=== PATIENT | male | born 1970 ===

== ENCOUNTER 2018-05-04 08:09 | Emergency (ER) | payer OTHER ==
[2018-05-04 08:15] VITALS: BMI 25.1
[2018-05-04] MEDS ORDERED: Sodium Chloride 0.9% 1,000 ML IV STA ×3 (08:52→12:29)
--- NOTE | 2018-05-04 08:53 | ED PDOC ---
HPI: Abdomen Time Seen by Provider: 05/04/18 08:26 Chief Complaint (Nursing): Flu-like Symptoms Chief Complaint (Provider): Flu-like Symptoms History Per: Patient History/Exam Limitations: no limitations Onset/Duration Of Symptoms: Days (x2) Current Symptoms Are (Timing): Still Present Additional Complaint(s): 48 year old male with medical history of diabetes type I, presents to the emergency department with father at bedside, for multiple episodes of vomiting associated with abdominal pain, chills, and back pain since yesterday afternoon. Patient states that he has had decreased appetite, however, sugar level was 225 when he checked it this morning. He denies fever or diarrhea. 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 He reports having "a few beers" last on 04/30/18. PCP: Dr. Harpreet Egan in [place] Past Medical History Reviewed: Historical Data, Nursing Documentation, Vital Signs Vital Signs: Last Vital Signs Temp 97 F L 05/04/18 08:17 Pulse 106 H 05/04/18 08:17 Resp 22 05/04/18 08:17 BP 146/109 H 05/04/18 08:17 Pulse Ox 100 05/04/18 08:17 - Medical History PMH: Diabetes (type I), HTN, Hypercholesterolemia - Surgical History Surgical History: No Surg Hx - Family History Family History: States: Unknown Family Hx - Social History Alcohol: Occasional - Immunization History Hx Tetanus Toxoid Vaccination: No Hx Influenza Vaccination: No Hx Pneumococcal Vaccination: No - Home Medications Home Medications: Ambulatory Orders Medication Instructions Recorded Famotidine [Pepcid] 20 mg PO DAILY #14 tab 05/04/18 Omeprazole 20 mg PO DAILY #30 capsule. 05/04/18 - Allergies Allergies/Adverse Reactions: Allergies Allergy/AdvReac Type Severity Reaction Status Date / Time No Known Allergies Allergy Verified 05/04/18 08:28 Review of Systems ROS Statement: Except As Marked, All Systems Reviewed And Found Negative Constitutional: Positive for: Chills. Negative for: Fever Gastrointestinal: Positive for: Vomiting (x3), Abdominal Pain, Other (decreased appetite). Negative for: Diarrhea Musculoskeletal: Positive for: Back Pain Physical Exam - Reviewed Nursing Documentation Reviewed: Yes Vital Signs Reviewed: Yes - Physical Exam Appears: Positive for: Non-toxic, Uncomfortable Head Exam: Positive for: ATRAUMATIC, NORMAL INSPECTION, NORMOCEPHALIC Skin: Positive for: Normal Color Eye Exam: Positive for: Normal appearance, EOMI, PERRL ENT: Positive for: Normal ENT Inspection. Negative for: Pharyngeal Erythema, Tonsillar Swelling Neck: Positive for: Normal, Supple Cardiovascular/Chest: Positive for: Regular Rate, Rhythm Respiratory: Positive for: Normal Breath Sounds. Negative for: Respiratory Distress Gastrointestinal/Abdominal: Positive for: Soft, Tenderness (epigastric) Back: Positive for: Normal Inspection. Negative for: L CVA Tenderness, R CVA Tenderness Extremity: Positive for: Normal ROM (upper/lower) Neurologic/Psych: Positive for: Alert, Oriented - Laboratory Results Result Diagrams: 05/04/18 08:50 05/04/18 08:50 - ECG O2 Sat by Pulse Oximetry: 100 (RA) Pulse Ox Interpretation: Normal - Progress Re-evaluation Time: 14:30 Condition: Re-examined, Improved Medical Decision Making Medical Decision Making: Initial Impression: Abdominal pain; vomiting Differential diagnosis: Acute pancreatitis; gallbladder disease; SBO Initial Plan: * CT ABD/pelvis * Labs * IV fluids * Pepcid 20mg IVP * Zofran 4mg IVP Time: 1132 --CT ABD/pelvis FINDINGS: LOWER THORAX: Unremarkable. LIVER: Diffusely diminished attenuation consistent with fatty infiltration. Smooth contour. No mass. No biliary dilatation. Mild hepatomegaly. GALLBLADDER AND BILE DUCTS: Cholelithiasis. No mural thickening or pericholecystic fluid. PANCREAS: Mildly atrophic. No mass identified. Questionable multifocal segmental ductal dilatation. This may be seen in association with chronic pancreatitis. No pancreatic calcification identified.. SPLEEN: Unremarkable. ADRENALS: Unremarkable. No mass. KIDNEYS AND URETERS: Unremarkable. No hydronephrosis. No solid mass. VASCULATURE: Unremarkable. No aortic aneurysm. There is mild atherosclerotic calcification of the abdominal aorta. BOWEL: Unremarkable. No obstruction. No gross mural thickening. APPENDIX: Normal appendix. PERITONEUM: Unremarkable. No free fluid. No free air. LYMPH NODES: Shotty subcentimeter mesenteric nodes are identified. There is no retroperitoneal or pelvic lymphadenopathy identified. BLADDER: Unremarkable. REPRODUCTIVE: Normal prostate BONES: No acute fracture. OTHER FINDINGS: None. IMPRESSION: Fatty infiltration of the liver. Pancreatic atrophy with possible multifocal segmental ductal dilatation. This may be seen in association with chronic pancreatitis despite the absence of pancreatic calcifications. Correlate clinically. Shotty subcentimeter mesenteric lymph nodes are noted, nonspecific. No additional abnormality. Time: 1228 --US gallbladder and IV fluids additionally ordered for persistent epigastric pain. Time: 1422 --US gallbladder FINDINGS: LIVER: Measures 16.8 cm in length. There is diffuse increased echogenicity of the liver parenchyma. No mass. No intrahepatic bile duct dilatation. GALLBLADDER: There are gallstones. No wall thickening or pericholecystic fluid. The sonographic Moyer's sign is negative. There is also a 6 x 4 x 7 mm polypoid echogenic lesion along the posterior gallbladder wall without central flow on color Doppler imaging. COMMON BILE DUCT: Measures 2.9 mm. No stones. No dilatation. PANCREAS: Unremarkable as visualized. No mass. No ductal dilatation. RIGHT KIDNEY: Measures 11.8 cm in length. Normal echogenicity. No calculus, mass, or hydronephrosis. AORTA: No aneurysmal dilatation. IVC: Unremarkable. OTHER FINDINGS: None . IMPRESSION: Cholelithiasis. Suspect 7 mm gallbladder polyp along the posterior wall. Follow-up in 6-12 m onth interval is recommended to assess stability. Mild hepatomegaly. Fatty liver. Scribe Attestation: Documented by Raquel Haywood, acting as a scribe for Kayleigh Mackey MD. Provider Scribe Attestation: All medical record entries made by the Scribe were at my direction and personally dictated by me. I have reviewed the chart and agree that the record accurately reflects my personal performance of the history, physical exam, medical decision making, and the department course for this patient. I have also personally directed, reviewed, and agree with the discharge instructions and disposition. Disposition - Clinical Impression Clinical Impression: Abdominal pain, Gallstones - Patient ED Disposition Is Patient to be Admitted: No Doctor Will See Patient In The: Office Counseled Patient/Family Regarding: Studies Performed, Diagnosis, Need For Followup - Disposition Referrals: Lionel Robles MD [Staff Provider] - Santo Hinton MD, PhD [Staff Provider] - Disposition: Routine/Home Disposition Time: 14:30 Condition: GOOD Additional Instructions: KARISHMA RAYMOND, thank you for letting us take care of you today. Your provider was Kayleigh Mackey MD and you were treated for VOMITING; DIZZY. The emergency medical care you received today was directed at your acute symptoms. If you were prescribed any medication, please fill it and take as directed. It may take several days for your symptoms to resolve. Return to the Emergency Department if your symptoms worsen, do not improve, or if you have any other problems. Please contact your doctor or call one of the physicians/clinics you have been referred to that are listed on the Patient Visit Information form that is included in your discharge packet. Bring any paperwork you were given at discharge with you along with any medications you are taking to your follow up visit. Our treatment cannot replace ongoing medical care by a primary care provider outside of the emergency department. Thank you for allowing the [facility] team to be part of your care today. If you had an X-Ray or CT scan: A Radiologist will review the ED reading if any change in treatment is needed we will contact you. If you had a blood, urine, or wound culture: It will take several days for the results, if any change in treatment is needed we will contact you. If you had an STI test: It will take 48 hours for the results. Please call after 1 week if you have not heard back. Prescriptions: Famotidine [Pepcid] 20 mg PO DAILY #14 tab Omeprazole 20 mg PO DAILY #30 capsule.dr Instructions: Gallstones, Stomach Ache and Stomach Upset Forms: [employer] ([place])
[2018-05-04 09:11] LABS: BASO # 0.1 K/uL (0.0-0.2); HEMOGLOBIN 14.3 g/dL (12.0-18.0); LYMPH % 10.4 % (20.0-40.0); MEAN CELL VOLUME 95.6 fl (80.0-94.0); MEAN CORPUSCULAR HEMOGLOBIN 32.2 pg (27.0-31.0); MEAN CORPUSCULAR HGB CONC 33.7 g/dL (33.0-37.0); MONO # 0.4 K/uL (0.0-0.8); MONO % 4.3 % (0.0-10.0); NEUT % 84.3 % (50.0-75.0); RBC 4.43 Mil/uL (4.40-5.90); RED CELL DISTRIBUTION WIDTH 12.4 % (11.5-14.5); WHITE BLOOD COUNT 9.4 K/uL (4.8-10.8)
[2018-05-04 09:21] LABS: ALB/GLOB RATIO 1.5 (1.0-2.1); ALBUMIN 5.5 g/dL (3.5-5.0); ALT/SGPT 42 U/L (21-72); AST/SGOT 44 U/L (17-59); BLOOD UREA NITROGEN 18 mg/dl (9-20); CALCIUM 10.4 mg/dL (8.4-10.2); GFR NON-AFRICAN AMERICAN > 60; LIPASE 15 U/L (23-300)
[2018-05-04] MEDS ORDERED: Iohexol 300 100 ML IJ ONE (10:11)
[2018-05-04] MEDS ORDERED: Sodium Chloride 0.9% 50 ML IV ONE (10:12)
[2018-05-04 11:27] LABS: ABG ALLEN TEST YES; ARTERIAL BLOOD GAS HEMOGLOBIN 13.8 g/dL (11.7-17.4); ARTERIAL BLOOD GAS O2 CAPACITY 18.4 mL/dL (16-24); ARTERIAL BLOOD GAS O2 CONTENT 18.3 ML/dL (15-23); ARTERIAL BLOOD GAS O2 SAT 99.2 % (95-98); ARTERIAL BLOOD GAS PCO2 34 mm/Hg (35-45); ARTERIAL BLOOD GAS PH 7.43 (7.35-7.45); ARTERIAL BLOOD GAS PO2 102 mm/Hg (80-100); ARTERIAL BLOOD GAS TCO2 23.6 mmol/L (22-28)
--- NOTE | 2018-05-04 11:35 | CT ---
Date of service: 05/04/2018 PROCEDURE: CT Abdomen and Pelvis with contrast HISTORY: vomiting epigastric pain COMPARISON: None. TECHNIQUE: Contrast dose: 95 cc Omnipaque 300 Radiation dose: Total exam DLP = 563.6 mGy-cm. This CT exam was performed using one or more of the following dose reduction techniques: Automated exposure control, adjustment of the mA and/or kV according to patient size, and/or use of iterative reconstruction technique. FINDINGS: LOWER THORAX: Unremarkable. LIVER: Diffusely diminished attenuation consistent with fatty infiltration. Smooth contour. No mass. No biliary dilatation. Mild hepatomegaly. GALLBLADDER AND BILE DUCTS: Cholelithiasis. No mural thickening or pericholecystic fluid. PANCREAS: Mildly atrophic. No mass identified. Questionable multifocal segmental ductal dilatation. This may be seen in association with chronic pancreatitis. No pancreatic calcification identified.. SPLEEN: Unremarkable. ADRENALS: Unremarkable. No mass. KIDNEYS AND URETERS: Unremarkable. No hydronephrosis. No solid mass. VASCULATURE: Unremarkable. No aortic aneurysm. There is mild atherosclerotic calcification of the abdominal aorta. BOWEL: Unremarkable. No obstruction. No gross mural thickening. APPENDIX: Normal appendix. PERITONEUM: Unremarkable. No free fluid. No free air. LYMPH NODES: Shotty subcentimeter mesenteric nodes are identified. There is no retroperitoneal or pelvic lymphadenopathy identified. BLADDER: Unremarkable. REPRODUCTIVE: Normal prostate BONES: No acute fracture. OTHER FINDINGS: None. IMPRESSION: Fatty infiltration of the liver. Pancreatic atrophy with possible multifocal segmental ductal dilatation. This may be seen in association with chronic pancreatitis despite the absence of pancreatic calcifications. Correlate clinically. Shotty subcentimeter mesenteric lymph nodes are noted, nonspecific. No additional abnormality.
[2018-05-04 11:36] VITALS: PULSE 89
--- NOTE | 2018-05-04 14:26 | US ---
Date of service: 05/04/2018 HISTORY: Epigastric pain COMPARISON: CT abdomen and pelvis from 05/04/2018 TECHNIQUE: Grayscale imaging was performed. FINDINGS: LIVER: Measures 16.8 cm in length. There is diffuse increased echogenicity of the liver parenchyma. No mass. No intrahepatic bile duct dilatation. GALLBLADDER: There are gallstones. No wall thickening or pericholecystic fluid. The sonographic Moyer's sign is negative. There is also a 6 x 4 x 7 mm polypoid echogenic lesion along the posterior gallbladder wall without central flow on color Doppler imaging. COMMON BILE DUCT: Measures 2.9 mm. No stones. No dilatation. PANCREAS: Unremarkable as visualized. No mass. No ductal dilatation. RIGHT KIDNEY: Measures 11.8 cm in length. Normal echogenicity. No calculus, mass, or hydronephrosis. AORTA: No aneurysmal dilatation. IVC: Unremarkable. OTHER FINDINGS: None . IMPRESSION: Cholelithiasis. Suspect 7 mm gallbladder polyp along the posterior wall. Follow-up in 6-12 month interval is recommended to assess stability. Mild hepatomegaly. Fatty liver.
[2018-05-04 15:05] VITALS: BP 132/74; RESP 19; TEMP 98.6
--- NOTE | 2018-05-04 18:21 | CARD ---
APPROVED REPORT Date of service: 05/04/2018 EKG Measurement Heart [id number] <Conclusion> Sinus tachycardia with occasional premature ventricular complexes Otherwise normal ECG
[2018-05-05 10:59] VITALS: O2SAT 100
== END 2018-05-04 15:06 | disposition home or self-care (01) ==
LOC: H.ER 08:09
DX: R10.9 Unspecified abdominal pain (principal); K80.20 Calculus of gallbladder without cholecystitis without obstruction; E78.00 Pure hypercholesterolemia, unspecified; I10 Essential (primary) hypertension; K76.0 Fatty (change of) liver, not elsewhere classified; Z79.4 Long term (current) use of insulin
CPT/HCPCS: 36600; 74177; 76705; 80053; 82803; 82948; 83690; 85025; 93005; 96374; 96375; 99284; J2405; J7030; Q9967

== ENCOUNTER 2018-05-14 11:05 | Inpatient (IN) | payer OTHER ==
[2018-05-14 11:09] VITALS: BMI 24.4
[2018-05-14] MEDS ORDERED: Sodium Chloride 0.9% 1,000 ML IV STA ×4 (11:27→15:09)
--- NOTE | 2018-05-14 11:38 | ED PDOC ---
HPI: General Adult Time Seen by Provider: 05/14/18 11:13 Chief Complaint (Nursing): GI Problem Chief Complaint (Provider): Nausea, vomiting, low back pain History Per: Patient, Family History/Exam Limitations: no limitations Onset/Duration Of Symptoms: Hrs (this morning) Current Symptoms Are (Timing): Still Present Additional Complaint(s): Quique Reilly is a 48 year old male, with a past medical history of diabetes, who was brought to the emergency department by EMS and accompanied by parents for evaluation of nausea, vomiting, and low back pain onset this mo rning. Patient further states he is not able to see and feels dizzy. Patient admits drinking vodka at home last night and parents state he went to bed at 23:00 which is normal for him. Mother reports patient's sugar level was in the 300s this morning. Patient was seen in the ED x1 week ago and diagnosed with cholelithiasis. Patient denies any fever, chills, headache, fall or head injuries, chest pain, shortness of breath, abdominal pain, diarrhea, weakness, numbness or tingling. No further medical complaints. PMD: Dr. Egan Past Medical History Reviewed: Historical Data, Nursing Documentation, Vital Signs Vital Signs: Last Vital Signs Temp 96.0 F L 05/14/18 11:13 Pulse 158 H 05/14/18 11:13 Resp 20 05/14/18 11:13 BP 110/87 05/14/18 11:13 Pulse Ox 100 05/14/18 11:13 - Medical History PMH: Diabetes (type I), HTN, Hypercholesterolemia - Surgical History Surgical History: No Surg Hx - Family History Family History: States: Unknown Family Hx - Social History Alcohol: Social - Immunization History Hx Tetanus Toxoid Vaccination: No Hx Influenza Vaccination: No Hx Pneumococcal Vaccination: No - Home Medications Home Medications: Ambulatory Orders Medication Instructions Recorded Unobtainable 05/14/18 - Allergies Allergies/Adverse Reactions: Allergies Allergy/AdvReac Type Severity Reaction Status Date / Time No Known Allergies Allergy Verified 05/04/18 08:28 Review of Systems ROS Statement: Except As Marked, All Systems Reviewed And Found Negative Constitutional: Negative for: Fever, Chills Eyes: Positive for: Vision Change Cardiovascular: Negative for: Chest Pain Respiratory: Negative for: Shortness of Breath Gastrointestinal: Positive for: Nausea, Vomiting. Negative for: Abdominal Pain, Diarrhea Musculoskeletal: Positive for: Back Pain (lower) Neurological: Positive for: Dizziness. Negative for: Weakness, Numbness (tingling), Headache Physical Exam - Reviewed Nursing Documentation Reviewed: Yes Vital Signs Reviewed: Yes - Physical Exam Appears: Positive for: No Acute Distress Head Exam: Positive for: ATRAUMATIC, NORMAL INSPECTION, NORMOCEPHALIC Skin: Positive for: Normal Color, Warm, Dry Eye Exam: Positive for: Normal appearance, EOMI, Other (Pinpoint pupils) Neck: Positive for: Normal, Painless ROM Cardiovascular/Chest: Positive for: Regular Rate, Rhythm. Negative for: Murmur Respiratory: Positive for: Normal Breath Sounds. Negative for: Respiratory Distress Gastrointestinal/Abdominal: Positive for: Normal Exam, Soft. Negative for: Tenderness Back: Positive for: Normal Inspection. Negative for: L CVA Tenderness, R CVA Tenderness, Vertebral Tenderness Extremity: Positive for: Normal ROM (upper and lower extremities). Negative for: Deformity, Swelling Neurological/Psych: Positive for: Awake, Alert (arousable to tactile stimuli), Normal Tone, Oriented - Laboratory Results Result Diagrams: 05/14/18 11:32 05/14/18 11:32 - ECG ECG Rhythm: Positive for: Sinus Tachycardia, Atrial Fibrillation (with RVR) Rate: 158 O2 Sat by Pulse Oximetry: 100 (RA) Pulse Ox Interpretation: Normal - Core Measure Core Measure Indicators: Code Sepsis - Critical Care Total Time (In Min): 200 Medical Decision Making Medical Decision Making: Time: 11:13 Initial Impression: Nausea, vomiting Initial Plan: --ABG Shock Panel --Head CT --EKG --Alcohol serum --CMP --Drug screen, urine --Lipase --TSH --Troponin I --Urine dipstick --CBC w/ differential --PTT --PT --Chest portable [RAD] --NaCl 1,000 ml IV 1,000 mls/hr --Urinalysis --Reevaluation 11:20 -Glucose level is 327 11:37 -Labs show wbc of 23.6 12:[address] FINDINGS: HEMORRHAGE: No intracranial hemorrhage. BRAIN: No mass effect or edema. Mild diffuse cerebral cortical atrophy is noted, greater than expected for the patient's age. No cortical effacement is noted. Minimal small vessel changes are not excluded as well as a probable small area of white matter infarct in the posterior right parietal lobe on axial image 21 series 2. No extra-axial fluid collection is seen. VENTRICLES: Unremarkable. No hydrocephalus. CALVARIUM: Unremarkable. PARANASAL SINUSES: Unremarkable as visualized. No significant inflammatory changes. MASTOID AIR CELLS: Unremarkable as visualized. No inflammatory changes. OTHER FINDINGS: None. IMPRESSION: No evidence of intracranial hemorrhage or recent infarct. Nonspecific cerebral cortical atrophy and probable scattered white matter changes greater than expected for the patient's age. 13:06 CXR FINDINGS: LUNGS: No active pulmonary disease. PLEURA: No significant pleural effusion identified, no pneumothorax apparent. CARDIOVASCULAR: No appreciable aortic atherosclerotic calcification present. Normal cardiac size. No pulmonary vascular congestion. OSSEOUS STRUCTURES: No significant abnormalities. VISUALIZED UPPER ABDOMEN: Normal. OTHER FINDINGS: None. IMPRESSION: No active disease. 13:05 ABG shows pCO2: 16, bicarb: 0.7, pH 6.81. Lactate is 16.1 13:10 -Rectal temp done and is 92.5. Code sepsis was initiated. LP verbal consent obtained from patient, witnessed by Gely BENITES. Bear hugger placed and 2nd line established. Given Rocephin and Vancomycin. Patient states he is now able to see. Accession No. : [id number] Patient Name / ID : MANDI Collado / [id number] Exam Date : 05/14/2018 12:31:23 ( Approved ) Study Comment : Sex / Age : M / 48Y Creator : Debra Díaz MD Dictator : Debra Díaz MD Grinding Supervisor : Data Center Manager : Debra Díaz MD Approver2 : Report Date : 05/14/2018 13:53:15 My Comment : This report is currently processing and HAS NOT BEEN OFFICIALLY SIGNED BY THE PHYSICIAN - ESTIMATED TIME OF APPROVAL IS 05/14/2018 13:58. Date of service: 05/14/2018 PROCEDURE: CT Abdomen and Pelvis with contrast HISTORY: Back pain COMPARISON: 05/04/2018 CT scan TECHNIQUE: Contrast dose: 95 milliliters Radiation dose: Total exam DLP = 597.15 mGy-cm. This CT exam was performed using one or more of the following dose reduction techniques: Automated exposure control, adjustment of the mA and/or kV according to patient size, and/or use of iterative reconstruction technique. FINDINGS: LOWER THORAX: No new infiltrate or effusion is seen. Visualized esophagus is fluid-filled with small hiatal hernia. Reflux should be excluded clinically. There is some moderate fluid and distention of the stomach also noted. An element of gastritis cannot be excluded. Duodenum is otherwise unremarkable. LIVER: Liver is once again severely fatty infiltrated. No appreciable focal liver mass or intrahepatic ductal dilatation is seen. GALLBLADDER AND BILE DUCTS: There is interval change in the appearance of the gallbladder from the prior examination, with some new areas of low density surrounding the gallbladder s uggesting either some gallbladder wall thickening or pericholecystic fluid. Common bile duct is not appear to be significantly dilated and no appreciable common bile duct stone is noted. PANCREAS: Pancreas is predominately atrophied without evidence of new mass. Minimal amount of haziness adjacent to the pancreas may suggest some minor pancreatitis but should be correlated with laboratory values. SPLEEN: Unremarkable. ADRENALS: Unremarkable. No mass. KIDNEYS AND URETERS: Unremarkable. No hydronephrosis. No solid mass. VASCULATURE: Unremarkable. No aortic aneurysm. Minor aortic atherosclerotic calcification or mural plaque present. BOWEL: There is evidence of moderate residual fecal material throughout the colon. However in addition there appears to be some new areas of mild colonic wall thickening greater within the proximal right colon but also some portions seen in the transverse colon. Finding may suggest mild colitis or be related to some chronic constipation. Terminal ileum is unremarkable. No small bowel obstruction is noted. No small bowel fold thickening is clearly seen. APPENDIX: No right lower quadrant inflammatory process is seen to suggest appendicitis. Appendix is grossly normal in outline. PERITONEUM: No free intraperitoneal air is seen. No appreciable ascites elsewhere. Visualized mesentery shows some small scattered shotty LYMPH NODES: Without significant induration. BLADDER: Bladder is moderately distended. No wall thickening is seen. REPRODUCTIVE: Unremarkable. BONES: No acute fracture. OTHER FINDINGS: None. IMPRESSION: Distended in fluid-filled stomach with some possible mild antral wall thickening which may suggest antritis and gastritis. There is additionally nonspecific low density surrounding the gallbladder, new from the prior study. This would suggest gallbladder wall thickening and/or pericholecystic fluid. No appreciable bile duct dilatation. Minor amount of haziness surrounding the pancreas may suggest minor pancreatitis. Additional mild colonic wall thickening and moderate amounts of residual fecal material throughout the colon suggesting either chronic constipation and/or mild colitis. Distended urinary bladder. Moderate fatty infiltration of the liver. 13:45 Case discussed with 14:00 Dr. Haim gan. Scribe Attestation: Documented by Ang Mina, acting as a scribe for Adri Segura MD Provider Scribe Attestation: All medical record entries made by the Scribe were at my direction and personally dictated by me. I have reviewed the chart and agree that the record accurately reflects my personal performance of the history, physical exam, medi michelle decision making, and the department course for this patient. I have also personally directed, reviewed, and agree with the discharge instructions and disposition. Time: 1421 -- Dr. Sanchez in the ED evaluating the patient and recommended an insulin drop and Flagyl. -- Repeat ABG -- General Surgery Consult -- Glucose, POC -- Dextrose 50% Inj See Protocol IV -- Flagyl 500mg/100ml NS 100 ml IV -- Glucagen Diagnostic Kit See Prorotol IM -- Glutose 15 See Protocol PO Once -- Sodium Chloride 0.9% 1000 ml IV 1000 mls/hr -- Sodium Chloride 0.9% 100 ml Insulin Human Regular 100 units IV 8 units/hr -- Glucose, Blood, POC -- Hypoglycemia Oral Treatment PRN -- Notify M.Sandrine Protocol Scribe Attestation: Documented by Crystal Fabian, acting as a scribe Xi Segura MD. Provider Scribe Attestation: All medical record entries made by the Scribe were at my direction and personally dictated by me. I have reviewed the chart and agree that the record accurately reflects my personal performance of the history, physical exam, medical decision making, and the department course for this patient. I have also personally directed, reviewed, and agree with the discharge instructions and disposition. Procedures - Central Line Central Line Lumen: triple Central Line Procedure: betadine prep, sterile drapes applied, sterile dressing applied Central Line Postion: femoral (R) Anesthesia: Lidocaine Complications: none Central Line Post Position: good blood return Disposition - Clinical Impression Clinical Impression: Sepsis, DKA (diabetic ketoacidoses) - Patient ED Disposition Is Patient to be Admitted: Yes - Disposition Disposition Time: 13:52 Condition: CRITICAL - Pt Status Changed To: Hospital Disposition Of: Inpatient - Admit Certification Admit to Inpatient:: After my assessment, the patient will require hospitalization for at least two midnights. This is because of the severity of symptoms shown, intensity of services needed, and/or the medical risk in this patient being treated as an outpatient. - POA Present On Arrival: Poor Glycemic Control Lumbar Puncture - Time Out Time Out: Side verified, Site verified, Patient ID confirmed - Consent obtained Consent obtained: Verbal - Performed by Performed by: Attending Physician - Contraindications Contraindications: None - Patient Position Patient position: Sitting - Local Anesthetic Local Anesthetic: 5 ccs 1% Lidocaine Location: L4/L5 - Post-procedure Post-procedure: Patient laid flat - Complications Complications: None - Patient tolerated procedure Patient tolerated procedure: Well
[2018-05-14 11:54] LABS: BASO # 0.2 K/uL (0.0-0.2); BASO % 0.9 % (0.0-2.0); EOS % 0.2 % (0.0-4.0); HEMOGLOBIN 13.1 g/dL (12.0-18.0); LYMPH # 4.1 K/uL (1.0-4.3); LYMPH % 17.2 % (20.0-40.0); MEAN CELL VOLUME 104.6 fl (80.0-94.0); MEAN CORPUSCULAR HEMOGLOBIN 31.6 pg (27.0-31.0); MEAN CORPUSCULAR HGB CONC 30.2 g/dL (33.0-37.0); MEAN PLATELET VOLUME 8.5 fl (7.2-11.7); MONO # 2.2 K/uL (0.0-0.8); MONO % 9.3 % (0.0-10.0); NEUT # 17.1 K/uL (1.8-7.0); NEUT % 72.4 % (50.0-75.0); NRBC % 0.4 % (0.0-0.0); RBC 4.14 Mil/uL (4.40-5.90); RED CELL DISTRIBUTION WIDTH 13.4 % (11.5-14.5); WHITE BLOOD COUNT 23.6 K/uL (4.8-10.8)
[2018-05-14 12:19] LABS: INR 0.9; PROTHROMBIN TIME 10.3 Seconds (9.8-13.1)
[2018-05-14] MEDS ORDERED: Iodixanol 320 MG/ML 100 ML BOTTLE IV ONE (12:21)
[2018-05-14] MEDS ORDERED: Sodium Chloride 0.9% 50 ML IV ONE (12:21)
[2018-05-14 12:22] LABS: PARTIAL THROMBOPLASTIN TIME 39.7 Seconds (25.6-37.1)
--- NOTE | 2018-05-14 12:30 | CT ---
Date of service: 05/14/2018 PROCEDURE: CT HEAD WITHOUT CONTRAST. HISTORY: Vertigo COMPARISON: None available. TECHNIQUE: Axial computed tomography images were obtained through the head/brain without intravenous contrast. Radiation dose: Total exam DLP = 1147.32 mGy-cm. This CT exam was performed using one or more of the following dose reduction techniques: Automated exposure control, adjustment of the mA and/or kV according to patient size, and/or use of iterative reconstruction technique. FINDINGS: HEMORRHAGE: No intracranial hemorrhage. BRAIN: No mass effect or edema. Mild diffuse cerebral cortical atrophy is noted, greater than expected for the patient's age. No cortical effacement is noted. Minimal small vessel changes are not excluded as well as a probable small area of white matter infarct in the posterior right parietal lobe on axial image 21 series 2. No extra-axial fluid collection is seen. VENTRICLES: Unremarkable. No hydrocephalus. CALVARIUM: Unremarkable. PARANASAL SINUSES: Unremarkable as visualized. No significant inflammatory changes. MASTOID AIR CELLS: Unremarkable as visualized. No inflammatory changes. OTHER FINDINGS: None. IMPRESSION: No evidence of intracranial hemorrhage or recent infarct. Nonspecific cerebral cortical atrophy and probable scattered white matter changes greater than expected for the patient's age.
[2018-05-14 13:01] LABS: ABG ALLEN TEST YES; ARTERIAL BLOOD GAS HCO3 0.7 mmol/L (21-28); ARTERIAL BLOOD GAS O2 SAT 99.2 % (95-98); ARTERIAL BLOOD GAS PCO2 16 mm/Hg (35-45); ARTERIAL BLOOD GAS PH 6.81 (7.35-7.45); ARTERIAL BLOOD GAS PO2 153 mm/Hg (80-100)
[2018-05-14] MEDS ORDERED: cefTRIAXone 2 GM in Sodium Chloride 0.9% 100 ML IVPB STA (13:10)
--- NOTE | 2018-05-14 13:10 | RAD ---
Date of service: 05/14/2018 HISTORY: Back pain COMPARISON: No prior. FINDINGS: LUNGS: No active pulmonary disease. PLEURA: No significant pleural effusion identified, no pneumothorax apparent. CARDIOVASCULAR: No appreciable aortic atherosclerotic calcification present. Normal cardiac size. No pulmonary vascular congestion. OSSEOUS STRUCTURES: No significant abnormalities. VISUALIZED UPPER ABDOMEN: Normal. OTHER FINDINGS: None. IMPRESSION: No active disease.
[2018-05-14] MEDS ORDERED: Vancomycin 1 g Inj ONE (13:14)
[2018-05-14 13:17] LABS: ALB/GLOB RATIO 1.6 (1.0-2.1); ALBUMIN 5.2 g/dL (3.5-5.0); ALT/SGPT 111 U/L (21-72); AST/SGOT 176 U/L (17-59); BLOOD UREA NITROGEN 11 mg/dl (9-20); CALCIUM 8.8 mg/dL (8.4-10.2); GFR NON-AFRICAN AMERICAN 59; LIPASE 69 U/L (23-300)
[2018-05-14] MEDS ORDERED: Lidocaine Hydrochloride 1% 10 ML ONE (13:17)
[2018-05-14] MEDS ORDERED: Sodium Bicarbonate 4.2% Inj (Infant) IVP STA (13:33)
[2018-05-14] MEDS ORDERED: Sodium Bicarbonate 7.5% (0.9 MEQ/ML) 50ML INJ IV STA ×2 (13:39→13:40)
[2018-05-14] MEDS ORDERED: Sodium Bicarbonate (8.4%) 50 Meq Syringe ONE (13:45)
[2018-05-14] MEDS ORDERED: Sodium Bicarbonate (8.4%) 50 Meq Syringe IVP STA ×2 (13:51→13:52)
--- NOTE | 2018-05-14 13:57 | CT ---
Date of service: 05/14/2018 PROCEDURE: CT Abdomen and Pelvis with contrast HISTORY: Back pain COMPARISON: 05/04/2018 CT scan TECHNIQUE: Contrast dose: 95 milliliters Radiation dose: Total exam DLP = 597.15 mGy-cm. This CT exam was performed using one or more of the following dose reduction techniques: Automated exposure control, adjustment of the mA and/or kV according to patient size, and/or use of iterative reconstruction technique. FINDINGS: LOWER THORAX: No new infiltrate or effusion is seen. Visualized esophagus is fluid-filled with small hiatal hernia. Reflux should be excluded clinically. There is some moderate fluid and distention of the stomach also noted. An element of gastritis cannot be excluded. Duodenum is otherwise unremarkable. LIVER: Liver is once again severely fatty infiltrated. No appreciable focal liver mass or intrahepatic ductal dilatation is seen. GALLBLADDER AND BILE DUCTS: There is interval change in the appearance of the gallbladder from the prior examination, with some new areas of low density surrounding the gallbladder suggesting either some gallbladder wall thickening or pericholecystic fluid. Common bile duct is not appear to be significantly dilated and no appreciable common bile duct stone is noted. PANCREAS: Pancreas is predominately atrophied without evidence of new mass. Minimal amount of haziness adjacent to the pancreas may suggest some minor pancreatitis but should be correlated with laboratory values. SPLEEN: Unremarkable. ADRENALS: Unremarkable. No mass. KIDNEYS AND URETERS: Unremarkable. No hydronephrosis. No solid mass. VASCULATURE: Unremarkable. No aortic aneurysm. Minor aortic atherosclerotic calcification or mural plaque present. BOWEL: There is evidence of moderate residual fecal material throughout the colon. However in addition there appears to be some new areas of mild colonic wall thickening greater within the proximal right colon but also some portions seen in the transverse colon. Finding may suggest mild colitis or be related to some chronic constipation. Terminal ileum is unremarkable. No small bowel obstruction is noted. No small bowel fold thickening is clearly seen. APPENDIX: No right lower quadrant inflammatory process is seen to suggest appendicitis. Appendix is grossly normal in outline. PERITONEUM: No free intraperitoneal air is seen. No appreciable ascites elsewhere. Visualized mesentery shows some small scattered shotty LYMPH NODES: Without significant induration. BLADDER: Bladder is moderately distended. No wall thickening is seen. REPRODUCTIVE: Unremarkable. BONES: No acute fracture. OTHER FINDINGS: None. IMPRESSION: Distended in fluid-filled stomach with some possible mild antral wall thickening which may suggest antritis and gastritis. There is additionally nonspecific low density surrounding the gallbladder, new from the prior study. This would suggest gallbladder wall thickening and/or pericholecystic fluid. No appreciable bile duct dilatation. Minor amount of haziness surrounding the pancreas may suggest minor pancreatitis. Additional mild colonic wall thickening and moderate amounts of residual fecal material throughout the colon suggesting either chronic constipation and/or mild colitis. Distended urinary bladder. Moderate fatty infiltration of the liver.
[2018-05-14 14:11] LABS: URINE AMORPHOUS SEDIMENT RARE /ul (<OCC); URINE BACTERIA RARE (<OCC); URINE BILIRUBIN NEGATIVE (NEGATIVE); URINE BLOOD SMALL (NEGATIVE); URINE CLARITY CLOUDY (Clear); URINE COLOR YELLOW (YELLOW); URINE GLUCOSE (UA) >=500 mg/dL (NEGATIVE); URINE LEUKOCYTE ESTERASE NEG Leu/uL (Negative); URINE PROTEIN 100 mg/dL (NEGATIVE); URINE UROBILINOGEN 0.2-1.0 mg/dL (0.2-1.0)
[2018-05-14] MEDS ORDERED: Dextrose 50% SYRINGE Inj (50 ml) IV PRN ×2 (14:18→16:21)
[2018-05-14] MEDS ORDERED: Glucagon Recombinant 1 mg Inj IM PRN ×2 (14:18→16:21)
[2018-05-14] MEDS ORDERED: metroNIDAZOLE 500mg/100ml NS 100 ML IV STA (14:19)
[2018-05-14] MEDS ORDERED: metroNIDAZOLE 500mg/100ml NS 100 ML IVPB ONE (14:28)
[2018-05-14 14:35] LABS: BARBITURATES, UR NEGATIVE (NEGATIVE); BENZODIAZEPINES, UR NEGATIVE (NEGATIVE); OPIATES, UR NEGATIVE (NEGATIVE); PHENCYCLIDINE, UR NEGATIVE (NEGATIVE)
[2018-05-14 14:45] LABS: ABG ALLEN TEST YES; ARTERIAL BLOOD GAS HCO3 4.4 mmol/L (21-28); ARTERIAL BLOOD GAS PCO2 24 mm/Hg (35-45); ARTERIAL BLOOD GAS PH 6.94 (7.35-7.45); ARTERIAL BLOOD GAS PO2 29 mm/Hg (80-100); ARTERIAL BLOOD GAS TCO2 5.9 mmol/L (22-28)
[2018-05-14] MEDS ORDERED: Multivitamin (MVI) 10 ML, Thiamine 100 MG, Folic Acid 1 MG in Sodium Chloride 0.9% 1,00... IV ONE (14:51)
[2018-05-14] MEDS ORDERED: Thiamine 100 mg/ml Inj IM STA (14:52)
[2018-05-14 15:07] LABS: FLUID TYPE SPINAL FLUID
[2018-05-14 15:08] LABS: CSF APPEARANCE CLEAR/COLORLESS (CLEAR); CSF VOLUME 1 mL (0-1)
[2018-05-14] MEDS ORDERED: Thiamine 100 mg/ml Inj ONE (15:15)
--- NOTE | 2018-05-14 15:16 | CP.PCM.HP ---
<Teo Anderson - Last Filed: 05/14/18 19:10> History of Present Illness - History of Present Illness History of Present Illness: A 48 yo male with PMH of HTn, DM1 recent dx of cholelithiasis was brought to ER in the EMS accompanied by his sister and father due to fever chills, Nausea, vomiting NBNB, back pain that started today morning. Patient also report that he was unable to see and is feeling dizzy and have tingling sensation on his hand b/L. Patient report to be a chronic drinker ( 2-3 shot of vodka) daily and last drink was yesterday before bed. Patient is on insulin Humulog 20 at night and 12-15 unit of novolog after food. Patient report not taking his last dose of Novolog in morning due to not eating. Otherwise patient have no other complains. Patient denies any fever, chills, headache, fall or head injuries, chest pain, shortness of breath, abdominal pain, diarrhea, weakness, numbness. PMD: Dr. Egan Allergy: none Medication: Humolog 12-15 unit after food, Novolog 20 at night. 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 Drink 2-3 vodka shot a day ED course: Vitals: temp 96 ( rectal 92.5) , HR 157, BP 93/63 RR 20 CBC: + for WBC of 23.6 CMB: K 5.1, CL 90, anion Gap <5, Glucose 327 AST/ALT 176/111 ALk po 138 ABG shows pCO2: 16, bicarb: 0.7, pH 6.81. Lactate is 16.1 UA: WNL Sepsis protocol was called. Patient Rocephin and Vancomycin Given. CSF was done Positive for glucose 220H , and Total protein of 62H CSF culture sent EKG: + for A fib with RVR Head CT: No evidence of intracranial hemorrhage or recent infarct. Nonspecific cerebral cortical atrophy and probable scattered white matter changes greater than expected for the patient's age. Chest Xray: No active disease. CT abdomen: Distended in fluid-filled stomach with some possible mild antral wall thickening which may suggest antritis and gastritis. There is additionally nonspecific low density surrounding the gallbladder, new from the prior study. This would suggest gallbladder wall thickening and/or pericholecystic fluid. No appreciable bile duct dilatation. Minor amount of haziness surrounding the pancreas may suggest minor pancreatitis. Additional mild colonic wall thickening and moderate amounts of residual fecal material throughout the colon suggesting either chronic constipation and/or mild colitis. Distended urinary bladder. Moderate fatty infiltration of the liver. Patient treatment for DKA vs sepsis started and Hospitalist was called Patient Will be admitted to ICU for treatment and evaluate of DKA vs Sepsis. Present on Admission - Present on Admission Any Indicators Present on Admission: Yes History of Uncontrolled Diabetes: Yes Review of Systems - Constitutional Constitutional: Chills, Fever - Cardiovascular Cardiovascular: As Per HPI - Respiratory Respiratory: As Per HPI - Gastrointestinal Gastrointestinal: As Per HPI - Genitourinary Genitourinary: As Per HPI - Reproductive: Male Reproductive:Male: As Per HPI - Musculoskeletal Musculoskeletal: As Per HPI - Integumentary Integumentary: As Per HPI - Neurological Neurological: As Per HPI - Psychiatric Psychiatric: As Per HPI - Endocrine Endocrine: As Per HPI - Hematologic/Lymphatic Hematologic: As Per HPI Past Patient History - Past Social History Alcohol: Social - CARDIAC Hx Hypercholesterolemia: Yes Hx Hypertension: Yes - ENDOCRINE/METABOLIC Hx Diabetes Mellitus Type 1: Yes - PSYCHIATRIC Hx Substance Use: No - SURGICAL HISTORY Hx Surgeries: No - ANESTHESIA Hx Anesthesia: No Meds Allergies/Adverse Reactions: Allergies Allergy/AdvReac Type Severity Reaction Status Date / Time No Known Allergies Allergy Verified 05/04/18 08:28 Physical Exam - Constitutional Appears: Non-toxic - Head Exam Head Exam: ATRAUMATIC, NORMAL INSPECTION, NORMOCEPHALIC - Eye Exam Eye Exam: EOMI, Normal appearance, PERRL Pupil Exam: NORMAL ACCOMODATION, PERRL - ENT Exam ENT Exam: Mucous Membranes Moist, Normal Exam - Neck Exam Neck exam: Positive for: Normal Inspection - Respiratory Exam Respiratory Exam: Clear to Auscultation Bilateral, NORMAL BREATHING PATTERN - Cardiovascular Exam Cardiovascular Exam: REGULAR RHYTHM, +S1, +S2 - GI/Abdominal Exam GI & Abdominal Exam: Normal Bowel Sounds, Soft - Extremities Exam Extremities exam: Positive for: normal inspection - Back Exam Back exam: NORMAL INSPECTION Additional comments: No neck stiffness or rigidity - Neurological Exam Neurological exam: Alert, CN II-XII Intact, Oriented x3 - Psychiatric Exam Psychiatric exam: Normal Affect, Normal Mood - Skin Skin Exam: Dry, Intact, Normal Color, Warm Results - Vital Signs Recent Vital Signs: Last Vital Signs Temp 93.1 F L 05/14/18 14:10 Pulse 158 H 05/14/18 14:55 Resp 20 05/14/18 14:10 BP 154/89 H 05/14/18 14:10 Pulse Ox 100 05/14/18 14:55 - Labs Result Diagrams: 05/14/18 19:00 05/14/18 11:32 Labs: Laboratory Results - last 24 hr 05/14/18 05/14/18 05/14/18 11:21 11:32 11:32 WBC 23.6 H D RBC 4.14 L Hgb 13.1 Hct 43.3 MCV 104.6 H D MCH 31.6 H MCHC 30.2 L RDW 13.4 Plt Count 468 H D MPV 8.5 Neut % (Auto) 72.4 Lymph % (Auto) 17.2 L [place] % (Auto) 9.3 Eos % (Auto) 0.2 Baso % (Auto) 0.9 Neut # (Auto) 17.1 H Lymph # (Auto) 4.1 [place] # (Auto) 2.2 H Eos # (Auto) 0.0 Baso # (Auto) 0.2 PT INR APTT pCO2 pO2 HCO3 ABG pH ABG Total CO2 ABG O2 Saturation ABG Base Excess Fabian Test ABG Potassium A-a O2 Difference Glucose Lactate FiO2 Crit Value Called To Crit Value Called By Crit Value Read Back Blood Gas Notified Time Sodium 137 Potassium 5.1 H Chloride 90 L Carbon Dioxide < 5 L* D Anion Gap 47 H BUN 11 Creatinine 1.3 Est GFR ( Amer) > 60 Est GFR (Non-Af Amer) 59 POC Glucose (mg/dL) 327 H Random Glucose 288 H Calcium 8.8 Total Bilirubin 0.9 AST 176 H D ALT 111 H D Alkaline Phosphatase 138 H D Troponin I 0.0130 Total Protein 8.4 H Albumin 5.2 H Globulin 3.2 Albumin/Globulin Ratio 1.6 Lipase 69 TSH 3rd Generation 1.13 Arterial Blood Potassium Urine Color Urine Clarity Urine pH Ur Specific [place] Urine Protein Urine Glucose (UA) Urine Ketones Urine Blood Urine Nitrate Urine Bilirubin Urine Urobilinogen Ur Leukocyte Esterase Urine RBC (Auto) Urine Microscopic WBC Amorphous Sediment Urine Bacteria Fluid Type CSF Volume CSF Appearance CSF WBC CSF RBC CSF Comment CSF Glucose Urine Opiates Screen Urine Methadone Screen Ur Barbiturates Screen Ur Phencyclidine Scrn Ur Amphetamines Screen U Benzodiazepines Scrn U Oth Cocaine Metabols U Cannabinoids Screen Alcohol, Quantitative 28 H 05/14/18 05/14/18 05/14/18 11:32 12:57 13:10 WBC RBC Hgb Hct MCV MCH MCHC RDW Plt Count MPV Neut % (Auto) Lymph % (Auto) [place] % (Auto) Eos % (Auto) Baso % (Auto) Neut # (Auto) Lymph # (Auto) [place] # (Auto) Eos # (Auto) Baso # (Auto) PT 10.3 INR 0.9 APTT 39.7 H pCO2 16 L* pO2 153 H HCO3 0.7 L* ABG pH 6.81 L* ABG Total CO2 3.0 L ABG O2 Saturation 99.2 H ABG Base Excess -31.0 L Fabian Test Yes ABG Potassium 5.4 H A-a O2 Difference -23.0 Glucose 303 H Lactate 16.1 H* FiO2 21.0 Crit Value Called To Dr trae zapata Crit Value Called By 15 Crit Value Read Back Y Blood Gas Notified Time 1300 Sodium 127.0 L Potassium Chloride 88.0 L Carbon Dioxide Anion Gap BUN Creatinine Est GFR ( Amer) Est GFR (Non-Af Amer) POC Glucose (mg/dL) Random Glucose Calcium Total Bilirubin AST ALT Alkaline Phosphatase Troponin I Total Protein Albumin Globulin Albumin/Globulin Ratio Lipase TSH 3rd Generation Arterial Blood Potassium 5.4 H Urine Color Urine Clarity Urine pH Ur Specific [place] Urine Protein Urine Glucose (UA) Urine Ketones Urine Blood Urine Nitrate Urine Bilirubin Urine Urobilinogen Ur Leukocyte Esterase Urine RBC (Auto) Urine Microscopic WBC Amorphous Sediment Urine Bacteria Fluid Type CSF Volume CSF Appearance CSF WBC CSF RBC CSF Comment CSF Glucose Urine Opiates Screen Negative Urine Methadone Screen Negative Ur Barbiturates Screen Negative Ur Phencyclidine Scrn Negative Ur Amphetamines Screen Negative U Benzodiazepines Scrn Negative U Oth Cocaine Metabols Negative U Cannabinoids Screen Negative Alcohol, Quantitative 05/14/18 05/14/18 05/14/18 13:10 13:31 13:40 WBC RBC Hgb Hct MCV MCH MCHC RDW Plt Count MPV Neut % (Auto) Lymph % (Auto) [place] % (Auto) Eos % (Auto) Baso % (Auto) Neut # (Auto) Lymph # (Auto) [place] # (Auto) Eos # (Auto) Baso # (Auto) PT INR APTT pCO2 pO2 HCO3 ABG pH ABG Total CO2 ABG O2 Saturation ABG Base Excess Fabian Test ABG Potassium A-a O2 Difference Glucose Lactate FiO2 Crit Value Called To Crit Value Called By Crit Value Read Back Blood Gas Notified Time Sodium Potassium Chloride Carbon Dioxide Anion Gap BUN Creatinine Est GFR ( Amer) Est GFR (Non-Af Amer) POC Glucose (mg/dL) Random Glucose Calcium Total Bilirubin AST ALT Alkaline Phosphatase Troponin I Total Protein Albumin Globulin Albumin/Globulin Ratio Lipase TSH 3rd Generation Arterial Blood Potassium Urine Color Yellow Urine Clarity Cloudy Urine pH 5.0 Ur Specific [place] 1.012 Urine Protein 100 Urine Glucose (UA) >=500 Urine Ketones 80 Urine Blood Small Urine Nitrate Negative Urine Bilirubin Negative Urine Urobilinogen 0.2-1.0 Ur Leukocyte Esterase Neg Urine RBC (Auto) < 1 Urine Microscopic WBC 2 Amorphous Sediment Rare H Urine Bacteria Rare Fluid Type Spinal fluid CSF Volume 1 CSF Appearance Clear/colorless CSF WBC 1.0 CSF RBC 0.0 CSF Comment None CSF Glucose 220 H* Urine Opiates Screen Urine Methadone Screen Ur Barbiturates Screen Ur Phencyclidine Scrn Ur Amphetamines Screen U Benzodiazepines Scrn U Oth Cocaine Metabols U Cannabinoids Screen Alcohol, Quantitative 05/14/18 05/14/18 14:16 14:30 WBC RBC Hgb Hct MCV MCH MCHC RDW Plt Count MPV Neut % (Auto) Lymph % (Auto) [place] % (Auto) Eos % (Auto) Baso % (Auto) Neut # (Auto) Lymph # (Auto) [place] # (Auto) Eos # (Auto) Baso # (Auto) PT INR APTT pCO2 24 L pO2 29 L* HCO3 4.4 L* ABG pH 6.94 L* ABG Total CO2 5.9 L ABG O2 Saturation 75.0 L ABG Base Excess -25.6 L Fabian Test Yes ABG Potassium 5.5 H A-a O2 Difference 91.0 Glucose 325 H Lactate 12.1 H* FiO2 21.0 Crit Value Called To Dr benny frias Crit Value Called By 15 Crit Value Read Back Y Blood Gas Notified Time 1444 Sodium 134.0 Potassium Chloride 92.0 L Carbon Dioxide Anion Gap BUN Creatinine Est GFR ( Amer) Est GFR (Non-Af Amer) POC Glucose (mg/dL) 302 H Random Glucose Calcium Total Bilirubin AST ALT Alkaline Phosphatase Troponin I Total Protein Albumin Globulin Albumin/Globulin Ratio Lipase TSH 3rd Generation Arterial Blood Potassium 5.5 H Urine Color Urine Clarity Urine pH Ur Specific [place] Urine Protein Urine Glucose (UA) Urine Ketones Urine Blood Urine Nitrate Urine Bilirubin Urine Urobilinogen Ur Leukocyte Esterase Urine RBC (Auto) Urine Microscopic WBC Amorphous Sediment Urine Bacteria Fluid Type CSF Volume CSF Appearance CSF WBC CSF RBC CSF Comment CSF Glucose Urine Opiates Screen Urine Methadone Screen Ur Barbiturates Screen Ur Phencyclidine Scrn Ur Amphetamines Screen U Benzodiazepines Scrn U Oth Cocaine Metabols U Cannabinoids Screen Alcohol, Quantitative Assessment & Plan - Assessment and Plan (Free Text) Assessment: A 48 yo male with PMH of DM1 and HTN, and Positive hx of cholelithaiasis Will be admitted to ICU for treatment and evaluate of DKA vs Sepsis. CSF was done Positive for glucose 220H , and Total protein of 62H CSF culture sent Head CT: No evidence of intracranial hemorrhage or recent infarct. Nonspecific cerebral cortical atrophy and probable scattered white matter changes greater than expected for the patient's age. Chest Xray: No active disease. CT abdomen: Distended in fluid-filled stomach with some possible mild antral wall thickening which may suggest antritis and gastritis. There is additionally nonspecific low density surrounding the gallbladder, new from the prior study. This would suggest gallbladder wall thickening and/or pericholecystic fluid. No appreciable bile duct dilatation. Minor amount of haziness surrounding the pancreas may suggest minor pancreatitis. Additional mild colonic wall thickening and moderate amounts of residual fecal material throughout the colon suggesting either chronic constipation and/or mild colitis. Distended urinary bladder. Moderate fatty infiltration of the liver. PLAN: DKA Possibly due to sepsis vs dehydration. Endocrinology consult Raquel De Los Santos Lactic acid Insulin Drip hypoglycemia protocol IV fluid: Normal saline with 20 Mq KCL F/U CBC/BMP + MG, and PO4 Sepsis Hypothermia, hypotension, tachycardia s/p Rocephin and Vancomycin Given. Continue vancomycin and Zosyn. F/U vanco trough S/P Lumbar puncture F/U CSF culture and CSF studies F/U blood culture, MRSA screen, HIV and herpes. ID on case AFib with RVR Found on EKG S/P Cardizem at ER Continuous cardiac monitoring Considering another dose of Cardizem if unstable. Hx of Cholelithisis/Abnormal CT Abdomen/?Acute cholecystisis Possibly gallbladder wall thickening and/or pericholecystic fluid General Surgery consulted, F/U recommendations Alcohol withdrawal vs alcohol intoxication S/p thiamin B12 Positive for alcohol in urine tox Follow up for any symptoms of withdrawal Back pain Morphine DVT Prophylaxis SCD's Lovenox 40mg SC daily <Tate Meadnino D - Last Filed: 05/14/18 19:36> Results - Vital Signs Recent Vital Signs: Last Vital Signs Temp 99.2 F 05/14/18 17:45 Pulse 111 H 05/14/18 18:00 Resp 25 H 05/14/18 18:00 BP 116/74 05/14/18 18:00 Pulse Ox 100 05/14/18 18:00 - Labs Result Diagrams: 05/14/18 19:00 05/14/18 19:00 Labs: Laboratory Results - last 24 hr 05/14/18 05/14/18 05/14/18 11:21 11:32 11:32 WBC 23.6 H D RBC 4.14 L Hgb 13.1 Hct 43.3 MCV 104.6 H D MCH 31.6 H MCHC 30.2 L RDW 13.4 Plt Count 468 H D MPV 8.5 Neut % (Auto) 72.4 Lymph % (Auto) 17.2 L [place] % (Auto) 9.3 Eos % (Auto) 0.2 Baso % (Auto) 0.9 Neut # (Auto) 17.1 H Lymph # (Auto) 4.1 [place] # (Auto) 2.2 H Eos # (Auto) 0.0 Baso # (Auto) 0.2 PT INR APTT pCO2 pO2 HCO3 ABG pH ABG Total CO2 ABG O2 Saturation ABG Base Excess Fabian Test ABG Potassium A-a O2 Difference Glucose Lactate FiO2 Crit Value Called To Crit Value Called By Crit Value Read Back Blood Gas Notified Time Sodium 137 Potassium 5.1 H Chloride 90 L Carbon Dioxide < 5 L* D Anion Gap 47 H BUN 11 Creatinine 1.3 Est GFR ( Amer) > 60 Est GFR (Non-Af Amer) 59 POC Glucose (mg/dL) 327 H Random Glucose 288 H Lactic Acid Calcium 8.8 Phosphorus Magnesium Total Bilirubin 0.9 AST 176 H D ALT 111 H D Alkaline Phosphatase 138 H D Troponin I 0.0130 Total Protein 8.4 H Albumin 5.2 H Globulin 3.2 Albumin/Globulin Ratio 1.6 Lipase 69 TSH 3rd Generation 1.13 Arterial Blood Potassium Urine Color Urine Clarity Urine pH Ur Specific [place] Urine Protein Urine Glucose (UA) Urine Ketones Urine Blood Urine Nitrate Urine Bilirubin Urine Urobilinogen Ur Leukocyte Esterase Urine RBC (Auto) Urine Microscopic WBC Amorphous Sediment Urine Bacteria Fluid Type CSF Volume CSF Appearance CSF WBC CSF RBC CSF Comment CSF Glucose CSF Total Protein Urine Opiates Screen Urine Methadone Screen Ur Barbiturates Screen Ur Phencyclidine Scrn Ur Amphetamines Screen U Benzodiazepines Scrn U Oth Cocaine Metabols U Cannabinoids Screen Alcohol, Quantitative 28 H HIV-1 Ab Rapid Screen 05/14/18 05/14/18 05/14/18 11:32 12:57 13:10 WBC RBC Hgb Hct MCV MCH MCHC RDW Plt Count MPV Neut % (Auto) Lymph % (Auto) [place] % (Auto) Eos % (Auto) Baso % (Auto) Neut # (Auto) Lymph # (Auto) [place] # (Auto) Eos # (Auto) Baso # (Auto) PT 10.3 INR 0.9 APTT 39.7 H pCO2 16 L* pO2 153 H HCO3 0.7 L* ABG pH 6.81 L* ABG Total CO2 3.0 L ABG O2 Saturation 99.2 H ABG Base Excess -31.0 L Fabian Test Yes ABG Potassium 5.4 H A-a O2 Difference -23.0 Glucose 303 H Lactate 16.1 H* FiO2 21.0 Crit Value Called To Dr trae zapata Crit Value Called By 15 Crit Value Read Back Y Blood Gas Notified Time 1300 Sodium 127.0 L Potassium Chloride 88.0 L Carbon Dioxide Anion Gap BUN Creatinine Est GFR ( Amer) Est GFR (Non-Af Amer) POC Glucose (mg/dL) Random Glucose Lactic Acid Calcium Phosphorus Magnesium Total Bilirubin AST ALT Alkaline Phosphatase Troponin I Total Protein Albumin Globulin Albumin/Globulin Ratio Lipase TSH 3rd Generation Arterial Blood Potassium 5.4 H Urine Color Urine Clarity Urine pH Ur Specific [place] Urine Protein Urine Glucose (UA) Urine Ketones Urine Blood Urine Nitrate Urine Bilirubin Urine Urobilinogen Ur Leukocyte Esterase Urine RBC (Auto) Urine Microscopic WBC Amorphous Sediment Urine Bacteria Fluid Type CSF Volume CSF Appearance CSF WBC CSF RBC CSF Comment CSF Glucose CSF Total Protein Urine Opiates Screen Negative Urine Methadone Screen Negative Ur Barbiturates Screen Negative Ur Phencyclidine Scrn Negative Ur Amphetamines Screen Negative U Benzodiazepines Scrn Negative U Oth Cocaine Metabols Negative U Cannabinoids Screen Negative Alcohol, Quantitative HIV-1 Ab Rapid Screen 05/14/18 05/14/18 05/14/18 13:10 13:31 13:40 WBC RBC Hgb Hct MCV MCH MCHC RDW Plt Count MPV Neut % (Auto) Lymph % (Auto) [place] % (Auto) Eos % (Auto) Baso % (Auto) Neut # (Auto) Lymph # (Auto) [place] # (Auto) Eos # (Auto) Baso # (Auto) PT INR APTT pCO2 pO2 HCO3 ABG pH ABG Total CO2 ABG O2 Saturation ABG Base Excess Fabian Test ABG Potassium A-a O2 Difference Glucose Lactate FiO2 Crit Value Called To Crit Value Called By Crit Value Read Back Blood Gas Notified Time Sodium Potassium Chloride Carbon Dioxide Anion Gap BUN Creatinine Est GFR ( Amer) Est GFR (Non-Af Amer) POC Glucose (mg/dL) Random Glucose Lactic Acid Calcium Phosphorus Magnesium Total Bilirubin AST ALT Alkaline Phosphatase Troponin I Total Protein Albumin Globulin Albumin/Globulin Ratio Lipase TSH 3rd Generation Arterial Blood Potassium Urine Color Yellow Urine Clarity Cloudy Urine pH 5.0 Ur Specific [place] 1.012 Urine Protein 100 Urine Glucose (UA) >=500 Urine Ketones 80 Urine Blood Small Urine Nitrate Negative Urine Bilirubin Negative Urine Urobilinogen 0.2-1.0 Ur Leukocyte Esterase Neg Urine RBC (Auto) < 1 Urine Microscopic WBC 2 Amorphous Sediment Rare H Urine Bacteria Rare Fluid Type Spinal fluid CSF Volume 1 CSF Appearance Clear/colorless CSF WBC 1.0 CSF RBC 0.0 CSF Comment None CSF Glucose 220 H* CSF Total Protein 62.0 H Urine Opiates Screen Urine Methadone Screen Ur Barbiturates Screen Ur Phencyclidine Scrn Ur Amphetamines Screen U Benzodiazepines Scrn U Oth Cocaine Metabols U Cannabinoids Screen Alcohol, Quantitative HIV-1 Ab Rapid Screen 05/14/18 05/14/18 05/14/18 14:16 14:30 15:47 WBC RBC Hgb Hct MCV MCH MCHC RDW Plt Count MPV Neut % (Auto) Lymph % (Auto) [place] % (Auto) Eos % (Auto) Baso % (Auto) Neut # (Auto) Lymph # (Auto) [place] # (Auto) Eos # (Auto) Baso # (Auto) PT INR APTT pCO2 24 L pO2 29 L* HCO3 4.4 L* ABG pH 6.94 L* ABG Total CO2 5.9 L ABG O2 Saturation 75.0 L ABG Base Excess -25.6 L Fabian Test Yes ABG Potassium 5.5 H A-a O2 Difference 91.0 Glucose 325 H Lactate 12.1 H* FiO2 21.0 Crit Value Called To Dr benny frias Crit Value Called By 15 Crit Value Read Back Y Blood Gas Notified Time 1444 Sodium 134.0 Potassium Chloride 92.0 L Carbon Dioxide Anion Gap BUN Creatinine Est GFR ( Amer) Est GFR (Non-Af Amer) POC Glucose (mg/dL) 302 H 317 H Random Glucose Lactic Acid Calcium Phosphorus Magnesium Total Bilirubin AST ALT Alkaline Phosphatase Troponin I Total Protein Albumin Globulin Albumin/Globulin Ratio Lipase TSH 3rd Generation Arterial Blood Potassium 5.5 H Urine Color Urine Clarity Urine pH Ur Specific [place] Urine Protein Urine Glucose (UA) Urine Ketones Urine Blood Urine Nitrate Urine Bilirubin Urine Urobilinogen Ur Leukocyte Esterase Urine RBC (Auto) Urine Microscopic WBC Amorphous Sediment Urine Bacteria Fluid Type CSF Volume CSF Appearance CSF WBC CSF RBC CSF Comment CSF Glucose CSF Total Protein Urine Opiates Screen Urine Methadone Screen Ur Barbiturates Screen Ur Phencyclidine Scrn Ur Amphetamines Screen U Benzodiazepines Scrn U Oth Cocaine Metabols U Cannabinoids Screen Alcohol, Quantitative HIV-1 Ab Rapid Screen 05/14/18 05/14/18 05/14/18 17:15 19:00 19:00 WBC 8.1 D RBC 3.38 L Hgb 10.7 L D Hct 32.8 L MCV 97.2 H D MCH 31.7 H MCHC 32.7 L RDW 12.3 Plt Count 275 D MPV Neut % (Auto) Lymph % (Auto) [place] % (Auto) Eos % (Auto) Baso % (Auto) Neut # (Auto) Lymph # (Auto) [place] # (Auto) Eos # (Auto) Baso # (Auto) PT INR APTT pCO2 pO2 HCO3 ABG pH ABG Total CO2 ABG O2 Saturation ABG Base Excess Fabian Test ABG Potassium A-a O2 Difference Glucose Lactate FiO2 Crit Value Called To Crit Value Called By Crit Value Read Back Blood Gas Notified Time Sodium 133 Potassium 5.8 H Chloride 96 L Carbon Dioxide 9 L* D Anion Gap 34 H BUN 14 Creatinine 1.2 Est GFR ( Amer) > 60 Est GFR (Non-Af Amer) > 60 POC Glucose (mg/dL) Random Glucose 293 H Lactic Acid Calcium 7.3 L Phosphorus 2.7 Magnesium 1.6 Total Bilirubin AST ALT Alkaline Phosphatase Troponin I Total Protein Albumin Globulin Albumin/Globulin Ratio Lipase TSH 3rd Generation Arterial Blood Potassium Urine Color Urine Clarity Urine pH Ur Specific [place] Urine Protein Urine Glucose (UA) Urine Ketones Urine Blood Urine Nitrate Urine Bilirubin Urine Urobilinogen Ur Leukocyte Esterase Urine RBC (Auto) Urine Microscopic WBC Amorphous Sediment Urine Bacteria Fluid Type CSF Volume CSF Appearance CSF WBC CSF RBC CSF Comment CSF Glucose CSF Total Protein Urine Opiates Screen Urine Methadone Screen Ur Barbiturates Screen Ur Phencyclidine Scrn Ur Amphetamines Screen U Benzodiazepines Scrn U Oth Cocaine Metabols U Cannabinoids Screen Alcohol, Quantitative HIV-1 Ab Rapid Screen Reactive H 05/14/18 19:00 WBC RBC Hgb Hct MCV MCH MCHC RDW Plt Count MPV Neut % (Auto) Lymph % (Auto) [place] % (Auto) Eos % (Auto) Baso % (Auto) Neut # (Auto) Lymph # (Auto) [place] # (Auto) Eos # (Auto) Baso # (Auto) PT INR APTT pCO2 pO2 HCO3 ABG pH ABG Total CO2 ABG O2 Saturation ABG Base Excess Fabian Test ABG Potassium A-a O2 Difference Glucose Lactate FiO2 Crit Value Called To Crit Value Called By Crit Value Read Back Blood Gas Notified Time Sodium Potassium Chloride Carbon Dioxide Anion Gap BUN Creatinine Est GFR ( Amer) Est GFR (Non-Af Amer) POC Glucose (mg/dL) Random Glucose Lactic Acid 2.6 H Calcium Phosphorus Magnesium Total Bilirubin AST ALT Alkaline Phosphatase Troponin I Total Protein Albumin Globulin Albumin/Globulin Ratio Lipase TSH 3rd Generation Arterial Blood Potassium Urine Color Urine Clarity Urine pH Ur Specific [place] Urine Protein Urine Glucose (UA) Urine Ketones Urine Blood Urine Nitrate Urine Bilirubin Urine Urobilinogen Ur Leukocyte Esterase Urine RBC (Auto) Urine Microscopic WBC Amorphous Sediment Urine Bacteria Fluid Type CSF Volume CSF Appearance CSF WBC CSF RBC CSF Comment CSF Glucose CSF Total Protein Urine Opiates Screen Urine Methadone Screen Ur Barbiturates Screen Ur Phencyclidine Scrn Ur Amphetamines Screen U Benzodiazepines Scrn U Oth Cocaine Metabols U Cannabinoids Screen Alcohol, Quantitative HIV-1 Ab Rapid Screen Attending/Attestation - Attestation I have personally seen and examined this patient.: Yes I have fully participated in the care of the patient.: Yes I have reviewed all pertinent clinical information: Yes Notes (Text): 05/14/18 19:35 Patient seen and examined with resident. Case discussed and agreed with assessment and plan of management.
[2018-05-14] MEDS: Piperacillin/Tazobact 3.375 GM in Sodium Chloride 0.9% 100 ML IVPB SCH ×2 (18:06→21:00)
[2018-05-14] MEDS ORDERED: Potassium Chl 20 mEq in NS 1,000 ML IV SCH (18:15)
--- NOTE | 2018-05-14 18:37 | CARD ---
APPROVED REPORT Date of service: 05/14/2018 EKG Measurement Heart [id number] <Conclusion> Atrial fibrillation with rapid ventricular response Nonspecific ST and T wave abnormality Abnormal ECG
[2018-05-14 19:03] LABS: HEMOGLOBIN 10.7 g/dL (12.0-18.0); MEAN CELL VOLUME 97.2 fl (80.0-94.0); MEAN CORPUSCULAR HEMOGLOBIN 31.7 pg (27.0-31.0); MEAN CORPUSCULAR HGB CONC 32.7 g/dL (33.0-37.0); RBC 3.38 Mil/uL (4.40-5.90); RED CELL DISTRIBUTION WIDTH 12.3 % (11.5-14.5); WHITE BLOOD COUNT 8.1 K/uL (4.8-10.8)
[2018-05-14 19:21] LABS: BLOOD UREA NITROGEN 14 mg/dl (9-20); CALCIUM 7.3 mg/dL (8.4-10.2); GFR NON-AFRICAN AMERICAN > 60
[2018-05-14] MEDS ORDERED: Sodium Chloride 0.9% 1,000 ML IV SCH ×2 (19:30→22:30)
--- NOTE | 2018-05-14 20:21 | CP.PCM.CON ---
History of Present Illness - History of Present Illness History of Present Illness: GENERAL SURGERY CONSULT NOTE FOR DR. XIAO 48 yo male with PMHx of HTN, DM type 1, hyperlipidemia, recent dx of cholelithiasis was brought to ER via EMS due to fever, chills, nausea, vomiting x10 NBNB, lower back pain that started this morning. Patient also reported being unable to see for about an hour and a half, although that has no resolved. Pt also reported HEARD but only when he coughs. Pt reports intermittent LUQ abdominal pain that occurs about twice a week and resolves on its own. It is unrelated to eating. He reports having a negative endoscopy in the past and a colonoscopy that showed hemorrhoids. Last BM 2 days ago, patient is passing flatus. Of note, pt is on insulin Humulog 20 at night and 12-15 unit of novolog after food. Patient reported not taking his last dose of Novolog in morning due to not eating. In the ED, he was found to be septic and given rocephin and vancomycin. Was found to have ABG with pCO2: 16, bicarb: 0.7, pH 6.81. Lactate 16.1 Blood glucose in the 300s. He had a negative head CT. LP was done in ED. CT abdomen showed possible antritis/gastritis, possible gallbladder wall thickening and/or pericholecystic fluid. Rapid HIV + Pt was admitted to the ICU for DKA vs sepsis and is currently on an insulin drip as well as IV Zosyn. Pt had US on 05/04 which showed cholelithiasis and 7mm gallbladder polyp. PMH: DM1, HTN, hyperlipidemia Surgeries: abdominal liposuction Allergy: none Medication: Humolog after food, Novolog at night. ( patient report taking medication for HTN but unable to provide names), lorazepam to sleep Social: [place], denies smoking or illicit drug use. Drink 2-3 vodka shot a day Review of Systems - Review of Systems All systems: reviewed and no additional remarkable complaints except Past Patient History - Past Medical History & Family History Past Medical History?: Yes - Past Social History Smoking Status: Never Smoked Alcohol: > 2 Drinks/Day Drugs: Denies - CARDIAC Hx Hypercholesterolemia: Yes Hx Hypertension: Yes - PULMONARY Hx Respiratory Disorders: No Hx Asthma: No Hx Bronchitis: No Hx Chronic Obstructive Pulmonary Disease (COPD): No Hx Emphysema: No Hx Lung Cancer: No Hx Pneumonia: No Hx Pulmonary Edema: No Hx Pulmonary Embolism: No Hx Respiratory Aspiration: No Hx Respiratory Tract Infection: No Hx Sleep Apnea: No Hx Tuberculosis: No - NEUROLOGICAL Hx Neurological Disorder: No Hx Alzheimer's Disease: No HX Cerebrovascular Accident: No Hx Dementia: No Hx Dizziness: No Hx Meningitis: No Hx Migraine: No Hx Multiple Sclerosis: No Hx Paralysis: No Hx Parkinson's Disease: No Hx Seizures: No Hx Syncope: No Hx Transient Ischemic Attacks (TIA): No Hx Vertigo: No - HEENT Hx HEENT Problems: Yes Hx Blind: No Hx Cataracts: No Hx Deafness: No Hx Difficulty Chewing: No Hx Epistaxis: No Hx Glaucoma: No Hx Macular Degeneration: No Hx Sinusitis: No - RENAL Hx Chronic Kidney Disease: No Hx Dialysis: No Hx Kidney Stones: No Hx Neurogenic Bladder: No Hx Pyelonephritis: No Hx Renal (Kidney) Cancer: No Hx Renal Failure: No - ENDOCRINE/METABOLIC Hx Diabetes Mellitus Type 1: Yes - HEMATOLOGICAL/ONCOLOGICAL Hx Blood Disorders: No Hx AIDS: No Hx Anemia: No Hx Blood Transfusions: No Hx Blood Transfusion Reaction: No Hx Bruising: No Hx Cancer: No Hx Chemotherapy: No Hx Cirrhosis: No Hx Gum Bleeding: No Hx Hepatitis A: No Hx Hepatitis C: No Hx Human Immunodeficiency Virus (HIV): No Hx Metastesis: No Hx Shingles: No - INTEGUMENTARY Hx Dermatological Problems: No - MUSCULOSKELETAL/RHEUMATOLOGICAL Hx Musculoskeletal Disorders: No Hx Arthritis: No Hx Back Pain: No Hx Degenerative Joint Disease: No Hx Falls: No Hx Fractures: No Hx Gout: No Hx Herniated Disk: No Hx Myasthenia Gravis: No Hx Osteoarthritis: No Hx Osteomyelitis: No Hx Osteoporosis: No Hx Rhabdomyolysis: No Hx Rheumatoid Arthritis: No Hx Spinal Stenosis: No Hx Unsteady Gait: No - GASTROINTESTINAL Hx Gastrointestinal Disorders: Yes Hx Bowel Surgery: No Hx Clostridium Difficile: No Hx Colitis: No Hx Colostomy: No Hx Constipation: No Hx Crohn's Disease: No Hx Diarrhea: No Hx Diverticulitis: No Hx Esophageal Varices: No Hx Fatty Liver Disease: No Hx Gall Bladder Disease: No Hx Gastritis: No Hx Gastroesophageal Reflux: No Hx Hemorrhoids: No Hx Ileostomy: No Hx Irritable Bowel: No Hx Liver Failure: No Hx Nausea: Yes Hx Pancreatitis: Yes HX Swallowing Problems: No Hx Ulcer: No Hx Vomiting: Yes - GENITOURINARY/GYNECOLOGICAL Hx Genitourinary Disorders: No Hx Prostate Cancer: No Hx Prostate Problems: No Hx Sexually Transmitted Disorders: No Hx Urinary Tract Infection: No - PSYCHIATRIC Hx Substance Use: No - SURGICAL HISTORY Hx Surgeries: No - ANESTHESIA Hx Anesthesia: No Meds Allergies/Adverse Reactions: Allergies Allergy/AdvReac Type Severity Reaction Status Date / Time No Known Allergies Allergy Verified 05/04/18 08:28 - Medications Medications: Current Medications Dextrose (Dextrose 50% Inj) 0 ml IV STAT PRN; Protocol PRN Reason: Hypoglycemia Protocol Dextrose (Glutose 15) 0 gm PO ONCE PRN; Protocol PRN Reason: Hypoglycemia Protocol Dextrose (Dextrose 50% Inj) 0 ml IV STAT PRN; Protocol PRN Reason: Hypoglycemia Protocol Dextrose (Glutose 15) 0 gm PO ONCE PRN; Protocol PRN Reason: Hypoglycemia Protocol Enoxaparin Sodium (Lovenox) 40 mg SC DAILY JASKARAN; Protocol Glucagon (Glucagen Diagnostic Kit) 0 mg IM STAT PRN; Protocol PRN Reason: Hypoglycemia Protocol Glucagon (Glucagen Diagnostic Kit) 0 mg IM STAT PRN; Protocol PRN Reason: Hypoglycemia Protocol Vancomycin HCl 1 gm/ Sodium (Chloride) 250 mls @ 166.667 mls/hr IVPB Q12 JASKARAN; Protocol Piperacillin Sod/Tazobactam (Sod 3.375 gm/ Sodium Chloride) 100 mls @ 100 mls/hr IVPB Q6 JASKARAN; Protocol Last Admin: 05/14/18 18:06 Dose: 100 mls/hr Insulin Human Regular 100 (units/ Sodium Chloride) 101 mls @ 5.05 mls/hr IV .Q20H JASKARAN; Protocol Sodium Chloride (Sodium Chloride 0.9%) 1,000 mls @ 150 mls/hr IV .Q6H40M [facility] Stop: 05/15/18 19:31 Last Admin: 05/14/18 19:58 Dose: 150 mls/hr Morphine Sulfate (Morphine) 2 mg IVP Q6 PRN PRN Reason: Pain, moderate (4-7) Last Admin: 05/14/18 19:56 Dose: 2 mg Pantoprazole Sodium (Protonix Inj) 40 mg IVP DAILY [facility] Last Admin: 05/14/18 15:30 Dose: 40 mg Physical Exam - Constitutional Appears: Non-toxic, No Acute Distress - Head Exam Head Exam: ATRAUMATIC, NORMAL INSPECTION - Respiratory Exam Respiratory Exam: NORMAL BREATHING PATTERN. absent: Respiratory Distress - Cardiovascular Exam Cardiovascular Exam: Tachycardia - GI/Abdominal Exam GI & Abdominal Exam: Soft. absent: Distended, Firm, Guarding, Rebound, Rigid, Tenderness Additional comments: Negative Moyer sign - Back Exam Back exam: NORMAL INSPECTION. absent: CVA tenderness (L), CVA tenderness (R), vertebral tenderness - Neurological Exam Neurological exam: Alert, CN II-XII Intact, Oriented x3 - Psychiatric Exam Psychiatric exam: Normal Affect, Normal Mood - Skin Skin Exam: Dry, Normal Color, Warm Results - Vital Signs Recent Vital Signs: Last Vital Signs Temp 99.2 F 05/14/18 17:45 Pulse 111 H 05/14/18 18:00 Resp 25 H 05/14/18 18:00 BP 116/74 05/14/18 18:00 Pulse Ox 100 05/14/18 18:00 - Labs Result Diagrams: 05/15/18 05:15 05/15/18 05:15 Labs: Laboratory Results - last 24 hr 05/14/18 05/14/18 05/14/18 11:21 11:32 11:32 WBC 23.6 H D RBC 4.14 L Hgb 13.1 Hct 43.3 MCV 104.6 H D MCH 31.6 H MCHC 30.2 L RDW 13.4 Plt Count 468 H D MPV 8.5 Neut % (Auto) 72.4 Lymph % (Auto) 17.2 L [place] % (Auto) 9.3 Eos % (Auto) 0.2 Baso % (Auto) 0.9 Neut # (Auto) 17.1 H Lymph # (Auto) 4.1 [place] # (Auto) 2.2 H Eos # (Auto) 0.0 Baso # (Auto) 0.2 PT INR APTT pCO2 pO2 HCO3 ABG pH ABG Total CO2 ABG O2 Saturation ABG Base Excess Fabian Test ABG Potassium A-a O2 Difference Glucose Lactate FiO2 Crit Value Called To Crit Value Called By Crit Value Read Back Blood Gas Notified Time Sodium 137 Potassium 5.1 H Chloride 90 L Carbon Dioxide < 5 L* D Anion Gap 47 H BUN 11 Creatinine 1.3 Est GFR ( Amer) > 60 Est GFR (Non-Af Amer) 59 POC Glucose (mg/dL) 327 H Random Glucose 288 H Lactic Acid Calcium 8.8 Phosphorus Magnesium Total Bilirubin 0.9 AST 176 H D ALT 111 H D Alkaline Phosphatase 138 H D Troponin I 0.0130 Total Protein 8.4 H Albumin 5.2 H Globulin 3.2 Albumin/Globulin Ratio 1.6 Lipase 69 TSH 3rd Generation 1.13 Arterial Blood Potassium Urine Color Urine Clarity Urine pH Ur Specific [place] Urine Protein Urine Glucose (UA) Urine Ketones Urine Blood Urine Nitrate Urine Bilirubin Urine Urobilinogen Ur Leukocyte Esterase Urine RBC (Auto) Urine Microscopic WBC Amorphous Sediment Urine Bacteria Fluid Type CSF Volume CSF Appearance CSF WBC CSF RBC CSF Comment CSF Glucose CSF Total Protein Urine Opiates Screen Urine Methadone Screen Ur Barbiturates Screen Ur Phencyclidine Scrn Ur Amphetamines Screen U Benzodiazepines Scrn U Oth Cocaine Metabols U Cannabinoids Screen Alcohol, Quantitative 28 H HIV-1 Ab Rapid Screen 05/14/18 05/14/18 05/14/18 11:32 12:57 13:10 WBC RBC Hgb Hct MCV MCH MCHC RDW Plt Count MPV Neut % (Auto) Lymph % (Auto) [place] % (Auto) Eos % (Auto) Baso % (Auto) Neut # (Auto) Lymph # (Auto) [place] # (Auto) Eos # (Auto) Baso # (Auto) PT 10.3 INR 0.9 APTT 39.7 H pCO2 16 L* pO2 153 H HCO3 0.7 L* ABG pH 6.81 L* ABG Total CO2 3.0 L ABG O2 Saturation 99.2 H ABG Base Excess -31.0 L Fabian Test Yes ABG Potassium 5.4 H A-a O2 Difference -23.0 Glucose 303 H Lactate 16.1 H* FiO2 21.0 Crit Value Called To Dr trae zapata Crit Value Called By 15 Crit Value Read Back Y Blood Gas Notified Time 1300 Sodium 127.0 L Potassium Chloride 88.0 L Carbon Dioxide Anion Gap BUN Creatinine Est GFR ( Amer) Est GFR (Non-Af Amer) POC Glucose (mg/dL) Random Glucose Lactic Acid Calcium Phosphorus Magnesium Total Bilirubin AST ALT Alkaline Phosphatase Troponin I Total Protein Albumin Globulin Albumin/Globulin Ratio Lipase TSH 3rd Generation Arterial Blood Potassium 5.4 H Urine Color Urine Clarity Urine pH Ur Specific [place] Urine Protein Urine Glucose (UA) Urine Ketones Urine Blood Urine Nitrate Urine Bilirubin Urine Urobilinogen Ur Leukocyte Esterase Urine RBC (Auto) Urine Microscopic WBC Amorphous Sediment Urine Bacteria Fluid Type CSF Volume CSF Appearance CSF WBC CSF RBC CSF Comment CSF Glucose CSF Total Protein Urine Opiates Screen Negative Urine Methadone Screen Negative Ur Barbiturates Screen Negative Ur Phencyclidine Scrn Negative Ur Amphetamines Screen Negative U Benzodiazepines Scrn Negative U Oth Cocaine Metabols Negative U Cannabinoids Screen Negative Alcohol, Quantitative HIV-1 Ab Rapid Screen 05/14/18 05/14/18 05/14/18 13:10 13:31 13:40 WBC RBC Hgb Hct MCV MCH MCHC RDW Plt Count MPV Neut % (Auto) Lymph % (Auto) [place] % (Auto) Eos % (Auto) Baso % (Auto) Neut # (Auto) Lymph # (Auto) [place] # (Auto) Eos # (Auto) Baso # (Auto) PT INR APTT pCO2 pO2 HCO3 ABG pH ABG Total CO2 ABG O2 Saturation ABG Base Excess Fabian Test ABG Potassium A-a O2 Difference Glucose Lactate FiO2 Crit Value Called To Crit Value Called By Crit Value Read Back Blood Gas Notified Time Sodium Potassium Chloride Carbon Dioxide Anion Gap BUN Creatinine Est GFR ( Amer) Est GFR (Non-Af Amer) POC Glucose (mg/dL) Random Glucose Lactic Acid Calcium Phosphorus Magnesium Total Bilirubin AST ALT Alkaline Phosphatase Troponin I Total Protein Albumin Globulin Albumin/Globulin Ratio Lipase TSH 3rd Generation Arterial Blood Potassium Urine Color Yellow Urine Clarity Cloudy Urine pH 5.0 Ur Specific [place] 1.012 Urine Protein 100 Urine Glucose (UA) >=500 Urine Ketones 80 Urine Blood Small Urine Nitrate Negative Urine Bilirubin Negative Urine Urobilinogen 0.2-1.0 Ur Leukocyte Esterase Neg Urine RBC (Auto) < 1 Urine Microscopic WBC 2 Amorphous Sediment Rare H Urine Bacteria Rare Fluid Type Spinal fluid CSF Volume 1 CSF Appearance Clear/colorless CSF WBC 1.0 CSF RBC 0.0 CSF Comment None CSF Glucose 220 H* CSF Total Protein 62.0 H Urine Opiates Screen Urine Methadone Screen Ur Barbiturates Screen Ur Phencyclidine Scrn Ur Amphetamines Screen U Benzodiazepines Scrn U Oth Cocaine Metabols U Cannabinoids Screen Alcohol, Quantitative HIV-1 Ab Rapid Screen 05/14/18 05/14/18 05/14/18 14:16 14:30 15:47 WBC RBC Hgb Hct MCV MCH MCHC RDW Plt Count MPV Neut % (Auto) Lymph % (Auto) [place] % (Auto) Eos % (Auto) Baso % (Auto) Neut # (Auto) Lymph # (Auto) [place] # (Auto) Eos # (Auto) Baso # (Auto) PT INR APTT pCO2 24 L pO2 29 L* HCO3 4.4 L* ABG pH 6.94 L* ABG Total CO2 5.9 L ABG O2 Saturation 75.0 L ABG Base Excess -25.6 L Fabian Test Yes ABG Potassium 5.5 H A-a O2 Difference 91.0 Glucose 325 H Lactate 12.1 H* FiO2 21.0 Crit Value Called To Dr benny frias Crit Value Called By 15 Crit Value Read Back Y Blood Gas Notified Time 1444 Sodium 134.0 Potassium Chloride 92.0 L Carbon Dioxide Anion Gap BUN Creatinine Est GFR ( Amer) Est GFR (Non-Af Amer) POC Glucose (mg/dL) 302 H 317 H Random Glucose Lactic Acid Calcium Phosphorus Magnesium Total Bilirubin AST ALT Alkaline Phosphatase Troponin I Total Protein Albumin Globulin Albumin/Globulin Ratio Lipase TSH 3rd Generation Arterial Blood Potassium 5.5 H Urine Color Urine Clarity Urine pH Ur Specific [place] Urine Protein Urine Glucose (UA) Urine Ketones Urine Blood Urine Nitrate Urine Bilirubin Urine Urobilinogen Ur Leukocyte Esterase Urine RBC (Auto) Urine Microscopic WBC Amorphous Sediment Urine Bacteria Fluid Type CSF Volume CSF Appearance CSF WBC CSF RBC CSF Comment CSF Glucose CSF Total Protein Urine Opiates Screen Urine Methadone Screen Ur Barbiturates Screen Ur Phencyclidine Scrn Ur Amphetamines Screen U Benzodiazepines Scrn U Oth Cocaine Metabols U Cannabinoids Screen Alcohol, Quantitative HIV-1 Ab Rapid Screen 05/14/18 05/14/18 05/14/18 17:15 19:00 19:00 WBC 8.1 D RBC 3.38 L Hgb 10.7 L D Hct 32.8 L MCV 97.2 H D MCH 31.7 H MCHC 32.7 L RDW 12.3 Plt Count 275 D MPV Neut % (Auto) Lymph % (Auto) [place] % (Auto) Eos % (Auto) Baso % (Auto) Neut # (Auto) Lymph # (Auto) [place] # (Auto) Eos # (Auto) Baso # (Auto) PT INR APTT pCO2 pO2 HCO3 ABG pH ABG Total CO2 ABG O2 Saturation ABG Base Excess Fabian Test ABG Potassium A-a O2 Difference Glucose Lactate FiO2 Crit Value Called To Crit Value Called By Crit Value Read Back Blood Gas Notified Time Sodium 133 Potassium 5.8 H Chloride 96 L Carbon Dioxide 9 L* D Anion Gap 34 H BUN 14 Creatinine 1.2 Est GFR ( Amer) > 60 Est GFR (Non-Af Amer) > 60 POC Glucose (mg/dL) Random Glucose 293 H Lactic Acid Calcium 7.3 L Phosphorus 2.7 Magnesium 1.6 Total Bilirubin AST ALT Alkaline Phosphatase Troponin I Total Protein Albumin Globulin Albumin/Globulin Ratio Lipase TSH 3rd Generation Arterial Blood Potassium Urine Color Urine Clarity Urine pH Ur Specific [place] Urine Protein Urine Glucose (UA) Urine Ketones Urine Blood Urine Nitrate Urine Bilirubin Urine Urobilinogen Ur Leukocyte Esterase Urine RBC (Auto) Urine Microscopic WBC Amorphous Sediment Urine Bacteria Fluid Type CSF Volume CSF Appearance CSF WBC CSF RBC CSF Comment CSF Glucose CSF Total Protein Urine Opiates Screen Urine Methadone Screen Ur Barbiturates Screen Ur Phencyclidine Scrn Ur Amphetamines Screen U Benzodiazepines Scrn U Oth Cocaine Metabols U Cannabinoids Screen Alcohol, Quantitative HIV-1 Ab Rapid Screen Reactive H 05/14/18 19:00 WBC RBC Hgb Hct MCV MCH MCHC RDW Plt Count MPV Neut % (Auto) Lymph % (Auto) [place] % (Auto) Eos % (Auto) Baso % (Auto) Neut # (Auto) Lymph # (Auto) [place] # (Auto) Eos # (Auto) Baso # (Auto) PT INR APTT pCO2 pO2 HCO3 ABG pH ABG Total CO2 ABG O2 Saturation ABG Base Excess Fabian Test ABG Potassium A-a O2 Difference Glucose Lactate FiO2 Crit Value Called To Crit Value Called By Crit Value Read Back Blood Gas Notified Time Sodium Potassium Chloride Carbon Dioxide Anion Gap BUN Creatinine Est GFR ( Amer) Est GFR (Non-Af Amer) POC Glucose (mg/dL) Random Glucose Lactic Acid 2.6 H Calcium Phosphorus Magnesium Total Bilirubin AST ALT Alkaline Phosphatase Troponin I Total Protein Albumin Globulin Albumin/Globulin Ratio Lipase TSH 3rd Generation Arterial Blood Potassium Urine Color Urine Clarity Urine pH Ur Specific [place] Urine Protein Urine Glucose (UA) Urine Ketones Urine Blood Urine Nitrate Urine Bilirubin Urine Urobilinogen Ur Leukocyte Esterase Urine RBC (Auto) Urine Microscopic WBC Amorphous Sediment Urine Bacteria Fluid Type CSF Volume CSF Appearance CSF WBC CSF RBC CSF Comment CSF Glucose CSF Total Protein Urine Opiates Screen Urine Methadone Screen Ur Barbiturates Screen Ur Phencyclidine Scrn Ur Amphetamines Screen U Benzodiazepines Scrn U Oth Cocaine Metabols U Cannabinoids Screen Alcohol, Quantitative HIV-1 Ab Rapid Screen Assessment & Plan - Assessment and Plan (Free Text) Assessment: 48 yo male with PMHx of HTN, DM type 1, hyperlipidemia, cholelithiasis, gallbladder polyp who presented with N/V, abdominal pain, was admitted to ICU for DKA, possible sepsis. Surgery consulted for possible cholecystitis - Source of sepsis unclear, however unlikely due to cholecystitis - Repeat US ordered to evaluate for possible cholecystitis - Continue IV Abx - IV fluids - Serial labs and abdominal exams - Management of blood glucose via primary team/endocrine - Discussed plan with Dr. Haim Rosales PGY-4
[2018-05-14 22:09] LABS: BLOOD UREA NITROGEN 15 mg/dl (9-20); CALCIUM 7.9 mg/dL (8.4-10.2); GFR NON-AFRICAN AMERICAN 59
[2018-05-14] MEDS: Meropenem 1 GM in Sodium Chloride 0.9% 100 ML IVPB SCH (23:17)
[2018-05-14] MEDS ORDERED: Morphine 4 MG/ML VIAL IVP PRN (23:53)
--- NOTE | 2018-05-15 01:05 | CON ---
DATE: 05/14/2018 CRITICAL CARE CONSULTATION The patient in the emergency room, being admitted to ICU. REASON FOR CONSULTATION: A 48-year-old male, presented to ER, brought by EMS complaining of nausea, vomiting, and low back pain that started this morning. 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 He drank alcohol yesterday and went to bed last night without any problems. This morning woke up and noted to have abdominal pain associated with nausea and vomiting. Hence, brought to emergency room by EMS, called by parents. His vital signs in ER showed a temperature of 96, heart rate of 158, respiratory rate 20, blood pressure 110/87, pulse oximetry 100% on room air. In ER, the patient had CT of head that showed no acute abnormality. Abdominal CT showed distended fluid filled stomach with mild antral wall thickening, gallbladder wall thickening, and/or pericholecystic fluid. No appreciable bile duct dilatation. White count was noted to be elevated 23.6, hemoglobin 13.1, lactate 16.1, high anion gap metabolic acidosis with anion gap of 47, and CO2 less than 5. The patient was given 2 ampules of bicarbonate, initiated insulin drip, given IV hydration, being admitted to ICU for further evaluation. REVIEW OF SYSTEMS The patient was seen in the ER a week prior to this admission complaining of nausea, vomiting, and abdominal pain. CT of the abdomen during that visit showed atrophic pancreas, and multiple gallstones without any intrahepatic dilatation. Currently denies fever, chills, cough, shortness of breath. No chest pain. Complaining of nausea, vomiting, and lower back pain. No diarrhea or dysuria. PAST MEDICAL HISTORY: As noted significant for diabetes mellitus type 1, on insulin, alcohol dependence, alcohol related gastritis. No previous GI workup in the past. ALLERGIES: NONE DOCUMENTED. FAMILY HISTORY Noncontributory. SOCIAL HISTORY: Same sex partner. Drinks alcohol almost every day. Denies recreational drug use. No smoking. PHYSICAL EXAMINATION: GENERAL: Middle-aged moderately obese male; oriented to name, place, and time. VITAL SIGNS: Temperature 93.1, heart rate 107, respiratory rate 20, blood pressure 154/89, saturation 100% on room air. HEAD, EYES, EARS, NOSE AND THROAT: Pupils are reactive. Conjunctivae pink. Sclerae white. NECK: Supple. Trachea central. CHEST: Bilateral breath sounds. Clear to auscultation. HEART: Rhythm regular. S1, S2 rapid. No S3, S4, gallop. No audible murmur. ABDOMEN: Bowel sounds present. Soft. Mild epigastric tenderness. EXTREMITIES: No clubbing, cyanosis. NEUROLOGIC EXAMINATION: Alert, awake, oriented to name, place and time. No cranial nerve deficit. No motor or sensory impairment. LABORATORY DATA: WBC 23.6, hemoglobin 13.1, hematocrit of 43.3, platelet count of 468, neutrophils 72.4, lymphocytes 17.2, monocytes 2.2. PT 10.3, INR 0.9, PTT 39.7. ABG, pH 6.81, pCO2 of 16, pO2 of 153, saturation 99.2 on FiO2 of 21, consistent with metabolic acidosis with respiratory compensation. SMA-7: Sodium 137, potassium 5.1, chloride of 90, CO2 of less than 5, BUN 11, creatinine 1.3, glucose 327, calcium 8.8, total bilirubin 0.9, AST 176, ALT 111, alkaline phosphatase 138, total protein 8.4, albumin of 5.2, lipase 69. TSH of 1.3. Toxicology screen negative. Alcohol level 28. Microbiology pending. IMPRESSION: A 48-year-old male with history significant for diabetes mellitus type 1, on insulin at home; cholelithiasis diagnosed by ultrasound a week ago; alcohol dependence, drinks alcohol everyday, presenting with nausea, vomiting, and lower abdominal pain. Arterial blood gas and basic metabolic profile are consistent with high anion gap metabolic acidosis, respiratory compensation and metabolic alkalosis with alkalosis. History of cholelithiasis with the current CT showing pericholecystic thickening of the gallbladder without intrahepatic dilatation. Abnormal liver enzymes related to alcoholic hepatitis. Differentials, diabetic ketoacidosis/alcoholic ketoacidosis, probable acute cholecystitis. Also known to have same-sex partner with reportedly an HIV test negative years ago, would plan insulin drip as per protocol, IV hydration 6 mL per kg. Supplement potassium in the IV fluid. Add thiamine, multivitamin, folic acid with D5W proton pump inhibitor with Protonix 40 mg daily, Rocephin 1 g IV daily, Flagyl 500 mg IV every 8 hours to cover for acute coronary cystitis. Surgery consult requested for followup. Repeat followup serum lactate, high anion gap metabolic acidosis. Price Sanchez MD
[2018-05-15] MEDS: Dextrose 5%/0.45% NS 1,000 ML IV SCH ×2 (01:24→07:07)
--- NOTE | 2018-05-15 05:15 | CON ---
DATE: 05/14/2018 LOCATION: In ICU, room 432. HISTORY OF PRESENT ILLNESS: This is a 48-year-old male with known history of type 1 insulin-dependent diabetes, presenting here with fever, chills, and associated nausea, dyspepsia, and vomiting with recent diagnosis of cholelithiasis, and is now being referred for diabetic evaluation and management. PAST MEDICAL HISTORY: As mentioned above, history of type 1 insulin-dependent diabetes, currently on a combination of NovoLog given as 20 units at bedtime and 12-15 units with meals as noted with variable dosing regimen given accordingly. She denies use of any long-acting insulin otherwise. History of hypertension and dyslipidemia. FAMILY HISTORY: Positive for hypertension and heart disease. SOCIAL HISTORY: The patient admits to chronic alcoholism and consumes two to three shots of vodka every day. [place] a [place]. He has a very supportive family otherwise and came in with his family to the emergency room. REVIEW OF SYSTEMS: Admits to generalized body weakness with progressive bouts of dizziness and lightheadedness and suboptimal energy level. Also admits to recent onset of visual blurring and bifrontal headaches. No chest pains or palpitations, but admits to progressive shortness of breath especially on exertion. His oral intake has been suboptimal and admits to nausea, dyspepsia, and intractable vomiting episodes prior to this admission with supervening upper abdominal pain and middle to low back pain as noted. PHYSICAL EXAMINATION: GENERAL: This is an average-built male in no apparent distress. VITAL SIGNS: Blood pressure of 150/90, pulse of 130 beats per minute and irregular, temperature 98, respirations 20, height is 6 feet, weight is 175 pounds. HEENT: Head; normocephalic. Eyes anicteric with pink conjunctivae. Funduscopy not possible at this time. Ears, nose, and throat otherwise normal. NECK: Supple. Thyroid gland is normal in size. No carotid bruits or any cervical adenopathy. CARDIOPULMONARY: There is some adynamic precordium. S1, S2 are rapid and irregular. LUNGS: Show scattered rhonchi. ABDOMEN: Flat, soft with positive bowel sounds. EXTREMITIES: No peripheral edema. Pulses are +2 bilaterally. LABORATORIES: His chemistries initially showed a BUN of 11, sodium 137, potassium 5.1, chloride 90, CO2 less than 5, glucose 288, and creatinine 1.3 with elevated liver transaminases. His glucose levels have ranged from 302-371 mg per dL. The lactic acid is 2.6 with a calcium level of 8.8. Lipase level was 69. ASSESSMENT: This is a 48-year-old male with uncontrolled and decompensated type 1 insulin-dependent diabetes, presenting here with intractable nausea and vomiting, and upper abdominal pain, and recent diagnosis of cholelithiasis, and also has developed supervening diabetic ketoacidosis and dehydration. There is also significant history of chronic alcoholism with recent alcoholic intoxication and daily use of high liquor with two to three shots of vodka intake on a nightly basis. PLAN OF MANAGEMENT: We will initiate an intensive insulin therapy with an insulin drip infusion as currently ongoing at this time. We will also highly recommend vigorous IV hydration and increase the normal saline infusion to 200 mL to replenish the marked volume deficit as expected thereof. We will obtain serial chemistries and supplement accordingly as needed. We will also concur with the GI workup as given with ongoing prophylactic IV antibiotics as given. We will also obtain a hemoglobin A1c to confirm his prior glycemic control, and a lipid panel will also be ordered to exclude any underlying dyslipidemia. We will recommend an eventual alcohol rehab evaluation even prior to his discharge. We will reinforce diabetic education and dietary instructions at the time of this admission. We will follow. Raquel Cody MD
[2018-05-15] MEDS: Meropenem 1 GM in Sodium Chloride 0.9% 100 ML IVPB SCH ×3 (06:05→22:08)
[2018-05-15 06:16] LABS: BASO % 0.2 % (0.0-2.0); HEMOGLOBIN 10.5 g/dL (12.0-18.0); LYMPH # 0.8 K/uL (1.0-4.3); LYMPH % 12.2 % (20.0-40.0); MEAN CORPUSCULAR HEMOGLOBIN 31.5 pg (27.0-31.0); MEAN CORPUSCULAR HGB CONC 33.5 g/dL (33.0-37.0); MEAN PLATELET VOLUME 8.3 fl (7.2-11.7); MONO # 0.4 K/uL (0.0-0.8); MONO % 6.1 % (0.0-10.0); NEUT # 5.5 K/uL (1.8-7.0); NEUT % 81.5 % (50.0-75.0); NRBC % 0.1 % (0.0-0.0); RBC 3.32 Mil/uL (4.40-5.90); RED CELL DISTRIBUTION WIDTH 12.2 % (11.5-14.5); WHITE BLOOD COUNT 6.7 K/uL (4.8-10.8)
[2018-05-15 06:19] LABS: MEAN CELL VOLUME 94.1 fl (80.0-94.0)
[2018-05-15 06:32] LABS: ALB/GLOB RATIO 1.3 (1.0-2.1); ALBUMIN 3.2 g/dL (3.5-5.0); ALT/SGPT 122 U/L (21-72); AST/SGOT 241 U/L (17-59); BLOOD UREA NITROGEN 16 mg/dl (9-20); CALCIUM 7.6 mg/dL (8.4-10.2); GFR NON-AFRICAN AMERICAN > 60; HDL CHOLESTEROL 50 MG/DL (30-70)
[2018-05-15 06:34] LABS: LDL CHOLESTEROL 46 mg/dL (0-129)
--- NOTE | 2018-05-15 07:53 | CP.CCUPN ---
CCU Subjective - Physician Review Subjective (Free Text): 05/15/18 13:53 The patient was Seen/interviewed and examined by me at the bedside during ICU round, Medical records reviewed and Management issues were discussed and formulated with the house staff. Events reviewed 48 years old male with past medical history of type 1 diabetes mellitus, hypertension and hypercholesterolemia who was brought in to the emergency room by EMS for evaluation of nausea vomiting and low back pain Patient's family member report that the blood sugar and that in the morning with in the right it was over 300 Patient also complaining off abdominal pain and feeling dizzy Denies fever/chills chest pain, shortness of breath, fall or trauma Chest x-ray in the emergency room revealed no active disease CAT scan of the abdomen shows distended and fluid-filled stomach with some possible mitral mild antral wall thickening suggestive of antritis and gastritis, nonspecific low-density surrounding the gallbladder, indings suggestive gallbladder wall thickening and pericholecystic fluid, mild colonic wall thickening a moderate amount of residual fecal material throughout the colon suggestive either chronic constipation or mild colitis He was diagnosed with cholelithiasis in the emergency room Patient was also found to be in diabetic ketoacidosis and he was admitted into the intensive care unit for further management Endocrine, Surgery and ID consult on board Today he is doing better insulin drip was discontinued with an blood sugar is better controlled Pt AAO x3. Comfortable, NAD Afebrile, tolerating intravenous antibiotic Status post lumbar puncture cultures are negative so far CCU Objective - Vital Signs / Intake & Output Vital Signs (Last 4 hours): Vital Signs Temp Pulse Resp BP Pulse Ox 05/15/18 06:00 94 H 16 148/88 100 05/15/18 04:00 98.5 F 94 H 17 121/74 98 Intake and Output (Last 8hrs): Intake & Output 05/14/18 05/15/18 05/15/18 22:59 06:59 14:59 Intake Total 1050 1700 Output Total 400 1400 Balance 650 300 Weight 182 lb 7 oz Intake: IV 600 1600 Intake, Piggyback 450 100 Output: Urine 400 1400 Urethral ([place]) 400 1400 - Physical Exam Head: Positive for: Atraumatic, Normocephalic Pupils: Positive for: PERRL Extroacular Muscles: Positive for: EOMI Conjunctiva: Positive for: Normal Mouth: Positive for: Moist Mucous Membranes Neck: Positive for: Normal Range of Motion, Trachea Midline. Negative for: Meningeal Signs, MIDLINE TENDERNESS, Paraspinal Tenderness, JVD, Lymphadenopathy, Bruit, Other Respiratory/Chest: Positive for: Clear to Auscultation, Good Air Exchange. Negative for: Respiratory Distress, Accessory Muscle Use Cardiovascular: Positive for: Regular Rate and Rhythm, Normal S1, S2. Negative for: Murmurs Upper Extremity: Positive for: Normal Inspection. Negative for: Cyanosis, Edema Lower Extremity: Positive for: Normal Inspection. Negative for: Edema, CALF TENDERNESS Psychiatric: Positive for: Alert, Oriented x 3, Normal Insight, Normal Concentration - Medications Active Medications: Active Medications Generic Name Dose Route Start Last Admin Trade Name Freq PRN Reason Stop Dose Admin Chlordiazepoxide 25 mg 05/15/18 09:00 Librium PO Q8 JASKARAN Dextrose 0 ml 05/14/18 14:18 Dextrose 50% Inj IV STAT PRN Hypoglycemia Protocol Protocol Dextrose 0 gm 05/14/18 14:18 Glutose 15 PO ONCE PRN Hypoglycemia Protocol Protocol Dextrose 0 ml 05/14/18 16:21 Dextrose 50% Inj IV STAT PRN Hypoglycemia Protocol Protocol Dextrose 0 gm 05/14/18 16:21 Glutose 15 PO ONCE PRN Hypoglycemia Protocol Protocol Enoxaparin Sodium 40 mg 05/15/18 09:00 Lovenox SC DAILY JASKARAN Protocol Folic Acid 1 mg 05/15/18 09:00 Folic Acid PO DAILY JASKARAN Glucagon 0 mg 05/14/18 14:18 Glucagen Diagnostic Kit IM STAT PRN Hypoglycemia Protocol Protocol Glucagon 0 mg 05/14/18 16:21 Glucagen Diagnostic Kit IM STAT PRN Hypoglycemia Protocol Protocol Vancomycin HCl 1 gm/ Sodium 250 mls @ 166.667 mls/hr 05/14/18 21:00 05/14/18 22:39 Chloride IVPB 166.667 mls/hr Q12 JASKARAN Administration Protocol Insulin Human Regular 100 101 mls @ 5.05 mls/hr 05/14/18 18:23 units/ Sodium Chloride IV .Q20H JASKARAN Protocol 5 UNITS/HR Sodium Chloride 1,000 mls @ 200 mls/hr 05/14/18 22:30 05/14/18 22:30 Sodium Chloride 0.9% IV 05/15/18 22:30 200 mls/hr .Q5H JASKARAN Administration Meropenem 1 gm/ Sodium 100 mls @ 100 mls/hr 05/14/18 22:00 05/15/18 06:05 Chloride IVPB 100 mls/hr Q8H JASKARAN Administration Protocol Dextrose/Sodium Chloride 1,000 mls @ 200 mls/hr 05/15/18 01:15 05/15/18 07:07 Dextrose 5%/0.45% Ns 1000 Ml IV 05/16/18 01:15 200 mls/hr .Q5H JASKARAN Administration Potassium Chloride 100 mls @ 100 mls/hr 05/15/18 08:00 Potassium Chloride 10 Meq/100 Ml IVPB 05/15/18 11:59 Q1 JASKARAN Lorazepam 1 mg 05/15/18 07:31 Ativan IVP Q6 PRN Agitation Morphine Sulfate 2 mg 05/14/18 23:53 05/15/18 05:33 Morphine IVP 2 mg Q4H PRN Administration Pain, moderate (4-7) Morphine Sulfate 4 mg 05/14/18 23:53 Morphine IVP Q4 PRN Pain, severe (8-10) Multivitamins/Vitamin C 10 ml 05/15/18 09:00 Poly Vi Betty Liq PO DAILY JASKARAN Pantoprazole Sodium 40 mg 05/14/18 15:15 05/14/18 15:30 Protonix Inj IVP 40 mg DAILY JASKARAN Administration Thiamine HCl 100 mg 05/15/18 09:00 Vitamin B1 Tab PO DAILY JASKARAN - Patient Studies Lab Studies: Microbiology Studies 05/14/18 13:40 Gram Stain - Preliminary Cerebral Spinal Fluid Lab Studies 05/15/18 05/15/18 05/15/18 Range/Units 05:20 05:15 05:15 WBC 6.7 (4.8-10.8) K/uL RBC 3.32 L (4.40-5.90) Mil/uL Hgb 10.5 L (12.0-18.0) g/dL Hct 31.3 L (35.0-51.0) % MCV 94.1 H D (80.0-94.0) fl MCH 31.5 H (27.0-31.0) pg MCHC 33.5 (33.0-37.0) g/dL RDW 12.2 (11.5-14.5) % Plt Count 258 (130-400) K/uL MPV 8.3 (7.2-11.7) fl Neut % (Auto) 81.5 H (50.0-75.0) % Lymph % (Auto) 12.2 L (20.0-40.0) % Love % (Auto) 6.1 (0.0-10.0) % Eos % (Auto) 0.0 (0.0-4.0) % Baso % (Auto) 0.2 (0.0-2.0) % Neut # (Auto) 5.5 (1.8-7.0) K/uL Lymph # (Auto) 0.8 L (1.0-4.3) K/uL Love # (Auto) 0.4 (0.0-0.8) K/uL Eos # (Auto) 0.0 (0.0-0.7) K/uL Baso # (Auto) 0.0 (0.0-0.2) K/uL PT (9.8-13.1) Seconds INR APTT (25.6-37.1) Seconds pCO2 (35-45) mm/Hg pO2 (80-100) mm/Hg HCO3 (21-28) mmol/L ABG pH (7.35-7.45) ABG Total CO2 (22-28) mmol/L ABG O2 Saturation (95-98) % ABG Base Excess (-2.0-3.0) mmol/L Fabian Test ABG Potassium (3.6-5.2) mmol/L A-a O2 Difference mm/Hg Glucose (75-110) mg/dL Lactate (0.7-2.1) mmol/L FiO2 % Crit Value Called To Crit Value Called By Crit Value Read Back Blood Gas Notified Time Sodium 137 (132-148) mmol/l Potassium 3.5 L (3.6-5.0) MMOL/L Chloride 102 (98-107) mmol/L Carbon Dioxide 21 L (22-30) mmol/L Anion Gap 18 (10-20) BUN 16 (9-20) mg/dl Creatinine 1.2 (0.8-1.5) mg/dl Est GFR ( Amer) > 60 Est GFR (Non-Af Amer) > 60 POC Glucose (mg/dL) (65-110) mg/dL Random Glucose 116 H (75-110) mg/dL Lactic Acid 1.0 (0.7-2.1) mmol/L Calcium 7.6 L (8.4-10.2) mg/dL Phosphorus 2.4 L (2.5-4.5) mg/dl Magnesium (1.6-2.3) MG/DL Total Bilirubin 0.5 (0.2-1.3) mg/dl AST 241 H D (17-59) U/L ALT 122 H (21-72) U/L Alkaline Phosphatase 104 (38-126) U/L Troponin I (0.00-0.120) ng/mL Total Protein 5.7 L (6.3-8.2) G/DL Albumin 3.2 L D (3.5-5.0) g/dL Globulin 2.5 (2.2-3.9) gm/dL Albumin/Globulin Ratio 1.3 (1.0-2.1) Triglycerides 62 (0-149) mg/DL Cholesterol 106 (0-199) mg/dL LDL Cholesterol Direct 46 (0-129) mg/dL HDL Cholesterol 50 (30-70) MG/DL Lipase (23-300) U/L TSH 3rd Generation (0.46-4.68) mIU/ML Arterial Blood Potassium (3.6-5.2) mmol/L Urine Color (YELLOW) Urine Clarity (Clear) Urine pH (5.0-8.0) Ur Specific [place] (1.003-1.030) Urine Protein (NEGATIVE) mg/dL Urine Glucose (UA) (NEGATIVE) mg/dL Urine Ketones (NEGATIVE) mg/dL Urine Blood (NEGATIVE) Urine Nitrate (NEGATIVE) Urine Bilirubin (NEGATIVE) Urine Urobilinogen (0.2-1.0) mg/dL Ur Leukocyte Esterase (Negative) Aaron/uL Urine RBC (Auto) (0-3) /hpf Urine Microscopic WBC (0-5) /hpf Amorphous Sediment (<OCC) /ul Urine Bacteria (<OCC) Fluid Type CSF Volume (0-1) mL CSF Appearance (CLEAR) CSF WBC (0.0-5.0) /mm3 CSF RBC (0.0-0.0) /mm3 CSF Comment CSF Glucose (40-70) mg/dL CSF Total Protein (12-60) mg/dL Urine Opiates Screen (NEGATIVE) Urine Methadone Screen (NEGATIVE) Ur Barbiturates Screen (NEGATIVE) Ur Phencyclidine Scrn (NEGATIVE) Ur Amphetamines Screen (NEGATIVE) U Benzodiazepines Scrn (NEGATIVE) U Oth Cocaine Metabols (NEGATIVE) U Cannabinoids Screen (NEGATIVE) Alcohol, Quantitative (0-10) mg/dl HSV Source Description HIV-1 Ab Rapid Screen (NON REAC) 05/15/18 05/15/18 05/15/18 Range/Units 04:52 04:03 03:08 WBC (4.8-10.8) K/uL RBC (4.40-5.90) Mil/uL Hgb (12.0-18.0) g/dL Hct (35.0-51.0) % MCV (80.0-94.0) fl MCH (27.0-31.0) pg MCHC (33.0-37.0) g/dL RDW (11.5-14.5) % Plt Count (130-400) K/uL MPV (7.2-11.7) fl Neut % (Auto) (50.0-75.0) % Lymph % (Auto) (20.0-40.0) % Love % (Auto) (0.0-10.0) % Eos % (Auto) (0.0-4.0) % Baso % (Auto) (0.0-2.0) % Neut # (Auto) (1.8-7.0) K/uL Lymph # (Auto) (1.0-4.3) K/uL Love # (Auto) (0.0-0.8) K/uL Eos # (Auto) (0.0-0.7) K/uL Baso # (Auto) (0.0-0.2) K/uL PT (9.8-13.1) Seconds INR APTT (25.6-37.1) Seconds pCO2 (35-45) mm/Hg pO2 (80-100) mm/Hg HCO3 (21-28) mmol/L ABG pH (7.35-7.45) ABG Total CO2 (22-28) mmol/L ABG O2 Saturation (95-98) % ABG Base Excess (-2.0-3.0) mmol/L Fabian Test ABG Potassium (3.6-5.2) mmol/L A-a O2 Difference mm/Hg Glucose (75-110) mg/dL Lactate (0.7-2.1) mmol/L FiO2 % Crit Value Called To Crit Value Called By Crit Value Read Back Blood Gas Notified Time Sodium (132-148) mmol/l Potassium (3.6-5.0) MMOL/L Chloride (98-107) mmol/L Carbon Dioxide (22-30) mmol/L Anion Gap (10-20) BUN (9-20) mg/dl Creatinine (0.8-1.5) mg/dl Est GFR ( Amer) Est GFR (Non-Af Amer) POC Glucose (mg/dL) 136 H 144 H 160 H (65-110) mg/dL Random Glucose (75-110) mg/dL Lactic Acid (0.7-2.1) mmol/L Calcium (8.4-10.2) mg/dL Phosphorus (2.5-4.5) mg/dl Magnesium (1.6-2.3) MG/DL Total Bilirubin (0.2-1.3) mg/dl AST (17-59) U/L ALT (21-72) U/L Alkaline Phosphatase (38-126) U/L Troponin I (0.00-0.120) ng/mL Total Protein (6.3-8.2) G/DL Albumin (3.5-5.0) g/dL Globulin (2.2-3.9) gm/dL Albumin/Globulin Ratio (1.0-2.1) Triglycerides (0-149) mg/DL Cholesterol (0-199) mg/dL LDL Cholesterol Direct (0-129) mg/dL HDL Cholesterol (30-70) MG/DL Lipase (23-300) U/L TSH 3rd Generation (0.46-4.68) mIU/ML Arterial Blood Potassium (3.6-5.2) mmol/L Urine Color (YELLOW) Urine Clarity (Clear) Urine pH (5.0-8.0) Ur Specific [place] (1.003-1.030) Urine Protein (NEGATIVE) mg/dL Urine Glucose (UA) (NEGATIVE) mg/dL Urine Ketones (NEGATIVE) mg/dL Urine Blood (NEGATIVE) Urine Nitrate (NEGATIVE) Urine Bilirubin (NEGATIVE) Urine Urobilinogen (0.2-1.0) mg/dL Ur Leukocyte Esterase (Negative) Aaron/uL Urine RBC (Auto) (0-3) /hpf Urine Microscopic WBC (0-5) /hpf Amorphous Sediment (<OCC) /ul Urine Bacteria (<OCC) Fluid Type CSF Volume (0-1) mL CSF Appearance (CLEAR) CSF WBC (0.0-5.0) /mm3 CSF RBC (0.0-0.0) /mm3 CSF Comment CSF Glucose (40-70) mg/dL CSF Total Protein (12-60) mg/dL Urine Opiates Screen (NEGATIVE) Urine Methadone Screen (NEGATIVE) Ur Barbiturates Screen (NEGATIVE) Ur Phencyclidine Scrn (NEGATIVE) Ur Amphetamines Screen (NEGATIVE) U Benzodiazepines Scrn (NEGATIVE) U Oth Cocaine Metabols (NEGATIVE) U Cannabinoids Screen (NEGATIVE) Alcohol, Quantitative (0-10) mg/dl HSV Source Description HIV-1 Ab Rapid Screen (NON REAC) 05/15/18 05/15/18 05/15/18 Range/Units 02:06 01:10 00:08 WBC (4.8-10.8) K/uL RBC (4.40-5.90) Mil/uL Hgb (12.0-18.0) g/dL Hct (35.0-51.0) % MCV (80.0-94.0) fl MCH (27.0-31.0) pg MCHC (33.0-37.0) g/dL RDW (11.5-14.5) % Plt Count (130-400) K/uL MPV (7.2-11.7) fl Neut % (Auto) (50.0-75.0) % Lymph % (Auto) (20.0-40.0) % Love % (Auto) (0.0-10.0) % Eos % (Auto) (0.0-4.0) % Baso % (Auto) (0.0-2.0) % Neut # (Auto) (1.8-7.0) K/uL Lymph # (Auto) (1.0-4.3) K/uL Love # (Auto) (0.0-0.8) K/uL Eos # (Auto) (0.0-0.7) K/uL Baso # (Auto) (0.0-0.2) K/uL PT (9.8-13.1) Seconds INR APTT (25.6-37.1) Seconds pCO2 (35-45) mm/Hg pO2 (80-100) mm/Hg HCO3 (21-28) mmol/L ABG pH (7.35-7.45) ABG Total CO2 (22-28) mmol/L ABG O2 Saturation (95-98) % ABG Base Excess (-2.0-3.0) mmol/L Fabian Test ABG Potassium (3.6-5.2) mmol/L A-a O2 Difference mm/Hg Glucose (75-110) mg/dL Lactate (0.7-2.1) mmol/L FiO2 % Crit Value Called To Crit Value Called By Crit Value Read Back Blood Gas Notified Time Sodium (132-148) mmol/l Potassium (3.6-5.0) MMOL/L Chloride (98-107) mmol/L Carbon Dioxide (22-30) mmol/L Anion Gap (10-20) BUN (9-20) mg/dl Creatinine (0.8-1.5) mg/dl Est GFR ( Amer) Est GFR (Non-Af Amer) POC Glucose (mg/dL) 151 H 130 H 149 H (65-110) mg/dL Random Glucose (75-110) mg/dL Lactic Acid (0.7-2.1) mmol/L Calcium (8.4-10.2) mg/dL Phosphorus (2.5-4.5) mg/dl Magnesium (1.6-2.3) MG/DL Total Bilirubin (0.2-1.3) mg/dl AST (17-59) U/L ALT (21-72) U/L Alkaline Phosphatase (38-126) U/L Troponin I (0.00-0.120) ng/mL Total Protein (6.3-8.2) G/DL Albumin (3.5-5.0) g/dL Globulin (2.2-3.9) gm/dL Albumin/Globulin Ratio (1.0-2.1) Triglycerides (0-149) mg/DL Cholesterol (0-199) mg/dL LDL Cholesterol Direct (0-129) mg/dL HDL Cholesterol (30-70) MG/DL Lipase (23-300) U/L TSH 3rd Generation (0.46-4.68) mIU/ML Arterial Blood Potassium (3.6-5.2) mmol/L Urine Color (YELLOW) Urine Clarity (Clear) Urine pH (5.0-8.0) Ur Specific [place] (1.003-1.030) Urine Protein (NEGATIVE) mg/dL Urine Glucose (UA) (NEGATIVE) mg/dL Urine Ketones (NEGATIVE) mg/dL Urine Blood (NEGATIVE) Urine Nitrate (NEGATIVE) Urine Bilirubin (NEGATIVE) Urine Urobilinogen (0.2-1.0) mg/dL Ur Leukocyte Esterase (Negative) Aaron/uL Urine RBC (Auto) (0-3) /hpf Urine Microscopic WBC (0-5) /hpf Amorphous Sediment (<OCC) /ul Urine Bacteria (<OCC) Fluid Type CSF Volume (0-1) mL CSF Appearance (CLEAR) CSF WBC (0.0-5.0) /mm3 CSF RBC (0.0-0.0) /mm3 CSF Comment CSF Glucose (40-70) mg/dL CSF Total Protein (12-60) mg/dL Urine Opiates Screen (NEGATIVE) Urine Methadone Screen (NEGATIVE) Ur Barbiturates Screen (NEGATIVE) Ur Phencyclidine Scrn (NEGATIVE) Ur Amphetamines Screen (NEGATIVE) U Benzodiazepines Scrn (NEGATIVE) U Oth Cocaine Metabols (NEGATIVE) U Cannabinoids Screen (NEGATIVE) Alcohol, Quantitative (0-10) mg/dl HSV Source Description HIV-1 Ab Rapid Screen (NON REAC) 05/14/18 05/14/18 05/14/18 Range/Units 23:08 22:11 21:40 WBC (4.8-10.8) K/uL RBC (4.40-5.90) Mil/uL Hgb (12.0-18.0) g/dL Hct (35.0-51.0) % MCV (80.0-94.0) fl MCH (27.0-31.0) pg MCHC (33.0-37.0) g/dL RDW (11.5-14.5) % Plt Count (130-400) K/uL MPV (7.2-11.7) fl Neut % (Auto) (50.0-75.0) % Lymph % (Auto) (20.0-40.0) % Love % (Auto) (0.0-10.0) % Eos % (Auto) (0.0-4.0) % Baso % (Auto) (0.0-2.0) % Neut # (Auto) (1.8-7.0) K/uL Lymph # (Auto) (1.0-4.3) K/uL Love # (Auto) (0.0-0.8) K/uL Eos # (Auto) (0.0-0.7) K/uL Baso # (Auto) (0.0-0.2) K/uL PT (9.8-13.1) Seconds INR APTT (25.6-37.1) Seconds pCO2 (35-45) mm/Hg pO2 (80-100) mm/Hg HCO3 (21-28) mmol/L ABG pH (7.35-7.45) ABG Total CO2 (22-28) mmol/L ABG O2 Saturation (95-98) % ABG Base Excess (-2.0-3.0) mmol/L Fabian Test ABG Potassium (3.6-5.2) mmol/L A-a O2 Difference mm/Hg Glucose (75-110) mg/dL Lactate (0.7-2.1) mmol/L FiO2 % Crit Value Called To Crit Value Called By Crit Value Read Back Blood Gas Notified Time Sodium 135 (132-148) mmol/l Potassium 5.1 H (3.6-5.0) MMOL/L Chloride 99 (98-107) mmol/L Carbon Dioxide 14 L (22-30) mmol/L Anion Gap 27 H (10-20) BUN 15 (9-20) mg/dl Creatinine 1.3 (0.8-1.5) mg/dl Est GFR ( Amer) > 60 Est GFR (Non-Af Amer) 59 POC Glucose (mg/dL) 209 H 215 H (65-110) mg/dL Random Glucose 200 H (75-110) mg/dL Lactic Acid (0.7-2.1) mmol/L Calcium 7.9 L (8.4-10.2) mg/dL Phosphorus (2.5-4.5) mg/dl Magnesium (1.6-2.3) MG/DL Total Bilirubin (0.2-1.3) mg/dl AST (17-59) U/L ALT (21-72) U/L Alkaline Phosphatase (38-126) U/L Troponin I (0.00-0.120) ng/mL Total Protein (6.3-8.2) G/DL Albumin (3.5-5.0) g/dL Globulin (2.2-3.9) gm/dL Albumin/Globulin Ratio (1.0-2.1) Triglycerides (0-149) mg/DL Cholesterol (0-199) mg/dL LDL Cholesterol Direct (0-129) mg/dL HDL Cholesterol (30-70) MG/DL Lipase (23-300) U/L TSH 3rd Generation (0.46-4.68) mIU/ML Arterial Blood Potassium (3.6-5.2) mmol/L Urine Color (YELLOW) Urine Clarity (Clear) Urine pH (5.0-8.0) Ur Specific [place] (1.003-1.030) Urine Protein (NEGATIVE) mg/dL Urine Glucose (UA) (NEGATIVE) mg/dL Urine Ketones (NEGATIVE) mg/dL Urine Blood (NEGATIVE) Urine Nitrate (NEGATIVE) Urine Bilirubin (NEGATIVE) Urine Urobilinogen (0.2-1.0) mg/dL Ur Leukocyte Esterase (Negative) Aaron/uL Urine RBC (Auto) (0-3) /hpf Urine Microscopic WBC (0-5) /hpf Amorphous Sediment (<OCC) /ul Urine Bacteria (<OCC) Fluid Type CSF Volume (0-1) mL CSF Appearance (CLEAR) CSF WBC (0.0-5.0) /mm3 CSF RBC (0.0-0.0) /mm3 CSF Comment CSF Glucose (40-70) mg/dL CSF Total Protein (12-60) mg/dL Urine Opiates Screen (NEGATIVE) Urine Methadone Screen (NEGATIVE) Ur Barbiturates Screen (NEGATIVE) Ur Phencyclidine Scrn (NEGATIVE) Ur Amphetamines Screen (NEGATIVE) U Benzodiazepines Scrn (NEGATIVE) U Oth Cocaine Metabols (NEGATIVE) U Cannabinoids Screen (NEGATIVE) Alcohol, Quantitative (0-10) mg/dl HSV Source Description HIV-1 Ab Rapid Screen (NON REAC) 05/14/18 05/14/18 05/14/18 Range/Units 21:21 20:13 19:20 WBC (4.8-10.8) K/uL RBC (4.40-5.90) Mil/uL Hgb (12.0-18.0) g/dL Hct (35.0-51.0) % MCV (80.0-94.0) fl MCH (27.0-31.0) pg MCHC (33.0-37.0) g/dL RDW (11.5-14.5) % Plt Count (130-400) K/uL MPV (7.2-11.7) fl Neut % (Auto) (50.0-75.0) % Lymph % (Auto) (20.0-40.0) % Love % (Auto) (0.0-10.0) % Eos % (Auto) (0.0-4.0) % Baso % (Auto) (0.0-2.0) % Neut # (Auto) (1.8-7.0) K/uL Lymph # (Auto) (1.0-4.3) K/uL Love # (Auto) (0.0-0.8) K/uL Eos # (Auto) (0.0-0.7) K/uL Baso # (Auto) (0.0-0.2) K/uL PT (9.8-13.1) Seconds INR APTT (25.6-37.1) Seconds pCO2 (35-45) mm/Hg pO2 (80-100) mm/Hg HCO3 (21-28) mmol/L ABG pH (7.35-7.45) ABG Total CO2 (22-28) mmol/L ABG O2 Saturation (95-98) % ABG Base Excess (-2.0-3.0) mmol/L Fabian Test ABG Potassium (3.6-5.2) mmol/L A-a O2 Difference mm/Hg Glucose (75-110) mg/dL Lactate (0.7-2.1) mmol/L FiO2 % Crit Value Called To Crit Value Called By Crit Value Read Back Blood Gas Notified Time Sodium (132-148) mmol/l Potassium (3.6-5.0) MMOL/L Chloride (98-107) mmol/L Carbon Dioxide (22-30) mmol/L Anion Gap (10-20) BUN (9-20) mg/dl Creatinine (0.8-1.5) mg/dl Est GFR ( Amer) Est GFR (Non-Af Amer) POC Glucose (mg/dL) 227 H 300 H 293 H (65-110) mg/dL Random Glucose (75-110) mg/dL Lactic Acid (0.7-2.1) mmol/L Calcium (8.4-10.2) mg/dL Phosphorus (2.5-4.5) mg/dl Magnesium (1.6-2.3) MG/DL Total Bilirubin (0.2-1.3) mg/dl AST (17-59) U/L ALT (21-72) U/L Alkaline Phosphatase (38-126) U/L Troponin I (0.00-0.120) ng/mL Total Protein (6.3-8.2) G/DL Albumin (3.5-5.0) g/dL Globulin (2.2-3.9) gm/dL Albumin/Globulin Ratio (1.0-2.1) Triglycerides (0-149) mg/DL Cholesterol (0-199) mg/dL LDL Cholesterol Direct (0-129) mg/dL HDL Cholesterol (30-70) MG/DL Lipase (23-300) U/L TSH 3rd Generation (0.46-4.68) mIU/ML Arterial Blood Potassium (3.6-5.2) mmol/L Urine Color (YELLOW) Urine Clarity (Clear) Urine pH (5.0-8.0) Ur Specific [place] (1.003-1.030) Urine Protein (NEGATIVE) mg/dL Urine Glucose (UA) (NEGATIVE) mg/dL Urine Ketones (NEGATIVE) mg/dL Urine Blood (NEGATIVE) Urine Nitrate (NEGATIVE) Urine Bilirubin (NEGATIVE) Urine Urobilinogen (0.2-1.0) mg/dL Ur Leukocyte Esterase (Negative) Aaron/uL Urine RBC (Auto) (0-3) /hpf Urine Microscopic WBC (0-5) /hpf Amorphous Sediment (<OCC) /ul Urine Bacteria (<OCC) Fluid Type CSF Volume (0-1) mL CSF Appearance (CLEAR) CSF WBC (0.0-5.0) /mm3 CSF RBC (0.0-0.0) /mm3 CSF Comment CSF Glucose (40-70) mg/dL CSF Total Protein (12-60) mg/dL Urine Opiates Screen (NEGATIVE) Urine Methadone Screen (NEGATIVE) Ur Barbiturates Screen (NEGATIVE) Ur Phencyclidine Scrn (NEGATIVE) Ur Amphetamines Screen (NEGATIVE) U Benzodiazepines Scrn (NEGATIVE) U Oth Cocaine Metabols (NEGATIVE) U Cannabinoids Screen (NEGATIVE) Alcohol, Quantitative (0-10) mg/dl HSV Source Description HIV-1 Ab Rapid Screen (NON REAC) 05/14/18 05/14/18 05/14/18 Range/Units 19:00 19:00 19:00 WBC 8.1 D (4.8-10.8) K/uL RBC 3.38 L (4.40-5.90) Mil/uL Hgb 10.7 L D (12.0-18.0) g/dL Hct 32.8 L (35.0-51.0) % MCV 97.2 H D (80.0-94.0) fl MCH 31.7 H (27.0-31.0) pg MCHC 32.7 L (33.0-37.0) g/dL RDW 12.3 (11.5-14.5) % Plt Count 275 D (130-400) K/uL MPV (7.2-11.7) fl Neut % (Auto) (50.0-75.0) % Lymph % (Auto) (20.0-40.0) % Love % (Auto) (0.0-10.0) % Eos % (Auto) (0.0-4.0) % Baso % (Auto) (0.0-2.0) % Neut # (Auto) (1.8-7.0) K/uL Lymph # (Auto) (1.0-4.3) K/uL Love # (Auto) (0.0-0.8) K/uL Eos # (Auto) (0.0-0.7) K/uL Baso # (Auto) (0.0-0.2) K/uL PT (9.8-13.1) Seconds INR APTT (25.6-37.1) Seconds pCO2 (35-45) mm/Hg pO2 (80-100) mm/Hg HCO3 (21-28) mmol/L ABG pH (7.35-7.45) ABG Total CO2 (22-28) mmol/L ABG O2 Saturation (95-98) % ABG Base Excess (-2.0-3.0) mmol/L Fabian Test ABG Potassium (3.6-5.2) mmol/L A-a O2 Difference mm/Hg Glucose (75-110) mg/dL Lactate (0.7-2.1) mmol/L FiO2 % Crit Value Called To Crit Value Called By Crit Value Read Back Blood Gas Notified Time Sodium 133 (132-148) mmol/l Potassium 5.8 H (3.6-5.0) MMOL/L Chloride 96 L (98-107) mmol/L Carbon Dioxide 9 L* D (22-30) mmol/L Anion Gap 34 H (10-20) BUN 14 (9-20) mg/dl Creatinine 1.2 (0.8-1.5) mg/dl Est GFR ( Amer) > 60 Est GFR (Non-Af Amer) > 60 POC Glucose (mg/dL) (65-110) mg/dL Random Glucose 293 H (75-110) mg/dL Lactic Acid 2.6 H (0.7-2.1) mmol/L Calcium 7.3 L (8.4-10.2) mg/dL Phosphorus 2.7 (2.5-4.5) mg/dl Magnesium 1.6 (1.6-2.3) MG/DL Total Bilirubin (0.2-1.3) mg/dl AST (17-59) U/L ALT (21-72) U/L Alkaline Phosphatase (38-126) U/L Troponin I (0.00-0.120) ng/mL Total Protein (6.3-8.2) G/DL Albumin (3.5-5.0) g/dL Globulin (2.2-3.9) gm/dL Albumin/Globulin Ratio (1.0-2.1) Triglycerides (0-149) mg/DL Cholesterol (0-199) mg/dL LDL Cholesterol Direct (0-129) mg/dL HDL Cholesterol (30-70) MG/DL Lipase (23-300) U/L TSH 3rd Generation (0.46-4.68) mIU/ML Arterial Blood Potassium (3.6-5.2) mmol/L Urine Color (YELLOW) Urine Clarity (Clear) Urine pH (5.0-8.0) Ur Specific [place] (1.003-1.030) Urine Protein (NEGATIVE) mg/dL Urine Glucose (UA) (NEGATIVE) mg/dL Urine Ketones (NEGATIVE) mg/dL Urine Blood (NEGATIVE) Urine Nitrate (NEGATIVE) Urine Bilirubin (NEGATIVE) Urine Urobilinogen (0.2-1.0) mg/dL Ur Leukocyte Esterase (Negative) Aaron/uL Urine RBC (Auto) (0-3) /hpf Urine Microscopic WBC (0-5) /hpf Amorphous Sediment (<OCC) /ul Urine Bacteria (<OCC) Fluid Type CSF Volume (0-1) mL CSF Appearance (CLEAR) CSF WBC (0.0-5.0) /mm3 CSF RBC (0.0-0.0) /mm3 CSF Comment CSF Glucose (40-70) mg/dL CSF Total Protein (12-60) mg/dL Urine Opiates Screen (NEGATIVE) Urine Methadone Screen (NEGATIVE) Ur Barbiturates Screen (NEGATIVE) Ur Phencyclidine Scrn (NEGATIVE) Ur Amphetamines Screen (NEGATIVE) U Benzodiazepines Scrn (NEGATIVE) U Oth Cocaine Metabols (NEGATIVE) U Cannabinoids Screen (NEGATIVE) Alcohol, Quantitative (0-10) mg/dl HSV Source Description HIV-1 Ab Rapid Screen (NON REAC) 05/14/18 05/14/18 05/14/18 Range/Units 17:53 17:15 17:11 WBC (4.8-10.8) K/uL RBC (4.40-5.90) Mil/uL Hgb (12.0-18.0) g/dL Hct (35.0-51.0) % MCV (80.0-94.0) fl MCH (27.0-31.0) pg MCHC (33.0-37.0) g/dL RDW (11.5-14.5) % Plt Count (130-400) K/uL MPV (7.2-11.7) fl Neut % (Auto) (50.0-75.0) % Lymph % (Auto) (20.0-40.0) % Love % (Auto) (0.0-10.0) % Eos % (Auto) (0.0-4.0) % Baso % (Auto) (0.0-2.0) % Neut # (Auto) (1.8-7.0) K/uL Lymph # (Auto) (1.0-4.3) K/uL Love # (Auto) (0.0-0.8) K/uL Eos # (Auto) (0.0-0.7) K/uL Baso # (Auto) (0.0-0.2) K/uL PT (9.8-13.1) Seconds INR APTT (25.6-37.1) Seconds pCO2 (35-45) mm/Hg pO2 (80-100) mm/Hg HCO3 (21-28) mmol/L ABG pH (7.35-7.45) ABG Total CO2 (22-28) mmol/L ABG O2 Saturation (95-98) % ABG Base Excess (-2.0-3.0) mmol/L Fabian Test ABG Potassium (3.6-5.2) mmol/L A-a O2 Difference mm/Hg Glucose (75-110) mg/dL Lactate (0.7-2.1) mmol/L FiO2 % Crit Value Called To Crit Value Called By Crit Value Read Back Blood Gas Notified Time Sodium (132-148) mmol/l Potassium (3.6-5.0) MMOL/L Chloride (98-107) mmol/L Carbon Dioxide (22-30) mmol/L Anion Gap (10-20) BUN (9-20) mg/dl Creatinine (0.8-1.5) mg/dl Est GFR ( Amer) Est GFR (Non-Af Amer) POC Glucose (mg/dL) 341 H 371 H (65-110) mg/dL Random Glucose (75-110) mg/dL Lactic Acid (0.7-2.1) mmol/L Calcium (8.4-10.2) mg/dL Phosphorus (2.5-4.5) mg/dl Magnesium (1.6-2.3) MG/DL Total Bilirubin (0.2-1.3) mg/dl AST (17-59) U/L ALT (21-72) U/L Alkaline Phosphatase (38-126) U/L Troponin I (0.00-0.120) ng/mL Total Protein (6.3-8.2) G/DL Albumin (3.5-5.0) g/dL Globulin (2.2-3.9) gm/dL Albumin/Globulin Ratio (1.0-2.1) Triglycerides (0-149) mg/DL Cholesterol (0-199) mg/dL LDL Cholesterol Direct (0-129) mg/dL HDL Cholesterol (30-70) MG/DL Lipase (23-300) U/L TSH 3rd Generation (0.46-4.68) mIU/ML Arterial Blood Potassium (3.6-5.2) mmol/L Urine Color (YELLOW) Urine Clarity (Clear) Urine pH (5.0-8.0) Ur Specific [place] (1.003-1.030) Urine Protein (NEGATIVE) mg/dL Urine Glucose (UA) (NEGATIVE) mg/dL Urine Ketones (NEGATIVE) mg/dL Urine Blood (NEGATIVE) Urine Nitrate (NEGATIVE) Urine Bilirubin (NEGATIVE) Urine Urobilinogen (0.2-1.0) mg/dL Ur Leukocyte Esterase (Negative) Aaron/uL Urine RBC (Auto) (0-3) /hpf Urine Microscopic WBC (0-5) /hpf Amorphous Sediment (<OCC) /ul Urine Bacteria (<OCC) Fluid Type CSF Volume (0-1) mL CSF Appearance (CLEAR) CSF WBC (0.0-5.0) /mm3 CSF RBC (0.0-0.0) /mm3 CSF Comment CSF Glucose (40-70) mg/dL CSF Total Protein (12-60) mg/dL Urine Opiates Screen (NEGATIVE) Urine Methadone Screen (NEGATIVE) Ur Barbiturates Screen (NEGATIVE) Ur Phencyclidine Scrn (NEGATIVE) Ur Amphetamines Screen (NEGATIVE) U Benzodiazepines Scrn (NEGATIVE) U Oth Cocaine Metabols (NEGATIVE) U Cannabinoids Screen (NEGATIVE) Alcohol, Quantitative (0-10) mg/dl HSV Source Description HIV-1 Ab Rapid Screen Reactive H (NON REAC) 05/14/18 05/14/18 05/14/18 Range/Units 15:47 14:30 14:16 WBC (4.8-10.8) K/uL RBC (4.40-5.90) Mil/uL Hgb (12.0-18.0) g/dL Hct (35.0-51.0) % MCV (80.0-94.0) fl MCH (27.0-31.0) pg MCHC (33.0-37.0) g/dL RDW (11.5-14.5) % Plt Count (130-400) K/uL MPV (7.2-11.7) fl Neut % (Auto) (50.0-75.0) % Lymph % (Auto) (20.0-40.0) % Love % (Auto) (0.0-10.0) % Eos % (Auto) (0.0-4.0) % Baso % (Auto) (0.0-2.0) % Neut # (Auto) (1.8-7.0) K/uL Lymph # (Auto) (1.0-4.3) K/uL Love # (Auto) (0.0-0.8) K/uL Eos # (Auto) (0.0-0.7) K/uL Baso # (Auto) (0.0-0.2) K/uL PT (9.8-13.1) Seconds INR APTT (25.6-37.1) Seconds pCO2 24 L (35-45) mm/Hg pO2 29 L* (80-100) mm/Hg HCO3 4.4 L* (21-28) mmol/L ABG pH 6.94 L* (7.35-7.45) ABG Total CO2 5.9 L (22-28) mmol/L ABG O2 Saturation 75.0 L (95-98) % ABG Base Excess -25.6 L (-2.0-3.0) mmol/L Fabian Test Yes ABG Potassium 5.5 H (3.6-5.2) mmol/L A-a O2 Difference 91.0 mm/Hg Glucose 325 H (75-110) mg/dL Lactate 12.1 H* (0.7-2.1) mmol/L FiO2 21.0 % Crit Value Called To Dr benny frias Crit Value Called By 15 Crit Value Read Back Y Blood Gas Notified Time 1444 Sodium 134.0 (132-148) mmol/l Potassium (3.6-5.0) MMOL/L Chloride 92.0 L (98-107) mmol/L Carbon Dioxide (22-30) mmol/L Anion Gap (10-20) BUN (9-20) mg/dl Creatinine (0.8-1.5) mg/dl Est GFR ( Amer) Est GFR (Non-Af Amer) POC Glucose (mg/dL) 317 H 302 H (65-110) mg/dL Random Glucose (75-110) mg/dL Lactic Acid (0.7-2.1) mmol/L Calcium (8.4-10.2) mg/dL Phosphorus (2.5-4.5) mg/dl Magnesium (1.6-2.3) MG/DL Total Bilirubin (0.2-1.3) mg/dl AST (17-59) U/L ALT (21-72) U/L Alkaline Phosphatase (38-126) U/L Troponin I (0.00-0.120) ng/mL Total Protein (6.3-8.2) G/DL Albumin (3.5-5.0) g/dL Globulin (2.2-3.9) gm/dL Albumin/Globulin Ratio (1.0-2.1) Triglycerides (0-149) mg/DL Cholesterol (0-199) mg/dL LDL Cholesterol Direct (0-129) mg/dL HDL Cholesterol (30-70) MG/DL Lipase (23-300) U/L TSH 3rd Generation (0.46-4.68) mIU/ML Arterial Blood Potassium 5.5 H (3.6-5.2) mmol/L Urine Color (YELLOW) Urine Clarity (Clear) Urine pH (5.0-8.0) Ur Specific [place] (1.003-1.030) Urine Protein (NEGATIVE) mg/dL Urine Glucose (UA) (NEGATIVE) mg/dL Urine Ketones (NEGATIVE) mg/dL Urine Blood (NEGATIVE) Urine Nitrate (NEGATIVE) Urine Bilirubin (NEGATIVE) Urine Urobilinogen (0.2-1.0) mg/dL Ur Leukocyte Esterase (Negative) Aaron/uL Urine RBC (Auto) (0-3) /hpf Urine Microscopic WBC (0-5) /hpf Amorphous Sediment (<OCC) /ul Urine Bacteria (<OCC) Fluid Type CSF Volume (0-1) mL CSF Appearance (CLEAR) CSF WBC (0.0-5.0) /mm3 CSF RBC (0.0-0.0) /mm3 CSF Comment CSF Glucose (40-70) mg/dL CSF Total Protein (12-60) mg/dL Urine Opiates Screen (NEGATIVE) Urine Methadone Screen (NEGATIVE) Ur Barbiturates Screen (NEGATIVE) Ur Phencyclidine Scrn (NEGATIVE) Ur Amphetamines Screen (NEGATIVE) U Benzodiazepines Scrn (NEGATIVE) U Oth Cocaine Metabols (NEGATIVE) U Cannabinoids Screen (NEGATIVE) Alcohol, Quantitative (0-10) mg/dl HSV Source Description HIV-1 Ab Rapid Screen (NON REAC) 05/14/18 05/14/18 05/14/18 Range/Units 13:40 13:40 13:31 WBC (4.8-10.8) K/uL RBC (4.40-5.90) Mil/uL Hgb (12.0-18.0) g/dL Hct (35.0-51.0) % MCV (80.0-94.0) fl MCH (27.0-31.0) pg MCHC (33.0-37.0) g/dL RDW (11.5-14.5) % Plt Count (130-400) K/uL MPV (7.2-11.7) fl Neut % (Auto) (50.0-75.0) % Lymph % (Auto) (20.0-40.0) % Love % (Auto) (0.0-10.0) % Eos % (Auto) (0.0-4.0) % Baso % (Auto) (0.0-2.0) % Neut # (Auto) (1.8-7.0) K/uL Lymph # (Auto) (1.0-4.3) K/uL Love # (Auto) (0.0-0.8) K/uL Eos # (Auto) (0.0-0.7) K/uL Baso # (Auto) (0.0-0.2) K/uL PT (9.8-13.1) Seconds INR APTT (25.6-37.1) Seconds pCO2 (35-45) mm/Hg pO2 (80-100) mm/Hg HCO3 (21-28) mmol/L ABG pH (7.35-7.45) ABG Total CO2 (22-28) mmol/L ABG O2 Saturation (95-98) % ABG Base Excess (-2.0-3.0) mmol/L Fabian Test ABG Potassium (3.6-5.2) mmol/L A-a O2 Difference mm/Hg Glucose (75-110) mg/dL Lactate (0.7-2.1) mmol/L FiO2 % Crit Value Called To Crit Value Called By Crit Value Read Back Blood Gas Notified Time Sodium (132-148) mmol/l Potassium (3.6-5.0) MMOL/L Chloride (98-107) mmol/L Carbon Dioxide (22-30) mmol/L Anion Gap (10-20) BUN (9-20) mg/dl Creatinine (0.8-1.5) mg/dl Est GFR ( Amer) Est GFR (Non-Af Amer) POC Glucose (mg/dL) (65-110) mg/dL Random Glucose (75-110) mg/dL Lactic Acid (0.7-2.1) mmol/L Calcium (8.4-10.2) mg/dL Phosphorus (2.5-4.5) mg/dl Magnesium (1.6-2.3) MG/DL Total Bilirubin (0.2-1.3) mg/dl AST (17-59) U/L ALT (21-72) U/L Alkaline Phosphatase (38-126) U/L Troponin I (0.00-0.120) ng/mL Total Protein (6.3-8.2) G/DL Albumin (3.5-5.0) g/dL Globulin (2.2-3.9) gm/dL Albumin/Globulin Ratio (1.0-2.1) Triglycerides (0-149) mg/DL Cholesterol (0-199) mg/dL LDL Cholesterol Direct (0-129) mg/dL HDL Cholesterol (30-70) MG/DL Lipase (23-300) U/L TSH 3rd Generation (0.46-4.68) mIU/ML Arterial Blood Potassium (3.6-5.2) mmol/L Urine Color (YELLOW) Urine Clarity (Clear) Urine pH (5.0-8.0) Ur Specific [place] (1.003-1.030) Urine Protein (NEGATIVE) mg/dL Urine Glucose (UA) (NEGATIVE) mg/dL Urine Ketones (NEGATIVE) mg/dL Urine Blood (NEGATIVE) Urine Nitrate (NEGATIVE) Urine Bilirubin (NEGATIVE) Urine Urobilinogen (0.2-1.0) mg/dL Ur Leukocyte Esterase (Negative) Aaron/uL Urine RBC (Auto) (0-3) /hpf Urine Microscopic WBC (0-5) /hpf Amorphous Sediment (<OCC) /ul Urine Bacteria (<OCC) Fluid Type Spinal fluid CSF Volume 1 (0-1) mL CSF Appearance Clear/colorless (CLEAR) CSF WBC 1.0 (0.0-5.0) /mm3 CSF RBC 0.0 (0.0-0.0) /mm3 CSF Comment None CSF Glucose 220 H* (40-70) mg/dL CSF Total Protein 62.0 H (12-60) mg/dL Urine Opiates Screen (NEGATIVE) Urine Methadone Screen (NEGATIVE) Ur Barbiturates Screen (NEGATIVE) Ur Phencyclidine Scrn (NEGATIVE) Ur Amphetamines Screen (NEGATIVE) U Benzodiazepines Scrn (NEGATIVE) U Oth Cocaine Metabols (NEGATIVE) U Cannabinoids Screen (NEGATIVE) Alcohol, Quantitative (0-10) mg/dl HSV Source Description Fluid HIV-1 Ab Rapid Screen (NON REAC) 05/14/18 05/14/18 05/14/18 Range/Units 13:10 13:10 12:57 WBC (4.8-10.8) K/uL RBC (4.40-5.90) Mil/uL Hgb (12.0-18.0) g/dL Hct (35.0-51.0) % MCV (80.0-94.0) fl MCH (27.0-31.0) pg MCHC (33.0-37.0) g/dL RDW (11.5-14.5) % Plt Count (130-400) K/uL MPV (7.2-11.7) fl Neut % (Auto) (50.0-75.0) % Lymph % (Auto) (20.0-40.0) % Love % (Auto) (0.0-10.0) % Eos % (Auto) (0.0-4.0) % Baso % (Auto) (0.0-2.0) % Neut # (Auto) (1.8-7.0) K/uL Lymph # (Auto) (1.0-4.3) K/uL Love # (Auto) (0.0-0.8) K/uL Eos # (Auto) (0.0-0.7) K/uL Baso # (Auto) (0.0-0.2) K/uL PT (9.8-13.1) Seconds INR APTT (25.6-37.1) Seconds pCO2 16 L* (35-45) mm/Hg pO2 153 H (80-100) mm/Hg HCO3 0.7 L* (21-28) mmol/L ABG pH 6.81 L* (7.35-7.45) ABG Total CO2 3.0 L (22-28) mmol/L ABG O2 Saturation 99.2 H (95-98) % ABG Base Excess -31.0 L (-2.0-3.0) mmol/L Fabian Test Yes ABG Potassium 5.4 H (3.6-5.2) mmol/L A-a O2 Difference -23.0 mm/Hg Glucose 303 H (75-110) mg/dL Lactate 16.1 H* (0.7-2.1) mmol/L FiO2 21.0 % Crit Value Called To Dr trae zapata Crit Value Called By 15 Crit Value Read Back Y Blood Gas Notified Time 1300 Sodium 127.0 L (132-148) mmol/l Potassium (3.6-5.0) MMOL/L Chloride 88.0 L (98-107) mmol/L Carbon Dioxide (22-30) mmol/L Anion Gap (10-20) BUN (9-20) mg/dl Creatinine (0.8-1.5) mg/dl Est GFR ( Amer) Est GFR (Non-Af Amer) POC Glucose (mg/dL) (65-110) mg/dL Random Glucose (75-110) mg/dL Lactic Acid (0.7-2.1) mmol/L Calcium (8.4-10.2) mg/dL Phosphorus (2.5-4.5) mg/dl Magnesium (1.6-2.3) MG/DL Total Bilirubin (0.2-1.3) mg/dl AST (17-59) U/L ALT (21-72) U/L Alkaline Phosphatase (38-126) U/L Troponin I (0.00-0.120) ng/mL Total Protein (6.3-8.2) G/DL Albumin (3.5-5.0) g/dL Globulin (2.2-3.9) gm/dL Albumin/Globulin Ratio (1.0-2.1) Triglycerides (0-149) mg/DL Cholesterol (0-199) mg/dL LDL Cholesterol Direct (0-129) mg/dL HDL Cholesterol (30-70) MG/DL Lipase (23-300) U/L TSH 3rd Generation (0.46-4.68) mIU/ML Arterial Blood Potassium 5.4 H (3.6-5.2) mmol/L Urine Color Yellow (YELLOW) Urine Clarity Cloudy (Clear) Urine pH 5.0 (5.0-8.0) Ur Specific [place] 1.012 (1.003-1.030) Urine Protein 100 (NEGATIVE) mg/dL Urine Glucose (UA) >=500 (NEGATIVE) mg/dL Urine Ketones 80 (NEGATIVE) mg/dL Urine Blood Small (NEGATIVE) Urine Nitrate Negative (NEGATIVE) Urine Bilirubin Negative (NEGATIVE) Urine Urobilinogen 0.2-1.0 (0.2-1.0) mg/dL Ur Leukocyte Esterase Neg (Negative) Aaron/uL Urine RBC (Auto) < 1 (0-3) /hpf Urine Microscopic WBC 2 (0-5) /hpf Amorphous Sediment Rare H (<OCC) /ul Urine Bacteria Rare (<OCC) Fluid Type CSF Volume (0-1) mL CSF Appearance (CLEAR) CSF WBC (0.0-5.0) /mm3 CSF RBC (0.0-0.0) /mm3 CSF Comment CSF Glucose (40-70) mg/dL CSF Total Protein (12-60) mg/dL Urine Opiates Screen Negative (NEGATIVE) Urine Methadone Screen Negative (NEGATIVE) Ur Barbiturates Screen Negative (NEGATIVE) Ur Phencyclidine Scrn Negative (NEGATIVE) Ur Amphetamines Screen Negative (NEGATIVE) U Benzodiazepines Scrn Negative (NEGATIVE) U Oth Cocaine Metabols Negative (NEGATIVE) U Cannabinoids Screen Negative (NEGATIVE) Alcohol, Quantitative (0-10) mg/dl HSV Source Description HIV-1 Ab Rapid Screen (NON REAC) 05/14/18 05/14/18 05/14/18 Range/Units 11:32 11:32 11:32 WBC 23.6 H D (4.8-10.8) K/uL RBC 4.14 L (4.40-5.90) Mil/uL Hgb 13.1 (12.0-18.0) g/dL Hct 43.3 (35.0-51.0) % MCV 104.6 H D (80.0-94.0) fl MCH 31.6 H (27.0-31.0) pg MCHC 30.2 L (33.0-37.0) g/dL RDW 13.4 (11.5-14.5) % Plt Count 468 H D (130-400) K/uL MPV 8.5 (7.2-11.7) fl Neut % (Auto) 72.4 (50.0-75.0) % Lymph % (Auto) 17.2 L (20.0-40.0) % Love % (Auto) 9.3 (0.0-10.0) % Eos % (Auto) 0.2 (0.0-4.0) % Baso % (Auto) 0.9 (0.0-2.0) % Neut # (Auto) 17.1 H (1.8-7.0) K/uL Lymph # (Auto) 4.1 (1.0-4.3) K/uL Love # (Auto) 2.2 H (0.0-0.8) K/uL Eos # (Auto) 0.0 (0.0-0.7) K/uL Baso # (Auto) 0.2 (0.0-0.2) K/uL PT 10.3 (9.8-13.1) Seconds INR 0.9 APTT 39.7 H (25.6-37.1) Seconds pCO2 (35-45) mm/Hg pO2 (80-100) mm/Hg HCO3 (21-28) mmol/L ABG pH (7.35-7.45) ABG Total CO2 (22-28) mmol/L ABG O2 Saturation (95-98) % ABG Base Excess (-2.0-3.0) mmol/L Fabian Test ABG Potassium (3.6-5.2) mmol/L A-a O2 Difference mm/Hg Glucose (75-110) mg/dL Lactate (0.7-2.1) mmol/L FiO2 % Crit Value Called To Crit Value Called By Crit Value Read Back Blood Gas Notified Time Sodium 137 (132-148) mmol/l Potassium 5.1 H (3.6-5.0) MMOL/L Chloride 90 L (98-107) mmol/L Carbon Dioxide < 5 L* D (22-30) mmol/L Anion Gap 47 H (10-20) BUN 11 (9-20) mg/dl Creatinine 1.3 (0.8-1.5) mg/dl Est GFR ( Amer) > 60 Est GFR (Non-Af Amer) 59 POC Glucose (mg/dL) (65-110) mg/dL Random Glucose 288 H (75-110) mg/dL Lactic Acid (0.7-2.1) mmol/L Calcium 8.8 (8.4-10.2) mg/dL Phosphorus (2.5-4.5) mg/dl Magnesium (1.6-2.3) MG/DL Total Bilirubin 0.9 (0.2-1.3) mg/dl AST 176 H D (17-59) U/L ALT 111 H D (21-72) U/L Alkaline Phosphatase 138 H D (38-126) U/L Troponin I 0.0130 (0.00-0.120) ng/mL Total Protein 8.4 H (6.3-8.2) G/DL Albumin 5.2 H (3.5-5.0) g/dL Globulin 3.2 (2.2-3.9) gm/dL Albumin/Globulin Ratio 1.6 (1.0-2.1) Triglycerides (0-149) mg/DL Cholesterol (0-199) mg/dL LDL Cholesterol Direct (0-129) mg/dL HDL Cholesterol (30-70) MG/DL Lipase 69 (23-300) U/L TSH 3rd Generation 1.13 (0.46-4.68) mIU/ML Arterial Blood Potassium (3.6-5.2) mmol/L Urine Color (YELLOW) Urine Clarity (Clear) Urine pH (5.0-8.0) Ur Specific [place] (1.003-1.030) Urine Protein (NEGATIVE) mg/dL Urine Glucose (UA) (NEGATIVE) mg/dL Urine Ketones (NEGATIVE) mg/dL Urine Blood (NEGATIVE) Urine Nitrate (NEGATIVE) Urine Bilirubin (NEGATIVE) Urine Urobilinogen (0.2-1.0) mg/dL Ur Leukocyte Esterase (Negative) Aaron/uL Urine RBC (Auto) (0-3) /hpf Urine Microscopic WBC (0-5) /hpf Amorphous Sediment (<OCC) /ul Urine Bacteria (<OCC) Fluid Type CSF Volume (0-1) mL CSF Appearance (CLEAR) CSF WBC (0.0-5.0) /mm3 CSF RBC (0.0-0.0) /mm3 CSF Comment CSF Glucose (40-70) mg/dL CSF Total Protein (12-60) mg/dL Urine Opiates Screen (NEGATIVE) Urine Methadone Screen (NEGATIVE) Ur Barbiturates Screen (NEGATIVE) Ur Phencyclidine Scrn (NEGATIVE) Ur Amphetamines Screen (NEGATIVE) U Benzodiazepines Scrn (NEGATIVE) U Oth Cocaine Metabols (NEGATIVE) U Cannabinoids Screen (NEGATIVE) Alcohol, Quantitative 28 H (0-10) mg/dl HSV Source Description HIV-1 Ab Rapid Screen (NON REAC) 05/14/18 Range/Units 11:21 WBC (4.8-10.8) K/uL RBC (4.40-5.90) Mil/uL Hgb (12.0-18.0) g/dL Hct (35.0-51.0) % MCV (80.0-94.0) fl MCH (27.0-31.0) pg MCHC (33.0-37.0) g/dL RDW (11.5-14.5) % Plt Count (130-400) K/uL MPV (7.2-11.7) fl Neut % (Auto) (50.0-75.0) % Lymph % (Auto) (20.0-40.0) % Love % (Auto) (0.0-10.0) % Eos % (Auto) (0.0-4.0) % Baso % (Auto) (0.0-2.0) % Neut # (Auto) (1.8-7.0) K/uL Lymph # (Auto) (1.0-4.3) K/uL Love # (Auto) (0.0-0.8) K/uL Eos # (Auto) (0.0-0.7) K/uL Baso # (Auto) (0.0-0.2) K/uL PT (9.8-13.1) Seconds INR APTT (25.6-37.1) Seconds pCO2 (35-45) mm/Hg pO2 (80-100) mm/Hg HCO3 (21-28) mmol/L ABG pH (7.35-7.45) ABG Total CO2 (22-28) mmol/L ABG O2 Saturation (95-98) % ABG Base Excess (-2.0-3.0) mmol/L Fabian Test ABG Potassium (3.6-5.2) mmol/L A-a O2 Difference mm/Hg Glucose (75-110) mg/dL Lactate (0.7-2.1) mmol/L FiO2 % Crit Value Called To Crit Value Called By Crit Value Read Back Blood Gas Notified Time Sodium (132-148) mmol/l Potassium (3.6-5.0) MMOL/L Chloride (98-107) mmol/L Carbon Dioxide (22-30) mmol/L Anion Gap (10-20) BUN (9-20) mg/dl Creatinine (0.8-1.5) mg/dl Est GFR ( Amer) Est GFR (Non-Af Amer) POC Glucose (mg/dL) 327 H (65-110) mg/dL Random Glucose (75-110) mg/dL Lactic Acid (0.7-2.1) mmol/L Calcium (8.4-10.2) mg/dL Phosphorus (2.5-4.5) mg/dl Magnesium (1.6-2.3) MG/DL Total Bilirubin (0.2-1.3) mg/dl AST (17-59) U/L ALT (21-72) U/L Alkaline Phosphatase (38-126) U/L Troponin I (0.00-0.120) ng/mL Total Protein (6.3-8.2) G/DL Albumin (3.5-5.0) g/dL Globulin (2.2-3.9) gm/dL Albumin/Globulin Ratio (1.0-2.1) Triglycerides (0-149) mg/DL Cholesterol (0-199) mg/dL LDL Cholesterol Direct (0-129) mg/dL HDL Cholesterol (30-70) MG/DL Lipase (23-300) U/L TSH 3rd Generation (0.46-4.68) mIU/ML Arterial Blood Potassium (3.6-5.2) mmol/L Urine Color (YELLOW) Urine Clarity (Clear) Urine pH (5.0-8.0) Ur Specific [place] (1.003-1.030) Urine Protein (NEGATIVE) mg/dL Urine Glucose (UA) (NEGATIVE) mg/dL Urine Ketones (NEGATIVE) mg/dL Urine Blood (NEGATIVE) Urine Nitrate (NEGATIVE) Urine Bilirubin (NEGATIVE) Urine Urobilinogen (0.2-1.0) mg/dL Ur Leukocyte Esterase (Negative) Aaron/uL Urine RBC (Auto) (0-3) /hpf Urine Microscopic WBC (0-5) /hpf Amorphous Sediment (<OCC) /ul Urine Bacteria (<OCC) Fluid Type CSF Volume (0-1) mL CSF Appearance (CLEAR) CSF WBC (0.0-5.0) /mm3 CSF RBC (0.0-0.0) /mm3 CSF Comment CSF Glucose (40-70) mg/dL CSF Total Protein (12-60) mg/dL Urine Opiates Screen (NEGATIVE) Urine Methadone Screen (NEGATIVE) Ur Barbiturates Screen (NEGATIVE) Ur Phencyclidine Scrn (NEGATIVE) Ur Amphetamines Screen (NEGATIVE) U Benzodiazepines Scrn (NEGATIVE) U Oth Cocaine Metabols (NEGATIVE) U Cannabinoids Screen (NEGATIVE) Alcohol, Quantitative (0-10) mg/dl HSV Source Description HIV-1 Ab Rapid Screen (NON REAC) Laboratory Results - last 24 hr 05/14/18 05/14/18 05/14/18 11:21 11:32 11:32 WBC 23.6 H D RBC 4.14 L Hgb 13.1 Hct 43.3 MCV 104.6 H D MCH 31.6 H MCHC 30.2 L RDW 13.4 Plt Count 468 H D MPV 8.5 Neut % (Auto) 72.4 Lymph % (Auto) 17.2 L Love % (Auto) 9.3 Eos % (Auto) 0.2 Baso % (Auto) 0.9 Neut # (Auto) 17.1 H Lymph # (Auto) 4.1 Love # (Auto) 2.2 H Eos # (Auto) 0.0 Baso # (Auto) 0.2 PT INR APTT pCO2 pO2 HCO3 ABG pH ABG Total CO2 ABG O2 Saturation ABG Base Excess Fabian Test ABG Potassium A-a O2 Difference Glucose Lactate FiO2 Crit Value Called To Crit Value Called By Crit Value Read Back Blood Gas Notified Time Sodium 137 Potassium 5.1 H Chloride 90 L Carbon Dioxide < 5 L* D Anion Gap 47 H BUN 11 Creatinine 1.3 Est GFR ( Amer) > 60 Est GFR (Non-Af Amer) 59 POC Glucose (mg/dL) 327 H Random Glucose 288 H Lactic Acid Calcium 8.8 Phosphorus Magnesium Total Bilirubin 0.9 AST 176 H D ALT 111 H D Alkaline Phosphatase 138 H D Troponin I 0.0130 Total Protein 8.4 H Albumin 5.2 H Globulin 3.2 Albumin/Globulin Ratio 1.6 Triglycerides Cholesterol LDL Cholesterol Direct HDL Cholesterol Lipase 69 TSH 3rd Generation 1.13 Arterial Blood Potassium Urine Color Urine Clarity Urine pH Ur Specific [place] Urine Protein Urine Glucose (UA) Urine Ketones Urine Blood Urine Nitrate Urine Bilirubin Urine Urobilinogen Ur Leukocyte Esterase Urine RBC (Auto) Urine Microscopic WBC Amorphous Sediment Urine Bacteria Fluid Type CSF Volume CSF Appearance CSF WBC CSF RBC CSF Comment CSF Glucose CSF Total Protein Urine Opiates Screen Urine Methadone Screen Ur Barbiturates Screen Ur Phencyclidine Scrn Ur Amphetamines Screen U Benzodiazepines Scrn U Oth Cocaine Metabols U Cannabinoids Screen Alcohol, Quantitative 28 H HSV Source Description HIV-1 Ab Rapid Screen 05/14/18 05/14/18 05/14/18 11:32 12:57 13:10 WBC RBC Hgb Hct MCV MCH MCHC RDW Plt Count MPV Neut % (Auto) Lymph % (Auto) Love % (Auto) Eos % (Auto) Baso % (Auto) Neut # (Auto) Lymph # (Auto) Love # (Auto) Eos # (Auto) Baso # (Auto) PT 10.3 INR 0.9 APTT 39.7 H pCO2 16 L* pO2 153 H HCO3 0.7 L* ABG pH 6.81 L* ABG Total CO2 3.0 L ABG O2 Saturation 99.2 H ABG Base Excess -31.0 L Fabian Test Yes ABG Potassium 5.4 H A-a O2 Difference -23.0 Glucose 303 H Lactate 16.1 H* FiO2 21.0 Crit Value Called To Dr trae zapata Crit Value Called By 15 Crit Value Read Back Y Blood Gas Notified Time 1300 Sodium 127.0 L Potassium Chloride 88.0 L Carbon Dioxide Anion Gap BUN Creatinine Est GFR ( Amer) Est GFR (Non-Af Amer) POC Glucose (mg/dL) Random Glucose Lactic Acid Calcium Phosphorus Magnesium Total Bilirubin AST ALT Alkaline Phosphatase Troponin I Total Protein Albumin Globulin Albumin/Globulin Ratio Triglycerides Cholesterol LDL Cholesterol Direct HDL Cholesterol Lipase TSH 3rd Generation Arterial Blood Potassium 5.4 H Urine Color Urine Clarity Urine pH Ur Specific [place] Urine Protein Urine Glucose (UA) Urine Ketones Urine Blood Urine Nitrate Urine Bilirubin Urine Urobilinogen Ur Leukocyte Esterase Urine RBC (Auto) Urine Microscopic WBC Amorphous Sediment Urine Bacteria Fluid Type CSF Volume CSF Appearance CSF WBC CSF RBC CSF Comment CSF Glucose CSF Total Protein Urine Opiates Screen Negative Urine Methadone Screen Negative Ur Barbiturates Screen Negative Ur Phencyclidine Scrn Negative Ur Amphetamines Screen Negative U Benzodiazepines Scrn Negative U Oth Cocaine Metabols Negative U Cannabinoids Screen Negative Alcohol, Quantitative HSV Source Description HIV-1 Ab Rapid Screen 05/14/18 05/14/18 05/14/18 13:10 13:31 13:40 WBC RBC Hgb Hct MCV MCH MCHC RDW Plt Count MPV Neut % (Auto) Lymph % (Auto) Love % (Auto) Eos % (Auto) Baso % (Auto) Neut # (Auto) Lymph # (Auto) Love # (Auto) Eos # (Auto) Baso # (Auto) PT INR APTT pCO2 pO2 HCO3 ABG pH ABG Total CO2 ABG O2 Saturation ABG Base Excess Fabian Test ABG Potassium A-a O2 Difference Glucose Lactate FiO2 Crit Value Called To Crit Value Called By Crit Value Read Back Blood Gas Notified Time Sodium Potassium Chloride Carbon Dioxide Anion Gap BUN Creatinine Est GFR ( Amer) Est GFR (Non-Af Amer) POC Glucose (mg/dL) Random Glucose Lactic Acid Calcium Phosphorus Magnesium Total Bilirubin AST ALT Alkaline Phosphatase Troponin I Total Protein Albumin Globulin Albumin/Globulin Ratio Triglycerides Cholesterol LDL Cholesterol Direct HDL Cholesterol Lipase TSH 3rd Generation Arterial Blood Potassium Urine Color Yellow Urine Clarity Cloudy Urine pH 5.0 Ur Specific [place] 1.012 Urine Protein 100 Urine Glucose (UA) >=500 Urine Ketones 80 Urine Blood Small Urine Nitrate Negative Urine Bilirubin Negative Urine Urobilinogen 0.2-1.0 Ur Leukocyte Esterase Neg Urine RBC (Auto) < 1 Urine Microscopic WBC 2 Amorphous Sediment Rare H Urine Bacteria Rare Fluid Type Spinal fluid CSF Volume 1 CSF Appearance Clear/colorless CSF WBC 1.0 CSF RBC 0.0 CSF Comment None CSF Glucose 220 H* CSF Total Protein 62.0 H Urine Opiates Screen Urine Methadone Screen Ur Barbiturates Screen Ur Phencyclidine Scrn Ur Amphetamines Screen U Benzodiazepines Scrn U Oth Cocaine Metabols U Cannabinoids Screen Alcohol, Quantitative HSV Source Description HIV-1 Ab Rapid Screen 05/14/18 05/14/18 05/14/18 13:40 14:16 14:30 WBC RBC Hgb Hct MCV MCH MCHC RDW Plt Count MPV Neut % (Auto) Lymph % (Auto) Love % (Auto) Eos % (Auto) Baso % (Auto) Neut # (Auto) Lymph # (Auto) Love # (Auto) Eos # (Auto) Baso # (Auto) PT INR APTT pCO2 24 L pO2 29 L* HCO3 4.4 L* ABG pH 6.94 L* ABG Total CO2 5.9 L ABG O2 Saturation 75.0 L ABG Base Excess -25.6 L Fabian Test Yes ABG Potassium 5.5 H A-a O2 Difference 91.0 Glucose 325 H Lactate 12.1 H* FiO2 21.0 Crit Value Called To Dr benny frias Crit Value Called By 15 Crit Value Read Back Y Blood Gas Notified Time 1444 Sodium 134.0 Potassium Chloride 92.0 L Carbon Dioxide Anion Gap BUN Creatinine Est GFR ( Amer) Est GFR (Non-Af Amer) POC Glucose (mg/dL) 302 H Random Glucose Lactic Acid Calcium Phosphorus Magnesium Total Bilirubin AST ALT Alkaline Phosphatase Troponin I Total Protein Albumin Globulin Albumin/Globulin Ratio Triglycerides Cholesterol LDL Cholesterol Direct HDL Cholesterol Lipase TSH 3rd Generation Arterial Blood Potassium 5.5 H Urine Color Urine Clarity Urine pH Ur Specific [place] Urine Protein Urine Glucose (UA) Urine Ketones Urine Blood Urine Nitrate Urine Bilirubin Urine Urobilinogen Ur Leukocyte Esterase Urine RBC (Auto) Urine Microscopic WBC Amorphous Sediment Urine Bacteria Fluid Type CSF Volume CSF Appearance CSF WBC CSF RBC CSF Comment CSF Glucose CSF Total Protein Urine Opiates Screen Urine Methadone Screen Ur Barbiturates Screen Ur Phencyclidine Scrn Ur Amphetamines Screen U Benzodiazepines Scrn U Oth Cocaine Metabols U Cannabinoids Screen Alcohol, Quantitative HSV Source Description Fluid HIV-1 Ab Rapid Screen 05/14/18 05/14/18 05/14/18 15:47 17:11 17:15 WBC RBC Hgb Hct MCV MCH MCHC RDW Plt Count MPV Neut % (Auto) Lymph % (Auto) Love % (Auto) Eos % (Auto) Baso % (Auto) Neut # (Auto) Lymph # (Auto) Love # (Auto) Eos # (Auto) Baso # (Auto) PT INR APTT pCO2 pO2 HCO3 ABG pH ABG Total CO2 ABG O2 Saturation ABG Base Excess Fabian Test ABG Potassium A-a O2 Difference Glucose Lactate FiO2 Crit Value Called To Crit Value Called By Crit Value Read Back Blood Gas Notified Time Sodium Potassium Chloride Carbon Dioxide Anion Gap BUN Creatinine Est GFR ( Amer) Est GFR (Non-Af Amer) POC Glucose (mg/dL) 317 H 371 H Random Glucose Lactic Acid Calcium Phosphorus Magnesium Total Bilirubin AST ALT Alkaline Phosphatase Troponin I Total Protein Albumin Globulin Albumin/Globulin Ratio Triglycerides Cholesterol LDL Cholesterol Direct HDL Cholesterol Lipase TSH 3rd Generation Arterial Blood Potassium Urine Color Urine Clarity Urine pH Ur Specific [place] Urine Protein Urine Glucose (UA) Urine Ketones Urine Blood Urine Nitrate Urine Bilirubin Urine Urobilinogen Ur Leukocyte Esterase Urine RBC (Auto) Urine Microscopic WBC Amorphous Sediment Urine Bacteria Fluid Type CSF Volume CSF Appearance CSF WBC CSF RBC CSF Comment CSF Glucose CSF Total Protein Urine Opiates Screen Urine Methadone Screen Ur Barbiturates Screen Ur Phencyclidine Scrn Ur Amphetamines Screen U Benzodiazepines Scrn U Oth Cocaine Metabols U Cannabinoids Screen Alcohol, Quantitative HSV Source Description HIV-1 Ab Rapid Screen Reactive H 05/14/18 05/14/18 05/14/18 17:53 19:00 19:00 WBC 8.1 D RBC 3.38 L Hgb 10.7 L D Hct 32.8 L MCV 97.2 H D MCH 31.7 H MCHC 32.7 L RDW 12.3 Plt Count 275 D MPV Neut % (Auto) Lymph % (Auto) Love % (Auto) Eos % (Auto) Baso % (Auto) Neut # (Auto) Lymph # (Auto) Love # (Auto) Eos # (Auto) Baso # (Auto) PT INR APTT pCO2 pO2 HCO3 ABG pH ABG Total CO2 ABG O2 Saturation ABG Base Excess Fabian Test ABG Potassium A-a O2 Difference Glucose Lactate FiO2 Crit Value Called To Crit Value Called By Crit Value Read Back Blood Gas Notified Time Sodium 133 Potassium 5.8 H Chloride 96 L Carbon Dioxide 9 L* D Anion Gap 34 H BUN 14 Creatinine 1.2 Est GFR ( Amer) > 60 Est GFR (Non-Af Amer) > 60 POC Glucose (mg/dL) 341 H Random Glucose 293 H Lactic Acid Calcium 7.3 L Phosphorus 2.7 Magnesium 1.6 Total Bilirubin AST ALT Alkaline Phosphatase Troponin I Total Protein Albumin Globulin Albumin/Globulin Ratio Triglycerides Cholesterol LDL Cholesterol Direct HDL Cholesterol Lipase TSH 3rd Generation Arterial Blood Potassium Urine Color Urine Clarity Urine pH Ur Specific [place] Urine Protein Urine Glucose (UA) Urine Ketones Urine Blood Urine Nitrate Urine Bilirubin Urine Urobilinogen Ur Leukocyte Esterase Urine RBC (Auto) Urine Microscopic WBC Amorphous Sediment Urine Bacteria Fluid Type CSF Volume CSF Appearance CSF WBC CSF RBC CSF Comment CSF Glucose CSF Total Protein Urine Opiates Screen Urine Methadone Screen Ur Barbiturates Screen Ur Phencyclidine Scrn Ur Amphetamines Screen U Benzodiazepines Scrn U Oth Cocaine Metabols U Cannabinoids Screen Alcohol, Quantitative HSV Source Description HIV-1 Ab Rapid Screen 05/14/18 05/14/18 05/14/18 19:00 19:20 20:13 WBC RBC Hgb Hct MCV MCH MCHC RDW Plt Count MPV Neut % (Auto) Lymph % (Auto) Love % (Auto) Eos % (Auto) Baso % (Auto) Neut # (Auto) Lymph # (Auto) Love # (Auto) Eos # (Auto) Baso # (Auto) PT INR APTT pCO2 pO2 HCO3 ABG pH ABG Total CO2 ABG O2 Saturation ABG Base Excess Fabian Test ABG Potassium A-a O2 Difference Glucose Lactate FiO2 Crit Value Called To Crit Value Called By Crit Value Read Back Blood Gas Notified Time Sodium Potassium Chloride Carbon Dioxide Anion Gap BUN Creatinine Est GFR ( Amer) Est GFR (Non-Af Amer) POC Glucose (mg/dL) 293 H 300 H Random Glucose Lactic Acid 2.6 H Calcium Phosphorus Magnesium Total Bilirubin AST ALT Alkaline Phosphatase Troponin I Total Protein Albumin Globulin Albumin/Globulin Ratio Triglycerides Cholesterol LDL Cholesterol Direct HDL Cholesterol Lipase TSH 3rd Generation Arterial Blood Potassium Urine Color Urine Clarity Urine pH Ur Specific [place] Urine Protein Urine Glucose (UA) Urine Ketones Urine Blood Urine Nitrate Urine Bilirubin Urine Urobilinogen Ur Leukocyte Esterase Urine RBC (Auto) Urine Microscopic WBC Amorphous Sediment Urine Bacteria Fluid Type CSF Volume CSF Appearance CSF WBC CSF RBC CSF Comment CSF Glucose CSF Total Protein Urine Opiates Screen Urine Methadone Screen Ur Barbiturates Screen Ur Phencyclidine Scrn Ur Amphetamines Screen U Benzodiazepines Scrn U Oth Cocaine Metabols U Cannabinoids Screen Alcohol, Quantitative HSV Source Description HIV-1 Ab Rapid Screen 05/14/18 05/14/18 05/14/18 21:21 21:40 22:11 WBC RBC Hgb Hct MCV MCH MCHC RDW Plt Count MPV Neut % (Auto) Lymph % (Auto) Love % (Auto) Eos % (Auto) Baso % (Auto) Neut # (Auto) Lymph # (Auto) Love # (Auto) Eos # (Auto) Baso # (Auto) PT INR APTT pCO2 pO2 HCO3 ABG pH ABG Total CO2 ABG O2 Saturation ABG Base Excess Fabian Test ABG Potassium A-a O2 Difference Glucose Lactate FiO2 Crit Value Called To Crit Value Called By Crit Value Read Back Blood Gas Notified Time Sodium 135 Potassium 5.1 H Chloride 99 Carbon Dioxide 14 L Anion Gap 27 H BUN 15 Creatinine 1.3 Est GFR ( Amer) > 60 Est GFR (Non-Af Amer) 59 POC Glucose (mg/dL) 227 H 215 H Random Glucose 200 H Lactic Acid Calcium 7.9 L Phosphorus Magnesium Total Bilirubin AST ALT Alkaline Phosphatase Troponin I Total Protein Albumin Globulin Albumin/Globulin Ratio Triglycerides Cholesterol LDL Cholesterol Direct HDL Cholesterol Lipase TSH 3rd Generation Arterial Blood Potassium Urine Color Urine Clarity Urine pH Ur Specific [place] Urine Protein Urine Glucose (UA) Urine Ketones Urine Blood Urine Nitrate Urine Bilirubin Urine Urobilinogen Ur Leukocyte Esterase Urine RBC (Auto) Urine Microscopic WBC Amorphous Sediment Urine Bacteria Fluid Type CSF Volume CSF Appearance CSF WBC CSF RBC CSF Comment CSF Glucose CSF Total Protein Urine Opiates Screen Urine Methadone Screen Ur Barbiturates Screen Ur Phencyclidine Scrn Ur Amphetamines Screen U Benzodiazepines Scrn U Oth Cocaine Metabols U Cannabinoids Screen Alcohol, Quantitative HSV Source Description HIV-1 Ab Rapid Screen 05/14/18 05/15/18 05/15/18 23:08 00:08 01:10 WBC RBC Hgb Hct MCV MCH MCHC RDW Plt Count MPV Neut % (Auto) Lymph % (Auto) Love % (Auto) Eos % (Auto) Baso % (Auto) Neut # (Auto) Lymph # (Auto) Love # (Auto) Eos # (Auto) Baso # (Auto) PT INR APTT pCO2 pO2 HCO3 ABG pH ABG Total CO2 ABG O2 Saturation ABG Base Excess Fabian Test ABG Potassium A-a O2 Difference Glucose Lactate FiO2 Crit Value Called To Crit Value Called By Crit Value Read Back Blood Gas Notified Time Sodium Potassium Chloride Carbon Dioxide Anion Gap BUN Creatinine Est GFR ( Amer) Est GFR (Non-Af Amer) POC Glucose (mg/dL) 209 H 149 H 130 H Random Glucose Lactic Acid Calcium Phosphorus Magnesium Total Bilirubin AST ALT Alkaline Phosphatase Troponin I Total Protein Albumin Globulin Albumin/Globulin Ratio Triglycerides Cholesterol LDL Cholesterol Direct HDL Cholesterol Lipase TSH 3rd Generation Arterial Blood Potassium Urine Color Urine Clarity Urine pH Ur Specific [place] Urine Protein Urine Glucose (UA) Urine Ketones Urine Blood Urine Nitrate Urine Bilirubin Urine Urobilinogen Ur Leukocyte Esterase Urine RBC (Auto) Urine Microscopic WBC Amorphous Sediment Urine Bacteria Fluid Type CSF Volume CSF Appearance CSF WBC CSF RBC CSF Comment CSF Glucose CSF Total Protein Urine Opiates Screen Urine Methadone Screen Ur Barbiturates Screen Ur Phencyclidine Scrn Ur Amphetamines Screen U Benzodiazepines Scrn U Oth Cocaine Metabols U Cannabinoids Screen Alcohol, Quantitative HSV Source Description HIV-1 Ab Rapid Screen 05/15/18 05/15/18 05/15/18 02:06 03:08 04:03 WBC RBC Hgb Hct MCV MCH MCHC RDW Plt Count MPV Neut % (Auto) Lymph % (Auto) Love % (Auto) Eos % (Auto) Baso % (Auto) Neut # (Auto) Lymph # (Auto) Love # (Auto) Eos # (Auto) Baso # (Auto) PT INR APTT pCO2 pO2 HCO3 ABG pH ABG Total CO2 ABG O2 Saturation ABG Base Excess Fabian Test ABG Potassium A-a O2 Difference Glucose Lactate FiO2 Crit Value Called To Crit Value Called By Crit Value Read Back Blood Gas Notified Time Sodium Potassium Chloride Carbon Dioxide Anion Gap BUN Creatinine Est GFR ( Amer) Est GFR (Non-Af Amer) POC Glucose (mg/dL) 151 H 160 H 144 H Random Glucose Lactic Acid Calcium Phosphorus Magnesium Total Bilirubin AST ALT Alkaline Phosphatase Troponin I Total Protein Albumin Globulin Albumin/Globulin Ratio Triglycerides Cholesterol LDL Cholesterol Direct HDL Cholesterol Lipase TSH 3rd Generation Arterial Blood Potassium Urine Color Urine Clarity Urine pH Ur Specific [place] Urine Protein Urine Glucose (UA) Urine Ketones Urine Blood Urine Nitrate Urine Bilirubin Urine Urobilinogen Ur Leukocyte Esterase Urine RBC (Auto) Urine Microscopic WBC Amorphous Sediment Urine Bacteria Fluid Type CSF Volume CSF Appearance CSF WBC CSF RBC CSF Comment CSF Glucose CSF Total Protein Urine Opiates Screen Urine Methadone Screen Ur Barbiturates Screen Ur Phencyclidine Scrn Ur Amphetamines Screen U Benzodiazepines Scrn U Oth Cocaine Metabols U Cannabinoids Screen Alcohol, Quantitative HSV Source Description HIV-1 Ab Rapid Screen 05/15/18 05/15/18 05/15/18 04:52 05:15 05:15 WBC 6.7 RBC 3.32 L Hgb 10.5 L Hct 31.3 L MCV 94.1 H D MCH 31.5 H MCHC 33.5 RDW 12.2 Plt Count 258 MPV 8.3 Neut % (Auto) 81.5 H Lymph % (Auto) 12.2 L Love % (Auto) 6.1 Eos % (Auto) 0.0 Baso % (Auto) 0.2 Neut # (Auto) 5.5 Lymph # (Auto) 0.8 L Love # (Auto) 0.4 Eos # (Auto) 0.0 Baso # (Auto) 0.0 PT INR APTT pCO2 pO2 HCO3 ABG pH ABG Total CO2 ABG O2 Saturation ABG Base Excess Fabian Test ABG Potassium A-a O2 Difference Glucose Lactate FiO2 Crit Value Called To Crit Value Called By Crit Value Read Back Blood Gas Notified Time Sodium 137 Potassium 3.5 L Chloride 102 Carbon Dioxide 21 L Anion Gap 18 BUN 16 Creatinine 1.2 Est GFR ( Amer) > 60 Est GFR (Non-Af Amer) > 60 POC Glucose (mg/dL) 136 H Random Glucose 116 H Lactic Acid Calcium 7.6 L Phosphorus 2.4 L Magnesium Total Bilirubin 0.5 AST 241 H D ALT 122 H Alkaline Phosphatase 104 Troponin I Total Protein 5.7 L Albumin 3.2 L D Globulin 2.5 Albumin/Globulin Ratio 1.3 Triglycerides 62 Cholesterol 106 LDL Cholesterol Direct 46 HDL Cholesterol 50 Lipase TSH 3rd Generation Arterial Blood Potassium Urine Color Urine Clarity Urine pH Ur Specific [place] Urine Protein Urine Glucose (UA) Urine Ketones Urine Blood Urine Nitrate Urine Bilirubin Urine Urobilinogen Ur Leukocyte Esterase Urine RBC (Auto) Urine Microscopic WBC Amorphous Sediment Urine Bacteria Fluid Type CSF Volume CSF Appearance CSF WBC CSF RBC CSF Comment CSF Glucose CSF Total Protein Urine Opiates Screen Urine Methadone Screen Ur Barbiturates Screen Ur Phencyclidine Scrn Ur Amphetamines Screen U Benzodiazepines Scrn U Oth Cocaine Metabols U Cannabinoids Screen Alcohol, Quantitative HSV Source Description HIV-1 Ab Rapid Screen 05/15/18 05:20 WBC RBC Hgb Hct MCV MCH MCHC RDW Plt Count MPV Neut % (Auto) Lymph % (Auto) Love % (Auto) Eos % (Auto) Baso % (Auto) Neut # (Auto) Lymph # (Auto) Love # (Auto) Eos # (Auto) Baso # (Auto) PT INR APTT pCO2 pO2 HCO3 ABG pH ABG Total CO2 ABG O2 Saturation ABG Base Excess Fabian Test ABG Potassium A-a O2 Difference Glucose Lactate FiO2 Crit Value Called To Crit Value Called By Crit Value Read Back Blood Gas Notified Time Sodium Potassium Chloride Carbon Dioxide Anion Gap BUN Creatinine Est GFR ( Amer) Est GFR (Non-Af Amer) POC Glucose (mg/dL) Random Glucose Lactic Acid 1.0 Calcium Phosphorus Magnesium Total Bilirubin AST ALT Alkaline Phosphatase Troponin I Total Protein Albumin Globulin Albumin/Globulin Ratio Triglycerides Cholesterol LDL Cholesterol Direct HDL Cholesterol Lipase TSH 3rd Generation Arterial Blood Potassium Urine Color Urine Clarity Urine pH Ur Specific [place] Urine Protein Urine Glucose (UA) Urine Ketones Urine Blood Urine Nitrate Urine Bilirubin Urine Urobilinogen Ur Leukocyte Esterase Urine RBC (Auto) Urine Microscopic WBC Amorphous Sediment Urine Bacteria Fluid Type CSF Volume CSF Appearance CSF WBC CSF RBC CSF Comment CSF Glucose CSF Total Protein Urine Opiates Screen Urine Methadone Screen Ur Barbiturates Screen Ur Phencyclidine Scrn Ur Amphetamines Screen U Benzodiazepines Scrn U Oth Cocaine Metabols U Cannabinoids Screen Alcohol, Quantitative HSV Source Description HIV-1 Ab Rapid Screen Radiology Impressions: Radiology Impressions Chest X-Ray 05/14/18 11:27 IMPRESSION: No active disease. Head CT 05/14/18 11:27 IMPRESSION: No evidence of intracranial hemorrhage or recent infarct. Nonspecific cerebral cortical atrophy and probable scattered white matter changes greater than expected for the patient's age. Abdomen/Pelvis CT 05/14/18 12:11 IMPRESSION: Distended in fluid-filled stomach with some possible mild antral wall thickening which may suggest antritis and gastritis. There is additionally nonspecific low density surrounding the gallbladder, new from the prior study. This would suggest gallbladder wall thickening and/or pericholecystic fluid. No appreciable bile duct dilatation. Minor amount of haziness surrounding the pancreas may suggest minor pancreatitis. Additional mild colonic wall thickening and moderate amounts of residual fecal material throughout the colon suggesting either chronic constipation and/or mild colitis. Distended urinary bladder. Moderate fatty infiltration of the liver. EKG/Cardiology Studies: Cardiology / EKG Studies 05/14/18 11:27 EKG [ELECTROCARDIOGRAM] Stat Comment: Mode Of Transportation: PORTABLE Reason For Exam: SOB Fingerstick Blood Sugar Results: 131 Review of Systems - Constitutional Constitutional: absent: Fever, Chills, Sweats, Weakness - Cardiovascular Cardiovascular: absent: Chest Pain, Chest Pain at Rest, Chest Pain with Activity, Claudication - Respiratory Respiratory: absent: Cough, Dyspnea, Hemoptysis, Dyspnea on Exertion, Wheezing Critical Care Progress Note - Extremities/Vascular Does the Patient have a Central Venous Catheter?: Yes Does the Patient need a Central Venous Catheter?: No (Will remove) Does the Patient have a Blanchard Catheter?: No Does the Patient need a Blnachard Catheter?: No - Nutrition Nutrition: Nutrition Category Date Time Status NPO Diet [DIET] Diets 05/14/18 Dinner Active Assessment/Plan (1) DKA (diabetic ketoacidoses) Current Visit: Yes Status: Acute Priority: High (2) Sepsis Current Visit: Yes Status: Acute Priority: High (3) Abdominal pain Current Visit: Yes Status: Acute Priority: High (4) Gallstones Current Visit: Yes Status: Acute Priority: High (5) HIV (human immunodeficiency virus infection) Current Visit: Yes Status: Acute Priority: High (6) Cholecystitis Current Visit: Yes Status: Acute Priority: High
[2018-05-15] MEDS ORDERED: Insulin Regular 100 units/ml SC SCH (08:00)
--- NOTE | 2018-05-15 09:27 | CP.PCM.PN ---
<Teo Anderson - Last Filed: 05/15/18 14:13> Subjective - Date & Time of Evaluation Date of Evaluation: 05/15/18 Time of Evaluation: 07:25 - Subjective Subjective: Patient seen and examined at bedside today, No acute overnight. patient Vitals, labs and symptoms have improved. Today patient was able to communicate with no difficulty, tolerated regular diet. Patient report mild abdominal pain after the US, but denies any nausea or vomiting.Patient also report some mild headache, most likely due to S/P lumbar puncture. Patient denies any chest pain, sob, diarrhea, constipation dysuria or polyuria. Patient will be transfer to Telemetry today Objective - Vital Signs/Intake and Output Vital Signs (last 24 hours): Temp Pulse Resp BP Pulse Ox 98.5 F 96 H 17 135/87 100 05/15/18 08:00 05/15/18 08:00 05/15/18 08:00 05/15/18 08:00 05/15/18 08:00 Intake and Output: 05/15/18 05/15/18 06:59 18:59 Intake Total 2650 520 Output Total 1500 Balance 1150 520 - Medications Medications: Current Medications Chlordiazepoxide (Librium) 25 mg PO Q8 [facility] Dextrose (Dextrose 50% Inj) 0 ml IV STAT PRN; Protocol PRN Reason: Hypoglycemia Protocol Dextrose (Glutose 15) 0 gm PO ONCE PRN; Protocol PRN Reason: Hypoglycemia Protocol Enoxaparin Sodium (Lovenox) 40 mg SC DAILY [facility]; Protocol Folic Acid (Folic Acid) 1 mg PO DAILY [facility] Glucagon (Glucagen Diagnostic Kit) 0 mg IM STAT PRN; Protocol PRN Reason: Hypoglycemia Protocol Vancomycin HCl 1 gm/ Sodium (Chloride) 250 mls @ 166.667 mls/hr IVPB Q12 [facility]; Protocol Last Admin: 05/14/18 22:39 Dose: 166.667 mls/hr Sodium Chloride (Sodium Chloride 0.9%) 1,000 mls @ 200 mls/hr IV .Q5H [facility] Stop: 05/15/18 22:30 Last Admin: 05/14/18 22:30 Dose: 200 mls/hr Meropenem 1 gm/ Sodium (Chloride) 100 mls @ 100 mls/hr IVPB Q8H [facility]; Protocol Last Admin: 05/15/18 06:05 Dose: 100 mls/hr Dextrose/Sodium Chloride (Dextrose 5%/0.45% Ns 1000 Ml) 1,000 mls @ 200 mls/hr IV .Q5H [facility] Stop: 05/16/18 01:15 Last Admin: 05/15/18 07:07 Dose: 200 mls/hr Potassium Chloride (Potassium Chloride 10 Meq/100 Ml) 100 mls @ 100 mls/hr IVPB Q1 [facility] Stop: 05/15/18 11:59 Insulin Human Regular (Humulin R) 0 units SC Q6H [facility]; Protocol Lorazepam (Ativan) 1 mg IVP Q6 PRN PRN Reason: Agitation Morphine Sulfate (Morphine) 2 mg IVP Q4H PRN PRN Reason: Pain, moderate (4-7) Last Admin: 05/15/18 05:33 Dose: 2 mg Morphine Sulfate (Morphine) 4 mg IVP Q4 PRN PRN Reason: Pain, severe (8-10) Multivitamins/Minerals (Therapeutic-M Tab) 1 tab PO DAILY [facility] Pantoprazole Sodium (Protonix Inj) 40 mg IVP DAILY [facility] Last Admin: 05/14/18 15:30 Dose: 40 mg Thiamine HCl (Vitamin B1 Tab) 100 mg PO DAILY [facility] - Labs Labs: 05/15/18 05:15 05/15/18 05:15 PT 10.3 Seconds (9.8-13.1) 05/14/18 11:32 INR 0.9 05/14/18 11:32 APTT 39.7 Seconds (25.6-37.1) H 05/14/18 11:32 - Constitutional Appears: Well, Non-toxic, No Acute Distress - Head Exam Head Exam: ATRAUMATIC, NORMAL INSPECTION, NORMOCEPHALIC - ENT Exam ENT Exam: Mucous Membranes Moist, Normal Exam - Neck Exam Neck Exam: Full ROM, Normal Inspection - Respiratory Exam Respiratory Exam: Clear to Ausculation Bilateral, NORMAL BREATHING PATTERN - Cardiovascular Exam Cardiovascular Exam: REGULAR RHYTHM, +S1, +S2 - GI/Abdominal Exam GI & Abdominal Exam: Soft, Normal Bowel Sounds - Extremities Exam Extremities Exam: Full ROM, Normal Capillary Refill, Normal Inspection - Back Exam Back Exam: NORMAL INSPECTION - Neurological Exam Neurological Exam: Alert, Awake, CN II-XII Intact, Oriented x3 - Psychiatric Exam Psychiatric exam: Normal Affect, Normal Mood - Skin Skin Exam: Dry, Intact, Normal Color, Warm Assessment and Plan - Assessment and Plan (Free Text) Assessment: Assessment: A 48 yo male with PMH of DM1 and HTN, and Positive hx of cholelithaiasis. Will be admitted to ICU for treatment and evaluate of DKA vs Sepsis. CSF was done Positive for glucose 220H , and Total protein of 62H CSF culture sent Head CT: No evidence of intracranial hemorrhage or recent infarct. Nonspecific cerebral cortical atrophy and probable scattered white matter changes greater than expected for the patient's age. Chest Xray: No active disease. CT abdomen: Distended in fluid-filled stomach with some possible mild antral wall thickening which may suggest antritis and gastritis. There is additionally nonspecific low density surrounding the gallbladder, new from the prior study. This would suggest gallbladder wall thickening and/or pericholecystic fluid. No appreciable bile duct dilatation. Minor amount of haziness surrounding the pancreas may suggest minor pancreatitis. Additional mild colonic wall thickening and moderate amounts of residual fecal material throughout the colon suggesting either chronic constipation and/or mild colitis. Distended urinary bladder. Moderate fatty infiltration of the liver. U/S Cholelithaisis mild gallbladder wall thickening and pericholecystic fluid, suspected 7x5 mm gallbladder poyl along the anterior wall. f/u in 6-12 mo, mild hepatomegaly and fatty liver PLAN: DKA Improved Anion Feliz closed PO4 2.4L MG 1.6 Lactic acid 1 Corrected calcium 8.2 D/C insulin drip Start sliding scale with hypoglycemia protocol Endocrinology on case continue to follow recommendation Transfer to telemetry Sepsis Improved Vitals regulated s/p Rocephin and Vancomycin Given. D/C Zosyn S/P Lumbar puncture CSF/blood culture negative Prelim result Urine culture negative HIV rapid test Positive f/u confirmation Start meropenem as per ID consult. Continue vancomycin F/U vanco trough MRSA screen, herpes pending final result Follow up further ID recommendation HIV reactive F/U confirmation test F/U hepatic panel F/U RPR F/U CD4 AFib with RVR Found on EKG S/P Cardizem at ER Continuous cardiac monitoring Hx of Cholelithisis/Abnormal CT Abdomen/?Acute cholecystisis Continue IV fluid and Ab General Surgery consulted, F/U recommendations Alcohol withdrawal vs alcohol intoxication Continue thiamin B12 Follow up for any symptoms of withdrawal Back pain Morphine DVT Prophylaxis SCD's Lovenox 40mg SC daily <Mead,Melvin D - Last Filed: 05/15/18 15:55> Objective - Vital Signs/Intake and Output Vital Signs (last 24 hours): Temp Pulse Resp BP Pulse Ox 98.4 F 100 H 20 140/89 98 05/15/18 12:00 05/15/18 14:00 05/15/18 14:00 05/15/18 14:00 05/15/18 14:00 Intake and Output: 05/15/18 05/15/18 06:59 18:59 Intake Total 2650 2280 Output Total 1500 700 Balance 1150 1580 - Medications Medications: Current Medications Chlordiazepoxide (Librium) 25 mg PO Q8 [facility] Last Admin: 05/15/18 10:15 Dose: 25 mg Dextrose (Dextrose 50% Inj) 0 ml IV STAT PRN; Protocol PRN Reason: Hypoglycemia Protocol Dextrose (Glutose 15) 0 gm PO ONCE PRN; Protocol PRN Reason: Hypoglycemia Protocol Enoxaparin Sodium (Lovenox) 40 mg SC DAILY [facility]; Protocol Last Admin: 05/15/18 11:46 Dose: 40 mg Folic Acid (Folic Acid) 1 mg PO DAILY [facility] Last Admin: 05/15/18 10:10 Dose: 1 mg Glucagon (Glucagen Diagnostic Kit) 0 mg IM STAT PRN; Protocol PRN Reason: Hypoglycemia Protocol Vancomycin HCl 1 gm/ Sodium (Chloride) 250 mls @ 166.667 mls/hr IVPB Q12 [facility]; Protocol Last Admin: 05/15/18 09:51 Dose: 166.667 mls/hr Sodium Chloride (Sodium Chloride 0.9%) 1,000 mls @ 200 mls/hr IV .Q5H [facility] Stop: 05/15/18 22:30 Last Admin: 05/14/18 22:30 Dose: 200 mls/hr Meropen[place] 1 gm/ Sodium (Chloride) 100 mls @ 100 mls/hr IVPB Q8H [facility]; Protocol Last Admin: 05/15/18 13:24 Dose: 100 mls/hr Sodium Chloride (Sodium Chloride 0.9%) 1,000 mls @ 75 mls/hr IV .[id number] [facility] Stop: 05/16/18 12:06 Last Admin: 05/15/18 12:32 Dose: 75 mls/hr Insulin Human Regular (Humulin R) 0 units SC ACHS [facility]; Protocol Last Admin: 05/15/18 13:17 Dose: 3 u Lorazepam (Ativan) 1 mg IVP Q6 PRN PRN Reason: Agitation Morphine Sulfate (Morphine) 4 mg IVP Q4 PRN PRN Reason: Pain, severe (8-10) Morphine Sulfate (Morphine) 2 mg IVP Q4H PRN PRN Reason: Pain, moderate (4-7) Last Admin: 05/15/18 15:48 Dose: 2 mg Multivitamins/Minerals (Therapeutic-M Tab) 1 tab PO DAILY [facility] Last Admin: 05/15/18 10:11 Dose: 1 tab Pantoprazole Sodium (Protonix Inj) 40 mg IVP DAILY [facility] Last Admin: 05/15/18 09:52 Dose: 40 mg Thiamine HCl (Vitamin B1 Tab) 100 mg PO DAILY [facility] Last Admin: 05/15/18 10:10 Dose: 100 mg - Labs Labs: 05/15/18 05:15 05/15/18 05:15 PT 10.3 Seconds (9.8-13.1) 05/14/18 11:32 INR 0.9 05/14/18 11:32 APTT 39.7 Seconds (25.6-37.1) H 05/14/18 11:32 Attending/Attestation - Attestation I have personally seen and examined this patient.: Yes I have fully participated in the care of the patient.: Yes I have reviewed all pertinent clinical information, including history, physical exam and plan: Yes Notes (Text): 05/15/18 15:55 Patient seen and examined with resident. Case discussed and agreed with assessm ent and plan.
--- NOTE | 2018-05-15 09:59 | CP.PCM.CON ---
History of Present Illness - History of Present Illness History of Present Illness: Infectious Disease Consultation Note- Asked to see this patient at the request of the hospitalist for sepsis. HPI- Jacek is a 48 year old male with PMH of Type 1 DM, HTN, HLD who was brought to ED for evaluation of persistent nausea and vomiting and abdominal pain for one day. Pt. states he developed nausea and persistent vomiting the night before the admission adn it was persistent and he developed abdominal pain as well and was feeling chills and fever and hence he told his family who brought him to ER to be evaluated and treated. Pt. denies any diarrhea and denies any dysurea . he denies any cough or sob or any chest pain. 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 He states he feels better today and was able to have light breakfast without any nausea and his abd . pain has improved as well. He states he is and has been with his for 20 years. pt. was found to have cholelithiasis on abdominal imaging along with + HIV rapid test. pt. also had spinal tap done in ED last night and CSF wbc count-1 , CSF cx- negative and gram stain prelim was reported as GNR but apparently micro called the nurse earlier today stating that the GNR is most likely a contaminant and to disregard this. Pt. was informed of the prelim positive Rapid HIV test and he became sad and states that he was not aware of this .( was told by ICU team that pt. was n otified of the result by the night hospitalist already). He states he thinks the last time his was checked was years ago and was negative as per patient report. Patient also states he himself was tested few years ago and was negative. pt. denies any weight loss, denies any night sweats. Review of Systems - Review of Systems Review of Systems: ROS- had fever and chills at home, + nausea nad vomiting at home and in ED but not after that, + abdominal pian mostly in lower abdomen and has mostly resolved today, denies any cough or sob, denies any chest pain, denies any dysurea, denies any diarrhea denies any change in diet denies any sick contacts denies qany weight loss Past Patient History - Past Medical History & Family History Past Medical History?: Yes - Past Social History Smoking Status: Never Smoked Alcohol: > 2 Drinks/Day Drugs: Denies Home Situation {Lives}: With Family - CARDIAC Hx Hypercholesterolemia: Yes Hx Hypertension: Yes - PULMONARY Hx Respiratory Disorders: No Hx Asthma: No Hx Bronchitis: No Hx Chronic Obstructive Pulmonary Disease (COPD): No Hx Emphysema: No Hx Lung Cancer: No Hx Pneumonia: No Hx Pulmonary Edema: No Hx Pulmonary Embolism: No Hx Respiratory Aspiration: No Hx Respiratory Tract Infection: No Hx Sleep Apnea: No Hx Tuberculosis: No - NEUROLOGICAL Hx Neurological Disorder: No Hx Alzheimer's Disease: No HX Cerebrovascular Accident: No Hx Dementia: No Hx Dizziness: No Hx Meningitis: No Hx Migraine: No Hx Multiple Sclerosis: No Hx Paralysis: No Hx Parkinson's Disease: No Hx Seizures: No Hx Syncope: No Hx Transient Ischemic Attacks (TIA): No Hx Vertigo: No - HEENT Hx HEENT Problems: Yes Hx Blind: No Hx Cataracts: No Hx Deafness: No Hx Difficulty Chewing: No Hx Epistaxis: No Hx Glaucoma: No Hx Macular Degeneration: No Hx Sinusitis: No - RENAL Hx Chronic Kidney Disease: No Hx Dialysis: No Hx Kidney Stones: No Hx Neurogenic Bladder: No Hx Pyelonephritis: No Hx Renal (Kidney) Cancer: No Hx Renal Failure: No - ENDOCRINE/METABOLIC Hx Diabetes Mellitus Type 1: Yes - INTEGUMENTARY Hx Dermatological Problems: No - MUSCULOSKELETAL/RHEUMATOLOGICAL Hx Musculoskeletal Disorders: No Hx Arthritis: No Hx Back Pain: No Hx Degenerative Joint Disease: No Hx Falls: No Hx Fractures: No Hx Gout: No Hx Herniated Disk: No Hx Myasthenia Gravis: No Hx Osteoarthritis: No Hx Osteomyelitis: No Hx Osteoporosis: No Hx Rhabdomyolysis: No Hx Rheumatoid Arthritis: No Hx Spinal Stenosis: No Hx Unsteady Gait: No - GASTROINTESTINAL Hx Gastrointestinal Disorders: Yes Hx Bowel Surgery: No Hx Clostridium Difficile: No Hx Colitis: No Hx Colostomy: No Hx Constipation: No Hx Crohn's Disease: No Hx Diarrhea: No Hx Diverticulitis: No Hx Esophageal Varices: No Hx Fatty Liver Disease: No Hx Gall Bladder Disease: No Hx Gastritis: No Hx Gastroesophageal Reflux: No Hx Hemorrhoids: No Hx Ileostomy: No Hx Irritable Bowel: No Hx Liver Failure: No Hx Nausea: Yes Hx Pancreatitis: Yes HX Swallowing Problems: No Hx Ulcer: No Hx Vomiting: Yes - GENITOURINARY/GYNECOLOGICAL Hx Genitourinary Disorders: No Hx Prostate Cancer: No Hx Prostate Problems: No Hx Sexually Transmitted Disorders: No Hx Urinary Tract Infection: No - PSYCHIATRIC Hx Substance Use: No - SURGICAL HISTORY Hx Surgeries: No - ANESTHESIA Hx Anesthesia: No Meds Allergies/Adverse Reactions: Allergies Allergy/AdvReac Type Severity Reaction Status Date / Time No Known Allergies Allergy Verified 05/04/18 08:28 - Medications Medications: Current Medications Chlordiazepoxide (Librium) 25 mg PO Q8 [facility] Dextrose (Dextrose 50% Inj) 0 ml IV STAT PRN; Protocol PRN Reason: Hypoglycemia Protocol Dextrose (Glutose 15) 0 gm PO ONCE PRN; Protocol PRN Reason: Hypoglycemia Protocol Enoxaparin Sodium (Lovenox) 40 mg SC DAILY [facility]; Protocol Folic Acid (Folic Acid) 1 mg PO DAILY [facility] Glucagon (Glucagen Diagnostic Kit) 0 mg IM STAT PRN; Protocol PRN Reason: Hypoglycemia Protocol Vancomycin HCl 1 gm/ Sodium (Chloride) 250 mls @ 166.667 mls/hr IVPB Q12 [facility]; Protocol Last Admin: 05/15/18 09:51 Dose: 166.667 mls/hr Sodium Chloride (Sodium Chloride 0.9%) 1,000 mls @ 200 mls/hr IV .Q5H [facility] Stop: 05/15/18 22:30 Last Admin: 05/14/18 22:30 Dose: 200 mls/hr Meropenem 1 gm/ Sodium (Chloride) 100 mls @ 100 mls/hr IVPB Q8H [facility]; Protocol Last Admin: 05/15/18 06:05 Dose: 100 mls/hr Dextrose/Sodium Chloride (Dextrose 5%/0.45% Ns 1000 Ml) 1,000 mls @ 200 mls/hr IV .Q5H [facility] Stop: 05/16/18 01:15 Last Admin: 05/15/18 07:07 Dose: 200 mls/hr Potassium Chloride (Potassium Chloride 10 Meq/100 Ml) 100 mls @ 100 mls/hr IVPB Q1 [facility] Stop: 05/15/18 11:59 Insulin Human Regular (Humulin R) 0 units SC Q6H [facility]; Protocol Last Admin: 05/15/18 09:49 Dose: Not Given Lorazepam (Ativan) 1 mg IVP Q6 PRN PRN Reason: Agitation Morphine Sulfate (Morphine) 2 mg IVP Q4H PRN PRN Reason: Pain, moderate (4-7) Last Admin: 05/15/18 05:33 Dose: 2 mg Morphine Sulfate (Morphine) 4 mg IVP Q4 PRN PRN Reason: Pain, severe (8-10) Multivitamins/Minerals (Therapeutic-M Tab) 1 tab PO DAILY [facility] Pantoprazole Sodium (Protonix Inj) 40 mg IVP DAILY [facility] Last Admin: 05/15/18 09:52 Dose: 40 mg Thiamine HCl (Vitamin B1 Tab) 100 mg PO DAILY [facility] Physical Exam - Constitutional Appears: Non-toxic, No Acute Distress - Head Exam Head Exam: ATRAUMATIC - Eye Exam Eye Exam: EOMI, PERRL - ENT Exam ENT Exam: Normal Oropharynx - Neck Exam Neck exam: Positive for: Full Rom Additional comments: supple No meningismus - Respiratory Exam Respiratory Exam: Clear to Auscultation Bilateral, NORMAL BREATHING PATTERN - Cardiovascular Exam Cardiovascular Exam: RRR, +S1, +S2 - GI/Abdominal Exam GI & Abdominal Exam: Normal Bowel Sounds, Soft Additional comments: NT, ND No guarding, No rebound - Extremities Exam Extremities exam: Positive for: normal inspection - Neurological Exam Neurological exam: Alert, Oriented x3 Results - Vital Signs Recent Vital Signs: Last Vital Signs Temp 98.5 F 05/15/18 08:00 Pulse 96 H 05/15/18 08:00 Resp 17 05/15/18 08:00 BP 135/87 05/15/18 08:00 Pulse Ox 100 05/15/18 08:00 - Labs Result Diagrams: 05/15/18 05:15 05/15/18 05:15 Labs: Laboratory Results - last 24 hr 05/14/18 05/14/18 05/14/18 11:21 11:32 11:32 WBC 23.6 H D RBC 4.14 L Hgb 13.1 Hct 43.3 MCV 104.6 H D MCH 31.6 H MCHC 30.2 L RDW 13.4 Plt Count 468 H D MPV 8.5 Neut % (Auto) 72.4 Lymph % (Auto) 17.2 L [place] % (Auto) 9.3 Eos % (Auto) 0.2 Baso % (Auto) 0.9 Neut # (Auto) 17.1 H Lymph # (Auto) 4.1 [place] # (Auto) 2.2 H Eos # (Auto) 0.0 Baso # (Auto) 0.2 PT INR APTT pCO2 pO2 HCO3 ABG pH ABG Total CO2 ABG O2 Saturation ABG Base Excess Fabian Test ABG Potassium A-a O2 Difference Glucose Lactate FiO2 Crit Value Called To Crit Value Called By Crit Value Read Back Blood Gas Notified Time Sodium 137 Potassium 5.1 H Chloride 90 L Carbon Dioxide < 5 L* D Anion Gap 47 H BUN 11 Creatinine 1.3 Est GFR ( Amer) > 60 Est GFR (Non-Af Amer) 59 POC Glucose (mg/dL) 327 H Random Glucose 288 H Lactic Acid Calcium 8.8 Phosphorus Magnesium Total Bilirubin 0.9 AST 176 H D ALT 111 H D Alkaline Phosphatase 138 H D Troponin I 0.0130 Total Protein 8.4 H Albumin 5.2 H Globulin 3.2 Albumin/Globulin Ratio 1.6 Triglycerides Cholesterol LDL Cholesterol Direct HDL Cholesterol Lipase 69 TSH 3rd Generation 1.13 Arterial Blood Potassium Urine Color Urine Clarity Urine pH Ur Specific [place] Urine Protein Urine Glucose (UA) Urine Ketones Urine Blood Urine Nitrate Urine Bilirubin Urine Urobilinogen Ur Leukocyte Esterase Urine RBC (Auto) Urine Microscopic WBC Amorphous Sediment Urine Bacteria Fluid Type CSF Volume CSF Appearance CSF WBC CSF RBC CSF Comment CSF Glucose CSF Total Protein Urine Opiates Screen Urine Methadone Screen Ur Barbiturates Screen Ur Phencyclidine Scrn Ur Amphetamines Screen U Benzodiazepines Scrn U Oth Cocaine Metabols U Cannabinoids Screen Alcohol, Quantitative 28 H HSV Source Description HIV-1 Ab Rapid Screen 05/14/18 05/14/18 05/14/18 11:32 12:57 13:10 WBC RBC Hgb Hct MCV MCH MCHC RDW Plt Count MPV Neut % (Auto) Lymph % (Auto) [place] % (Auto) Eos % (Auto) Baso % (Auto) Neut # (Auto) Lymph # (Auto) [place] # (Auto) Eos # (Auto) Baso # (Auto) PT 10.3 INR 0.9 APTT 39.7 H pCO2 16 L* pO2 153 H HCO3 0.7 L* ABG pH 6.81 L* ABG Total CO2 3.0 L ABG O2 Saturation 99.2 H ABG Base Excess -31.0 L Fabian Test Yes ABG Potassium 5.4 H A-a O2 Difference -23.0 Glucose 303 H Lactate 16.1 H* FiO2 21.0 Crit Value Called To Dr trae zapata Crit Value Called By 15 Crit Value Read Back Y Blood Gas Notified Time 1300 Sodium 127.0 L Potassium Chloride 88.0 L Carbon Dioxide Anion Gap BUN Creatinine Est GFR ( Amer) Est GFR (Non-Af Amer) POC Glucose (mg/dL) Random Glucose Lactic Acid Calcium Phosphorus Magnesium Total Bilirubin AST ALT Alkaline Phosphatase Troponin I Total Protein Albumin Globulin Albumin/Globulin Ratio Triglycerides Cholesterol LDL Cholesterol Direct HDL Cholesterol Lipase TSH 3rd Generation Arterial Blood Potassium 5.4 H Urine Color Urine Clarity Urine pH Ur Specific [place] Urine Protein Urine Glucose (UA) Urine Ketones Urine Blood Urine Nitrate Urine Bilirubin Urine Urobilinogen Ur Leukocyte Esterase Urine RBC (Auto) Urine Microscopic WBC Amorphous Sediment Urine Bacteria Fluid Type CSF Volume CSF Appearance CSF WBC CSF RBC CSF Comment CSF Glucose CSF Total Protein Urine Opiates Screen Negative Urine Methadone Screen Negative Ur Barbiturates Screen Negative Ur Phencyclidine Scrn Negative Ur Amphetamines Screen Negative U Benzodiazepines Scrn Negative U Oth Cocaine Metabols Negative U Cannabinoids Screen Negative Alcohol, Quantitative HSV Source Description HIV-1 Ab Rapid Screen 05/14/18 05/14/18 05/14/18 13:10 13:31 13:40 WBC RBC Hgb Hct MCV MCH MCHC RDW Plt Count MPV Neut % (Auto) Lymph % (Auto) [place] % (Auto) Eos % (Auto) Baso % (Auto) Neut # (Auto) Lymph # (Auto) [place] # (Auto) Eos # (Auto) Baso # (Auto) PT INR APTT pCO2 pO2 HCO3 ABG pH ABG Total CO2 ABG O2 Saturation ABG Base Excess Fabian Test ABG Potassium A-a O2 Difference Glucose Lactate FiO2 Crit Value Called To Crit Value Called By Crit Value Read Back Blood Gas Notified Time Sodium Potassium Chloride Carbon Dioxide Anion Gap BUN Creatinine Est GFR ( Amer) Est GFR (Non-Af Amer) POC Glucose (mg/dL) Random Glucose Lactic Acid Calcium Phosphorus Magnesium Total Bilirubin AST ALT Alkaline Phosphatase Troponin I Total Protein Albumin Globulin Albumin/Globulin Ratio Triglycerides Cholesterol LDL Cholesterol Direct HDL Cholesterol Lipase TSH 3rd Generation Arterial Blood Potassium Urine Color Yellow Urine Clarity Cloudy Urine pH 5.0 Ur Specific [place] 1.012 Urine Protein 100 Urine Glucose (UA) >=500 Urine Ketones 80 Urine Blood Small Urine Nitrate Negative Urine Bilirubin Negative Urine Urobilinogen 0.2-1.0 Ur Leukocyte Esterase Neg Urine RBC (Auto) < 1 Urine Microscopic WBC 2 Amorphous Sediment Rare H Urine Bacteria Rare Fluid Type Spinal fluid CSF Volume 1 CSF Appearance Clear/colorless CSF WBC 1.0 CSF RBC 0.0 CSF Comment None CSF Glucose 220 H* CSF Total Protein 62.0 H Urine Opiates Screen Urine Methadone Screen Ur Barbiturates Screen Ur Phencyclidine Scrn Ur Amphetamines Screen U Benzodiazepines Scrn U Oth Cocaine Metabols U Cannabinoids Screen Alcohol, Quantitative HSV Source Description HIV-1 Ab Rapid Screen 05/14/18 05/14/18 05/14/18 13:40 14:16 14:30 WBC RBC Hgb Hct MCV MCH MCHC RDW Plt Count MPV Neut % (Auto) Lymph % (Auto) [place] % (Auto) Eos % (Auto) Baso % (Auto) Neut # (Auto) Lymph # (Auto) [place] # (Auto) Eos # (Auto) Baso # (Auto) PT INR APTT pCO2 24 L pO2 29 L* HCO3 4.4 L* ABG pH 6.94 L* ABG Total CO2 5.9 L ABG O2 Saturation 75.0 L ABG Base Excess -25.6 L Fabian Test Yes ABG Potassium 5.5 H A-a O2 Difference 91.0 Glucose 325 H Lactate 12.1 H* FiO2 21.0 Crit Value Called To Dr benny frias Crit Value Called By 15 Crit Value Read Back Y Blood Gas Notified Time 1444 Sodium 134.0 Potassium Chloride 92.0 L Carbon Dioxide Anion Gap BUN Creatinine Est GFR ( Amer) Est GFR (Non-Af Amer) POC Glucose (mg/dL) 302 H Random Glucose Lactic Acid Calcium Phosphorus Magnesium Total Bilirubin AST ALT Alkaline Phosphatase Troponin I Total Protein Albumin Globulin Albumin/Globulin Ratio Triglycerides Cholesterol LDL Cholesterol Direct HDL Cholesterol Lipase TSH 3rd Generation Arterial Blood Potassium 5.5 H Urine Color Urine Clarity Urine pH Ur Specific [place] Urine Protein Urine Glucose (UA) Urine Ketones Urine Blood Urine Nitrate Urine Bilirubin Urine Urobilinogen Ur Leukocyte Esterase Urine RBC (Auto) Urine Microscopic WBC Amorphous Sediment Urine Bacteria Fluid Type CSF Volume CSF Appearance CSF WBC CSF RBC CSF Comment CSF Glucose CSF Total Protein Urine Opiates Screen Urine Methadone Screen Ur Barbiturates Screen Ur Phencyclidine Scrn Ur Amphetamines Screen U Benzodiazepines Scrn U Oth Cocaine Metabols U Cannabinoids Screen Alcohol, Quantitative HSV Source Description Fluid HIV-1 Ab Rapid Screen 05/14/18 05/14/18 05/14/18 15:47 17:11 17:15 WBC RBC Hgb Hct MCV MCH MCHC RDW Plt Count MPV Neut % (Auto) Lymph % (Auto) [place] % (Auto) Eos % (Auto) Baso % (Auto) Neut # (Auto) Lymph # (Auto) [place] # (Auto) Eos # (Auto) Baso # (Auto) PT INR APTT pCO2 pO2 HCO3 ABG pH ABG Total CO2 ABG O2 Saturation ABG Base Excess Fabian Test ABG Potassium A-a O2 Difference Glucose Lactate FiO2 Crit Value Called To Crit Value Called By Crit Value Read Back Blood Gas Notified Time Sodium Potassium Chloride Carbon Dioxide Anion Gap BUN Creatinine Est GFR ( Amer) Est GFR (Non-Af Amer) POC Glucose (mg/dL) 317 H 371 H Random Glucose Lactic Acid Calcium Phosphorus Magnesium Total Bilirubin AST ALT Alkaline Phosphatase Troponin I Total Protein Albumin Globulin Albumin/Globulin Ratio Triglycerides Cholesterol LDL Cholesterol Direct HDL Cholesterol Lipase TSH 3rd Generation Arterial Blood Potassium Urine Color Urine Clarity Urine pH Ur Specific [place] Urine Protein Urine Glucose (UA) Urine Ketones Urine Blood Urine Nitrate Urine Bilirubin Urine Urobilinogen Ur Leukocyte Esterase Urine RBC (Auto) Urine Microscopic WBC Amorphous Sediment Urine Bacteria Fluid Type CSF Volume CSF Appearance CSF WBC CSF RBC CSF Comment CSF Glucose CSF Total Protein Urine Opiates Screen Urine Methadone Screen Ur Barbiturates Screen Ur Phencyclidine Scrn Ur Amphetamines Screen U Benzodiazepines Scrn U Oth Cocaine Metabols U Cannabinoids Screen Alcohol, Quantitative HSV Source Description HIV-1 Ab Rapid Screen Reactive H 05/14/18 05/14/18 05/14/18 17:53 19:00 19:00 WBC 8.1 D RBC 3.38 L Hgb 10.7 L D Hct 32.8 L MCV 97.2 H D MCH 31.7 H MCHC 32.7 L RDW 12.3 Plt Count 275 D MPV Neut % (Auto) Lymph % (Auto) [place] % (Auto) Eos % (Auto) Baso % (Auto) Neut # (Auto) Lymph # (Auto) [place] # (Auto) Eos # (Auto) Baso # (Auto) PT INR APTT pCO2 pO2 HCO3 ABG pH ABG Total CO2 ABG O2 Saturation ABG Base Excess Fabian Test ABG Potassium A-a O2 Difference Glucose Lactate FiO2 Crit Value Called To Crit Value Called By Crit Value Read Back Blood Gas Notified Time Sodium 133 Potassium 5.8 H Chloride 96 L Carbon Dioxide 9 L* D Anion Gap 34 H BUN 14 Creatinine 1.2 Est GFR ( Amer) > 60 Est GFR (Non-Af Amer) > 60 POC Glucose (mg/dL) 341 H Random Glucose 293 H Lactic Acid Calcium 7.3 L Phosphorus 2.7 Magnesium 1.6 Total Bilirubin AST ALT Alkaline Phosphatase Troponin I Total Protein Albumin Globulin Albumin/Globulin Ratio Triglycerides Cholesterol LDL Cholesterol Direct HDL Cholesterol Lipase TSH 3rd Generation Arterial Blood Potassium Urine Color Urine Clarity Urine pH Ur Specific [place] Urine Protein Urine Glucose (UA) Urine Ketones Urine Blood Urine Nitrate Urine Bilirubin Urine Urobilinogen Ur Leukocyte Esterase Urine RBC (Auto) Urine Microscopic WBC Amorphous Sediment Urine Bacteria Fluid Type CSF Volume CSF Appearance CSF WBC CSF RBC CSF Comment CSF Glucose CSF Total Protein Urine Opiates Screen Urine Methadone Screen Ur Barbiturates Screen Ur Phencyclidine Scrn Ur Amphetamines Screen U Benzodiazepines Scrn U Oth Cocaine Metabols U Cannabinoids Screen Alcohol, Quantitative HSV Source Description HIV-1 Ab Rapid Screen 05/14/18 05/14/18 05/14/18 19:00 19:20 20:13 WBC RBC Hgb Hct MCV MCH MCHC RDW Plt Count MPV Neut % (Auto) Lymph % (Auto) [place] % (Auto) Eos % (Auto) Baso % (Auto) Neut # (Auto) Lymph # (Auto) [place] # (Auto) Eos # (Auto) Baso # (Auto) PT INR APTT pCO2 pO2 HCO3 ABG pH ABG Total CO2 ABG O2 Saturation ABG Base Excess Fabian Test ABG Potassium A-a O2 Difference Glucose Lactate FiO2 Crit Value Called To Crit Value Called By Crit Value Read Back Blood Gas Notified Time Sodium Potassium Chloride Carbon Dioxide Anion Gap BUN Creatinine Est GFR ( Amer) Est GFR (Non-Af Amer) POC Glucose (mg/dL) 293 H 300 H Random Glucose Lactic Acid 2.6 H Calcium Phosphorus Magnesium Total Bilirubin AST ALT Alkaline Phosphatase Troponin I Total Protein Albumin Globulin Albumin/Globulin Ratio Triglycerides Cholesterol LDL Cholesterol Direct HDL Cholesterol Lipase TSH 3rd Generation Arterial Blood Potassium Urine Color Urine Clarity Urine pH Ur Specific [place] Urine Protein Urine Glucose (UA) Urine Ketones Urine Blood Urine Nitrate Urine Bilirubin Urine Urobilinogen Ur Leukocyte Esterase Urine RBC (Auto) Urine Microscopic WBC Amorphous Sediment Urine Bacteria Fluid Type CSF Volume CSF Appearance CSF WBC CSF RBC CSF Comment CSF Glucose CSF Total Protein Urine Opiates Screen Urine Methadone Screen Ur Barbiturates Screen Ur Phencyclidine Scrn Ur Amphetamines Screen U Benzodiazepines Scrn U Oth Cocaine Metabols U Cannabinoids Screen Alcohol, Quantitative HSV Source Description HIV-1 Ab Rapid Screen 05/14/18 05/14/18 05/14/18 21:21 21:40 22:11 WBC RBC Hgb Hct MCV MCH MCHC RDW Plt Count MPV Neut % (Auto) Lymph % (Auto) [place] % (Auto) Eos % (Auto) Baso % (Auto) Neut # (Auto) Lymph # (Auto) [place] # (Auto) Eos # (Auto) Baso # (Auto) PT INR APTT pCO2 pO2 HCO3 ABG pH ABG Total CO2 ABG O2 Saturation ABG Base Excess Fabian Test ABG Potassium A-a O2 Difference Glucose Lactate FiO2 Crit Value Called To Crit Value Called By Crit Value Read Back Blood Gas Notified Time Sodium 135 Potassium 5.1 H Chloride 99 Carbon Dioxide 14 L Anion Gap 27 H BUN 15 Creatinine 1.3 Est GFR ( Amer) > 60 Est GFR (Non-Af Amer) 59 POC Glucose (mg/dL) 227 H 215 H Random Glucose 200 H Lactic Acid Calcium 7.9 L Phosphorus Magnesium Total Bilirubin AST ALT Alkaline Phosphatase Troponin I Total Protein Albumin Globulin Albumin/Globulin Ratio Triglycerides Cholesterol LDL Cholesterol Direct HDL Cholesterol Lipase TSH 3rd Generation Arterial Blood Potassium Urine Color Urine Clarity Urine pH Ur Specific [place] Urine Protein Urine Glucose (UA) Urine Ketones Urine Blood Urine Nitrate Urine Bilirubin Urine Urobilinogen Ur Leukocyte Esterase Urine RBC (Auto) Urine Microscopic WBC Amorphous Sediment Urine Bacteria Fluid Type CSF Volume CSF Appearance CSF WBC CSF RBC CSF Comment CSF Glucose CSF Total Protein Urine Opiates Screen Urine Methadone Screen Ur Barbiturates Screen Ur Phencyclidine Scrn Ur Amphetamines Screen U Benzodiazepines Scrn U Oth Cocaine Metabols U Cannabinoids Screen Alcohol, Quantitative HSV Source Description HIV-1 Ab Rapid Screen 05/14/18 05/15/18 05/15/18 23:08 00:08 01:10 WBC RBC Hgb Hct MCV MCH MCHC RDW Plt Count MPV Neut % (Auto) Lymph % (Auto) [place] % (Auto) Eos % (Auto) Baso % (Auto) Neut # (Auto) Lymph # (Auto) [place] # (Auto) Eos # (Auto) Baso # (Auto) PT INR APTT pCO2 pO2 HCO3 ABG pH ABG Total CO2 ABG O2 Saturation ABG Base Excess Fabian Test ABG Potassium A-a O2 Difference Glucose Lactate FiO2 Crit Value Called To Crit Value Called By Crit Value Read Back Blood Gas Notified Time Sodium Potassium Chloride Carbon Dioxide Anion Gap BUN Creatinine Est GFR ( Amer) Est GFR (Non-Af Amer) POC Glucose (mg/dL) 209 H 149 H 130 H Random Glucose Lactic Acid Calcium Phosphorus Magnesium Total Bilirubin AST ALT Alkaline Phosphatase Troponin I Total Protein Albumin Globulin Albumin/Globulin Ratio Triglycerides Cholesterol LDL Cholesterol Direct HDL Cholesterol Lipase TSH 3rd Generation Arterial Blood Potassium Urine Color Urine Clarity Urine pH Ur Specific [place] Urine Protein Urine Glucose (UA) Urine Ketones Urine Blood Urine Nitrate Urine Bilirubin Urine Urobilinogen Ur Leukocyte Esterase Urine RBC (Auto) Urine Microscopic WBC Amorphous Sediment Urine Bacteria Fluid Type CSF Volume CSF Appearance CSF WBC CSF RBC CSF Comment CSF Glucose CSF Total Protein Urine Opiates Screen Urine Methadone Screen Ur Barbiturates Screen Ur Phencyclidine Scrn Ur Amphetamines Screen U Benzodiazepines Scrn U Oth Cocaine Metabols U Cannabinoids Screen Alcohol, Quantitative HSV Source Description HIV-1 Ab Rapid Screen 05/15/18 05/15/18 05/15/18 02:06 03:08 04:03 WBC RBC Hgb Hct MCV MCH MCHC RDW Plt Count MPV Neut % (Auto) Lymph % (Auto) [place] % (Auto) Eos % (Auto) Baso % (Auto) Neut # (Auto) Lymph # (Auto) [place] # (Auto) Eos # (Auto) Baso # (Auto) PT INR APTT pCO2 pO2 HCO3 ABG pH ABG Total CO2 ABG O2 Saturation ABG Base Excess Fabian Test ABG Potassium A-a O2 Difference Glucose Lactate FiO2 Crit Value Called To Crit Value Called By Crit Value Read Back Blood Gas Notified Time Sodium Potassium Chloride Carbon Dioxide Anion Gap BUN Creatinine Est GFR ( Amer) Est GFR (Non-Af Amer) POC Glucose (mg/dL) 151 H 160 H 144 H Random Glucose Lactic Acid Calcium Phosphorus Magnesium Total Bilirubin AST ALT Alkaline Phosphatase Troponin I Total Protein Albumin Globulin Albumin/Globulin Ratio Triglycerides Cholesterol LDL Cholesterol Direct HDL Cholesterol Lipase TSH 3rd Generation Arterial Blood Potassium Urine Color Urine Clarity Urine pH Ur Specific [place] Urine Protein Urine Glucose (UA) Urine Ketones Urine Blood Urine Nitrate Urine Bilirubin Urine Urobilinogen Ur Leukocyte Esterase Urine RBC (Auto) Urine Microscopic WBC Amorphous Sediment Urine Bacteria Fluid Type CSF Volume CSF Appearance CSF WBC CSF RBC CSF Comment CSF Glucose CSF Total Protein Urine Opiates Screen Urine Methadone Screen Ur Barbiturates Screen Ur Phencyclidine Scrn Ur Amphetamines Screen U Benzodiazepines Scrn U Oth Cocaine Metabols U Cannabinoids Screen Alcohol, Quantitative HSV Source Description HIV-1 Ab Rapid Screen 05/15/18 05/15/18 05/15/18 04:52 05:15 05:15 WBC 6.7 RBC 3.32 L Hgb 10.5 L Hct 31.3 L MCV 94.1 H D MCH 31.5 H MCHC 33.5 RDW 12.2 Plt Count 258 MPV 8.3 Neut % (Auto) 81.5 H Lymph % (Auto) 12.2 L [place] % (Auto) 6.1 Eos % (Auto) 0.0 Baso % (Auto) 0.2 Neut # (Auto) 5.5 Lymph # (Auto) 0.8 L [place] # (Auto) 0.4 Eos # (Auto) 0.0 Baso # (Auto) 0.0 PT INR APTT pCO2 pO2 HCO3 ABG pH ABG Total CO2 ABG O2 Saturation ABG Base Excess Fabian Test ABG Potassium A-a O2 Difference Glucose Lactate FiO2 Crit Value Called To Crit Value Called By Crit Value Read Back Blood Gas Notified Time Sodium 137 Potassium 3.5 L Chloride 102 Carbon Dioxide 21 L Anion Gap 18 BUN 16 Creatinine 1.2 Est GFR ( Amer) > 60 Est GFR (Non-Af Amer) > 60 POC Glucose (mg/dL) 136 H Random Glucose 116 H Lactic Acid Calcium 7.6 L Phosphorus 2.4 L Magnesium Total Bilirubin 0.5 AST 241 H D ALT 122 H Alkaline Phosphatase 104 Troponin I Total Protein 5.7 L Albumin 3.2 L D Globulin 2.5 Albumin/Globulin Ratio 1.3 Triglycerides 62 Cholesterol 106 LDL Cholesterol Direct 46 HDL Cholesterol 50 Lipase TSH 3rd Generation Arterial Blood Potassium Urine Color Urine Clarity Urine pH Ur Specific [place] Urine Protein Urine Glucose (UA) Urine Ketones Urine Blood Urine Nitrate Urine Bilirubin Urine Urobilinogen Ur Leukocyte Esterase Urine RBC (Auto) Urine Microscopic WBC Amorphous Sediment Urine Bacteria Fluid Type CSF Volume CSF Appearance CSF WBC CSF RBC CSF Comment CSF Glucose CSF Total Protein Urine Opiates Screen Urine Methadone Screen Ur Barbiturates Screen Ur Phencyclidine Scrn Ur Amphetamines Screen U Benzodiazepines Scrn U Oth Cocaine Metabols U Cannabinoids Screen Alcohol, Quantitative HSV Source Description HIV-1 Ab Rapid Screen 05/15/18 05:20 WBC RBC Hgb Hct MCV MCH MCHC RDW Plt Count MPV Neut % (Auto) Lymph % (Auto) [place] % (Auto) Eos % (Auto) Baso % (Auto) Neut # (Auto) Lymph # (Auto) [place] # (Auto) Eos # (Auto) Baso # (Auto) PT INR APTT pCO2 pO2 HCO3 ABG pH ABG Total CO2 ABG O2 Saturation ABG Base Excess Fabian Test ABG Potassium A-a O2 Difference Glucose Lactate FiO2 Crit Value Called To Crit Value Called By Crit Value Read Back Blood Gas Notified Time Sodium Potassium Chloride Carbon Dioxide Anion Gap BUN Creatinine Est GFR ( Amer) Est GFR (Non-Af Amer) POC Glucose (mg/dL) Random Glucose Lactic Acid 1.0 Calcium Phosphorus Magnesium Total Bilirubin AST ALT Alkaline Phosphatase Troponin I Total Protein Albumin Globulin Albumin/Globulin Ratio Triglycerides Cholesterol LDL Cholesterol Direct HDL Cholesterol Lipase TSH 3rd Generation Arterial Blood Potassium Urine Color Urine Clarity Urine pH Ur Specific [place] Urine Protein Urine Glucose (UA) Urine Ketones Urine Blood Urine Nitrate Urine Bilirubin Urine Urobilinogen Ur Leukocyte Esterase Urine RBC (Auto) Urine Microscopic WBC Amorphous Sediment Urine Bacteria Fluid Type CSF Volume CSF Appearance CSF WBC CSF RBC CSF Comment CSF Glucose CSF Total Protein Urine Opiates Screen Urine Methadone Screen Ur Barbiturates Screen Ur Phencyclidine Scrn Ur Amphetamines Screen U Benzodiazepines Scrn U Oth Cocaine Metabols U Cannabinoids Screen Alcohol, Quantitative HSV Source Description HIV-1 Ab Rapid Screen Laboratory Results - last 72 hr 05/14/18 05/14/18 05/14/18 11:21 11:32 11:32 WBC 23.6 H D RBC 4.14 L Hgb 13.1 Hct 43.3 MCV 104.6 H D MCH 31.6 H MCHC 30.2 L RDW 13.4 Plt Count 468 H D MPV 8.5 Neut % (Auto) 72.4 Lymph % (Auto) 17.2 L [place] % (Auto) 9.3 Eos % (Auto) 0.2 Baso % (Auto) 0.9 Neut # (Auto) 17.1 H Lymph # (Auto) 4.1 [place] # (Auto) 2.2 H Eos # (Auto) 0.0 Baso # (Auto) 0.2 PT INR APTT pCO2 pO2 HCO3 ABG pH ABG Total CO2 ABG O2 Saturation ABG Base Excess Fabian Test ABG Potassium A-a O2 Difference Glucose Lactate FiO2 Crit Value Called To Crit Value Called By Crit Value Read Back Blood Gas Notified Time Sodium 137 Potassium 5.1 H Chloride 90 L Carbon Dioxide < 5 L* D Anion Gap 47 H BUN 11 Creatinine 1.3 Est GFR ( Amer) > 60 Est GFR (Non-Af Amer) 59 POC Glucose (mg/dL) 327 H Random Glucose 288 H Lactic Acid Calcium 8.8 Phosphorus Magnesium Total Bilirubin 0.9 AST 176 H D ALT 111 H D Alkaline Phosphatase 138 H D Troponin I 0.0130 Total Protein 8.4 H Albumin 5.2 H Globulin 3.2 Albumin/Globulin Ratio 1.6 Triglycerides Cholesterol LDL Cholesterol Direct HDL Cholesterol Lipase 69 TSH 3rd Generation 1.13 Arterial Blood Potassium Urine Color Urine Clarity Urine pH Ur Specific [place] Urine Protein Urine Glucose (UA) Urine Ketones Urine Blood Urine Nitrate Urine Bilirubin Urine Urobilinogen Ur Leukocyte Esterase Urine RBC (Auto) Urine Microscopic WBC Amorphous Sediment Urine Bacteria Fluid Type CSF Volume CSF Appearance CSF WBC CSF RBC CSF Comment CSF Glucose CSF Total Protein Urine Opiates Screen Urine Methadone Screen Ur Barbiturates Screen Ur Phencyclidine Scrn Ur Amphetamines Screen U Benzodiazepines Scrn U Oth Cocaine Metabols U Cannabinoids Screen Alcohol, Quantitative 28 H HSV Source Description HIV-1 Ab Rapid Screen 05/14/18 05/14/18 05/14/18 11:32 12:57 13:10 WBC RBC Hgb Hct MCV MCH MCHC RDW Plt Count MPV Neut % (Auto) Lymph % (Auto) [place] % (Auto) Eos % (Auto) Baso % (Auto) Neut # (Auto) Lymph # (Auto) [place] # (Auto) Eos # (Auto) Baso # (Auto) PT 10.3 INR 0.9 APTT 39.7 H pCO2 16 L* pO2 153 H HCO3 0.7 L* ABG pH 6.81 L* ABG Total CO2 3.0 L ABG O2 Saturation 99.2 H ABG Base Excess -31.0 L Fabian Test Yes ABG Potassium 5.4 H A-a O2 Difference -23.0 Glucose 303 H Lactate 16.1 H* FiO2 21.0 Crit Value Called To Dr trae zapata Crit Value Called By 15 Crit Value Read Back Y Blood Gas Notified Time 1300 Sodium 127.0 L Potassium Chloride 88.0 L Carbon Dioxide Anion Gap BUN Creatinine Est GFR ( Amer) Est GFR (Non-Af Amer) POC Glucose (mg/dL) Random Glucose Lactic Acid Calcium Phosphorus Magnesium Total Bilirubin AST ALT Alkaline Phosphatase Troponin I Total Protein Albumin Globulin Albumin/Globulin Ratio Triglycerides Cholesterol LDL Cholesterol Direct HDL Cholesterol Lipase TSH 3rd Generation Arterial Blood Potassium 5.4 H Urine Color Urine Clarity Urine pH Ur Specific [place] Urine Protein Urine Glucose (UA) Urine Ketones Urine Blood Urine Nitrate Urine Bilirubin Urine Urobilinogen Ur Leukocyte Esterase Urine RBC (Auto) Urine Microscopic WBC Amorphous Sediment Urine Bacteria Fluid Type CSF Volume CSF Appearance CSF WBC CSF RBC CSF Comment CSF Glucose CSF Total Protein Urine Opiates Screen Negative Urine Methadone Screen Negative Ur Barbiturates Screen Negative Ur Phencyclidine Scrn Negative Ur Amphetamines Screen Negative U Benzodiazepines Scrn Negative U Oth Cocaine Metabols Negative U Cannabinoids Screen Negative Alcohol, Quantitative HSV Source Description HIV-1 Ab Rapid Screen 05/14/18 05/14/18 05/14/18 13:10 13:31 13:40 WBC RBC Hgb Hct MCV MCH MCHC RDW Plt Count MPV Neut % (Auto) Lymph % (Auto) [place] % (Auto) Eos % (Auto) Baso % (Auto) Neut # (Auto) Lymph # (Auto) [place] # (Auto) Eos # (Auto) Baso # (Auto) PT INR APTT pCO2 pO2 HCO3 ABG pH ABG Total CO2 ABG O2 Saturation ABG Base Excess Fabian Test ABG Potassium A-a O2 Difference Glucose Lactate FiO2 Crit Value Called To Crit Value Called By Crit Value Read Back Blood Gas Notified Time Sodium Potassium Chloride Carbon Dioxide Anion Gap BUN Creatinine Est GFR ( Amer) Est GFR (Non-Af Amer) POC Glucose (mg/dL) Random Glucose Lactic Acid Calcium Phosphorus Magnesium Total Bilirubin AST ALT Alkaline Phosphatase Troponin I Total Protein Albumin Globulin Albumin/Globulin Ratio Triglycerides Cholesterol LDL Cholesterol Direct HDL Cholesterol Lipase TSH 3rd Generation Arterial Blood Potassium Urine Color Yellow Urine Clarity Cloudy Urine pH 5.0 Ur Specific [place] 1.012 Urine Protein 100 Urine Glucose (UA) >=500 Urine Ketones 80 Urine Blood Small Urine Nitrate Negative Urine Bilirubin Negative Urine Urobilinogen 0.2-1.0 Ur Leukocyte Esterase Neg Urine RBC (Auto) < 1 Urine Microscopic WBC 2 Amorphous Sediment Rare H Urine Bacteria Rare Fluid Type Spinal fluid CSF Volume 1 CSF Appearance Clear/colorless CSF WBC 1.0 CSF RBC 0.0 CSF Comment None CSF Glucose 220 H* CSF Total Protein 62.0 H Urine Opiates Screen Urine Methadone Screen Ur Barbiturates Screen Ur Phencyclidine Scrn Ur Amphetamines Screen U Benzodiazepines Scrn U Oth Cocaine Metabols U Cannabinoids Screen Alcohol, Quantitative HSV Source Description HIV-1 Ab Rapid Screen 05/14/18 05/14/18 05/14/18 13:40 14:16 14:30 WBC RBC Hgb Hct MCV MCH MCHC RDW Plt Count MPV Neut % (Auto) Lymph % (Auto) [place] % (Auto) Eos % (Auto) Baso % (Auto) Neut # (Auto) Lymph # (Auto) [place] # (Auto) Eos # (Auto) Baso # (Auto) PT INR APTT pCO2 24 L pO2 29 L* HCO3 4.4 L* ABG pH 6.94 L* ABG Total CO2 5.9 L ABG O2 Saturation 75.0 L ABG Base Excess -25.6 L Fabian Test Yes ABG Potassium 5.5 H A-a O2 Difference 91.0 Glucose 325 H Lactate 12.1 H* FiO2 21.0 Crit Value Called To Dr benny frias Crit Value Called By 15 Crit Value Read Back Y Blood Gas Notified Time 1444 Sodium 134.0 Potassium Chloride 92.0 L Carbon Dioxide Anion Gap BUN Creatinine Est GFR ( Amer) Est GFR (Non-Af Amer) POC Glucose (mg/dL) 302 H Random Glucose Lactic Acid Calcium Phosphorus Magnesium Total Bilirubin AST ALT Alkaline Phosphatase Troponin I Total Protein Albumin Globulin Albumin/Globulin Ratio Triglycerides Cholesterol LDL Cholesterol Direct HDL Cholesterol Lipase TSH 3rd Generation Arterial Blood Potassium 5.5 H Urine Color Urine Clarity Urine pH Ur Specific [place] Urine Protein Urine Glucose (UA) Urine Ketones Urine Blood Urine Nitrate Urine Bilirubin Urine Urobilinogen Ur Leukocyte Esterase Urine RBC (Auto) Urine Microscopic WBC Amorphous Sediment Urine Bacteria Fluid Type CSF Volume CSF Appearance CSF WBC CSF RBC CSF Comment CSF Glucose CSF Total Protein Urine Opiates Screen Urine Methadone Screen Ur Barbiturates Screen Ur Phencyclidine Scrn Ur Amphetamines Screen U Benzodiazepines Scrn U Oth Cocaine Metabols U Cannabinoids Screen Alcohol, Quantitative HSV Source Description Fluid HIV-1 Ab Rapid Screen 05/14/18 05/14/18 05/14/18 15:47 17:11 17:15 WBC RBC Hgb Hct MCV MCH MCHC RDW Plt Count MPV Neut % (Auto) Lymph % (Auto) [place] % (Auto) Eos % (Auto) Baso % (Auto) Neut # (Auto) Lymph # (Auto) [place] # (Auto) Eos # (Auto) Baso # (Auto) PT INR APTT pCO2 pO2 HCO3 ABG pH ABG Total CO2 ABG O2 Saturation ABG Base Excess Fabian Test ABG Potassium A-a O2 Difference Glucose Lactate FiO2 Crit Value Called To Crit Value Called By Crit Value Read Back Blood Gas Notified Time Sodium Potassium Chloride Carbon Dioxide Anion Gap BUN Creatinine Est GFR ( Amer) Est GFR (Non-Af Amer) POC Glucose (mg/dL) 317 H 371 H Random Glucose Lactic Acid Calcium Phosphorus Magnesium Total Bilirubin AST ALT Alkaline Phosphatase Troponin I Total Protein Albumin Globulin Albumin/Globulin Ratio Triglycerides Cholesterol LDL Cholesterol Direct HDL Cholesterol Lipase TSH 3rd Generation Arterial Blood Potassium Urine Color Urine Clarity Urine pH Ur Specific [place] Urine Protein Urine Glucose (UA) Urine Ketones Urine Blood Urine Nitrate Urine Bilirubin Urine Urobilinogen Ur Leukocyte Esterase Urine RBC (Auto) Urine Microscopic WBC Amorphous Sediment Urine Bacteria Fluid Type CSF Volume CSF Appearance CSF WBC CSF RBC CSF Comment CSF Glucose CSF Total Protein Urine Opiates Screen Urine Methadone Screen Ur Barbiturates Screen Ur Phencyclidine Scrn Ur Amphetamines Screen U Benzodiazepines Scrn U Oth Cocaine Metabols U Cannabinoids Screen Alcohol, Quantitative HSV Source Description HIV-1 Ab Rapid Screen Reactive H 05/14/18 05/14/18 05/14/18 17:53 19:00 19:00 WBC 8.1 D RBC 3.38 L Hgb 10.7 L D Hct 32.8 L MCV 97.2 H D MCH 31.7 H MCHC 32.7 L RDW 12.3 Plt Count 275 D MPV Neut % (Auto) Lymph % (Auto) [place] % (Auto) Eos % (Auto) Baso % (Auto) Neut # (Auto) Lymph # (Auto) [place] # (Auto) Eos # (Auto) Baso # (Auto) PT INR APTT pCO2 pO2 HCO3 ABG pH ABG Total CO2 ABG O2 Saturation ABG Base Excess Fabian Test ABG Potassium A-a O2 Difference Glucose Lactate FiO2 Crit Value Called To Crit Value Called By Crit Value Read Back Blood Gas Notified Time Sodium 133 Potassium 5.8 H Chloride 96 L Carbon Dioxide 9 L* D Anion Gap 34 H BUN 14 Creatinine 1.2 Est GFR ( Amer) > 60 Est GFR (Non-Af Amer) > 60 POC Glucose (mg/dL) 341 H Random Glucose 293 H Lactic Acid Calcium 7.3 L Phosphorus 2.7 Magnesium 1.6 Total Bilirubin AST ALT Alkaline Phosphatase Troponin I Total Protein Albumin Globulin Albumin/Globulin Ratio Triglycerides Cholesterol LDL Cholesterol Direct HDL Cholesterol Lipase TSH 3rd Generation Arterial Blood Potassium Urine Color Urine Clarity Urine pH Ur Specific [place] Urine Protein Urine Glucose (UA) Urine Ketones Urine Blood Urine Nitrate Urine Bilirubin Urine Urobilinogen Ur Leukocyte Esterase Urine RBC (Auto) Urine Microscopic WBC Amorphous Sediment Urine Bacteria Fluid Type CSF Volume CSF Appearance CSF WBC CSF RBC CSF Comment CSF Glucose CSF Total Protein Urine Opiates Screen Urine Methadone Screen Ur Barbiturates Screen Ur Phencyclidine Scrn Ur Amphetamines Screen U Benzodiazepines Scrn U Oth Cocaine Metabols U Cannabinoids Screen Alcohol, Quantitative HSV Source Description HIV-1 Ab Rapid Screen 05/14/18 05/14/18 05/14/18 19:00 19:20 20:13 WBC RBC Hgb Hct MCV MCH MCHC RDW Plt Count MPV Neut % (Auto) Lymph % (Auto) [place] % (Auto) Eos % (Auto) Baso % (Auto) Neut # (Auto) Lymph # (Auto) [place] # (Auto) Eos # (Auto) Baso # (Auto) PT INR APTT pCO2 pO2 HCO3 ABG pH ABG Total CO2 ABG O2 Saturation ABG Base Excess Fabian Test ABG Potassium A-a O2 Difference Glucose Lactate FiO2 Crit Value Called To Crit Value Called By Crit Value Read Back Blood Gas Notified Time Sodium Potassium Chloride Carbon Dioxide Anion Gap BUN Creatinine Est GFR ( Amer) Est GFR (Non-Af Amer) POC Glucose (mg/dL) 293 H 300 H Random Glucose Lactic Acid 2.6 H Calcium Phosphorus Magnesium Total Bilirubin AST ALT Alkaline Phosphatase Troponin I Total Protein Albumin Globulin Albumin/Globulin Ratio Triglycerides Cholesterol LDL Cholesterol Direct HDL Cholesterol Lipase TSH 3rd Generation Arterial Blood Potassium Urine Color Urine Clarity Urine pH Ur Specific [place] Urine Protein Urine Glucose (UA) Urine Ketones Urine Blood Urine Nitrate Urine Bilirubin Urine Urobilinogen Ur Leukocyte Esterase Urine RBC (Auto) Urine Microscopic WBC Amorphous Sediment Urine Bacteria Fluid Type CSF Volume CSF Appearance CSF WBC CSF RBC CSF Comment CSF Glucose CSF Total Protein Urine Opiates Screen Urine Methadone Screen Ur Barbiturates Screen Ur Phencyclidine Scrn Ur Amphetamines Screen U Benzodiazepines Scrn U Oth Cocaine Metabols U Cannabinoids Screen Alcohol, Quantitative HSV Source Description HIV-1 Ab Rapid Screen 05/14/18 05/14/18 05/14/18 21:21 21:40 22:11 WBC RBC Hgb Hct MCV MCH MCHC RDW Plt Count MPV Neut % (Auto) Lymph % (Auto) [place] % (Auto) Eos % (Auto) Baso % (Auto) Neut # (Auto) Lymph # (Auto) [place] # (Auto) Eos # (Auto) Baso # (Auto) PT INR APTT pCO2 pO2 HCO3 ABG pH ABG Total CO2 ABG O2 Saturation ABG Base Excess Fabian Test ABG Potassium A-a O2 Difference Glucose Lactate FiO2 Crit Value Called To Crit Value Called By Crit Value Read Back Blood Gas Notified Time Sodium 135 Potassium 5.1 H Chloride 99 Carbon Dioxide 14 L Anion Gap 27 H BUN 15 Creatinine 1.3 Est GFR ( Amer) > 60 Est GFR (Non-Af Amer) 59 POC Glucose (mg/dL) 227 H 215 H Random Glucose 200 H Lactic Acid Calcium 7.9 L Phosphorus Magnesium Total Bilirubin AST ALT Alkaline Phosphatase Troponin I Total Protein Albumin Globulin Albumin/Globulin Ratio Triglycerides Cholesterol LDL Cholesterol Direct HDL Cholesterol Lipase TSH 3rd Generation Arterial Blood Potassium Urine Color Urine Clarity Urine pH Ur Specific [place] Urine Protein Urine Glucose (UA) Urine Ketones Urine Blood Urine Nitrate Urine Bilirubin Urine Urobilinogen Ur Leukocyte Esterase Urine RBC (Auto) Urine Microscopic WBC Amorphous Sediment Urine Bacteria Fluid Type CSF Volume CSF Appearance CSF WBC CSF RBC CSF Comment CSF Glucose CSF Total Protein Urine Opiates Screen Urine Methadone Screen Ur Barbiturates Screen Ur Phencyclidine Scrn Ur Amphetamines Screen U Benzodiazepines Scrn U Oth Cocaine Metabols U Cannabinoids Screen Alcohol, Quantitative HSV Source Description HIV-1 Ab Rapid Screen 05/14/18 05/15/18 05/15/18 23:08 00:08 01:10 WBC RBC Hgb Hct MCV MCH MCHC RDW Plt Count MPV Neut % (Auto) Lymph % (Auto) [place] % (Auto) Eos % (Auto) Baso % (Auto) Neut # (Auto) Lymph # (Auto) [place] # (Auto) Eos # (Auto) Baso # (Auto) PT INR APTT pCO2 pO2 HCO3 ABG pH ABG Total CO2 ABG O2 Saturation ABG Base Excess Fabian Test ABG Potassium A-a O2 Difference Glucose Lactate FiO2 Crit Value Called To Crit Value Called By Crit Value Read Back Blood Gas Notified Time Sodium Potassium Chloride Carbon Dioxide Anion Gap BUN Creatinine Est GFR ( Amer) Est GFR (Non-Af Amer) POC Glucose (mg/dL) 209 H 149 H 130 H Random Glucose Lactic Acid Calcium Phosphorus Magnesium Total Bilirubin AST ALT Alkaline Phosphatase Troponin I Total Protein Albumin Globulin Albumin/Globulin Ratio Triglycerides Cholesterol LDL Cholesterol Direct HDL Cholesterol Lipase TSH 3rd Generation Arterial Blood Potassium Urine Color Urine Clarity Urine pH Ur Specific [place] Urine Protein Urine Glucose (UA) Urine Ketones Urine Blood Urine Nitrate Urine Bilirubin Urine Urobilinogen Ur Leukocyte Esterase Urine RBC (Auto) Urine Microscopic WBC Amorphous Sediment Urine Bacteria Fluid Type CSF Volume CSF Appearance CSF WBC CSF RBC CSF Comment CSF Glucose CSF Total Protein Urine Opiates Screen Urine Methadone Screen Ur Barbiturates Screen Ur Phencyclidine Scrn Ur Amphetamines Screen U Benzodiazepines Scrn U Oth Cocaine Metabols U Cannabinoids Screen Alcohol, Quantitative HSV Source Description HIV-1 Ab Rapid Screen 05/15/18 05/15/18 05/15/18 02:06 03:08 04:03 WBC RBC Hgb Hct MCV MCH MCHC RDW Plt Count MPV Neut % (Auto) Lymph % (Auto) [place] % (Auto) Eos % (Auto) Baso % (Auto) Neut # (Auto) Lymph # (Auto) [place] # (Auto) Eos # (Auto) Baso # (Auto) PT INR APTT pCO2 pO2 HCO3 ABG pH ABG Total CO2 ABG O2 Saturation ABG Base Excess Fabian Test ABG Potassium A-a O2 Difference Glucose Lactate FiO2 Crit Value Called To Crit Value Called By Crit Value Read Back Blood Gas Notified Time Sodium Potassium Chloride Carbon Dioxide Anion Gap BUN Creatinine Est GFR ( Amer) Est GFR (Non-Af Amer) POC Glucose (mg/dL) 151 H 160 H 144 H Random Glucose Lactic Acid Calcium Phosphorus Magnesium Total Bilirubin AST ALT Alkaline Phosphatase Troponin I Total Protein Albumin Globulin Albumin/Globulin Ratio Triglycerides Cholesterol LDL Cholesterol Direct HDL Cholesterol Lipase TSH 3rd Generation Arterial Blood Potassium Urine Color Urine Clarity Urine pH Ur Specific [place] Urine Protein Urine Glucose (UA) Urine Ketones Urine Blood Urine Nitrate Urine Bilirubin Urine Urobilinogen Ur Leukocyte Esterase Urine RBC (Auto) Urine Microscopic WBC Amorphous Sediment Urine Bacteria Fluid Type CSF Volume CSF Appearance CSF WBC CSF RBC CSF Comment CSF Glucose CSF Total Protein Urine Opiates Screen Urine Methadone Screen Ur Barbiturates Screen Ur Phencyclidine Scrn Ur Amphetamines Screen U Benzodiazepines Scrn U Oth Cocaine Metabols U Cannabinoids Screen Alcohol, Quantitative HSV Source Description HIV-1 Ab Rapid Screen 05/15/18 05/15/18 05/15/18 04:52 05:15 05:15 WBC 6.7 RBC 3.32 L Hgb 10.5 L Hct 31.3 L MCV 94.1 H D MCH 31.5 H MCHC 33.5 RDW 12.2 Plt Count 258 MPV 8.3 Neut % (Auto) 81.5 H Lymph % (Auto) 12.2 L [place] % (Auto) 6.1 Eos % (Auto) 0.0 Baso % (Auto) 0.2 Neut # (Auto) 5.5 Lymph # (Auto) 0.8 L [place] # (Auto) 0.4 Eos # (Auto) 0.0 Baso # (Auto) 0.0 PT INR APTT pCO2 pO2 HCO3 ABG pH ABG Total CO2 ABG O2 Saturation ABG Base Excess Fabian Test ABG Potassium A-a O2 Difference Glucose Lactate FiO2 Crit Value Called To Crit Value Called By Crit Value Read Back Blood Gas Notified Time Sodium 137 Potassium 3.5 L Chloride 102 Carbon Dioxide 21 L Anion Gap 18 BUN 16 Creatinine 1.2 Est GFR ( Amer) > 60 Est GFR (Non-Af Amer) > 60 POC Glucose (mg/dL) 136 H Random Glucose 116 H Lactic Acid Calcium 7.6 L Phosphorus 2.4 L Magnesium Total Bilirubin 0.5 AST 241 H D ALT 122 H Alkaline Phosphatase 104 Troponin I Total Protein 5.7 L Albumin 3.2 L D Globulin 2.5 Albumin/Globulin Ratio 1.3 Triglycerides 62 Cholesterol 106 LDL Cholesterol Direct 46 HDL Cholesterol 50 Lipase TSH 3rd Generation Arterial Blood Potassium Urine Color Urine Clarity Urine pH Ur Specific [place] Urine Protein Urine Glucose (UA) Urine Ketones Urine Blood Urine Nitrate Urine Bilirubin Urine Urobilinogen Ur Leukocyte Esterase Urine RBC (Auto) Urine Microscopic WBC Amorphous Sediment Urine Bacteria Fluid Type CSF Volume CSF Appearance CSF WBC CSF RBC CSF Comment CSF Glucose CSF Total Protein Urine Opiates Screen Urine Methadone Screen Ur Barbiturates Screen Ur Phencyclidine Scrn Ur Amphetamines Screen U Benzodiazepines Scrn U Oth Cocaine Metabols U Cannabinoids Screen Alcohol, Quantitative HSV Source Description HIV-1 Ab Rapid Screen 05/15/18 05:20 WBC RBC Hgb Hct MCV MCH MCHC RDW Plt Count MPV Neut % (Auto) Lymph % (Auto) [place] % (Auto) Eos % (Auto) Baso % (Auto) Neut # (Auto) Lymph # (Auto) [place] # (Auto) Eos # (Auto) Baso # (Auto) PT INR APTT pCO2 pO2 HCO3 ABG pH ABG Total CO2 ABG O2 Saturation ABG Base Excess Fabian Test ABG Potassium A-a O2 Difference Glucose Lactate FiO2 Crit Value Called To Crit Value Called By Crit Value Read Back Blood Gas Notified Time Sodium Potassium Chloride Carbon Dioxide Anion Gap BUN Creatinine Est GFR ( Amer) Est GFR (Non-Af Amer) POC Glucose (mg/dL) Random Glucose Lactic Acid 1.0 Calcium Phosphorus Magnesium Total Bilirubin AST ALT Alkaline Phosphatase Troponin I Total Protein Albumin Globulin Albumin/Globulin Ratio Triglycerides Cholesterol LDL Cholesterol Direct HDL Cholesterol Lipase TSH 3rd Generation Arterial Blood Potassium Urine Color Urine Clarity Urine pH Ur Specific [place] Urine Protein Urine Glucose (UA) Urine Ketones Urine Blood Urine Nitrate Urine Bilirubin Urine Urobilinogen Ur Leukocyte Esterase Urine RBC (Auto) Urine Microscopic WBC Amorphous Sediment Urine Bacteria Fluid Type CSF Volume CSF Appearance CSF WBC CSF RBC CSF Comment CSF Glucose CSF Total Protein Urine Opiates Screen Urine Methadone Screen Ur Barbiturates Screen Ur Phencyclidine Scrn Ur Amphetamines Screen U Benzodiazepines Scrn U Oth Cocaine Metabols U Cannabinoids Screen Alcohol, Quantitative HSV Source Description HIV-1 Ab Rapid Screen Microbiology 05/14/18 13:21 Blood-Venous Blood Culture - Preliminary NO GROWTH AFTER 24 HOURS 05/14/18 13:10 Blood-Venous Blood Culture - Preliminary NO GROWTH AFTER 24 HOURS 05/14/18 13:40 Cerebral Spinal Fluid Gram Stain - Preliminary 05/14/18 13:40 Cerebral Spinal Fluid CSF Culture - Preliminary NO GROWTH AFTER 24 HOURS 05/14/18 13:10 Urine,Clean Catch Urine Culture - Final No Growth (<1,000 CFU/ML) Accession No. : [id number] Patient Name / ID : MANDI Collado / [id number] Exam Date : 05/14/2018 12:31:23 ( Approved ) Study Comment : Sex / Age : M / [id number] Creator : Debra Díaz MD Dictator : Debra Díaz MD Wood Preparation Supervisor : Landscape Nurseryman : Debra Díaz MD Approver2 : Report Date : 05/14/2018 13:53:15 My Comment : Date of service: 05/14/2018 PROCEDURE: CT Abdomen and Pelvis with contrast HISTORY: Back pain COMPARISON: 05/04/2018 CT scan TECHNIQUE: Contrast dose: 95 milliliters Radiation dose: Total exam DLP = 597.15 mGy-cm. This CT exam was performed using one or more of the following dose reduction techniques: Automated exposure control, adjustment of the mA and/or kV according to patient size, and/or use of iterative reconstruction technique. FINDINGS: LOWER THORAX: No new infiltrate or effusion is seen. Visualized esophagus is fluid-filled with small hiatal hernia. Reflux should be excluded clinically. There is some moderate fluid and distention of the stomach also noted. An element of gastritis cannot be excluded. Duodenum is otherwise unremarkable. LIVER: Liver is once again severely fatty infiltrated. No appreciable focal liver mass or intrahepatic ductal dilatation is seen. GALLBLADDER AND BILE DUCTS: There is interval change in the appearance of the gallbladder from the prior examination, with some new areas of low density surrounding the gallbladder suggesting either some gallbladder wall thickening or pericholecystic fluid. Common bile duct is not appear to be significantly dilated and no appreciable common bile duct stone is noted. PANCREAS: Pancreas is predominately atrophied without evidence of new mass. Minimal amount of haziness adjacent to the pancreas may suggest some minor pancreatitis but should be correlated with laboratory values. SPLEEN: Unremarkable. ADRENALS: Unremarkable. No mass. KIDNEYS AND URETERS: Unremarkable. No hydronephrosis. No solid mass. VASCULATURE: Unremarkable. No aortic aneurysm. Minor aortic atherosclerotic calcification or mural plaque present. BOWEL: There is evidence of moderate residual fecal material throughout the colon. However in addition there appears to be some new areas of mild colonic wall thickening greater within the proximal right colon but also some portions seen i n the transverse colon. Finding may suggest mild colitis or be related to some chronic constipation. Terminal ileum is unremarkable. No small bowel obstruction is noted. No small bowel fold thickening is clearly seen. APPENDIX: No right lower quadrant inflammatory process is seen to suggest appendicitis. Appendix is grossly normal in outline. PERITONEUM: No free intraperitoneal air is seen. No appreciable ascites elsewhere. Visualized mesentery shows some small scattered shotty LYMPH NODES: Without significant induration. BLADDER: Bladder is moderately distended. No wall thickening is seen. REPRODUCTIVE: Unremarkable. BONES: No acute fracture. OTHER FINDINGS: None. IMPRESSION: Distended in fluid-filled stomach with some possible mild antral wall thickening which may suggest antritis and gastritis. There is additionally nonspecific low density surrounding the gallbladder, new from the prior study. This would suggest gallbladder wall thickening and/or pericholecystic fluid. No appreciable bile duct dilatation. Minor amount of haziness surrounding the pancreas may suggest minor pancreatitis. Additional mild colonic wall thickening and moderate amounts of residual fecal material throughout the colon suggesting either chronic constipation and/or mild colitis. Distended urinary bladder. Moderate fatty infiltration of the liver. Accession No. : [id number] Patient Name / ID : MANDI Collado / [id number] Exam Date : 05/15/2018 00:05:48 ( Approved ) Study Comment : Sex / Age : M / 48Y Creator : Laurie Choe Dictator : Alyssa Perez MD Wood Preparation Supervisor : Landscape Nurseryman : Alyssa Perez MD Approver2 : Report Date : 05/15/2018 00:44:08 My Comment : Date of service: 05/15/2018 HISTORY: cholelithiasis, cholecystitis COMPARISON: 05/04/2018 TECHNIQUE: Sonographic evaluation of the right upper quadrant of the abdomen. FINDINGS: LIVER: Measures 18.0 cm in length. There is diffuse increased echogenicity of the liver parenchyma. No mass. No intrahepatic bile duct dilatation. GALLBLADDER: The gallbladder is distended small gallstones. There is a 7 x 5 mm polypoid echogenic lesion along the nondependent anterior wall of the gallbladder. There is mild gallbladder wall thickening and small amount of pericholecystic fluid. The sonographic Moyer's sign is negative. COMMON BILE DUCT: Measures 4.9 mm. No stones. No dilatation. PANCREAS: Unremarkable as visualized. No mass. No ductal dilatation. RIGHT KIDNEY: Measures 12.7 cm in length. Normal echogenicity. No calculus, mass, or hydronephrosis. AORTA: No aneurysmal dilatation. IVC: Unremarkable. OTHER FINDINGS: None . IMPRESSION: Cholelithiasis, mild gallbladder wall thickening and pericholecystic fluid, whi ch in the appropriate clinical setting may represent acute cholecystitis. And there are Suspect 7 x 5 mm gallbladder polyp along the anterior wall. Follow-up in 6-12 month interval is recommended to assess stability Mild hepatomegaly and fatty liver. A preliminary report was provided by [employer]. Assessment & Plan (1) Abdominal pain Status: Acute Priority: High (2) DKA (diabetic ketoacidoses) Status: Acute Priority: High (3) Gallstones Status: Acute Priority: High - Assessment and Plan (Free Text) Assessment: A/P- 48 year old male with DM type I, HTN, HLD admitted with nausea and vomiting for 24 hours along with abdominal pain and fever and was found to be in DKA . found to have cholelithiasis but negative for acute cholecystitis as per report. pt's symptoms have mostly resolved and he could have had viral GI infection/cholelithiasis, ETOH induced DKA he is also found to have positive Rapid HIV test. blood cx- neg x 2 UA- neg CSF cx- negative and CSF cell count wbc-1 only hence negative CSF. on admission had high Leukocytosis but has resolved now. afebrile today. transaminitis PLan- advise to check HIV confirmatory test along with HIV VL and CD4 panel. Patient was counseled on HIV but was advised that we need to wait for confirmatory test to make diagnosis . advised that he could have had a viral gastroenteritis as cause of his symptoms. advised for now bland diet pending further results. advised to continue with empiric meropenem and vanco pending further results. keep vanco trough <15. check hepatitis panel. all labs and imaging and chart notes reviewed. Patient verbalizes full understanding of all above and agrees with above plan of care. all above was also d/w Practice Coordinator . Thank you for allowing me to take part in the care of this patient. Critical care time spent 70 minutes.
[2018-05-15] MEDS: Multivitamin With Minerals Tab PO SCH (10:11)
[2018-05-15] MEDS: Potassium CL 10mEq/100ml 100 ML IVPB SCH ×4 (10:11→14:10)
--- NOTE | 2018-05-15 10:17 | US ---
Date of service: 05/15/2018 HISTORY: cholelithiasis, cholecystitis COMPARISON: 05/04/2018 TECHNIQUE: Sonographic evaluation of the right upper quadrant of the abdomen. FINDINGS: LIVER: Measures 18.0 cm in length. There is diffuse increased echogenicity of the liver parenchyma. No mass. No intrahepatic bile duct dilatation. GALLBLADDER: The gallbladder is distended small gallstones. There is a 7 x 5 mm polypoid echogenic lesion along the nondependent anterior wall of the gallbladder. There is mild gallbladder wall thickening and small amount of pericholecystic fluid. The sonographic Moyer's sign is negative. COMMON BILE DUCT: Measures 4.9 mm. No stones. No dilatation. PANCREAS: Unremarkable as visualized. No mass. No ductal dilatation. RIGHT KIDNEY: Measures 12.7 cm in length. Normal echogenicity. No calculus, mass, or hydronephrosis. AORTA: No aneurysmal dilatation. IVC: Unremarkable. OTHER FINDINGS: None . IMPRESSION: Cholelithiasis, mild gallbladder wall thickening and pericholecystic fluid, which in the appropriate clinical setting may represent acute cholecystitis. And there are Suspect 7 x 5 mm gallbladder polyp along the anterior wall. Follow-up in 6-12 month interval is recommended to assess stability Mild hepatomegaly and fatty liver. A preliminary report was provided by [employer] ([email or web address]).
[2018-05-15] MEDS: Enoxaparin 40 mg Syringe SC SCH (11:46)
[2018-05-15] MEDS: Sodium Chloride 0.9% 1,000 ML IV SCH (12:32)
[2018-05-15] MEDS: Insulin Regular 100 units/ml SC SCH ×3 (13:17→21:51)
--- NOTE | 2018-05-15 15:16 | CP.PCM.PN ---
Subjective - Date & Time of Evaluation Date of Evaluation: 05/15/18 Time of Evaluation: 15:14 - Subjective Subjective: General Surgery Consult note for Dr. Whitmore, 48 yo male with PMHx of HTN, DM type 1, hyperlipidemia, recent dx of cholelithiasis seen and evaluated for LUQ abdominal pain that occurs about twice a week and resolves on its own. At this time, patient denies nausea, diarrhea or vomiting, and states his pain is controlled. Objective - Vital Signs/Intake and Output Vital Signs (last 24 hours): Temp Pulse Resp BP Pulse Ox 98.4 F 100 H 20 140/89 98 05/15/18 12:00 05/15/18 14:00 05/15/18 14:00 05/15/18 14:00 05/15/18 14:00 Intake and Output: 05/15/18 05/15/18 06:59 18:59 Intake Total 2650 2280 Output Total 1500 700 Balance 1150 1580 - Medications Medications: Current Medications Chlordiazepoxide (Librium) 25 mg PO Q8 [facility] Last Admin: 05/15/18 10:15 Dose: 25 mg Dextrose (Dextrose 50% Inj) 0 ml IV STAT PRN; Protocol PRN Reason: Hypoglycemia Protocol Dextrose (Glutose 15) 0 gm PO ONCE PRN; Protocol PRN Reason: Hypoglycemia Protocol Enoxaparin Sodium (Lovenox) 40 mg SC DAILY [facility]; Protocol Last Admin: 05/15/18 11:46 Dose: 40 mg Folic Acid (Folic Acid) 1 mg PO DAILY [facility] Last Admin: 05/15/18 10:10 Dose: 1 mg Glucagon (Glucagen Diagnostic Kit) 0 mg IM STAT PRN; Protocol PRN Reason: Hypoglycemia Protocol Vancomycin HCl 1 gm/ Sodium (Chloride) 250 mls @ 166.667 mls/hr IVPB Q12 [facility]; Protocol Last Admin: 05/15/18 09:51 Dose: 166.667 mls/hr Sodium Chloride (Sodium Chloride 0.9%) 1,000 mls @ 200 mls/hr IV .Q5H [facility] Stop: 05/15/18 22:30 Last Admin: 05/14/18 22:30 Dose: 200 mls/hr Meropenem 1 gm/ Sodium (Chloride) 100 mls @ 100 mls/hr IVPB Q8H [facility]; Protocol Last Admin: 05/15/18 13:24 Dose: 100 mls/hr Sodium Chloride (Sodium Chloride 0.9%) 1,000 mls @ 75 mls/hr IV .[id number] [facility] Stop: 05/16/18 12:06 Last Admin: 05/15/18 12:32 Dose: 75 mls/hr Insulin Human Regular (Humulin R) 0 units SC ACHS [facility]; Protocol Last Admin: 05/15/18 13:17 Dose: 3 u Lorazepam (Ativan) 1 mg IVP Q6 PRN PRN Reason: Agitation Morphine Sulfate (Morphine) 2 mg IVP Q4H PRN PRN Reason: Pain, moderate (4-7) Last Admin: 05/15/18 10:06 Dose: 2 mg Morphine Sulfate (Morphine) 4 mg IVP Q4 PRN PRN Reason: Pain, severe (8-10) Multivitamins/Minerals (Therapeutic-M Tab) 1 tab PO DAILY [facility] Last Admin: 05/15/18 10:11 Dose: 1 tab Pantoprazole Sodium (Protonix Inj) 40 mg IVP DAILY [facility] Last Admin: 05/15/18 09:52 Dose: 40 mg Thiamine HCl (Vitamin B1 Tab) 100 mg PO DAILY [facility] Last Admin: 05/15/18 10:10 Dose: 100 mg - Labs Labs: 05/15/18 05:15 05/15/18 05:15 PT 10.3 Seconds (9.8-13.1) 05/14/18 11:32 INR 0.9 05/14/18 11:32 APTT 39.7 Seconds (25.6-37.1) H 05/14/18 11:32 - Constitutional Appears: Well, Non-toxic, No Acute Distress - Head Exam Head Exam: ATRAUMATIC, NORMOCEPHALIC - Eye Exam Eye Exam: Normal appearance - ENT Exam ENT Exam: Mucous Membranes Moist - GI/Abdominal Exam GI & Abdominal Exam: Soft, Tenderness, Normal Bowel Sounds. absent: Distended, Guarding, Rigid Additional comments: LUQ pain, minimal at this time - Neurological Exam Neurological Exam: Alert, Awake, Oriented x3 - Psychiatric Exam Psychiatric exam: Normal Affect, Normal Mood Assessment and Plan - Assessment and Plan (Free Text) Assessment: 48 yo male with PMHx of HTN, DM type 1, hyperlipidemia, cholelithiasis, gallbladder polyp who presents with DKA Plan: - ADA diet - Management of blood glucose via primary team/endocrine - Can follow up with Dr. Whitmore as outpatient for gallbladder polyp surveillance and or elective cholecystectomy - no surgical intervention at this time Case discussed with Dr. Haim Bustos PGY1
[2018-05-15] MEDS: Morphine 4 MG/ML VIAL IVP PRN ×2 (15:48→20:44)
[2018-05-15 16:43] LABS: GAMMA GLUTAMYL TRANSPEPTIDASE 848 U/L (8-78)
[2018-05-15 17:12] LABS: HEPATITIS B SURFACE AG Negative (NEGATIVE)
--- NOTE | 2018-05-15 17:14 | PN ---
DATE: 05/15/2018 ENDOCRINOLOGY FOLLOWUP NOTE LOCATION: ICU, Room 432. SUBJECTIVE: This is a 48-year-old male with recent uncontrolled type 1 insulin-dependent diabetes presenting here with diabetic ketoacidosis and dehydration and is now being followed closely for metabolic management. He received vigorous IV hydration and intensive insulin therapy with an insulin drip infusion as given. He also had recent alcoholic intoxication with underlying chronic alcoholism as noted. His glycemic levels are fluctuant but improved overnight and glucose levels have ranged from 136-144 and 160 mg/dL. LABORATORY DATA: His chemistry showed a BUN of 16, sodium 137, potassium 3.5, chloride 102, CO2 of 21, glucose 116 and creatinine 1.2. ASSESSMENT This is a 48-year-old male with uncontrolled and decompensated type 1 insulin-dependent diabetes with recent drug omission and presenting here with diabetic ketoacidosis and dehydration as noted. He also has significant chronic alcoholism with recent alcoholic intoxication and daily intake of several shots of vodka as noted. PLAN: Plan of management, we will continue the vigorous IV hydration as given but lower the infusion rate to 80 mL/hour as ordered. We will also continue the intensive insulin therapy and initially he received an insulin drip infusion which was discontinued today as noted. As his oral intake improves, we will switch him over to a more physiologic basal and bolus insulin drug combination as ordered. We will modify the coverage scale accordingly as indicated. We will obtain serial chemistries and supplement accordingly as needed. We will follow. Raquel Cody MD
[2018-05-15 17:29] LABS: HEPATITIS C ANTIBODY NEGATIVE (NEGATIVE)
[2018-05-16] MEDS: Sodium Chloride 0.9% 1,000 ML IV SCH (01:33)
[2018-05-16] MEDS ORDERED: Insulin Lispro (humaLOG) 100 Units/ml Inj SC ONE (01:55)
[2018-05-16] MEDS: Morphine 4 MG/ML VIAL IVP PRN ×5 (03:19→22:30)
[2018-05-16] MEDS: Meropenem 1 GM in Sodium Chloride 0.9% 100 ML IVPB SCH ×3 (05:28→22:20)
[2018-05-16 06:32] LABS: MEAN CELL VOLUME 94.7 fl (80.0-94.0); MEAN CORPUSCULAR HEMOGLOBIN 31.5 pg (27.0-31.0); MEAN CORPUSCULAR HGB CONC 33.3 g/dL (33.0-37.0); RBC 3.5 Mil/uL (4.40-5.90); RED CELL DISTRIBUTION WIDTH 12.4 % (11.5-14.5); WHITE BLOOD COUNT 5.4 K/uL (4.8-10.8)
--- NOTE | 2018-05-16 06:35 | CP.PCM.PN ---
<Teo Anderson - Last Filed: 05/16/18 11:25> Subjective - Date & Time of Evaluation Date of Evaluation: 05/16/18 Time of Evaluation: 07:00 - Subjective Subjective: Patient is seen and examined at bedside today. No acute event overnight. Patient is anxious due to HIV result, he report he could not sleep well yesterday after the news, and would like to know the confirmation as soon as possible. Patient also report having some mild generalized abdominal pain and tension headache, he contribute this to the stress his having due to new news. Otherwise patient denies having any fever, chills, chest pain, sob, diarrhea, constipation, dysuria or polyuria. Objective - Vital Signs/Intake and Output Vital Signs (last 24 hours): Temp Pulse Resp BP Pulse Ox 98.4 F 106 H 20 125/79 99 05/16/18 00:07 05/16/18 00:07 05/16/18 00:07 05/16/18 00:07 05/16/18 00:07 Intake and Output: 05/15/18 05/16/18 18:59 06:59 Intake Total 2280 Output Total 700 Balance 1580 - Medications Medications: Current Medications Chlordiazepoxide (Librium) 25 mg PO Q8 [facility] Last Admin: 05/16/18 01:32 Dose: 25 mg Dextrose (Dextrose 50% Inj) 0 ml IV STAT PRN; Protocol PRN Reason: Hypoglycemia Protocol Dextrose (Glutose 15) 0 gm PO ONCE PRN; Protocol PRN Reason: Hypoglycemia Protocol Enoxaparin Sodium (Lovenox) 40 mg SC DAILY [facility]; Protocol Last Admin: 05/15/18 11:46 Dose: 40 mg Folic Acid (Folic Acid) 1 mg PO DAILY [facility] Last Admin: 05/15/18 10:10 Dose: 1 mg Glucagon (Glucagen Diagnostic Kit) 0 mg IM STAT PRN; Protocol PRN Reason: Hypoglycemia Protocol Vancomycin HCl 1 gm/ Sodium (Chloride) 250 mls @ 166.667 mls/hr IVPB Q12 [facility]; Protocol Last Admin: 05/15/18 22:07 Dose: 166.667 mls/hr Meropenem 1 gm/ Sodium (Chloride) 100 mls @ 100 mls/hr IVPB Q8H [facility]; Protocol Last Admin: 05/16/18 05:28 Dose: 100 mls/hr Sodium Chloride (Sodium Chloride 0.9%) 1,000 mls @ 75 mls/hr IV .[id number] [facility] Stop: 05/16/18 12:06 Last Admin: 05/16/18 01:33 Dose: 75 mls/hr Insulin Human Regular (Humulin R) 0 units SC ACHS [facility]; Protocol Last Admin: 05/15/18 21:51 Dose: Not Given Lorazepam (Ativan) 1 mg IVP Q6 PRN PRN Reason: Agitation Morphine Sulfate (Morphine) 4 mg IVP Q4 PRN PRN Reason: Pain, severe (8-10) Morphine Sulfate (Morphine) 2 mg IVP Q4H PRN PRN Reason: Pain, moderate (4-7) Last Admin: 05/16/18 03:19 Dose: 2 mg Multivitamins/Minerals (Therapeutic-M Tab) 1 tab PO DAILY [facility] Last Admin: 05/15/18 10:11 Dose: 1 tab Pantoprazole Sodium (Protonix Inj) 40 mg IVP DAILY [facility] Last Admin: 05/15/18 09:52 Dose: 40 mg Thiamine HCl (Vitamin B1 Tab) 100 mg PO DAILY [facility] Last Admin: 05/15/18 10:10 Dose: 100 mg - Labs Labs: 05/15/18 05:15 05/15/18 05:15 PT 10.3 Seconds (9.8-13.1) 05/14/18 11:32 INR 0.9 05/14/18 11:32 APTT 39.7 Seconds (25.6-37.1) H 05/14/18 11:32 - Constitutional Appears: Well, Non-toxic, No Acute Distress - Head Exam Head Exam: ATRAUMATIC, NORMAL INSPECTION, NORMOCEPHALIC - Eye Exam Eye Exam: EOMI, Normal appearance, PERRL Pupil Exam: NORMAL ACCOMODATION, PERRL - ENT Exam ENT Exam: Mucous Membranes Moist, Normal Exam - Neck Exam Neck Exam: Full ROM, Normal Inspection - Respiratory Exam Respiratory Exam: Clear to Ausculation Bilateral, NORMAL BREATHING PATTERN - Cardiovascular Exam Cardiovascular Exam: REGULAR RHYTHM, +S1, +S2 - GI/Abdominal Exam GI & Abdominal Exam: Soft, Normal Bowel Sounds - Extremities Exam Extremities Exam: Full ROM, Normal Capillary Refill, Normal Inspection - Back Exam Back Exam: NORMAL INSPECTION - Neurological Exam Neurological Exam: Alert, Awake, CN II-XII Intact, Normal Gait, Oriented x3 - Psychiatric Exam Psychiatric exam: Normal Affect, Normal Mood - Skin Skin Exam: Dry, Intact, Normal Color, Warm Assessment and Plan - Assessment and Plan (Free Text) Assessment: Assessment: A 48 yo male with PMH of DM1 and HTN, and Positive hx of cholelithaiasis. Will be admitted to ICU for treatment and evaluate of DKA vs Sepsis. CSF was done Positive for glucose 220H , and Total protein of 62H CSF culture sent Head CT: No evidence of intracranial hemorrhage or recent infarct. Nonspecific cerebral cortical atrophy and probable scattered white matter changes greater than expected for the patient's age. Chest Xray: No active disease. CT abdomen: Distended in fluid-filled stomach with some possible mild antral w all thickening which may suggest antritis and gastritis. There is additionally nonspecific low density surrounding the gallbladder, new from the prior study. This would suggest gallbladder wall thickening and/or pericholecystic fluid. No appreciable bile duct dilatation. Minor amount of haziness surrounding the pancreas may suggest minor pancreatitis. Additional mild colonic wall thickening and moderate amounts of residual fecal material throughout the colon suggesting either chronic constipation and/or mild colitis. Distended urinary bladder. Moderate fatty infiltration of the liver. U/S Cholelithaisis mild gallbladder wall thickening and pericholecystic fluid, suspected 7x5 mm gallbladder poyl along the anterior wall. f/u in 6-12 mo, mild hepatomegaly and fatty liver PLAN: DKA Improved Glucose 363 Anion Feliz 33 PO4 2.4L MG 1.6 Lactic acid 1 Corrected calcium 8.2 D/C insulin drip Continue sliding scale with hypoglycemia protocol Endocrinology on case continue to follow recommendation Will start levemir 30 unit Continue IV fluid 100ml/h Sepsis Afebrile Improved Vitals regulated s/p Rocephin and Vancomycin Given. D/C Zosyn S/P Lumbar puncture CSF/blood culture negative Prelim result Urine culture negative HIV rapid test Positive f/u confirmation Vanco trough 9.6 Continue Meropenem day 2 Continue vancomycin day 2 MRSA screen, herpes pending final result Follow up further ID recommendation HIV reactive hepatic panel negative for disease RPR negative F/U CD4 F/U confirmation test AFib with RVR Found on EKG S/P Cardizem at ER Continuous cardiac monitoring Hx of Cholelithisis/Abnormal CT Abdomen Continue IV fluid and Ab General Surgery consulted, Recommend to follow up as outpatient Alcohol withdrawal vs alcohol intoxication Continue thiamin B12 Continue librium Ativan PRn agitation Follow up for any symptoms of withdrawal Back pain Morphine DVT Prophylaxis SCD's Lovenox 40mg SC daily <Melvin Mead - Last Filed: 05/16/18 20:05> Objective - Vital Signs/Intake and Output Vital Signs (last 24 hours): Temp Pulse Resp BP Pulse Ox 97.7 F 97 H 18 148/93 H 99 05/16/18 16:26 05/16/18 16:26 05/16/18 16:26 05/16/18 16:26 05/16/18 16:26 - Medications Medications: Current Medications Chlordiazepoxide (Librium) 25 mg PO Q8 [facility] Last Admin: 05/16/18 16:36 Dose: 25 mg Dextrose (Dextrose 50% Inj) 0 ml IV STAT PRN; Protocol PRN Reason: Hypoglycemia Protocol Dextrose (Glutose 15) 0 gm PO ONCE PRN; Protocol PRN Reason: Hypoglycemia Protocol Enoxaparin Sodium (Lovenox) 40 mg SC DAILY [facility]; Protocol Last Admin: 05/16/18 08:46 Dose: 40 mg Folic Acid (Folic Acid) 1 mg PO DAILY [facility] Last Admin: 05/16/18 08:46 Dose: 1 mg Glucagon (Glucagen Diagnostic Kit) 0 mg IM STAT PRN; Protocol PRN Reason: Hypoglycemia Protocol Vancomycin HCl 1 gm/ Sodium (Chloride) 250 mls @ 166.667 mls/hr IVPB Q12 [facility]; Protocol Last Admin: 05/16/18 10:29 Dose: 166.667 mls/hr Meropenem 1 gm/ Sodium (Chloride) 100 mls @ 100 mls/hr IVPB Q8H [facility]; Protocol Last Admin: 05/16/18 14:02 Dose: 100 mls/hr Insulin Detemir (Levemir) 30 units SC HS [facility] Insulin Human Regular (Humulin R) 0 units SC Q6H [facility]; Protocol Last Admin: 05/16/18 14:49 Dose: 12 units Lorazepam (Ativan) 1 mg IVP Q6 PRN PRN Reason: Agitation Morphine Sulfate (Morphine) 4 mg IVP Q4 PRN PRN Reason: Pain, severe (8-10) Morphine Sulfate (Morphine) 2 mg IVP Q4H PRN PRN Reason: Pain, moderate (4-7) Last Admin: 05/16/18 17:41 Dose: 2 mg Multivitamins/Minerals (Therapeutic-M Tab) 1 tab PO DAILY [facility] Last Admin: 05/16/18 08:46 Dose: 1 tab Pantoprazole Sodium (Protonix Inj) 40 mg IVP DAILY [facility] Last Admin: 05/16/18 08:39 Dose: 40 mg Thiamine HCl (Vitamin B1 Tab) 100 mg PO DAILY [facility] Last Admin: 05/16/18 08:46 Dose: 100 mg - Labs Labs: 05/16/18 06:09 05/16/18 06:09 PT 10.3 Seconds (9.8-13.1) 05/14/18 11:32 INR 0.9 05/14/18 11:32 APTT 39.7 Seconds (25.6-37.1) H 05/14/18 11:32 Attending/Attestation - Attestation I have personally seen and examined this patient.: Yes I have fully participated in the care of the patient.: Yes I have reviewed all pertinent clinical information, including history, physical exam and plan: Yes Notes (Text): 05/16/18 20:04 Patient seen and examined with resident. Case discussed and agreed with assessment and plan of management.
[2018-05-16 06:45] LABS: ALB/GLOB RATIO 1.5 (1.0-2.1); ALBUMIN 3.5 g/dL (3.5-5.0); ALT/SGPT 95 U/L (21-72); AST/SGOT 95 U/L (17-59); BLOOD UREA NITROGEN 7 mg/dl (9-20); CALCIUM 9.1 mg/dL (8.4-10.2); GFR NON-AFRICAN AMERICAN > 60
[2018-05-16] MEDS ORDERED: Sodium Chloride 0.9% 1,000 ML IV SCH (08:26)
[2018-05-16] MEDS: Multivitamin With Minerals Tab PO SCH (08:46)
[2018-05-16] MEDS: Enoxaparin 40 mg Syringe SC SCH (08:46)
[2018-05-16] MEDS: Insulin Regular 100 units/ml SC SCH ×4 (08:47→20:35)
[2018-05-16] MEDS ORDERED: Insulin Detemir 100 Units/ml Inj SC SCH (22:00)
[2018-05-16] MEDS: Insulin Detemir 100 Units/ml Inj SC SCH (22:21)
--- NOTE | 2018-05-17 01:17 | PN ---
DATE: 05/16/2018 ENDOCRINOLOGY FOLLOWUP NOTE. LOCATION: Room 660. SUBJECTIVE: This is a 48-year-old male with recent uncontrolled type 1 insulin-dependent diabetes, presenting here with possible acute cholecystitis with underlying cholelithiasis and concomitant fever, chills and vomiting episodes with diffuse upper abdominal pain and is now being followed closely for metabolic management. He was actually in diabetic ketoacidosis and dehydration on admission and received intense insulin therapy and vigorous IV hydration was given. His glycemic levels today are fluctuating as noted. He is only on the coverage scale given every 6 hours by the medical staff as noted with basal insulin at bedtime. His glucose levels have ranged from 242-363 and 400 mg/dL. His chemistry showed a BUN of 7, sodium 138, potassium 4.6, chloride 97, CO2 is 13, glucose is 276 and creatinine is 0.8. ASSESSMENT: This is a 48-year-old male with uncontrolled and decompensated type 1 insulin-dependent diabetes presenting here with marked hyperglycemic accelerations and supervening diabetic ketoacidosis and dehydration related to recent drug omission because of GI related symptoms from the underlying cholelithiasis and possible cholecystitis. His IV hydration was changed by the medical staff with supervening resurgence to metabolic acidosis as noted thereof, especially with the discontinuation of the insulin drip infusion as noted. PLAN OF MANAGEMENT: We will continue the vigorous IV hydration as given and ordered. We will obtain serial chemistries and supplement accordingly as needed. We will also modify his current insulin regimen and discontinue the regular insulin given every 6 hours as noted. He needs a more physiologic basal and bolus insulin drug combination to coincide with his meals and his insulin meal requirements accordingly. We will add Humalog given as 10 units t.i.d. before meals to start tomorrow morning as ordered. We will continue the basal insulin given as Levemir at 30 units subcu at bedtime daily as given. We will modify the coverage scale to obviate hypoglycemia using also low-dose Humalog insulin and detailed orders will be given. We will follow and advise accordingly. Raquel Cody MD
[2018-05-17] MEDS: Morphine 4 MG/ML VIAL IVP PRN (05:03)
[2018-05-17] MEDS: Meropenem 1 GM in Sodium Chloride 0.9% 100 ML IVPB SCH ×3 (05:04→23:14)
[2018-05-17 07:05] LABS: HEMOGLOBIN 11.9 g/dL (12.0-18.0); MEAN CELL VOLUME 93.3 fl (80.0-94.0); MEAN CORPUSCULAR HEMOGLOBIN 31.9 pg (27.0-31.0); MEAN CORPUSCULAR HGB CONC 34.2 g/dL (33.0-37.0); RBC 3.73 Mil/uL (4.40-5.90); RED CELL DISTRIBUTION WIDTH 12.2 % (11.5-14.5); WHITE BLOOD COUNT 3.9 K/uL (4.8-10.8)
[2018-05-17 07:26] LABS: ALB/GLOB RATIO 1.3 (1.0-2.1); ALBUMIN 3.6 g/dL (3.5-5.0); ALT/SGPT 82 U/L (21-72); AST/SGOT 67 U/L (17-59); BLOOD UREA NITROGEN 6 mg/dl (9-20); CALCIUM 9.1 mg/dL (8.4-10.2); GFR NON-AFRICAN AMERICAN > 60
[2018-05-17] MEDS: Multivitamin With Minerals Tab PO SCH (09:12)
[2018-05-17] MEDS: Enoxaparin 40 mg Syringe SC SCH (09:14)
[2018-05-17] MEDS: Insulin Lispro (humaLOG) 100 Units/ml Inj SC SCH ×7 (09:18→21:34)
[2018-05-17] MEDS ORDERED: Morphine 5 MG/ML SYRINGE IVP PRN (10:30)
--- NOTE | 2018-05-17 11:41 | CP.PCM.DIS ---
Provider - Provider Date of Admission: 05/14/18 13:52 Attending physician: Melvin Mead MD Consults: 05/14/18 14:20 General Surgery Consult Stat Comment: Consulting Provider: Pretty Whitmore Consulting Physician: Pretty Whitmore Reason for Consult: Cholecystitis 05/14/18 15:18 Infectious Disease Consult Stat Comment: Consulting Provider: Marin Hall Consulting Physician: Marin Hall Reason for Consult: sepsis probably secondary to cholecystitis with DKA 05/14/18 15:19 Endocrinology Consult Stat Comment: Consulting Provider: Raquel Cody Consulting Physician: Raquel Cody Reason for Consult: DKA Time Spent in preparation of Discharge (in minutes): 25 Diagnosis - Discharge Diagnosis (1) DKA (diabetic ketoacidoses) Status: Resolved Priority: High (2) HIV (human immunodeficiency virus infection) Status: Acute Priority: High (3) Sepsis Status: Resolved Priority: High Hospital Course - Lab Results Lab Results: Micro Results 05/14/18 13:21 Blood-Venous Blood Culture - Preliminary NO GROWTH AFTER 48 HOURS 05/14/18 13:10 Blood-Venous Blood Culture - Preliminary NO GROWTH AFTER 48 HOURS 05/14/18 13:40 Cerebral Spinal Fluid Gram Stain - Preliminary 05/14/18 13:40 Cerebral Spinal Fluid CSF Culture - Preliminary NO GROWTH AFTER 2 DAYS 05/14/18 13:10 Urine,Clean Catch Urine Culture - Final No Growth (<1,000 CFU/ML) Most Recent Lab Values WBC 3.9 K/uL (4.8-10.8) L 05/17/18 06:45 RBC 3.73 Mil/uL (4.40-5.90) L 05/17/18 06:45 Hgb 11.9 g/dL (12.0-18.0) L 05/17/18 06:45 Hct 34.8 % (35.0-51.0) L 05/17/18 06:45 MCV 93.3 fl (80.0-94.0) 05/17/18 06:45 MCH 31.9 pg (27.0-31.0) H 05/17/18 06:45 MCHC 34.2 g/dL (33.0-37.0) 05/17/18 06:45 RDW 12.2 % (11.5-14.5) 05/17/18 06:45 Plt Count 237 K/uL (130-400) 05/17/18 06:45 MPV 8.3 fl (7.2-11.7) 05/15/18 05:15 Neut % (Auto) 81.5 % (50.0-75.0) H 05/15/18 05:15 Lymph % (Auto) 12.2 % (20.0-40.0) L 05/15/18 05:15 Weber % (Auto) 6.1 % (0.0-10.0) 05/15/18 05:15 Eos % (Auto) 0.0 % (0.0-4.0) 05/15/18 05:15 Baso % (Auto) 0.2 % (0.0-2.0) 05/15/18 05:15 Neut # (Auto) 5.5 K/uL (1.8-7.0) 05/15/18 05:15 Lymph # (Auto) 0.8 K/uL (1.0-4.3) L 05/15/18 05:15 Weber # (Auto) 0.4 K/uL (0.0-0.8) 05/15/18 05:15 Eos # (Auto) 0.0 K/uL (0.0-0.7) 05/15/18 05:15 Baso # (Auto) 0.0 K/uL (0.0-0.2) 05/15/18 05:15 PT 10.3 Seconds (9.8-13.1) 05/14/18 11:32 INR 0.9 05/14/18 11:32 APTT 39.7 Seconds (25.6-37.1) H 05/14/18 11:32 pCO2 24 mm/Hg (35-45) L 05/14/18 14:30 pO2 29 mm/Hg (80-100) L* 05/14/18 14:30 HCO3 4.4 mmol/L (21-28) L* 05/14/18 14:30 ABG pH 6.94 (7.35-7.45) L* 05/14/18 14:30 ABG Total CO2 5.9 mmol/L (22-28) L 05/14/18 14:30 ABG O2 Saturation 75.0 % (95-98) L 05/14/18 14:30 ABG Base Excess -25.6 mmol/L (-2.0-3.0) L 05/14/18 14:30 Fabian Test Yes 05/14/18 14:30 ABG Potassium 5.5 mmol/L (3.6-5.2) H 05/14/18 14:30 A-a O2 Difference 91.0 mm/Hg 05/14/18 14:30 Sodium 134.0 mmol/L (132-148) 05/14/18 14:30 Chloride 92.0 mmol/L (98-107) L 05/14/18 14:30 Glucose 325 mg/dL (75-110) H 05/14/18 14:30 Lactate 12.1 mmol/L (0.7-2.1) H* 05/14/18 14:30 FiO2 21.0 % 05/14/18 14:30 Crit Value Called To Dr benny frias 05/14/18 14:30 Crit Value Called By Chuyita 05/14/18 14:30 Crit Value Read Back Y 05/14/18 14:30 Blood Gas Notified Time 1444 05/14/18 14:30 Sodium 137 mmol/l (132-148) 05/17/18 06:45 Potassium 3.4 MMOL/L (3.6-5.0) L 05/17/18 06:45 Chloride 100 mmol/L (98-107) 05/17/18 06:45 Carbon Dioxide 22 mmol/L (22-30) 05/17/18 06:45 Anion Gap 18 (10-20) 05/17/18 06:45 BUN 6 mg/dl (9-20) L 05/17/18 06:45 Creatinine 0.5 mg/dl (0.8-1.5) L 05/17/18 06:45 Est GFR ( Amer) > 60 05/17/18 06:45 Est GFR (Non-Af Amer) > 60 05/17/18 06:45 POC Glucose (mg/dL) 178 mg/dL (65-110) H 05/17/18 04:50 Random Glucose 139 mg/dL (75-110) H 05/17/18 06:45 Hemoglobin A1c 8.3 % (4.2-6.5) H 05/15/18 05:15 Lactic Acid 1.0 mmol/L (0.7-2.1) 05/15/18 05:20 Calcium 9.1 mg/dL (8.4-10.2) 05/17/18 06:45 Phosphorus 2.4 mg/dl (2.5-4.5) L 05/15/18 05:15 Magnesium 1.6 MG/DL (1.6-2.3) 05/14/18 19:00 Total Bilirubin 0.9 mg/dl (0.2-1.3) 05/17/18 06:45 GGT 848 U/L (8-78) H 05/15/18 05:15 AST 67 U/L (17-59) H D 05/17/18 06:45 ALT 82 U/L (21-72) H 05/17/18 06:45 Alkaline Phosphatase 110 U/L (38-126) 05/17/18 06:45 Troponin I 0.0130 ng/mL (0.00-0.120) 05/14/18 11:32 Total Protein 6.3 G/DL (6.3-8.2) 05/17/18 06:45 Albumin 3.6 g/dL (3.5-5.0) 05/17/18 06:45 Globulin 2.7 gm/dL (2.2-3.9) 05/17/18 06:45 Albumin/Globulin Ratio 1.3 (1.0-2.1) 05/17/18 06:45 Triglycerides 62 mg/DL (0-149) 05/15/18 05:15 Cholesterol 106 mg/dL (0-199) 05/15/18 05:15 LDL Cholesterol Direct 46 mg/dL (0-129) 05/15/18 05:15 HDL Cholesterol 50 MG/DL (30-70) 05/15/18 05:15 Lipase 69 U/L (23-300) 05/14/18 11:32 TSH 3rd Generation 1.13 mIU/ML (0.46-4.68) 05/14/18 11:32 Arterial Blood Potassium 5.5 mmol/L (3.6-5.2) H 05/14/18 14:30 Urine Color Yellow (YELLOW) 05/14/18 13:10 Urine Clarity Cloudy (Clear) 05/14/18 13:10 Urine pH 5.0 (5.0-8.0) 05/14/18 13:10 Ur Specific [place] 1.012 (1.003-1.030) 05/14/18 13:10 Urine Protein 100 mg/dL (NEGATIVE) 05/14/18 13:10 Urine Glucose (UA) >=500 mg/dL (NEGATIVE) 05/14/18 13:10 Urine Ketones 80 mg/dL (NEGATIVE) 05/14/18 13:10 Urine Blood Small (NEGATIVE) 05/14/18 13:10 Urine Nitrate Negative (NEGATIVE) 05/14/18 13:10 Urine Bilirubin Negative (NEGATIVE) 05/14/18 13:10 Urine Urobilinogen 0.2-1.0 mg/dL (0.2-1.0) 05/14/18 13:10 Ur Leukocyte Esterase Neg Aaron/uL (Negative) 05/14/18 13:10 Urine RBC (Auto) < 1 /hpf (0-3) 05/14/18 13:10 Urine Microscopic WBC 2 /hpf (0-5) 05/14/18 13:10 Amorphous Sediment Rare /ul (<OCC) H 05/14/18 13:10 Urine Bacteria Rare (<OCC) 05/14/18 13:10 Fluid Type Spinal fluid 05/14/18 13:31 CSF Volume 1 mL (0-1) 05/14/18 13:31 CSF Appearance Clear/colorless (CLEAR) 05/14/18 13:31 CSF WBC 1.0 /mm3 (0.0-5.0) 05/14/18 13:31 CSF RBC 0.0 /mm3 (0.0-0.0) 05/14/18 13:31 CSF Comment None 05/14/18 13:31 CSF Glucose 220 mg/dL (40-70) H* 05/14/18 13:40 CSF Total Protein 55 mg/dL (15-45) H 05/14/18 13:40 CSF IgG/Serum IgG 3.4 mg/dL (0.8-7.7) 05/14/18 13:40 Vancomycin Trough 9.6 ug/mL (5.0-10.0) 05/16/18 08:40 Urine Opiates Screen Negative (NEGATIVE) 05/14/18 13:10 Urine Methadone Screen Negative (NEGATIVE) 05/14/18 13:10 Ur Barbiturates Screen Negative (NEGATIVE) 05/14/18 13:10 Ur Phencyclidine Scrn Negative (NEGATIVE) 05/14/18 13:10 Ur Amphetamines Screen Negative (NEGATIVE) 05/14/18 13:10 U Benzodiazepines Scrn Negative (NEGATIVE) 05/14/18 13:10 U Oth Cocaine Metabols Negative (NEGATIVE) 05/14/18 13:10 U Cannabinoids Screen Negative (NEGATIVE) 05/14/18 13:10 Alcohol, Quantitative 28 mg/dl (0-10) H 05/14/18 11:32 RPR Nonreactive (NONREACTIVE) 05/14/18 21:40 Hep Bs Antigen Negative (NEGATIVE) 05/14/18 21:40 Hep Bs Antibody Positive (NEGATIVE) 05/14/18 21:40 Hepatitis C Antibody Negative (NEGATIVE) 05/14/18 21:40 HSV Source Description Csf 05/14/18 13:40 HSV I DNA PCR Not detected (Not Detected) 05/14/18 13:40 HSV II DNA PCR Not detected (Not Detected) 05/14/18 13:40 HIV-1 Ab Rapid Screen Reactive (NON REAC) H 05/14/18 17:15 HIV-1 RNA Qnt (RT-PCR) 3.62 (Not Detected) H 05/15/18 11:45 - Hospital Course Hospital Course: A 48 yo male with PMH of HTn, DM1 recent dx of cholelithiasis was brought to ER in the EMS accompanied by his sister and father due to fever chills, Nausea, vomiting NBNB, back pain that started today morning. Patient was admitted for evaluation and treatment of DKA puse sepsis. In the ED patient Vitals: temp 96 ( rectal 92.5) , HR 157, BP 93/63 RR 20 CBC: + for WBC of 23.6 CMB: K 5.1, CL 90, anion Gap <5, Glucose 327 AST/ALT 176/111 ALk po 138 ABG shows pCO2: 16, bicarb: 0.7, pH 6.81. Lactate is 16.1 UA: WNL EKG: was positive for A fib with RVR which he recieved Cardizem once Due to patient vitals and acute symptoms Sepsis protocol was called. Patient Rocephin and Vancomycin Given. CSF was done which was positive for glucose 220H and protein 62h, but no culture grown. Patient was sent for CT head, CT abdomen, Chest xray and U/S Impressions Head CT: No evidence of intracranial hemorrhage or recent infarct. Nonspecific cerebral cortical atrophy and probable scattered white matter changes greater than expected for the patient's age. Chest Xray: No active disease. CT abdomen: Distended in fluid-filled stomach with some possible mild antral wall thickening which may suggest antritis and gastritis. There is additionally nonspecific low density surrounding the gallbladder, new from the prior study. This would suggest gallbladder wall thickening and/or pericholecystic fluid. No appreciable bile duct dilatation. Minor amount of haziness surrounding the pancreas may suggest minor pancreatitis. Additional mild colonic wall thickening and moderate amounts of residual fecal material throughout the colon suggesting either chronic constipation and/or mild colitis. Distended urinary bladder. Moderate fatty infiltration of the liver. U/S Cholelithaisis mild gallbladder wall thickening and pericholecystic fluid, suspected 7x5 mm gallbladder poyl along the anterior wall. f/u in 6-12 mo, mild hepatomegaly and fatty liver Patient was admitted to ICU. Day 1 in ICU patient was placed on ICU drip, IV fluid, 20mq KCL and labs were sent for follow up. Patient also received vancomycin and zosyn for sepsis treatment. ID and endocrinology was on case. Day 2 Patient became stable and was sent stepped down to Med/surge. During his stay, patient was worked out for possible acute cholecystisis, surgery reviewed patient, and r/o acute cholecystisis and recommend to follow up as outpatient. Day 3 Patient HIV lab came back positive, patient was educated about new diagnosis and urged to follow up with ID doctor, Patient would like to follow up with his PCP. Patient seen and examined at bedtime today. No acute event overnight. Patient slept well, he denies any chest pain, sob, abd pain diarrhea, constipation dysuria or polyuria. Patient educated about HIV, and its severity and possibility of management. Patient understand, and will follow up with PCP. Patient chart have been reviewed, Patient labs were stable, Vitals are stable, patient condition have improved. Patient is cleared to be discharged and need to follow up with PCP Discharge Exam - Head Exam Head Exam: ATRAUMATIC, NORMAL INSPECTION, NORMOCEPHALIC Discharge Plan - Follow Up Plan Condition: CRITICAL Disposition: HOME/ ROUTINE Instructions: Low Back Pain (DC), Nausea and Vomiting, Adult (DC) Additional Instructions: follow up with your primary MD and ID specialist 1 week follow up with [facility] [phone] social work administrator [phone] Referrals: Marin Hall MD [Staff Provider] - Pretty Whitmore MD [Staff Provider] - Raquel Cody MD [Medical Doctor] -
--- NOTE | 2018-05-17 15:21 | CP.PCM.PN ---
<Teo Anderson - Last Filed: 05/17/18 15:19> Subjective - Date & Time of Evaluation Date of Evaluation: 05/17/18 Time of Evaluation: 07:00 - Subjective Subjective: Patient seen and examined today, no acute event overnight. Patient slept well, with no complains, Patient denies any chest pain, sob abd pain diarrhea constipation dysuria or polyuria. Patient was informed that he is HIV positive, Patient was educated, and informed about disease. He understand, and wish to start treatment as soon as leave hospital. Objective - Vital Signs/Intake and Output Vital Signs (last 24 hours): Temp Pulse Resp BP Pulse Ox 97.8 F 85 18 139/85 99 05/17/18 08:30 05/17/18 08:30 05/17/18 08:30 05/17/18 08:30 05/17/18 08:30 - Medications Medications: Current Medications Chlordiazepoxide (Librium) 25 mg PO Q8 [facility] Last Admin: 05/17/18 09:18 Dose: 25 mg Dextrose (Dextrose 50% Inj) 0 ml IV STAT PRN; Protocol PRN Reason: Hypoglycemia Protocol Dextrose (Glutose 15) 0 gm PO ONCE PRN; Protocol PRN Reason: Hypoglycemia Protocol Enoxaparin Sodium (Lovenox) 40 mg SC DAILY [facility]; Protocol Last Admin: 05/17/18 09:14 Dose: 40 mg Folic Acid (Folic Acid) 1 mg PO DAILY [facility] Last Admin: 05/17/18 09:12 Dose: 1 mg Glucagon (Glucagen Diagnostic Kit) 0 mg IM STAT PRN; Protocol PRN Reason: Hypoglycemia Protocol Vancomycin HCl 1 gm/ Sodium (Chloride) 250 mls @ 166.667 mls/hr IVPB Q12 [facility]; Protocol Last Admin: 05/17/18 09:13 Dose: 166.667 mls/hr Meropenem 1 gm/ Sodium (Chloride) 100 mls @ 100 mls/hr IVPB Q8H [facility]; Protocol Last Admin: 05/17/18 13:03 Dose: 100 mls/hr Insulin Detemir (Levemir) 30 units SC HS [facility] Last Admin: 05/16/18 22:21 Dose: 30 units Insulin Human Lispro (Humalog) 10 units SC AC [facility] Last Admin: 05/17/18 12:54 Dose: 10 units Insulin Human Lispro (Humalog) 0 units SC ACHS [facility] Last Admin: 05/17/18 12:30 Dose: Not Given Lorazepam (Ativan) 1 mg IVP Q6 PRN PRN Reason: Agitation Morphine Sulfate (Morphine) 4 mg IVP Q4 PRN PRN Reason: Pain, severe (8-10) Morphine Sulfate (Morphine) 2 mg IVP Q4H PRN PRN Reason: Pain, moderate (4-7) Last Admin: 05/17/18 10:38 Dose: 2 mg Multivitamins/Minerals (Therapeutic-M Tab) 1 tab PO DAILY [facility] Last Admin: 05/17/18 09:12 Dose: 1 tab Pantoprazole Sodium (Protonix Inj) 40 mg IVP DAILY [facility] Last Admin: 05/17/18 09:14 Dose: 40 mg Thiamine HCl (Vitamin B1 Tab) 100 mg PO DAILY [facility] Last Admin: 05/17/18 09:12 Dose: 100 mg - Labs Labs: 05/17/18 06:45 05/17/18 06:45 PT 10.3 Seconds (9.8-13.1) 05/14/18 11:32 INR 0.9 05/14/18 11:32 APTT 39.7 Seconds (25.6-37.1) H 05/14/18 11:32 - Constitutional Appears: Well, Non-toxic, No Acute Distress - Head Exam Head Exam: ATRAUMATIC, NORMAL INSPECTION, NORMOCEPHALIC - Eye Exam Eye Exam: EOMI, Normal appearance, PERRL Pupil Exam: NORMAL ACCOMODATION, PERRL - ENT Exam ENT Exam: Mucous Membranes Moist, Normal Exam - Respiratory Exam Respiratory Exam: Clear to Ausculation Bilateral, NORMAL BREATHING PATTERN - Cardiovascular Exam Cardiovascular Exam: REGULAR RHYTHM, +S1, +S2 - GI/Abdominal Exam GI & Abdominal Exam: Soft, Normal Bowel Sounds - Extremities Exam Extremities Exam: Full ROM, Normal Inspection - Back Exam Back Exam: NORMAL INSPECTION - Neurological Exam Neurological Exam: Alert, Awake, CN II-XII Intact, Normal Gait, Oriented x3 - Psychiatric Exam Psychiatric exam: Normal Affect, Normal Mood - Skin Skin Exam: Dry, Intact, Normal Color, Warm Assessment and Plan (1) DKA (diabetic ketoacidoses) Status: Resolved (2) HIV (human immunodeficiency virus infection) Status: Acute (3) Sepsis Status: Resolved - Assessment and Plan (Free Text) Assessment: Assessment: A 48 yo male with PMH of DM1 and HTN, and Positive hx of cholelithaiasis. Will be admitted to ICU for treatment and evaluate of DKA vs Sepsis. CSF was done Positive for glucose 220H , and Total protein of 62H CSF culture sent Head CT: No evidence of intracranial hemorrhage or recent infarct. Nonspecific cerebral cortical atrophy and probable scattered white matter changes greater than expected for the patient's age. Chest Xray: No active disease. CT abdomen: Distended in fluid-filled stomach with some possible mild antral wall thickening which may suggest antritis and gastritis. There is additionally nonspecific low density surrounding the gallbladder, new from the prior study. This would suggest gallbladder wall thickening and/or pericholecystic fluid. No appreciable bile duct dilatation. Minor amount of haziness surrounding the p ancreas may suggest minor pancreatitis. Additional mild colonic wall thickening and moderate amounts of residual fecal material throughout the colon suggesting either chronic constipation and/or mild colitis. Distended urinary bladder. Moderate fatty infiltration of the liver. U/S Cholelithaisis mild gallbladder wall thickening and pericholecystic fluid, suspected 7x5 mm gallbladder poyl along the anterior wall. f/u in 6-12 mo, mild hepatomegaly and fatty liver PLAN: HIV reactive hepatic panel negative for disease RPR negative HIV Positive confirmed Follow up ID recommendation Patient education was given about HIV DKA Resolved Sepsis Afebrile Resolved Hx of Cholelithisis/Abnormal CT Abdomen Continue IV fluid and Ab General Surgery recommend follow up as outpatient Alcohol withdrawal vs alcohol intoxication Continue thiamin B12 Continue librium Ativan PRn agitation Follow up for any symptoms of withdrawal Back pain Morphine DVT Prophylaxis SCD's Lovenox 40mg SC daily <Betzy Swenson - Last Filed: 05/17/18 19:18> Objective - Vital Signs/Intake and Output Vital Signs (last 24 hours): Temp Pulse Resp BP Pulse Ox 97.7 F 94 H 18 156/98 H 100 05/17/18 16:33 05/17/18 16:33 05/17/18 16:33 05/17/18 16:33 05/17/18 16:33 - Medications Medications: Current Medications Chlordiazepoxide (Librium) 25 mg PO Q8 [facility] Last Admin: 05/17/18 16:30 Dose: 25 mg Dextrose (Dextrose 50% Inj) 0 ml IV STAT PRN; Protocol PRN Reason: Hypoglycemia Protocol Dextrose (Glutose 15) 0 gm PO ONCE PRN; Protocol PRN Reason: Hypoglycemia Protocol Enoxaparin Sodium (Lovenox) 40 mg SC DAILY [facility]; Protocol Last Admin: 05/17/18 09:14 Dose: 40 mg Folic Acid (Folic Acid) 1 mg PO DAILY [facility] Last Admin: 05/17/18 09:12 Dose: 1 mg Glucagon (Glucagen Diagnostic Kit) 0 mg IM STAT PRN; Protocol PRN Reason: Hypoglycemia Protocol Vancomycin HCl 1 gm/ Sodium (Chloride) 250 mls @ 166.667 mls/hr IVPB Q12 [facility]; Protocol Last Admin: 05/17/18 09:13 Dose: 166.667 mls/hr Meropenem 1 gm/ Sodium (Chloride) 100 mls @ 100 mls/hr IVPB Q8H [facility]; Protocol Last Admin: 05/17/18 13:03 Dose: 100 mls/hr Insulin Detemir (Levemir) 30 units SC HS [facility] Last Admin: 05/16/18 22:21 Dose: 30 units Insulin Human Lispro (Humalog) 10 units SC AC [facility] Last Admin: 05/17/18 16:31 Dose: 10 units Insulin Human Lispro (Humalog) 0 units SC ACHS [facility] Last Admin: 05/17/18 16:31 Dose: Not Given Lorazepam (Ativan) 1 mg IVP Q6 PRN PRN Reason: Agitation Morphine Sulfate (Morphine) 4 mg IVP Q4 PRN PRN Reason: Pain, severe (8-10) Morphine Sulfate (Morphine) 2 mg IVP Q4H PRN PRN Reason: Pain, moderate (4-7) Last Admin: 05/17/18 15:26 Dose: 2 mg Multivitamins/Minerals (Therapeutic-M Tab) 1 tab PO DAILY [facility] Last Admin: 05/17/18 09:12 Dose: 1 tab Pantoprazole Sodium (Protonix Inj) 40 mg IVP DAILY [facility] Last Admin: 05/17/18 09:14 Dose: 40 mg Thiamine HCl (Vitamin B1 Tab) 100 mg PO DAILY [facility] Last Admin: 05/17/18 09:12 Dose: 100 mg - Labs Labs: 05/17/18 06:45 05/17/18 06:45 PT 10.3 Seconds (9.8-13.1) 05/14/18 11:32 INR 0.9 05/14/18 11:32 APTT 39.7 Seconds (25.6-37.1) H 05/14/18 11:32 Attending/Attestation - Attestation I have personally seen and examined this patient.: Yes I have fully participated in the care of the patient.: Yes I have reviewed all pertinent clinical information, including history, physical exam and plan: Yes Notes (Text): Diagnoses: DKA HIV Screen + , Viral load 3.62 SIRS , r/o Sepsis Cholelithiasis with GB Polyp Hypokalemia Alcoholism cont Levemir and Lispro 10 units TIDAC ff up 4th gen HIV test , confirmatory test and Viral load ID consulted cont IV Vanco and Meropenem taper Librium to 10 mg q 8, cont Thiamine
[2018-05-17] MEDS ORDERED: Potassium Chloride 20 mEq ER Tab PO ONE (16:00)
[2018-05-17] MEDS: Insulin Detemir 100 Units/ml Inj SC SCH (21:40)
--- NOTE | 2018-05-17 23:36 | PN ---
DATE: 05/17/2018 ENDOCRINOLOGY FOLLOWUP NOTE LOCATION: Room 660. This is a 48-year-old male with recent uncontrolled type 1 insulin-dependent diabetes, presenting here with diabetic ketoacidosis and dehydration and is now improving clinically and metabolically as noted thereof. His glucose levels today have ranged from 178 to 210 mg/dL. His bedtime glucose was 270 mg/dL. His chemistry showed a BUN of 6, sodium 137, potassium 3.4, chloride 100, CO2 of 22, glucose 139, and creatinine 0.5. So at this time, we will continue the same basal and bolus insulin regimen to allow for dose equilibration and keep the low-dose correction scale using Humalog insulin as given. We will also continue the Humalog given as prandial insulin at 10 units t.i.d. before meals as ordered. We will also continue the basal insulin given as Levemir at 30 units subcu at bedtime daily as given. We will obtain serial chemistries and supplement accordingly as needed. We will follow. Raquel Cody MD
[2018-05-18] MEDS: Meropenem 1 GM in Sodium Chloride 0.9% 100 ML IVPB SCH ×2 (05:30→05:44)
[2018-05-18 08:00] VITALS: O2SAT 98
[2018-05-18] MEDS: Enoxaparin 40 mg Syringe SC SCH (11:08)
[2018-05-18] MEDS: Multivitamin With Minerals Tab PO SCH (11:09)
[2018-05-18] MEDS: Insulin Lispro (humaLOG) 100 Units/ml Inj SC SCH ×5 (11:10→17:26)
--- NOTE | 2018-05-18 11:45 | CP.PCM.PN ---
Subjective - Date & Time of Evaluation Date of Evaluation: 05/18/18 Time of Evaluation: 11:45 - Subjective Subjective: ID Note- Pt. seen and examined today in med-surg floor. divina is clinically much improved and he denies any abd. pain, denies any fev er or chills, denies any nausea, denies any diarrhea. pt's HIV confirmatory test has come back as positive and he is well aware of the result now and states he has already called 2 ID docs close to his residence to make appointment. advised pt. that if he wishes he can follow up with me as well for his HIV care once he is discharged . CD4 level is still pending. Objective - Vital Signs/Intake and Output Vital Signs (last 24 hours): Temp Pulse Resp BP Pulse Ox 97.8 F 84 20 144/89 98 05/18/18 07:59 05/18/18 07:59 05/18/18 07:59 05/18/18 07:59 05/18/18 07:59 - Medications Medications: Current Medications Acetaminophen (Tylenol 325mg Tab) 650 mg PO Q6 PRN PRN Reason: Headache Last Admin: 05/18/18 11:42 Dose: 650 mg Chlordiazepoxide (Librium) 10 mg PO Q8 JASKARAN Last Admin: 05/18/18 11:05 Dose: 10 mg Dextrose (Dextrose 50% Inj) 0 ml IV STAT PRN; Protocol PRN Reason: Hypoglycemia Protocol Dextrose (Glutose 15) 0 gm PO ONCE PRN; Protocol PRN Reason: Hypoglycemia Protocol Folic Acid (Folic Acid) 1 mg PO DAILY [facility] Last Admin: 05/18/18 11:10 Dose: 1 mg Glucagon (Glucagen Diagnostic Kit) 0 mg IM STAT PRN; Protocol PRN Reason: Hypoglycemia Protocol Insulin Detemir (Levemir) 30 units SC HS [facility] Last Admin: 05/17/18 21:40 Dose: 30 units Insulin Human Lispro (Humalog) 10 units SC AC [facility] Last Admin: 05/18/18 11:10 Dose: 10 units Insulin Human Lispro (Humalog) 0 units SC ACHS [facility] Last Admin: 05/18/18 11:19 Dose: Not Given Lorazepam (Ativan) 1 mg IVP Q6 PRN PRN Reason: Agitation Morphine Sulfate (Morphine) 4 mg IVP Q4 PRN PRN Reason: Pain, severe (8-10) Morphine Sulfate (Morphine) 2 mg IVP Q4H PRN PRN Reason: Pain, moderate (4-7) Last Admin: 05/18/18 11:05 Dose: 2 mg Multivitamins/Minerals (Therapeutic-M Tab) 1 tab PO DAILY [facility] Last Admin: 05/18/18 11:09 Dose: 1 tab Pantoprazole Sodium (Protonix Inj) 40 mg IVP DAILY [facility] Last Admin: 05/18/18 11:09 Dose: 40 mg Thiamine HCl (Vitamin B1 Tab) 100 mg PO DAILY [facility] Last Admin: 05/18/18 11:09 Dose: 100 mg - Labs Labs: - Constitutional Appears: No Acute Distress - Head Exam Head Exam: ATRAUMATIC - Eye Exam Eye Exam: EOMI, PERRL - ENT Exam ENT Exam: Normal Oropharynx - Neck Exam Neck Exam: Full ROM - Respiratory Exam Respiratory Exam: Clear to Ausculation Bilateral, NORMAL BREATHING PATTERN - Cardiovascular Exam Cardiovascular Exam: RRR, +S1, +S2 - GI/Abdominal Exam GI & Abdominal Exam: Soft, Normal Bowel Sounds Additional comments: NT, ND - Extremities Exam Extremities Exam: Normal Inspection - Neurological Exam Neurological Exam: Alert, Awake, Oriented x3 - Additional Findings Additional findings: Laboratory Results - last 72 hr 05/14/18 05/14/18 05/14/18 13:40 13:40 13:40 WBC RBC Hgb Hct MCV MCH MCHC RDW Plt Count Sodium Potassium Chloride Carbon Dioxide Anion Gap BUN Creatinine Est GFR ( Amer) Est GFR (Non-Af Amer) POC Glucose (mg/dL) Random Glucose Hemoglobin A1c Calcium Total Bilirubin GGT AST ALT Alkaline Phosphatase Total Protein Albumin Globulin Albumin/Globulin Ratio CSF Total Protein 55 H CSF IgG/Serum IgG 3.4 Vancomycin Trough RPR Hep Bs Antigen Hep Bs Antibody Hepatitis C Antibody HSV Source Description Csf HSV I DNA PCR Not detected HSV II DNA PCR Not detected HIV-1 Antibody HIV-1 Antibody (EIA) HIV-1 RNA Qnt (RT-PCR) HIV-2 Antibody HIV-2 Antibody (EIA) HIV 1&2 Ag/Ab, 4th Gen HIV 1&2 Antibody 05/14/18 05/14/18 05/14/18 17:15 21:40 21:40 WBC RBC Hgb Hct MCV MCH MCHC RDW Plt Count Sodium Potassium Chloride Carbon Dioxide Anion Gap BUN Creatinine Est GFR ( Amer) Est GFR (Non-Af Amer) POC Glucose (mg/dL) Random Glucose Hemoglobin A1c Calcium Total Bilirubin GGT AST ALT Alkaline Phosphatase Total Protein Albumin Globulin Albumin/Globulin Ratio CSF Total Protein CSF IgG/Serum IgG Vancomycin Trough RPR Hep Bs Antigen Negative Hep Bs Antibody Positive Hepatitis C Antibody Negative HSV Source Description HSV I DNA PCR HSV II DNA PCR HIV-1 Antibody HIV-1 Antibody (EIA) Positive H HIV-1 RNA Qnt (RT-PCR) HIV-2 Antibody HIV-2 Antibody (EIA) Negative HIV 1&2 Ag/Ab, 4th Gen HIV 1&2 Antibody Reactive H 05/14/18 05/14/18 05/15/18 21:40 21:40 05:15 WBC RBC Hgb Hct MCV MCH MCHC RDW Plt Count Sodium Potassium Chloride Carbon Dioxide Anion Gap BUN Creatinine Est GFR ( Amer) Est GFR (Non-Af Amer) POC Glucose (mg/dL) Random Glucose Hemoglobin A1c Calcium Total Bilirubin GGT 848 H AST ALT Alkaline Phosphatase Total Protein Albumin Globulin Albumin/Globulin Ratio CSF Total Protein CSF IgG/Serum IgG Vancomycin Trough RPR Nonreactive Hep Bs Antigen Hep Bs Antibody Hepatitis C Antibody HSV Source Description HSV I DNA PCR HSV II DNA PCR HIV-1 Antibody Positive H HIV-1 Antibody (EIA) HIV-1 RNA Qnt (RT-PCR) HIV-2 Antibody Negative HIV-2 Antibody (EIA) HIV 1&2 Ag/Ab, 4th Gen Reactive H HIV 1&2 Antibody 05/15/18 05/15/18 05/15/18 05:15 06:11 06:56 WBC RBC Hgb Hct MCV MCH MCHC RDW Plt Count Sodium Potassium Chloride Carbon Dioxide Anion Gap BUN Creatinine Est GFR ( Amer) Est GFR (Non-Af Amer) POC Glucose (mg/dL) 128 H 131 H Random Glucose Hemoglobin A1c 8.3 H Calcium Total Bilirubin GGT AST ALT Alkaline Phosphatase Total Protein Albumin Globulin Albumin/Globulin Ratio CSF Total Protein CSF IgG/Serum IgG Vancomycin Trough RPR Hep Bs Antigen Hep Bs Antibody Hepatitis C Antibody HSV Source Description HSV I DNA PCR HSV II DNA PCR HIV-1 Antibody HIV-1 Antibody (EIA) HIV-1 RNA Qnt (RT-PCR) HIV-2 Antibody HIV-2 Antibody (EIA) HIV 1&2 Ag/Ab, 4th Gen HIV 1&2 Antibody 05/15/18 05/15/18 05/15/18 08:07 11:45 11:45 WBC RBC Hgb Hct MCV MCH MCHC RDW Plt Count Sodium Potassium Chloride Carbon Dioxide Anion Gap BUN Creatinine Est GFR ( Amer) Est GFR (Non-Af Amer) POC Glucose (mg/dL) 150 H Random Glucose Hemoglobin A1c Calcium Total Bilirubin GGT AST ALT Alkaline Phosphatase Total Protein Albumin Globulin Albumin/Globulin Ratio CSF Total Protein CSF IgG/Serum IgG Vancomycin Trough RPR Hep Bs Antigen Hep Bs Antibody Hepatitis C Antibody HSV Source Description HSV I DNA PCR HSV II DNA PCR HIV-1 Antibody Positive H HIV-1 Antibody (EIA) HIV-1 RNA Qnt (RT-PCR) 3.62 H HIV-2 Antibody Negative HIV-2 Antibody (EIA) HIV 1&2 Ag/Ab, 4th Gen Reactive H HIV 1&2 Antibody 05/15/18 05/15/18 05/15/18 12:36 17:10 21:27 WBC RBC Hgb Hct MCV MCH MCHC RDW Plt Count Sodium Potassium Chloride Carbon Dioxide Anion Gap BUN Creatinine Est GFR ( Amer) Est GFR (Non-Af Amer) POC Glucose (mg/dL) 233 H 198 H 265 H Random Glucose Hemoglobin A1c Calcium Total Bilirubin GGT AST ALT Alkaline Phosphatase Total Protein Albumin Globulin Albumin/Globulin Ratio CSF Total Protein CSF IgG/Serum IgG Vancomycin Trough RPR Hep Bs Antigen Hep Bs Antibody Hepatitis C Antibody HSV Source Description HSV I DNA PCR HSV II DNA PCR HIV-1 Antibody HIV-1 Antibody (EIA) HIV-1 RNA Qnt (RT-PCR) HIV-2 Antibody HIV-2 Antibody (EIA) HIV 1&2 Ag/Ab, 4th Gen HIV 1&2 Antibody 05/16/18 05/16/18 05/16/18 01:36 03:02 04:08 WBC RBC Hgb Hct MCV MCH MCHC RDW Plt Count Sodium Potassium Chloride Carbon Dioxide Anion Gap BUN Creatinine Est GFR ( Amer) Est GFR (Non-Af Amer) POC Glucose (mg/dL) 319 H 319 H 293 H Random Glucose Hemoglobin A1c Calcium Total Bilirubin GGT AST ALT Alkaline Phosphatase Total Protein Albumin Globulin Albumin/Globulin Ratio CSF Total Protein CSF IgG/Serum IgG Vancomycin Trough RPR Hep Bs Antigen Hep Bs Antibody Hepatitis C Antibody HSV Source Description HSV I DNA PCR HSV II DNA PCR HIV-1 Antibody HIV-1 Antibody (EIA) HIV-1 RNA Qnt (RT-PCR) HIV-2 Antibody HIV-2 Antibody (EIA) HIV 1&2 Ag/Ab, 4th Gen HIV 1&2 Antibody 05/16/18 05/16/18 05/16/18 05:52 06:09 06:09 WBC 5.4 RBC 3.50 L Hgb 11.0 L Hct 33.1 L MCV 94.7 H MCH 31.5 H MCHC 33.3 RDW 12.4 Plt Count 221 Sodium 138 Potassium 4.6 Chloride 97 L Carbon Dioxide 13 L Anion Gap 33 H BUN 7 L Creatinine 0.8 Est GFR ( Amer) > 60 Est GFR (Non-Af Amer) > 60 POC Glucose (mg/dL) 267 H Random Glucose 276 H Hemoglobin A1c Calcium 9.1 Total Bilirubin 0.8 GGT AST 95 H D ALT 95 H D Alkaline Phosphatase 117 Total Protein 5.9 L Albumin 3.5 Globulin 2.4 Albumin/Globulin Ratio 1.5 CSF Total Protein CSF IgG/Serum IgG Vancomycin Trough RPR Hep Bs Antigen Hep Bs Antibody Hepatitis C Antibody HSV Source Description HSV I DNA PCR HSV II DNA PCR HIV-1 Antibody HIV-1 Antibody (EIA) HIV-1 RNA Qnt (RT-PCR) HIV-2 Antibody HIV-2 Antibody (EIA) HIV 1&2 Ag/Ab, 4th Gen HIV 1&2 Antibody 05/16/18 05/16/18 05/16/18 08:40 10:58 14:36 WBC RBC Hgb Hct MCV MCH MCHC RDW Plt Count Sodium Potassium Chloride Carbon Dioxide Anion Gap BUN Creatinine Est GFR ( Amer) Est GFR (Non-Af Amer) POC Glucose (mg/dL) 363 H 400 H* Random Glucose Hemoglobin A1c Calcium Total Bilirubin GGT AST ALT Alkaline Phosphatase Total Protein Albumin Globulin Albumin/Globulin Ratio CSF Total Protein CSF IgG/Serum IgG Vancomycin Trough 9.6 RPR Hep Bs Antigen Hep Bs Antibody Hepatitis C Antibody HSV Source Description HSV I DNA PCR HSV II DNA PCR HIV-1 Antibody HIV-1 Antibody (EIA) HIV-1 RNA Qnt (RT-PCR) HIV-2 Antibody HIV-2 Antibody (EIA) HIV 1&2 Ag/Ab, 4th Gen HIV 1&2 Antibody 05/16/18 05/16/18 05/17/18 15:57 20:33 02:04 WBC RBC Hgb Hct MCV MCH MCHC RDW Plt Count Sodium Potassium Chloride Carbon Dioxide Anion Gap BUN Creatinine Est GFR ( Amer) Est GFR (Non-Af Amer) POC Glucose (mg/dL) 242 H 270 H 210 H Random Glucose Hemoglobin A1c Calcium Total Bilirubin GGT AST ALT Alkaline Phosphatase Total Protein Albumin Globulin Albumin/Globulin Ratio CSF Total Protein CSF IgG/Serum IgG Vancomycin Trough RPR Hep Bs Antigen Hep Bs Antibody Hepatitis C Antibody HSV Source Description HSV I DNA PCR HSV II DNA PCR HIV-1 Antibody HIV-1 Antibody (EIA) HIV-1 RNA Qnt (RT-PCR) HIV-2 Antibody HIV-2 Antibody (EIA) HIV 1&2 Ag/Ab, 4th Gen HIV 1&2 Antibody 05/17/18 05/17/18 05/17/18 04:50 06:45 06:45 WBC 3.9 L RBC 3.73 L Hgb 11.9 L Hct 34.8 L MCV 93.3 MCH 31.9 H MCHC 34.2 RDW 12.2 Plt Count 237 Sodium 137 Potassium 3.4 L Chloride 100 Carbon Dioxide 22 Anion Gap 18 BUN 6 L Creatinine 0.5 L Est GFR ( Amer) > 60 Est GFR (Non-Af Amer) > 60 POC Glucose (mg/dL) 178 H Random Glucose 139 H Hemoglobin A1c Calcium 9.1 Total Bilirubin 0.9 GGT AST 67 H D ALT 82 H Alkaline Phosphatase 110 Total Protein 6.3 Albumin 3.6 Globulin 2.7 Albumin/Globulin Ratio 1.3 CSF Total Protein CSF IgG/Serum IgG Vancomycin Trough RPR Hep Bs Antigen Hep Bs Antibody Hepatitis C Antibody HSV Source Description HSV I DNA PCR HSV II DNA PCR HIV-1 Antibody HIV-1 Antibody (EIA) HIV-1 RNA Qnt (RT-PCR) HIV-2 Antibody HIV-2 Antibody (EIA) HIV 1&2 Ag/Ab, 4th Gen HIV 1&2 Antibody 05/17/18 05/17/18 05/17/18 12:12 15:47 20:56 WBC RBC Hgb Hct MCV MCH MCHC RDW Plt Count Sodium Potassium Chloride Carbon Dioxide Anion Gap BUN Creatinine Est GFR ( Amer) Est GFR (Non-Af Amer) POC Glucose (mg/dL) 144 H 117 H 210 H Random Glucose Hemoglobin A1c Calcium Total Bilirubin GGT AST ALT Alkaline Phosphatase Total Protein Albumin Globulin Albumin/Globulin Ratio CSF Total Protein CSF IgG/Serum IgG Vancomycin Trough RPR Hep Bs Antigen Hep Bs Antibody Hepatitis C Antibody HSV Source Description HSV I DNA PCR HSV II DNA PCR HIV-1 Antibody HIV-1 Antibody (EIA) HIV-1 RNA Qnt (RT-PCR) HIV-2 Antibody HIV-2 Antibody (EIA) HIV 1&2 Ag/Ab, 4th Gen HIV 1&2 Antibody 05/18/18 05/18/18 05/18/18 05:12 11:17 13:05 WBC RBC Hgb Hct MCV MCH MCHC RDW Plt Count Sodium Potassium Chloride Carbon Dioxide Anion Gap BUN Creatinine Est GFR ( Amer) Est GFR (Non-Af Amer) POC Glucose (mg/dL) 140 H 427 H* 288 H Random Glucose Hemoglobin A1c Calcium Total Bilirubin GGT AST ALT Alkaline Phosphatase Total Protein Albumin Globulin Albumin/Globulin Ratio CSF Total Protein CSF IgG/Serum IgG Vancomycin Trough RPR Hep Bs Antigen Hep Bs Antibody Hepatitis C Antibody HSV Source Description HSV I DNA PCR HSV II DNA PCR HIV-1 Antibody HIV-1 Antibody (EIA) HIV-1 RNA Qnt (RT-PCR) HIV-2 Antibody HIV-2 Antibody (EIA) HIV 1&2 Ag/Ab, 4th Gen HIV 1&2 Antibody Microbiology 05/14/18 13:21 Blood-Venous Blood Culture - Preliminary NO GROWTH AFTER 4 DAYS 05/14/18 13:10 Blood-Venous Blood Culture - Preliminary NO GROWTH AFTER 4 DAYS 05/14/18 13:40 Cerebral Spinal Fluid Gram Stain - Preliminary 05/14/18 13:40 Cerebral Spinal Fluid CSF Culture - Preliminary NO GROWTH AFTER 4 DAYS 05/15/18 21:30 Naris MRSA Culture (Admit) - Final MRSA NOT DETECTED 05/14/18 21:30 Naris MRSA Culture (Admit) - Final MRSA NOT DETECTED 05/14/18 13:10 Urine,Clean Catch Urine Culture - Final No Growth (<1,000 CFU/ML) Assessment and Plan (1) Abdominal pain Status: Acute (2) DKA (diabetic ketoacidoses) Status: Resolved (3) Gallstones Status: Acute - Assessment and Plan (Free Text) Assessment: A/P- 48 year old male with DM type I, HTN, HLD admitted with nausea and vomiting for 24 hours along with abdominal pain and fever and was found to be in DKA . clinically much improved. HIV confiormatory test and HIV ab/AG test both are positive. CD4 level pending blood cx- neg x 2 UA- neg hepatitis panel- negative PLan- check HIV genotype test prior to Initiating HAART regimen. await CD4 result to determine whether pt. needs to be on any prophylactic abx Patient was counseled on HIV again and advised if he wishes he can follow up with me as outpatietn for his HIV care or with doctor close to his residence. d/c all IV abx now. Patient verbalizes full understanding of all above and agrees with above plan of care. All above also d/w hospitalist taking care of patient.
--- NOTE | 2018-05-18 14:54 | CP.PCM.DIS ---
<Teo Anderson - Last Filed: 05/18/18 14:51> Provider - Provider Date of Admission: 05/14/18 13:52 Attending physician: Melvin Mead MD Consults: 05/14/18 14:20 General Surgery Consult Stat Comment: Consulting Provider: Pretty Whitmore Consulting Physician: Pretty Whitmore Reason for Consult: Cholecystitis 05/14/18 15:18 Infectious Disease Consult Stat Comment: Consulting Provider: Marin Hall Consulting Physician: Marin Hall Reason for Consult: sepsis probably secondary to cholecystitis with DKA 05/14/18 15:19 Endocrinology Consult Stat Comment: Consulting Provider: Raquel Cody Consulting Physician: Raquel Cody Reason for Consult: DKA Time Spent in preparation of Discharge (in minutes): 25 Diagnosis - Discharge Diagnosis (1) DKA (diabetic ketoacidoses) Status: Resolved Priority: High (2) HIV (human immunodeficiency virus infection) Status: Acute Priority: High (3) Sepsis Status: Resolved Priority: High Hospital Course - Lab Results Lab Results: Micro Results 05/14/18 13:21 Blood-Venous Blood Culture - Preliminary NO GROWTH AFTER 4 DAYS 05/14/18 13:10 Blood-Venous Blood Culture - Preliminary NO GROWTH AFTER 4 DAYS 05/14/18 13:40 Cerebral Spinal Fluid Gram Stain - Preliminary 05/14/18 13:40 Cerebral Spinal Fluid CSF Culture - Preliminary NO GROWTH AFTER 4 DAYS 05/15/18 21:30 Naris MRSA Culture (Admit) - Final MRSA NOT DETECTED 05/14/18 21:30 Naris MRSA Culture (Admit) - Final MRSA NOT DETECTED 05/14/18 13:10 Urine,Clean Catch Urine Culture - Final No Growth (<1,000 CFU/ML) Most Recent Lab Values WBC 3.9 K/uL (4.8-10.8) L 05/17/18 06:45 RBC 3.73 Mil/uL (4.40-5.90) L 05/17/18 06:45 Hgb 11.9 g/dL (12.0-18.0) L 05/17/18 06:45 Hct 34.8 % (35.0-51.0) L 05/17/18 06:45 MCV 93.3 fl (80.0-94.0) 05/17/18 06:45 MCH 31.9 pg (27.0-31.0) H 05/17/18 06:45 MCHC 34.2 g/dL (33.0-37.0) 05/17/18 06:45 RDW 12.2 % (11.5-14.5) 05/17/18 06:45 Plt Count 237 K/uL (130-400) 05/17/18 06:45 MPV 8.3 fl (7.2-11.7) 05/15/18 05:15 Neut % (Auto) 81.5 % (50.0-75.0) H 05/15/18 05:15 Lymph % (Auto) 12.2 % (20.0-40.0) L 05/15/18 05:15 Lander % (Auto) 6.1 % (0.0-10.0) 05/15/18 05:15 Eos % (Auto) 0.0 % (0.0-4.0) 05/15/18 05:15 Baso % (Auto) 0.2 % (0.0-2.0) 05/15/18 05:15 Neut # (Auto) 5.5 K/uL (1.8-7.0) 05/15/18 05:15 Lymph # (Auto) 0.8 K/uL (1.0-4.3) L 05/15/18 05:15 Lander # (Auto) 0.4 K/uL (0.0-0.8) 05/15/18 05:15 Eos # (Auto) 0.0 K/uL (0.0-0.7) 05/15/18 05:15 Baso # (Auto) 0.0 K/uL (0.0-0.2) 05/15/18 05:15 PT 10.3 Seconds (9.8-13.1) 05/14/18 11:32 INR 0.9 05/14/18 11:32 APTT 39.7 Seconds (25.6-37.1) H 05/14/18 11:32 pCO2 24 mm/Hg (35-45) L 05/14/18 14:30 pO2 29 mm/Hg (80-100) L* 05/14/18 14:30 HCO3 4.4 mmol/L (21-28) L* 05/14/18 14:30 ABG pH 6.94 (7.35-7.45) L* 05/14/18 14:30 ABG Total CO2 5.9 mmol/L (22-28) L 05/14/18 14:30 ABG O2 Saturation 75.0 % (95-98) L 05/14/18 14:30 ABG Base Excess -25.6 mmol/L (-2.0-3.0) L 05/14/18 14:30 Fabian Test Yes 05/14/18 14:30 ABG Potassium 5.5 mmol/L (3.6-5.2) H 05/14/18 14:30 A-a O2 Difference 91.0 mm/Hg 05/14/18 14:30 Sodium 134.0 mmol/L (132-148) 05/14/18 14:30 Chloride 92.0 mmol/L (98-107) L 05/14/18 14:30 Glucose 325 mg/dL (75-110) H 05/14/18 14:30 Lactate 12.1 mmol/L (0.7-2.1) H* 05/14/18 14:30 FiO2 21.0 % 05/14/18 14:30 Crit Value Called To Dr benny frias 05/14/18 14:30 Crit Value Called By 15 05/14/18 14:30 Crit Value Read Back Y 05/14/18 14:30 Blood Gas Notified Time 1444 05/14/18 14:30 Sodium 137 mmol/l (132-148) 05/17/18 06:45 Potassium 3.4 MMOL/L (3.6-5.0) L 05/17/18 06:45 Chloride 100 mmol/L (98-107) 05/17/18 06:45 Carbon Dioxide 22 mmol/L (22-30) 05/17/18 06:45 Anion Gap 18 (10-20) 05/17/18 06:45 BUN 6 mg/dl (9-20) L 05/17/18 06:45 Creatinine 0.5 mg/dl (0.8-1.5) L 05/17/18 06:45 Est GFR ( Amer) > 60 05/17/18 06:45 Est GFR (Non-Af Amer) > 60 05/17/18 06:45 POC Glucose (mg/dL) 288 mg/dL (65-110) H 05/18/18 13:05 Random Glucose 139 mg/dL (75-110) H 05/17/18 06:45 Hemoglobin A1c 8.3 % (4.2-6.5) H 05/15/18 05:15 Lactic Acid 1.0 mmol/L (0.7-2.1) 05/15/18 05:20 Calcium 9.1 mg/dL (8.4-10.2) 05/17/18 06:45 Phosphorus 2.4 mg/dl (2.5-4.5) L 05/15/18 05:15 Magnesium 1.6 MG/DL (1.6-2.3) 05/14/18 19:00 Total Bilirubin 0.9 mg/dl (0.2-1.3) 05/17/18 06:45 GGT 848 U/L (8-78) H 05/15/18 05:15 AST 67 U/L (17-59) H D 05/17/18 06:45 ALT 82 U/L (21-72) H 05/17/18 06:45 Alkaline Phosphatase 110 U/L (38-126) 05/17/18 06:45 Troponin I 0.0130 ng/mL (0.00-0.120) 05/14/18 11:32 Total Protein 6.3 G/DL (6.3-8.2) 05/17/18 06:45 Albumin 3.6 g/dL (3.5-5.0) 05/17/18 06:45 Globulin 2.7 gm/dL (2.2-3.9) 05/17/18 06:45 Albumin/Globulin Ratio 1.3 (1.0-2.1) 05/17/18 06:45 Triglycerides 62 mg/DL (0-149) 05/15/18 05:15 Cholesterol 106 mg/dL (0-199) 05/15/18 05:15 LDL Cholesterol Direct 46 mg/dL (0-129) 05/15/18 05:15 HDL Cholesterol 50 MG/DL (30-70) 05/15/18 05:15 Lipase 69 U/L (23-300) 05/14/18 11:32 TSH 3rd Generation 1.13 mIU/ML (0.46-4.68) 05/14/18 11:32 Arterial Blood Potassium 5.5 mmol/L (3.6-5.2) H 05/14/18 14:30 Urine Color Yellow (YELLOW) 05/14/18 13:10 Urine Clarity Cloudy (Clear) 05/14/18 13:10 Urine pH 5.0 (5.0-8.0) 05/14/18 13:10 Ur Specific [place] 1.012 (1.003-1.030) 05/14/18 13:10 Urine Protein 100 mg/dL (NEGATIVE) 05/14/18 13:10 Urine Glucose (UA) >=500 mg/dL (NEGATIVE) 05/14/18 13:10 Urine Ketones 80 mg/dL (NEGATIVE) 05/14/18 13:10 Urine Blood Small (NEGATIVE) 05/14/18 13:10 Urine Nitrate Negative (NEGATIVE) 05/14/18 13:10 Urine Bilirubin Negative (NEGATIVE) 05/14/18 13:10 Urine Urobilinogen 0.2-1.0 mg/dL (0.2-1.0) 05/14/18 13:10 Ur Leukocyte Esterase Neg Aaron/uL (Negative) 05/14/18 13:10 Urine RBC (Auto) < 1 /hpf (0-3) 05/14/18 13:10 Urine Microscopic WBC 2 /hpf (0-5) 05/14/18 13:10 Amorphous Sediment Rare /ul (<OCC) H 05/14/18 13:10 Urine Bacteria Rare (<OCC) 05/14/18 13:10 Fluid Type Spinal fluid 05/14/18 13:31 CSF Volume 1 mL (0-1) 05/14/18 13:31 CSF Appearance Clear/colorless (CLEAR) 05/14/18 13:31 CSF WBC 1.0 /mm3 (0.0-5.0) 05/14/18 13:31 CSF RBC 0.0 /mm3 (0.0-0.0) 05/14/18 13:31 CSF Comment None 05/14/18 13:31 CSF Glucose 220 mg/dL (40-70) H* 05/14/18 13:40 CSF Total Protein 55 mg/dL (15-45) H 05/14/18 13:40 CSF IgG/Serum IgG 3.4 mg/dL (0.8-7.7) 05/14/18 13:40 Vancomycin Trough 9.6 ug/mL (5.0-10.0) 05/16/18 08:40 Urine Opiates Screen Negative (NEGATIVE) 05/14/18 13:10 Urine Methadone Screen Negative (NEGATIVE) 05/14/18 13:10 Ur Barbiturates Screen Negative (NEGATIVE) 05/14/18 13:10 Ur Phencyclidine Scrn Negative (NEGATIVE) 05/14/18 13:10 Ur Amphetamines Screen Negative (NEGATIVE) 05/14/18 13:10 U Benzodiazepines Scrn Negative (NEGATIVE) 05/14/18 13:10 U Oth Cocaine Metabols Negative (NEGATIVE) 05/14/18 13:10 U Cannabinoids Screen Negative (NEGATIVE) 05/14/18 13:10 Alcohol, Quantitative 28 mg/dl (0-10) H 05/14/18 11:32 RPR Nonreactive (NONREACTIVE) 05/14/18 21:40 Hep Bs Antigen Negative (NEGATIVE) 05/14/18 21:40 Hep Bs Antibody Positive (NEGATIVE) 05/14/18 21:40 Hepatitis C Antibody Negative (NEGATIVE) 05/14/18 21:40 HSV Source Description Csf 05/14/18 13:40 HSV I DNA PCR Not detected (Not Detected) 05/14/18 13:40 HSV II DNA PCR Not detected (Not Detected) 05/14/18 13:40 HIV-1 Ab Rapid Screen Reactive (NON REAC) H 05/14/18 17:15 HIV-1 Antibody Positive (Negative) H 05/15/18 11:45 HIV-1 Antibody (EIA) Positive (Negative) H 05/14/18 17:15 HIV-1 RNA Qnt (RT-PCR) 3.62 (Not Detected) H 05/15/18 11:45 HIV-2 Antibody Negative (Negative) 05/15/18 11:45 HIV-2 Antibody (EIA) Negative (Negative) 05/14/18 17:15 HIV 1&2 Ag/Ab, 4th Gen Reactive (Nonreactive) H 05/15/18 11:45 HIV 1&2 Antibody Reactive (Nonreactive) H 05/14/18 17:15 - Hospital Course Hospital Course: Hospital Course: A 48 yo male with PMH of HTn, DM1 recent dx of cholelithiasis was brought to ER in the EMS accompanied by his sister and father due to fever chills, Nausea, vomiting NBNB, back pain that started today morning. Patient was admitted for evaluation and treatment of DKA puse sepsis. In the ED patient Vitals: temp 96 ( rectal 92.5) , HR 157, BP 93/63 RR 20 CBC: + for WBC of 23.6 CMB: K 5.1, CL 90, anion Gap <5, Glucose 327 AST/ALT 176/111 ALk po 138 ABG shows pCO2: 16, bicarb: 0.7, pH 6.81. Lactate is 16.1 UA: WNL EKG: was positive for A fib with RVR which he recieved Cardizem once Due to patient vitals and acute symptoms Sepsis protocol was called. Patient Rocephin and Vancomycin Given. CSF was done which was positive for glucose 220H and protein 62h, but no culture grown. Patient was sent for CT head, CT abdomen, Chest xray and U/S Impressions Head CT: No evidence of intracranial hemorrhage or recent infarct. Nonspecific cerebral cortical atrophy and probable scattered white matter changes greater than expected for the patient's age. Chest Xray: No active disease. CT abdomen: Distended in fluid-filled stomach with some possible mild antral wall thickening which may suggest antritis and gastritis. There is additionally nonspecific low density surrounding the gallbladder, new from the prior study. This would suggest gallbladder wall thickening and/or pericholecystic fluid. No appreciable bile duct dilatation. Minor amount of haziness surrounding the pancreas may suggest minor pancreatitis. Additional mild colonic wall thickening and moderate amounts of residual fecal material throughout the colon suggesting either chronic constipation and/or mild colitis. Distended urinary bladder. Moderate fatty infiltration of the liver. U/S Cholelithaisis mild gallbladder wall thickening and pericholecystic fluid, suspected 7x5 mm gallbladder poyl along the anterior wall. f/u in 6-12 mo, mild hepatomegaly and fatty liver Patient was admitted to ICU. Day 1 in ICU patient was placed on ICU drip, IV fluid, 20mq KCL and labs were sent for follow up. Patient also received vancomycin and zosyn for sepsis treatment. ID and endocrinology was on case. Day 2 Patient became stable and was sent stepped down to Med/surge. During his stay, patient was worked out for possible acute cholecystisis, surgery reviewed patient, and r/o acute cholecystisis and recommend to follow up as outpatient. Day 3 Patient HIV lab came back positive, patient was educated about new diagnosis and urged to follow up with ID doctor, Patient would like to follow up with his PCP. Day 4 Patient Labs were reviewed. ID recommend patient to follow up with CD4 to evaluate if patient need ABx prophylaxis Patient informed that will follow up with his CD4, and if Abx prophylaxis will call his pharmacy [facility] [phone] Patient seen and examined at bedtime today. No acute event overnight. Patient slept well, he denies any chest pain, sob, abd pain diarrhea, constipation dysuria or polyuria. Patient educated about HIV, and its severity and possibility of management. Patient understand, and will follow up with PCP. Patient chart have been reviewed, Patient labs were stable, Vitals are stable, patient condition have improved. Case discussed with ID, ID agree for patient to be discharged and follow up as outpatient, Patient is cleared to be discharged and need to follow up with PCP Discharge Exam - Head Exam Head Exam: ATRAUMATIC, NORMAL INSPECTION, NORMOCEPHALIC - Eye Exam Eye Exam: EOMI, Normal appearance, PERRL Pupil Exam: NORMAL ACCOMODATION, PERRL - ENT Exam ENT Exam: Normal Oropharynx Additional comments: no trush noted - Respiratory Exam Respiratory Exam: Clear to PA & Lateral, NORMAL BREATHING PATTERN, UNREMARKABLE - Cardiovascular Exam Cardiovascular Exam: REGULAR RHYTHM, +S1, +S2 - GI/Abdominal Exam GI & Abdominal Exam: Normal Bowel Sounds, Unremarkable - Back Exam Back exam: NORMAL INSPECTION - Neurological Exam Neurological exam: Alert, CN II-XII Intact, Normal Gait, Oriented x3, Reflexes Normal - Psychiatric Exam Psychiatric exam: Normal Affect, Normal Mood - Skin Skin Exam: Dry, Intact, Normal Color, Warm Discharge Plan - Discharge Medications Prescriptions: Insulin Lispro [Humalog (Insulin Lispro)] 12 unit SQ ACTID #1 cartridge Omeprazole 20 mg PO BID #60 tab - Follow Up Plan Condition: GOOD Disposition: HOME/ ROUTINE Instructions: HIV/AIDS, Low Back Pain (DC), Nausea and Vomiting, Adult (DC), HIV/AIDS (DC) Additional Instructions: follow up with your primary MD and ID specialist 1 week follow up with [facility] [phone] social media marketing specialist [phone] Referrals: Marin Hall MD [Staff Provider] - Pretty Whitmore MD [Staff Provider] - Raquel Cody MD [Medical Doctor] - <Betzy Swenson - Last Filed: 05/18/18 18:06> Provider - Provider Date of Admission: 05/14/18 13:52 Attending physician: Melvin Mead MD Consults: 05/14/18 14:20 General Surgery Consult Stat Comment: Consulting Provider: Pretty Whitmore Consulting Physician: Pretty Whitmore Reason for Consult: Cholecystitis 05/14/18 15:18 Infectious Disease Consult Stat Comment: Consulting Provider: Marin Hall Consulting Physician: Marin Hall Reason for Consult: sepsis probably secondary to cholecystitis with DKA 05/14/18 15:19 Endocrinology Consult Stat Comment: Consulting Provider: Raquel Cody Consulting Physician: Raquel Cody Reason for Consult: DKA Hospital Course - Lab Results Lab Results: Micro Results 05/14/18 13:21 Blood-Venous Blood Culture - Preliminary NO GROWTH AFTER 4 DAYS 05/14/18 13:10 Blood-Venous Blood Culture - Preliminary NO GROWTH AFTER 4 DAYS 05/14/18 13:40 Cerebral Spinal Fluid Gram Stain - Preliminary 05/14/18 13:40 Cerebral Spinal Fluid CSF Culture - Preliminary NO GROWTH AFTER 4 DAYS 05/15/18 21:30 Naris MRSA Culture (Admit) - Final MRSA NOT DETECTED 05/14/18 21:30 Naris MRSA Culture (Admit) - Final MRSA NOT DETECTED 05/14/18 13:10 Urine,Clean Catch Urine Culture - Final No Growth (<1,000 CFU/ML) Most Recent Lab Values WBC 3.9 K/uL (4.8-10.8) L 05/17/18 06:45 RBC 3.73 Mil/uL (4.40-5.90) L 05/17/18 06:45 Hgb 11.9 g/dL (12.0-18.0) L 05/17/18 06:45 Hct 34.8 % (35.0-51.0) L 05/17/18 06:45 MCV 93.3 fl (80.0-94.0) 05/17/18 06:45 MCH 31.9 pg (27.0-31.0) H 05/17/18 06:45 MCHC 34.2 g/dL (33.0-37.0) 05/17/18 06:45 RDW 12.2 % (11.5-14.5) 05/17/18 06:45 Plt Count 237 K/uL (130-400) 05/17/18 06:45 MPV 8.3 fl (7.2-11.7) 05/15/18 05:15 Neut % (Auto) 81.5 % (50.0-75.0) H 05/15/18 05:15 Lymph % (Auto) 12.2 % (20.0-40.0) L 05/15/18 05:15 Lander % (Auto) 6.1 % (0.0-10.0) 05/15/18 05:15 Eos % (Auto) 0.0 % (0.0-4.0) 05/15/18 05:15 Baso % (Auto) 0.2 % (0.0-2.0) 05/15/18 05:15 Neut # (Auto) 5.5 K/uL (1.8-7.0) 05/15/18 05:15 Lymph # (Auto) 0.8 K/uL (1.0-4.3) L 05/15/18 05:15 Lander # (Auto) 0.4 K/uL (0.0-0.8) 05/15/18 05:15 Eos # (Auto) 0.0 K/uL (0.0-0.7) 05/15/18 05:15 Baso # (Auto) 0.0 K/uL (0.0-0.2) 05/15/18 05:15 PT 10.3 Seconds (9.8-13.1) 05/14/18 11:32 INR 0.9 05/14/18 11:32 APTT 39.7 Seconds (25.6-37.1) H 05/14/18 11:32 pCO2 24 mm/Hg (35-45) L 05/14/18 14:30 pO2 29 mm/Hg (80-100) L* 05/14/18 14:30 HCO3 4.4 mmol/L (21-28) L* 05/14/18 14:30 ABG pH 6.94 (7.35-7.45) L* 05/14/18 14:30 ABG Total CO2 5.9 mmol/L (22-28) L 05/14/18 14:30 ABG O2 Saturation 75.0 % (95-98) L 05/14/18 14:30 ABG Base Excess -25.6 mmol/L (-2.0-3.0) L 05/14/18 14:30 Fabian Test Yes 05/14/18 14:30 ABG Potassium 5.5 mmol/L (3.6-5.2) H 05/14/18 14:30 A-a O2 Difference 91.0 mm/Hg 05/14/18 14:30 Sodium 134.0 mmol/L (132-148) 05/14/18 14:30 Chloride 92.0 mmol/L (98-107) L 05/14/18 14:30 Glucose 325 mg/dL (75-110) H 05/14/18 14:30 Lactate 12.1 mmol/L (0.7-2.1) H* 05/14/18 14:30 FiO2 21.0 % 05/14/18 14:30 Crit Value Called To Dr benny frias 05/14/18 14:30 Crit Value Called By 15 05/14/18 14:30 Crit Value Read Back Y 05/14/18 14:30 Blood Gas Notified Time 1444 05/14/18 14:30 Sodium 137 mmol/l (132-148) 05/17/18 06:45 Potassium 3.4 MMOL/L (3.6-5.0) L 05/17/18 06:45 Chloride 100 mmol/L (98-107) 05/17/18 06:45 Carbon Dioxide 22 mmol/L (22-30) 05/17/18 06:45 Anion Gap 18 (10-20) 05/17/18 06:45 BUN 6 mg/dl (9-20) L 05/17/18 06:45 Creatinine 0.5 mg/dl (0.8-1.5) L 05/17/18 06:45 Est GFR ( Amer) > 60 05/17/18 06:45 Est GFR (Non-Af Amer) > 60 05/17/18 06:45 POC Glucose (mg/dL) 224 mg/dL (65-110) H 05/18/18 15:52 Random Glucose 139 mg/dL (75-110) H 05/17/18 06:45 Hemoglobin A1c 8.3 % (4.2-6.5) H 05/15/18 05:15 Lactic Acid 1.0 mmol/L (0.7-2.1) 05/15/18 05:20 Calcium 9.1 mg/dL (8.4-10.2) 05/17/18 06:45 Phosphorus 2.4 mg/dl (2.5-4.5) L 05/15/18 05:15 Magnesium 1.6 MG/DL (1.6-2.3) 05/14/18 19:00 Total Bilirubin 0.9 mg/dl (0.2-1.3) 05/17/18 06:45 GGT 848 U/L (8-78) H 05/15/18 05:15 AST 67 U/L (17-59) H D 05/17/18 06:45 ALT 82 U/L (21-72) H 05/17/18 06:45 Alkaline Phosphatase 110 U/L (38-126) 05/17/18 06:45 Troponin I 0.0130 ng/mL (0.00-0.120) 05/14/18 11:32 Total Protein 6.3 G/DL (6.3-8.2) 05/17/18 06:45 Albumin 3.6 g/dL (3.5-5.0) 05/17/18 06:45 Globulin 2.7 gm/dL (2.2-3.9) 05/17/18 06:45 Albumin/Globulin Ratio 1.3 (1.0-2.1) 05/17/18 06:45 Triglycerides 62 mg/DL (0-149) 05/15/18 05:15 Cholesterol 106 mg/dL (0-199) 05/15/18 05:15 LDL Cholesterol Direct 46 mg/dL (0-129) 05/15/18 05:15 HDL Cholesterol 50 MG/DL (30-70) 05/15/18 05:15 Lipase 69 U/L (23-300) 05/14/18 11:32 TSH 3rd Generation 1.13 mIU/ML (0.46-4.68) 05/14/18 11:32 Arterial Blood Potassium 5.5 mmol/L (3.6-5.2) H 05/14/18 14:30 Urine Color Yellow (YELLOW) 05/14/18 13:10 Urine Clarity Cloudy (Clear) 05/14/18 13:10 Urine pH 5.0 (5.0-8.0) 05/14/18 13:10 Ur Specific [place] 1.012 (1.003-1.030) 05/14/18 13:10 Urine Protein 100 mg/dL (NEGATIVE) 05/14/18 13:10 Urine Glucose (UA) >=500 mg/dL (NEGATIVE) 05/14/18 13:10 Urine Ketones 80 mg/dL (NEGATIVE) 05/14/18 13:10 Urine Blood Small (NEGATIVE) 05/14/18 13:10 Urine Nitrate Negative (NEGATIVE) 05/14/18 13:10 Urine Bilirubin Negative (NEGATIVE) 05/14/18 13:10 Urine Urobilinogen 0.2-1.0 mg/dL (0.2-1.0) 05/14/18 13:10 Ur Leukocyte Esterase Neg Aaron/uL (Negative) 05/14/18 13:10 Urine RBC (Auto) < 1 /hpf (0-3) 05/14/18 13:10 Urine Microscopic WBC 2 /hpf (0-5) 05/14/18 13:10 Amorphous Sediment Rare /ul (<OCC) H 05/14/18 13:10 Urine Bacteria Rare (<OCC) 05/14/18 13:10 Fluid Type Spinal fluid 05/14/18 13:31 CSF Volume 1 mL (0-1) 05/14/18 13:31 CSF Appearance Clear/colorless (CLEAR) 05/14/18 13:31 CSF WBC 1.0 /mm3 (0.0-5.0) 05/14/18 13:31 CSF RBC 0.0 /mm3 (0.0-0.0) 05/14/18 13:31 CSF Comment None 05/14/18 13:31 CSF Glucose 220 mg/dL (40-70) H* 05/14/18 13:40 CSF Total Protein 55 mg/dL (15-45) H 05/14/18 13:40 CSF IgG/Serum IgG 3.4 mg/dL (0.8-7.7) 05/14/18 13:40 Vancomycin Trough 9.6 ug/mL (5.0-10.0) 05/16/18 08:40 Urine Opiates Screen Negative (NEGATIVE) 05/14/18 13:10 Urine Methadone Screen Negative (NEGATIVE) 05/14/18 13:10 Ur Barbiturates Screen Negative (NEGATIVE) 05/14/18 13:10 Ur Phencyclidine Scrn Negative (NEGATIVE) 05/14/18 13:10 Ur Amphetamines Screen Negative (NEGATIVE) 05/14/18 13:10 U Benzodiazepines Scrn Negative (NEGATIVE) 05/14/18 13:10 U Oth Cocaine Metabols Negative (NEGATIVE) 05/14/18 13:10 U Cannabinoids Screen Negative (NEGATIVE) 05/14/18 13:10 Alcohol, Quantitative 28 mg/dl (0-10) H 05/14/18 11:32 Absolute Lymphs (Flow) 1033 Cells/mcL (850-3900) 05/15/18 11:45 % CD4 Cells 39 Percent (30-61) 05/15/18 11:45 Absolute CD4 Count 398 Cells/mcL (490-1740) L 05/15/18 11:45 T-Help/Suppress Ratio 0.93 Ratio (0.86-5.00) 05/15/18 11:45 % CD8 Cells 42 Percent (12-42) 05/15/18 11:45 Absolute CD8 Count 429 Cells/mcL (180-1170) 05/15/18 11:45 RPR Nonreactive (NONREACTIVE) 05/14/18 21:40 Hep Bs Antigen Negative (NEGATIVE) 05/14/18 21:40 Hep Bs Antibody Positive (NEGATIVE) 05/14/18 21:40 Hepatitis C Antibody Negative (NEGATIVE) 05/14/18 21:40 HSV Source Description Csf 05/14/18 13:40 HSV I DNA PCR Not detected (Not Detected) 05/14/18 13:40 HSV II DNA PCR Not detected (Not Detected) 05/14/18 13:40 HIV-1 Ab Rapid Screen Reactive (NON REAC) H 05/14/18 17:15 HIV-1 Antibody Positive (Negative) H 05/15/18 11:45 HIV-1 Antibody (EIA) Positive (Negative) H 05/14/18 17:15 HIV-1 RNA Qnt (RT-PCR) 3.62 (Not Detected) H 05/15/18 11:45 HIV-2 Antibody Negative (Negative) 05/15/18 11:45 HIV-2 Antibody (EIA) Negative (Negative) 05/14/18 17:15 HIV 1&2 Ag/Ab, 4th Gen Reactive (Nonreactive) H 05/15/18 11:45 HIV 1&2 Antibody Reactive (Nonreactive) H 05/14/18 17:15 Attending/Attestation - Attestation I have personally seen and examined this patient.: Yes I have fully participated in the care of the patient.: Yes I have reviewed all pertinent clinical information, including history, physical exam and plan: Yes Notes (Text): Diagnoses: DKA HIV Screen + , Viral load 3.62, CD$ Count 368 SIRS Sepsis ruled out Cholelithiasis with GB Polyp Hypokalemia Alcoholism Pt was monitored in ICU and initially was Insulin drip and IVF hydration cont Levemir 30 units q hs and Lispro 12 units TIDAC ID consulted received IV Vanco and Meropenem tapered off Librium, no signs of alcohol withdrawal, cont Thiamine Pt referred to [facility] for HIV- Pt prefers to ff up with his PMD in [place] [facility] there ff up with Surgery as outpt for Elective Lap Tammy counseled to d/c ETOH and need for Insulin compliance
[2018-05-18 15:04] LABS: % CD4 (T HELPER CELL) 39 Percent (30-61); % CD8 (SUPPRESSOR T CELL) 42 Percent (12-42); ABSOLUTE CD4 CELLS 398 Cells/mcL (490-1740); ABSOLUTE CD8 CELLS 429 Cells/mcL (180-1170); ABSOLUTE LYMPHOCYTES 1033 Cells/mcL (850-3900); HELPER/SUPPRESSOR RATIO 0.93 Ratio (0.86-5.00)
[2018-05-18] MEDS ORDERED: Insulin Lispro (humaLOG) 100 Units/ml Inj SC SCH (16:30)
[2018-05-18 16:36] VITALS: BP 130/88; PULSE 94; RESP 18; TEMP 98.2
--- NOTE | 2018-05-18 21:10 | PN ---
DATE: 05/18/2018 ENDOCRINOLOGY FOLLOWUP NOTE LOCATION: 660. This is a 48-year-old male with recent uncontrolled type 1 insulin-dependent diabetes, presenting here with diabetic ketoacidosis and dehydration and is now being followed closely for metabolic management. His glycemic levels are fluctuating with the variability of his oral intake as noted. Today's glucose levels have ranged from 288 to 427 mg/dL. This morning, glucose was 140 and ensured the nursing staff again withheld the morning regimen with expected hyperglycemic accelerations at lunchtime today as noted. His chemistries showed a BUN of 30, sodium 137, potassium 3.4, chloride 100, CO2 of 22, glucose 139 and creatinine 0.5. So at this time, we will once again discuss with the nursing staff not to hold the insulin dose when the blood sugars are normal since we are really aiming for normal or near optimal glycemic values prior to discharge. We will increase once again his prandial insulin with Humalog given as 12 units t.i.d. before meals to start today as ordered. We will obtain serial chemistries and supplement accordingly as needed. We will continue the modified basal insulin with Levemir given as 30 units subcu at bedtime daily as given. We will titrate incrementally as indicated to optimize metabolic control. We will obtain serial chemistries and supplement accordingly as needed. We will follow. Raquel Cody MD
[2018-05-18 21:38] LABS: SPECIMEN SOURCE CSF
[2018-05-19 12:08] LABS: % CD4 (T HELPER CELL) 34 Percent (30-61); % CD8 (SUPPRESSOR T CELL) 35 Percent (12-42); ABSOLUTE CD4 CELLS 208 Cells/mcL (490-1740); ABSOLUTE CD8 CELLS 216 Cells/mcL (180-1170); ABSOLUTE LYMPHOCYTES 616 Cells/mcL (850-3900); HELPER/SUPPRESSOR RATIO 0.96 Ratio (0.86-5.00)
[2018-05-22 18:24] LABS: CSF ALPHA-2-GLOBULIN 4.1 % (4.6-10.8); CSF BETA GLOBULIN 12.4 % (7.8-18.2); CSF GAMMA GLOBULIN 4.5 % (4.8-17.6); CSF PRE-ALBUMIN 3.7 % (1.3-6.9)
[2018-05-26 02:39] LABS: HIV-1 GENOTYPE DETECTED
== END 2018-05-18 19:00 | disposition home or self-care (01) | DRG 871 ==
LOC: H.ER 11:05 → H.ERHOLD 13:52 → H.ICU/CCU 17:20 → H.MEDSURG1 05-15 15:20
PROC: 009U3ZX Drainage of Spinal Canal, Percutaneous Approach, Diagnostic (ICD-10-PCS; principal; 2018-05-14)
PROC: 06HY33Z Insertion of Infusion Device into Lower Vein, Percutaneous Approach (ICD-10-PCS; 2018-05-14)
PROC: 3E03329 Introduction of Other Anti-infective into Peripheral Vein, Percutaneous Approach (ICD-10-PCS; 2018-05-14)
DX: A41.9 Sepsis, unspecified organism (principal); E10.10 Type 1 diabetes mellitus with ketoacidosis without coma; K80.10 Calculus of gallbladder with chronic cholecystitis without obstruction; E87.3 Alkalosis; E87.6 Hypokalemia; E86.0 Dehydration; F10.229 Alcohol dependence with intoxication, unspecified; K29.20 Alcoholic gastritis without bleeding; Y90.1 Blood alcohol level of 20-39 mg/100 ml; K70.10 Alcoholic hepatitis without ascites; K70.0 Alcoholic fatty liver; Z21 Asymptomatic human immunodeficiency virus [HIV] infection status; I48.91 Unspecified atrial fibrillation; I10 Essential (primary) hypertension; E78.5 Hyperlipidemia, unspecified; E78.00 Pure hypercholesterolemia, unspecified; Z79.4 Long term (current) use of insulin

== ENCOUNTER 2018-06-19 18:24 | Inpatient (IN) | payer OTHER ==
--- NOTE | 2018-06-19 19:07 | ED PDOC ---
HPI: Abdomen Time Seen by Provider: 06/19/18 18:43 Chief Complaint (Nursing): Abdominal Pain Chief Complaint (Provider): ABDOMINAL PAIN History Per: Patient (48 Y/O MALE NEWLY DIAGNOSED HIV/ DM/GALLSTONES HERE WITH ABDOMINAL PAIN/VOMITING THIS MORNING. STATES HE DID NOT TAKE INSULIN TODAY DUE TO VOMITING. NO DIARRHEA/FEVERS/CHILLS.) Past Medical History Reviewed: Historical Data, Nursing Documentation, Vital Signs Vital Signs: Last Vital Signs Temp 96.2 F L 06/19/18 18:31 Pulse 131 H 06/19/18 18:31 Resp 20 06/19/18 18:31 BP 154/97 H 06/19/18 18:31 Pulse Ox 100 06/19/18 18:31 - Medical History PMH: Anxiety, Atrial Fibrillation, Cardia Arrhythmia, Diabetes (type I), HTN, Hypercholesterolemia, Pancreatitis Denies: Alzheimer's Disease, Anemia, Arthritis, Asthma, Bipolar Disorder, Bronchitis, CAD, CHF, COPD, Crohn's Disease, Dementia, Depression, Diverticulitis, Emphysema, Fractures, Gastritis, Gall Bladder Disease, HIV, Kidney Stones, Migraine, Mitral Valve Prolapse, Multiple Sclerosis, Osteoporosis, Paranoia, Parkinson's Disease, Peripheral Edema, Pneumonia, Post Traumatic Stress Disorder, Pulmonary Embolism, Chronic Kidney Disease, Rheumatoid Arthritis, Schizophrenia, Seizures, Sexually Transmitted Disease, Sleep Apnea, TIA - Surgical History Surgical History: Denies: Pacemaker - Family History Family History: States: Unknown Family Hx - Immunization History Hx Tetanus Toxoid Vaccination: No Hx Influenza Vaccination: No Hx Pneumococcal Vaccination: No - Home Medications Home Medications: Ambulatory Orders Medication Instructions Recorded Acetaminophen [Tylenol 325mg tab] 650 mg PO Q6 PRN tab 05/18/18 Folic Acid 1 mg PO DAILY tab 05/18/18 Insulin Detemir [Levemir] 30 units SC HS vial 05/18/18 Insulin Lispro [Humalog (Insulin 12 unit SQ ACTID #1 cartridge 05/18/18 Lispro)] Omeprazole 20 mg PO BID #60 tab 05/18/18 - Allergies Allergies/Adverse Reactions: Allergies Allergy/AdvReac Type Severity Reaction Status Date / Time No Known Allergies Allergy Verified 06/19/18 18:31 Review of Systems ROS Statement: Except As Marked, All Systems Reviewed And Found Negative Physical Exam - Reviewed Nursing Documentation Reviewed: Yes Vital Signs Reviewed: Yes - Physical Exam Appears: Positive for: Well, Non-toxic, No Acute Distress Head Exam: Positive for: ATRAUMATIC, NORMAL INSPECTION, NORMOCEPHALIC Skin: Positive for: Normal Color, Warm, DRY Eye Exam: Positive for: EOMI, Normal appearance, PERRL ENT: Positive for: Normal ENT Inspection Neck: Positive for: Normal, Painless ROM Cardiovascular/Chest: Positive for: Regular Rate, Rhythm Respiratory: Positive for: CNT, Normal Breath Sounds Gastrointestinal/Abdominal: Positive for: Normal Exam, Soft Back: Positive for: Normal Inspection Extremity: Positive for: Normal ROM Neurological/Psych: Positive for: Awake, Alert, Normal Tone - ECG ECG Rhythm: Positive for: Sinus Tachycardia (137 BPM; NO ECTOPY NO ACUTE CHANGES) O2 Sat by Pulse Oximetry: 100 - Progress ED Course And Treament: BLOOD GLUCOSE 490 NS 1 LITER WIDE OPEN ZOFRAN 8 MG IV X 1 DOSE; PEPCID 20 MG IV X 1 DOSE abg shock reviewed. elevated lacate 6.1 ph 7.13 NS 2nd liter ordered. d/w Dr. Sifuentes. Insulin bolus and drip ordered by him. CT abd/pelvis pending. Dr. Sifuentes has discussed case with Dr Graff for ICU admission for DKA and William BIOLOGY MANAGER computational linguist for Dr. Hernandez. Dr. Graff at bedside 19:45 Disposition - Clinical Impression Clinical Impression: DKA (diabetic ketoacidoses) - Patient ED Disposition Is Patient to be Admitted: Yes - Disposition Disposition Time: 20:00 Condition: FAIR - Pt Status Changed To: Hospital Disposition Of: Inpatient - Admit Certification Admit to Inpatient:: After my assessment, the patient will require hospitalization for at least two midnights. This is because of the severity of symptoms shown, intensity of services needed, and/or the medical risk in this patient being treated as an outpatient.
[2018-06-19] MEDS ORDERED: Sodium Chloride 0.9% 1,000 ML IV SCH (19:15)
[2018-06-19] MEDS ORDERED: Sodium Chloride 0.9% 1,000 ML IV STA ×2 (19:21→19:23)
[2018-06-19 19:25] LABS: ABG ALLEN TEST YES; ARTERIAL BLOOD GAS HCO3 9.5 mmol/L (21-28); ARTERIAL BLOOD GAS O2 SAT 98.6 % (95-98); ARTERIAL BLOOD GAS PCO2 22 mm/Hg (35-45); ARTERIAL BLOOD GAS PH 7.14 (7.35-7.45); ARTERIAL BLOOD GAS PO2 100 mm/Hg (80-100); ARTERIAL BLOOD GAS TCO2 8.2 mmol/L (22-28)
[2018-06-19] MEDS ORDERED: Insulin Regular 100 units/ml IV ONE (19:28)
[2018-06-19 19:34] LABS: BASO # 0.1 K/uL (0.0-0.2); BASO % 0.4 % (0.0-2.0); EOS % 0.1 % (0.0-4.0); HEMOGLOBIN 13.4 g/dL (12.0-18.0); LYMPH # 1.1 K/uL (1.0-4.3); LYMPH % 7.2 % (20.0-40.0); MEAN CELL VOLUME 97.7 fl (80.0-94.0); MEAN CORPUSCULAR HEMOGLOBIN 30.7 pg (27.0-31.0); MEAN CORPUSCULAR HGB CONC 31.4 g/dL (33.0-37.0); MEAN PLATELET VOLUME 8.8 fl (7.2-11.7); MONO # 1.3 K/uL (0.0-0.8); MONO % 8.3 % (0.0-10.0); NEUT # 12.6 K/uL (1.8-7.0); PLATELET COUNT 278 K/uL (130-400); RBC 4.37 Mil/uL (4.40-5.90); RED CELL DISTRIBUTION WIDTH 13.4 % (11.5-14.5)
[2018-06-19] MEDS ORDERED: Insulin Regular 100 units/ml ONE (19:36)
--- NOTE | 2018-06-19 20:14 | CP.PCM.CON ---
History of Present Illness - History of Present Illness History of Present Illness: Attending: Julio Cesar Hernandez MD PMD: Dr Egan Reason for consult: Critical Care Management Chief Complaint: Vomiting/ abdominal and back pain The Patient was seen and examined in the ED with the family present HPI: The history is obtained from the patient and after review of the laboratory, radiological and the medical records. This is a 48 years old male with hx of DM I and Cholelithiasis last admitted on 05/14/18 with dx of DKA and newly dx HIV. He comes with one day of nausea, vomiting, abdominal and back pain, headache, dizziness, feeling very tired with loss of appetite. Because of not eating today he has not taken his Insulin. In the ED HR is 131/min with Blood glucose of 568mg/dl , pH of 7.14 and Bicarb of 9.5 PMH: asymptomatic HIV+ve; HTN; DM I; Anxiety; Cholelithiasis PSH: Denies Surgical Hx [place]; No smoking; No illegal drug use; drinks 2-3 vodka daily FH: States: no known family hx Allergies: NKDA Medication: Reviewed Review of Systems - Constitutional Constitutional: Anorexia, Headache. absent: Fever - EENT Eyes: absent: Blurred Vision, Diplopia, Requires Corrective Lenses Ears: absent: Decreased Hearing, Ear Discharge, Tinnitus Nose/Mouth/Throat: absent: Epistaxis, Nasal Congestion, Nasal Discharge, Sinus Pain, Sinus Pressure - Cardiovascular Cardiovascular: Chest Pain, Lightheadedness, Palpitations. absent: Dyspnea, Edema - Respiratory Respiratory: absent: Cough, Dyspnea, Wheezing, Stridor - Gastrointestinal Gastrointestinal: Abdominal Pain, Nausea, Vomiting. absent: Constipation, D iarrhea - Musculoskeletal Musculoskeletal: Back Pain. absent: Arthralgias, Joint Swelling, Myalgias, Neck Pain - Integumentary Integumentary: absent: Pruritus, Rash, Sores, Striae, Swelling - Neurological Neurological: Dizziness, Headaches. absent: Confusion, Focal Weakness, Pares thesias, Weakness - Psychiatric Psychiatric: Anxiety. absent: Depression, Panic Attacks - Endocrine Endocrine: absent: Palpitations, Polydipsia, Polyphagia, Polyuria - Hematologic/Lymphatic Hematologic: absent: Easy Bleeding, Easy Bruising Past Patient History - Past Medical History & Family History Past Medical History?: Yes - Past Social History Smoking Status: Never Smoked Chewing Tobacco Use: No Cigar Use: No Alcohol: > 2 Drinks/Day Drugs: Denies, Inhalants - CARDIAC Hx Atrial Fibrillation: Yes Hx Cardia Arrhythmia: Yes Hx Congestive Heart Failure: No Hx Hypercholesterolemia: Yes Hx Hypertension: Yes Hx Mitral Valve Prolapse: No Hx Pacemaker: No Hx Peripheral Edema: No - PULMONARY Hx Asthma: No Hx Bronchitis: No Hx Chronic Obstructive Pulmonary Disease (COPD): No Hx Emphysema: No Hx Pneumonia: No Hx Pulmonary Embolism: No Hx Sleep Apnea: No - NEUROLOGICAL Hx Alzheimer's Disease: No Hx Dementia: No Hx Migraine: No Hx Multiple Sclerosis: No Hx Parkinson's Disease: No Hx Seizures: No Hx Transient Ischemic Attacks (TIA): No - HEENT Hx Blind: No Hx Cataracts: No Hx Deafness: No Hx Difficulty Chewing: No Hx Epistaxis: No Hx Glaucoma: No Hx Macular Degeneration: No - RENAL Hx Chronic Kidney Disease: No Hx Kidney Stones: No - ENDOCRINE/METABOLIC Hx Diabetes Mellitus Type 1: Yes - HEMATOLOGICAL/ONCOLOGICAL Hx Anemia: No Hx Human Immunodeficiency Virus (HIV): Yes - INTEGUMENTARY Hx Dermatological Problems: No - MUSCULOSKELETAL/RHEUMATOLOGICAL Hx Arthritis: No Hx Fractures: No Hx Osteoporosis: No Hx Rheumatoid Arthritis: No - GASTROINTESTINAL Hx Crohn's Disease: No Hx Diverticulitis: No Hx Gall Bladder Disease: No Hx Gastritis: No Hx Pancreatitis: Yes - GENITOURINARY/GYNECOLOGICAL Hx Sexually Transmitted Disorders: No - PSYCHIATRIC Hx Anxiety: Yes Hx Bipolar Disorder: No Hx Depression: No Hx Paranoia: No Hx Post Traumatic Stress Disorder: No Hx Schizophrenia: No - SURGICAL HISTORY Hx Surgeries: No - ANESTHESIA Hx Anesthesia: No Meds Allergies/Adverse Reactions: Allergies Allergy/AdvReac Type Severity Reaction Status Date / Time No Known Allergies Allergy Verified 06/19/18 18:31 - Medications Medications: Current Medications Sodium Chloride (Sodium Chloride 0.9%) 1,000 mls @ 1,000 mls/hr IV .Q1H JASKARAN Stop: 06/20/18 19:05 Last Admin: 06/19/18 19:10 Dose: 1,000 mls/hr Sodium Chloride (Sodium Chloride 0.9%) 1,000 mls @ 1,000 mls/hr IV .Q1H STA Stop: 06/19/18 20:20 Sodium Chloride (Sodium Chloride 0.9%) 1,000 mls @ 1,000 mls/hr IV .Q1H STA Stop: 06/19/18 20:22 Last Admin: 06/19/18 20:01 Dose: 1,000 mls/hr Insulin Human Regular 100 (units/ Sodium Chloride) 101 mls @ 6.06 mls/hr IV .[id number] [facility]; Protocol Physical Exam - Constitutional Appears: In Acute Distress - Head Exam Head Exam: ATRAUMATIC, NORMAL INSPECTION, NORMOCEPHALIC - Eye Exam Eye Exam: EOMI, Normal appearance Pupil Exam: NORMAL ACCOMODATION, PERRL - ENT Exam ENT Exam: Mucous Membranes Dry, Normal Exam, Normal External Ear Exam - Neck Exam Neck exam: Positive for: Full Rom, Normal Inspection. Negative for: Lymphadenopathy, Tenderness - Respiratory Exam Respiratory Exam: Clear to Auscultation Bilateral. absent: Rales, Rhonchi, Wheezes - Cardiovascular Exam Cardiovascular Exam: Tachycardia, REGULAR RHYTHM, +S1, +S2 - GI/Abdominal Exam Additional comments: Flat, soft, generalized tenderness, no rebound tenderness, no guarding - Rectal Exam Rectal Exam: Deferred - Extremities Exam Extremities exam: Positive for: full ROM, normal inspection. Negative for: calf tenderness, pedal edema - Back Exam Back exam: NORMAL INSPECTION. absent: CVA tenderness (L), CVA tenderness (R) - Neurological Exam Neurological exam: Alert, CN II-XII Intact, Oriented x3, Reflexes Normal - Psychiatric Exam Psychiatric exam: Normal Affect, Normal Mood - Skin Skin Exam: Dry, Normal Color, Warm Results - Vital Signs Recent Vital Signs: Last Vital Signs Temp 96.2 F L 06/19/18 18:31 Pulse 131 H 06/19/18 18:31 Resp 20 06/19/18 18:31 BP 154/97 H 06/19/18 18:31 Pulse Ox 100 06/19/18 19:45 - Labs Result Diagrams: 06/19/18 19:28 06/19/18 19:28 Labs: Laboratory Results - last 24 hr 06/19/18 06/19/18 06/19/18 19:14 19:19 19:28 WBC 15.0 H D RBC 4.37 L Hgb 13.4 Hct 42.7 MCV 97.7 H D MCH 30.7 MCHC 31.4 L RDW 13.4 Plt Count 278 MPV 8.8 Neut % (Auto) 84.0 H Lymph % (Auto) 7.2 L Glascock % (Auto) 8.3 Eos % (Auto) 0.1 Baso % (Auto) 0.4 Neut # (Auto) 12.6 H Lymph # (Auto) 1.1 Glascock # (Auto) 1.3 H Eos # (Auto) 0.0 Baso # (Auto) 0.1 pCO2 22 L pO2 100 HCO3 9.5 L* ABG pH 7.14 L* ABG Total CO2 8.2 L ABG O2 Saturation 98.6 H ABG Base Excess -19.7 L Fabian Test Yes ABG Potassium 5.6 H A-a O2 Difference 22.0 Sodium 138.0 Chloride 94.0 L Glucose 580 H* D Lactate 6.2 H* FiO2 21.0 Blood Gas Comments Lac=6.2 Crit Value Called To rip Rooney Crit Value Called By 22 Crit Value Read Back Y Blood Gas Notified Time 1924 POC Glucose (mg/dL) 490 H* Arterial Blood Potassium 5.6 H - Impressions Impression: Sinus tachycardia 131/min Assessment & Plan - Assessment and Plan (Free Text) Plan: 48 years old male with hx of DM I and Cholelithiasis last admitted on 05/14/18 with dx of DKA and newly dx HIV. He comes with one day of nausea, vomiting, abdominal and back pain, headache, dizziness, feeling very tired with loss of appetite. In the ED HR is 131/min with Blood glucose of 568mg/dl , pH of 7.14 and Bicarb of 9.5 #. DKA - Admit to ICU - IV Fluid with normal saline 3 liters in ED. continue with 1/2 normal saline when sodium increases. Add dextrose when Blood glucose decreases [id number] and Anion gap is still elevated. - IV Insulin Drip to DKA protocol - BMP Q4hrs - AccuCheck Q1H #. Dehydration - IV Fluid #. Hyperkalemia, most likely secondary to extracellular shift - Follow electrolytes and add Potassium wo IV when level is less than 4mEq #. Leukocytosis most likely reactive - Follow CT abdomen pelvis - Follow CBC #. Asymptomatic HIV - Patient is followed as OP at a Private clinic #. Daily alcohol use. Alcohol withdrawal prevention - Banana Bag which includes Thiamine, Folic Acid and multivitamin - Ativan for Agitation and anxiety #. Stress ulcer Pro;hylaxis with Pantoprazole #. DVT Prophylaxis with SCD and Lovenox #. Code Status: Full - Date & Time Date: 06/19/18 Time: 20:14
[2018-06-19] MEDS ORDERED: Piperacillin/Tazobact 3.375 GM in Sodium Chloride 0.9% 100 ML IV STA (20:24)
[2018-06-19 20:34] LABS: ALB/GLOB RATIO 1.6 (1.0-2.1); ALBUMIN 5.5 g/dL (3.5-5.0); ALT/SGPT 33 U/L (21-72); AST/SGOT 50 U/L (17-59); BLOOD UREA NITROGEN 18 mg/dl (9-20); CALCIUM 9.6 mg/dL (8.4-10.2); GFR NON-AFRICAN AMERICAN > 60; LIPASE 10 U/L (23-300)
[2018-06-19] MEDS ORDERED: Iohexol 300 100 ML IJ ONE ×2 (20:38→21:41)
[2018-06-19 20:54] LABS: URINE BILIRUBIN NEGATIVE (NEGATIVE); URINE BLOOD NEGATIVE (NEGATIVE); URINE CLARITY CLEAR (Clear); URINE COLOR STRAW (YELLOW); URINE GLUCOSE (UA) >=500 mg/dL (NEGATIVE); URINE LEUKOCYTE ESTERASE NEG Leu/uL (Negative); URINE PROTEIN 30 mg/dL (NEGATIVE); URINE UROBILINOGEN 0.2-1.0 mg/dL (0.2-1.0)
[2018-06-19 21:09] LABS: BARBITURATES, UR NEGATIVE (NEGATIVE); BENZODIAZEPINES, UR NEGATIVE (NEGATIVE); OPIATES, UR NEGATIVE (NEGATIVE); PHENCYCLIDINE, UR NEGATIVE (NEGATIVE)
[2018-06-19 21:23] LABS: EOSINOPHIL 1 % (0-7); LYMPHOCYTE 7 % (20-50); MONOCYTE 7 % (0-10); NEUTROPHIL 85 % (42-75); PLATELET ESTIMATE NORMAL (NORMAL); TOTAL CELLS COUNTED 100
[2018-06-19] MEDS ORDERED: Piperacillin/Tazobact 3.375 gm Inj IVPB ONE (22:34)
[2018-06-19] MEDS ORDERED: Morphine 4 MG/ML VIAL IVP STA (23:31)
[2018-06-20] MEDS ORDERED: Multivitamin (MVI) 10 ML, Thiamine 100 MG, Folic Acid 1 MG in Sodium Chloride 0.9% 1,00... IV ONE (00:35)
[2018-06-20] MEDS ORDERED: Multivitamin (MVI) 10 ML, Thiamine 100 MG, Folic Acid 1 MG in Dextrose 5%/0.45% NS 1,00... IV ONE (00:46)
[2018-06-20 01:05] VITALS: BMI 25.4
[2018-06-20 03:58] LABS: BLOOD UREA NITROGEN 15 mg/dl (9-20); CALCIUM 7.9 mg/dL (8.4-10.2); GFR NON-AFRICAN AMERICAN > 60
[2018-06-20 05:17] LABS: BASO % 0.5 % (0.0-2.0); HEMOGLOBIN 11.6 g/dL (12.0-18.0); LYMPH % 12.8 % (20.0-40.0); MEAN CELL VOLUME 91.7 fl (80.0-94.0); MEAN CORPUSCULAR HEMOGLOBIN 31.5 pg (27.0-31.0); MEAN CORPUSCULAR HGB CONC 34.3 g/dL (33.0-37.0); MEAN PLATELET VOLUME 8.2 fl (7.2-11.7); MONO # 0.7 K/uL (0.0-0.8); MONO % 8.3 % (0.0-10.0); NEUT # 6.1 K/uL (1.8-7.0); NEUT % 78.4 % (50.0-75.0); RBC 3.68 Mil/uL (4.40-5.90); RED CELL DISTRIBUTION WIDTH 12.7 % (11.5-14.5); WHITE BLOOD COUNT 7.8 K/uL (4.8-10.8)
[2018-06-20 05:34] LABS: BLOOD UREA NITROGEN 15 mg/dl (9-20); CALCIUM 8.4 mg/dL (8.4-10.2); GFR NON-AFRICAN AMERICAN > 60
[2018-06-20 06:07] LABS: INR 0.9; PROTHROMBIN TIME 10.7 Seconds (9.8-13.1)
[2018-06-20 06:09] LABS: PARTIAL THROMBOPLASTIN TIME 27.2 Seconds (25.6-37.1)
[2018-06-20] MEDS: Enoxaparin 40 mg Syringe SC SCH (08:11)
[2018-06-20 08:48] LABS: BLOOD UREA NITROGEN 17 mg/dl (9-20); CALCIUM 8.4 mg/dL (8.4-10.2); GFR NON-AFRICAN AMERICAN > 60
--- NOTE | 2018-06-20 09:22 | US ---
Date of service: 06/19/2018 HISTORY: hx of gall stones COMPARISON: None. TECHNIQUE: Sonographic evaluation of the right upper quadrant of the abdomen. FINDINGS: LIVER: Measures 16.9 cm in length. Diffusely increased echogenicity of the liver parenchyma. No mass. No intrahepatic bile duct dilatation. Normal hepatopetal portal venous flow demonstrated. GALLBLADDER: Cholelithiasis. No mural thickening. No pericholecystic fluid. Negative sonographic Moyer sign. COMMON BILE DUCT: Measures 4 mm. No stones. No dilatation. PANCREAS: Unremarkable as visualized. No mass. No ductal dilatation. RIGHT KIDNEY: Measures 11.9 cm in length. Normal echogenicity. No calculus, mass, or hydronephrosis. AORTA: No aneurysmal dilatation. IVC: Unremarkable. OTHER FINDINGS: None . IMPRESSION: Cholelithiasis without evidence of cholecystitis. Fatty infiltration of the liver. Otherwise unremarkable.
--- NOTE | 2018-06-20 10:05 | CT ---
Date of service: 06/19/2018 PROCEDURE: CT Abdomen and Pelvis with contrast HISTORY: VOMITING/ABDOMINAL PAIN. H/O GALLSTONES COMPARISON: 05/14/2018 TECHNIQUE: Contrast dose: 95 mL Omnipaque 300 Radiation dose: Total exam DLP = 634.72 mGy-cm. This CT exam was performed using one or more of the following dose reduction techniques: Automated exposure control, adjustment of the mA and/or kV according to patient size, and/or use of iterative reconstruction technique. FINDINGS: LOWER THORAX: Unremarkable. LIVER: Normal size, contour and. Diffusely diminished attenuation consistent with fatty infiltration. No mass. No biliary dilatation. GALLBLADDER AND BILE DUCTS: Cholelithiasis. No mural thickening. No pericholecystic fluid. PANCREAS: Unremarkable. No gross lesion or ductal dilatation. SPLEEN: Unremarkable. ADRENALS: Unremarkable. No mass. KIDNEYS AND URETERS: Unremarkable. No hydronephrosis. No solid mass. VASCULATURE: Unremarkable. No aortic aneurysm. No aortic atherosclerotic calcification or mural plaque present. BOWEL: Unremarkable. No obstruction. No gross mural thickening. APPENDIX: Not positively identified. No secondary findings to suggest acute appendicitis. PERITONEUM: Unremarkable. No free fluid. No free air. LYMPH NODES: Unremarkable. No enlarged lymph nodes. BLADDER: Unremarkable. REPRODUCTIVE: Normal prostate BONES: No acute fracture. OTHER FINDINGS: None. IMPRESSION: Cholelithiasis without evidence of cholecystitis. No evidence of biliary obstruction. Fatty infiltration of the liver. No additional abnormality. The preliminary findings for this examination were reported by [facility] at 10:36 p.m. on 06/19/2018. There is discordance of this report with the preliminary findings. Presence of cholelithiasis was not described in the preliminary report of this examination. There is no evidence to suggest enterocolitis on the basis of this examination.
--- NOTE | 2018-06-20 10:07 | CARD ---
APPROVED REPORT Date of service: 06/19/2018 EKG Measurement Heart [id number] <Conclusion> Sinus tachycardia Otherwise normal ECG
[2018-06-20 12:42] LABS: BLOOD UREA NITROGEN 17 mg/dl (9-20); CALCIUM 8.2 mg/dL (8.4-10.2); GFR NON-AFRICAN AMERICAN > 60
--- NOTE | 2018-06-20 15:18 | RAD ---
Date of service: 06/19/2018 HISTORY: Vomiting COMPARISON: 05/14/2018. FINDINGS: LUNGS: No active pulmonary disease. PLEURA: No significant pleural effusion identified, no pneumothorax apparent. CARDIOVASCULAR: No atherosclerotic calcification present Normal. OSSEOUS STRUCTURES: No significant abnormalities. VISUALIZED UPPER ABDOMEN: Normal. OTHER FINDINGS: None. IMPRESSION: No active disease. No significant interval change compared to the prior examination(s).
--- NOTE | 2018-06-20 16:34 | CP.CCUPN ---
CCU Subjective - Physician Review Subjective (Free Text): 06/20/18 16:30 The patient was Seen/interviewed and examined by me at the bedside during ICU round, Medical records reviewed and Management issues were discussed and formulated with the house staff. Events reviewed Patient is 48 years old male with past medical history of hypertension, diabetes type 1, anxiety, cholelithiasis and HIV positive Presented to the emergency room with abdominal pain, back pain and vomiting He was admitted to the intensive care unit for dehydration and diabetic ketoacidosis Patient is doing well today Afternoon lab confirms anion gap closed and insulin drip was discontinued Alert awake oriented x3, comfortable and in no apparent distress Patient is afebrile Started heart health diet, low Carb Hemodynamically stable and the plan is to transfer out of the ICU CCU Objective - Vital Signs / Intake & Output Vital Signs (Last 4 hours): Vital Signs Pulse Resp BP Pulse Ox 06/20/18 14:00 104 H 14 138/93 H 99 Intake and Output (Last 8hrs): Intake & Output 06/20/18 06/20/18 06/20/18 06:59 14:59 22:59 Intake Total 1018 623 Output Total 1000 300 Balance 18 323 Weight 182 lb Intake: IV 670 503 Intake, Piggyback 348 Oral 120 Tube Feeding 0 Output: Urine 1000 300 Urine, Voided 1000 300 Other: # Voids Urine, Voided 1 # Bowel Movements 0 - Physical Exam Head: Positive for: Atraumatic, Normocephalic Pupils: Positive for: PERRL Extroacular Muscles: Positive for: EOMI Conjunctiva: Positive for: Normal. Negative for: Injected, Icteric Mouth: Positive for: Moist Mucous Membranes Nose (Internal): Positive for: Normal Inspection Neck: Positive for: Normal Range of Motion, Trachea Midline. Negative for: Meningeal Signs, MIDLINE TENDERNESS, Paraspinal Tenderness, JVD, Lymphadenopathy, Bruit, Other Respiratory/Chest: Positive for: Clear to Auscultation, Good Air Exchange. Negative for: Respiratory Distress, Accessory Muscle Use, Rales, Retracting, Rhonchi Cardiovascular: Positive for: Regular Rate and Rhythm, Normal S1, S2, Peripheal Pulses Present Abdomen: Positive for: Normal Bowel Sounds. Negative for: Tenderness, Distention, Peritoneal Signs, Rebound, Guarding Neurological: Positive for: GCS=15, CN II-XII Intact Psychiatric: Positive for: Alert, Oriented x 3 - Medications Active Medications: Active Medications Generic Name Dose Route Start Last Admin Trade Name Freq PRN Reason Stop Dose Admin Enoxaparin Sodium 40 mg 06/20/18 09:00 06/20/18 08:11 Lovenox SC 40 mg DAILY JASKARAN Administration Protocol Sodium Chloride 1,000 mls @ 1,000 mls/hr 06/19/18 19:15 06/19/18 19:10 Sodium Chloride 0.9% IV 06/20/18 19:05 1,000 mls/hr .Q1H JASKARAN Administration Insulin Human Regular 0 units 06/20/18 17:00 Humulin R SC ACCU-CHECK JASKARAN Protocol Ketorolac Tromethamine 30 mg 06/19/18 23:51 06/20/18 04:16 Toradol IVP 30 mg Q6 PRN Administration Pain, severe (8-10) Ketorolac Tromethamine 15 mg 06/19/18 23:52 06/20/18 10:28 Toradol IVP 15 mg Q6 PRN Administration Pain, moderate (4-7) Lorazepam 1 mg 06/19/18 20:35 Ativan IVP Q4H PRN Symptoms of alcohol withdrawl Metoclopramide HCl 10 mg 06/19/18 20:24 Reglan IVP Q6 PRN Nausea/Vomiting Pantoprazole Sodium 40 mg 06/20/18 09:00 06/20/18 08:09 Protonix Inj IVP 40 mg DAILY JASKARAN Administration - Patient Studies Lab Studies: Lab Studies 06/20/18 06/20/18 06/20/18 Range/Units 12:00 08:15 05:01 WBC (4.8-10.8) K/uL RBC (4.40-5.90) Mil/uL Hgb (12.0-18.0) g/dL Hct (35.0-51.0) % MCV (80.0-94.0) fl MCH (27.0-31.0) pg MCHC (33.0-37.0) g/dL RDW (11.5-14.5) % Plt Count (130-400) K/uL MPV (7.2-11.7) fl Neut % (Auto) (50.0-75.0) % Lymph % (Auto) (20.0-40.0) % [place] % (Auto) (0.0-10.0) % Eos % (Auto) (0.0-4.0) % Baso % (Auto) (0.0-2.0) % Neut # (Auto) (1.8-7.0) K/uL Lymph # (Auto) (1.0-4.3) K/uL [place] # (Auto) (0.0-0.8) K/uL Eos # (Auto) (0.0-0.7) K/uL Baso # (Auto) (0.0-0.2) K/uL Neutrophils % (Manual) (42-75) % Lymphocytes % (Manual) (20-50) % Monocytes % (Manual) (0-10) % Eosinophils % (Manual) (0-7) % Platelet Estimate (NORMAL) Macrocytosis (manual) PT 10.7 (9.8-13.1) Seconds INR 0.9 APTT 27.2 (25.6-37.1) Seconds pCO2 (35-45) mm/Hg pO2 (80-100) mm/Hg HCO3 (21-28) mmol/L ABG pH (7.35-7.45) ABG Total CO2 (22-28) mmol/L ABG O2 Saturation (95-98) % ABG Base Excess (-2.0-3.0) mmol/L Fabian Test ABG Potassium (3.6-5.2) mmol/L A-a O2 Difference mm/Hg Sodium 137 139 (132-148) mmol/L Chloride 102 104 (98-107) mmol/L Glucose (75-110) mg/dL Lactate (0.7-2.1) mmol/L FiO2 % Blood Gas Comments Crit Value Called To Crit Value Called By Crit Value Read Back Blood Gas Notified Time Potassium 4.4 4.1 (3.6-5.0) MMOL/L Carbon Dioxide 25 27 (22-30) mmol/L Anion Gap 14 12 (10-20) BUN 17 17 (9-20) mg/dl Creatinine 0.6 L 0.7 L (0.8-1.5) mg/dl Est GFR ( Amer) > 60 > 60 Est GFR (Non-Af Amer) > 60 > 60 POC Glucose (mg/dL) (65-110) mg/dL Random Glucose 227 H 145 H (75-110) mg/dL Hemoglobin A1c (4.2-6.5) % Lactic Acid (0.7-2.1) mmol/L Calcium 8.2 L 8.4 (8.4-10.2) mg/dL Magnesium (1.6-2.3) MG/DL Total Bilirubin (0.2-1.3) mg/dl AST (17-59) U/L ALT (21-72) U/L Alkaline Phosphatase (38-126) U/L Troponin I (0.00-0.120) ng/mL Total Protein (6.3-8.2) G/DL Albumin (3.5-5.0) g/dL Globulin (2.2-3.9) gm/dL Albumin/Globulin Ratio (1.0-2.1) Lipase (23-300) U/L Arterial Blood Potassium (3.6-5.2) mmol/L Urine Color (YELLOW) Urine Clarity (Clear) Urine pH (5.0-8.0) Ur Specific [place] (1.003-1.030) Urine Protein (NEGATIVE) mg/dL Urine Glucose (UA) (NEGATIVE) mg/dL Urine Ketones (NEGATIVE) mg/dL Urine Blood (NEGATIVE) Urine Nitrate (NEGATIVE) Urine Bilirubin (NEGATIVE) Urine Urobilinogen (0.2-1.0) mg/dL Ur Leukocyte Esterase (Negative) Aaron/uL Urine Microscopic WBC (0-5) /hpf Urine Opiates Screen (NEGATIVE) Urine Methadone Screen (NEGATIVE) Ur Barbiturates Screen (NEGATIVE) Ur Phencyclidine Scrn (NEGATIVE) Ur Amphetamines Screen (NEGATIVE) U Benzodiazepines Scrn (NEGATIVE) U Oth Cocaine Metabols (NEGATIVE) U Cannabinoids Screen (NEGATIVE) B-Hydroxybutyrate (0.02-0.27) mM 06/20/18 06/20/18 06/20/18 Range/Units 05:01 05:01 05:01 WBC 7.8 (4.8-10.8) K/uL RBC 3.68 L (4.40-5.90) Mil/uL Hgb 11.6 L (12.0-18.0) g/dL Hct 33.7 L (35.0-51.0) % MCV 91.7 D (80.0-94.0) fl MCH 31.5 H (27.0-31.0) pg MCHC 34.3 (33.0-37.0) g/dL RDW 12.7 (11.5-14.5) % Plt Count 208 (130-400) K/uL MPV 8.2 (7.2-11.7) fl Neut % (Auto) 78.4 H (50.0-75.0) % Lymph % (Auto) 12.8 L (20.0-40.0) % [place] % (Auto) 8.3 (0.0-10.0) % Eos % (Auto) 0.0 (0.0-4.0) % Baso % (Auto) 0.5 (0.0-2.0) % Neut # (Auto) 6.1 (1.8-7.0) K/uL Lymph # (Auto) 1.0 (1.0-4.3) K/uL [place] # (Auto) 0.7 (0.0-0.8) K/uL Eos # (Auto) 0.0 (0.0-0.7) K/uL Baso # (Auto) 0.0 (0.0-0.2) K/uL Neutrophils % (Manual) (42-75) % Lymphocytes % (Manual) (20-50) % Monocytes % (Manual) (0-10) % Eosinophils % (Manual) (0-7) % Platelet Estimate (NORMAL) Macrocytosis (manual) PT (9.8-13.1) Seconds INR APTT (25.6-37.1) Seconds pCO2 (35-45) mm/Hg pO2 (80-100) mm/Hg HCO3 (21-28) mmol/L ABG pH (7.35-7.45) ABG Total CO2 (22-28) mmol/L ABG O2 Saturation (95-98) % ABG Base Excess (-2.0-3.0) mmol/L Fabian Test ABG Potassium (3.6-5.2) mmol/L A-a O2 Difference mm/Hg Sodium 139 (132-148) mmol/L Chloride 105 (98-107) mmol/L Glucose (75-110) mg/dL Lactate (0.7-2.1) mmol/L FiO2 % Blood Gas Comments Crit Value Called To Crit Value Called By Crit Value Read Back Blood Gas Notified Time Potassium 4.6 (3.6-5.0) MMOL/L Carbon Dioxide 27 (22-30) mmol/L Anion Gap 12 (10-20) BUN 15 (9-20) mg/dl Creatinine 0.7 L (0.8-1.5) mg/dl Est GFR ( Amer) > 60 Est GFR (Non-Af Amer) > 60 POC Glucose (mg/dL) (65-110) mg/dL Random Glucose 188 H (75-110) mg/dL Hemoglobin A1c 8.3 H (4.2-6.5) % Lactic Acid (0.7-2.1) mmol/L Calcium 8.4 (8.4-10.2) mg/dL Magnesium (1.6-2.3) MG/DL Total Bilirubin (0.2-1.3) mg/dl AST (17-59) U/L ALT (21-72) U/L Alkaline Phosphatase (38-126) U/L Troponin I (0.00-0.120) ng/mL Total Protein (6.3-8.2) G/DL Albumin (3.5-5.0) g/dL Globulin (2.2-3.9) gm/dL Albumin/Globulin Ratio (1.0-2.1) Lipase (23-300) U/L Arterial Blood Potassium (3.6-5.2) mmol/L Urine Color (YELLOW) Urine Clarity (Clear) Urine pH (5.0-8.0) Ur Specific [place] (1.003-1.030) Urine Protein (NEGATIVE) mg/dL Urine Glucose (UA) (NEGATIVE) mg/dL Urine Ketones (NEGATIVE) mg/dL Urine Blood (NEGATIVE) Urine Nitrate (NEGATIVE) Urine Bilirubin (NEGATIVE) Urine Urobilinogen (0.2-1.0) mg/dL Ur Leukocyte Esterase (Negative) Aaron/uL Urine Microscopic WBC (0-5) /hpf Urine Opiates Screen (NEGATIVE) Urine Methadone Screen (NEGATIVE) Ur Barbiturates Screen (NEGATIVE) Ur Phencyclidine Scrn (NEGATIVE) Ur Amphetamines Screen (NEGATIVE) U Benzodiazepines Scrn (NEGATIVE) U Oth Cocaine Metabols (NEGATIVE) U Cannabinoids Screen (NEGATIVE) B-Hydroxybutyrate (0.02-0.27) mM 06/20/18 06/19/18 06/19/18 Range/Units 03:35 23:10 23:00 WBC (4.8-10.8) K/uL RBC (4.40-5.90) Mil/uL Hgb (12.0-18.0) g/dL Hct (35.0-51.0) % MCV (80.0-94.0) fl MCH (27.0-31.0) pg MCHC (33.0-37.0) g/dL RDW (11.5-14.5) % Plt Count (130-400) K/uL MPV (7.2-11.7) fl Neut % (Auto) (50.0-75.0) % Lymph % (Auto) (20.0-40.0) % [place] % (Auto) (0.0-10.0) % Eos % (Auto) (0.0-4.0) % Baso % (Auto) (0.0-2.0) % Neut # (Auto) (1.8-7.0) K/uL Lymph # (Auto) (1.0-4.3) K/uL [place] # (Auto) (0.0-0.8) K/uL Eos # (Auto) (0.0-0.7) K/uL Baso # (Auto) (0.0-0.2) K/uL Neutrophils % (Manual) (42-75) % Lymphocytes % (Manual) (20-50) % Monocytes % (Manual) (0-10) % Eosinophils % (Manual) (0-7) % Platelet Estimate (NORMAL) Macrocytosis (manual) PT (9.8-13.1) Seconds INR APTT (25.6-37.1) Seconds pCO2 (35-45) mm/Hg pO2 (80-100) mm/Hg HCO3 (21-28) mmol/L ABG pH (7.35-7.45) ABG Total CO2 (22-28) mmol/L ABG O2 Saturation (95-98) % ABG Base Excess (-2.0-3.0) mmol/L Fabian Test ABG Potassium (3.6-5.2) mmol/L A-a O2 Difference mm/Hg Sodium 136 (132-148) mmol/L Chloride 106 (98-107) mmol/L Glucose (75-110) mg/dL Lactate (0.7-2.1) mmol/L FiO2 % Blood Gas Comments Crit Value Called To Crit Value Called By Crit Value Read Back Blood Gas Notified Time Potassium 5.7 H (3.6-5.0) MMOL/L Carbon Dioxide 21 L (22-30) mmol/L Anion Gap 15 (10-20) BUN 15 (9-20) mg/dl Creatinine 0.6 L (0.8-1.5) mg/dl Est GFR ( Amer) > 60 Est GFR (Non-Af Amer) > 60 POC Glucose (mg/dL) 218 H (65-110) mg/dL Random Glucose 262 H (75-110) mg/dL Hemoglobin A1c (4.2-6.5) % Lactic Acid 3.6 H (0.7-2.1) mmol/L Calcium 7.9 L (8.4-10.2) mg/dL Magnesium (1.6-2.3) MG/DL Total Bilirubin (0.2-1.3) mg/dl AST (17-59) U/L ALT (21-72) U/L Alkaline Phosphatase (38-126) U/L Troponin I (0.00-0.120) ng/mL Total Protein (6.3-8.2) G/DL Albumin (3.5-5.0) g/dL Globulin (2.2-3.9) gm/dL Albumin/Globulin Ratio (1.0-2.1) Lipase (23-300) U/L Arterial Blood Potassium (3.6-5.2) mmol/L Urine Color (YELLOW) Urine Clarity (Clear) Urine pH (5.0-8.0) Ur Specific [place] (1.003-1.030) Urine Protein (NEGATIVE) mg/dL Urine Glucose (UA) (NEGATIVE) mg/dL Urine Ketones (NEGATIVE) mg/dL Urine Blood (NEGATIVE) Urine Nitrate (NEGATIVE) Urine Bilirubin (NEGATIVE) Urine Urobilinogen (0.2-1.0) mg/dL Ur Leukocyte Esterase (Negative) Aaron/uL Urine Microscopic WBC (0-5) /hpf Urine Opiates Screen (NEGATIVE) Urine Methadone Screen (NEGATIVE) Ur Barbiturates Screen (NEGATIVE) Ur Phencyclidine Scrn (NEGATIVE) Ur Amphetamines Screen (NEGATIVE) U Benzodiazepines Scrn (NEGATIVE) U Oth Cocaine Metabols (NEGATIVE) U Cannabinoids Screen (NEGATIVE) B-Hydroxybutyrate (0.02-0.27) mM 06/19/18 06/19/18 06/19/18 Range/Units 23:00 22:19 20:59 WBC (4.8-10.8) K/uL RBC (4.40-5.90) Mil/uL Hgb (12.0-18.0) g/dL Hct (35.0-51.0) % MCV (80.0-94.0) fl MCH (27.0-31.0) pg MCHC (33.0-37.0) g/dL RDW (11.5-14.5) % Plt Count (130-400) K/uL MPV (7.2-11.7) fl Neut % (Auto) (50.0-75.0) % Lymph % (Auto) (20.0-40.0) % [place] % (Auto) (0.0-10.0) % Eos % (Auto) (0.0-4.0) % Baso % (Auto) (0.0-2.0) % Neut # (Auto) (1.8-7.0) K/uL Lymph # (Auto) (1.0-4.3) K/uL [place] # (Auto) (0.0-0.8) K/uL Eos # (Auto) (0.0-0.7) K/uL Baso # (Auto) (0.0-0.2) K/uL Neutrophils % (Manual) (42-75) % Lymphocytes % (Manual) (20-50) % Monocytes % (Manual) (0-10) % Eosinophils % (Manual) (0-7) % Platelet Estimate (NORMAL) Macrocytosis (manual) PT (9.8-13.1) Seconds INR APTT (25.6-37.1) Seconds pCO2 (35-45) mm/Hg pO2 (80-100) mm/Hg HCO3 (21-28) mmol/L ABG pH (7.35-7.45) ABG Total CO2 (22-28) mmol/L ABG O2 Saturation (95-98) % ABG Base Excess (-2.0-3.0) mmol/L Fabian Test ABG Potassium (3.6-5.2) mmol/L A-a O2 Difference mm/Hg Sodium (132-148) mmol/L Chloride (98-107) mmol/L Glucose (75-110) mg/dL Lactate (0.7-2.1) mmol/L FiO2 % Blood Gas Comments Crit Value Called To Crit Value Called By Crit Value Read Back Blood Gas Notified Time Potassium (3.6-5.0) MMOL/L Carbon Dioxide (22-30) mmol/L Anion Gap (10-20) BUN (9-20) mg/dl Creatinine (0.8-1.5) mg/dl Est GFR ( Amer) Est GFR (Non-Af Amer) POC Glucose (mg/dL) 252 H 341 H (65-110) mg/dL Random Glucose (75-110) mg/dL Hemoglobin A1c (4.2-6.5) % Lactic Acid (0.7-2.1) mmol/L Calcium (8.4-10.2) mg/dL Magnesium (1.6-2.3) MG/DL Total Bilirubin (0.2-1.3) mg/dl AST (17-59) U/L ALT (21-72) U/L Alkaline Phosphatase (38-126) U/L Troponin I (0.00-0.120) ng/mL Total Protein (6.3-8.2) G/DL Albumin (3.5-5.0) g/dL Globulin (2.2-3.9) gm/dL Albumin/Globulin Ratio (1.0-2.1) Lipase (23-300) U/L Arterial Blood Potassium (3.6-5.2) mmol/L Urine Color (YELLOW) Urine Clarity (Clear) Urine pH (5.0-8.0) Ur Specific [place] (1.003-1.030) Urine Protein (NEGATIVE) mg/dL Urine Glucose (UA) (NEGATIVE) mg/dL Urine Ketones (NEGATIVE) mg/dL Urine Blood (NEGATIVE) Urine Nitrate (NEGATIVE) Urine Bilirubin (NEGATIVE) Urine Urobilinogen (0.2-1.0) mg/dL Ur Leukocyte Esterase (Negative) Aaron/uL Urine Microscopic WBC (0-5) /hpf Urine Opiates Screen (NEGATIVE) Urine Methadone Screen (NEGATIVE) Ur Barbiturates Screen (NEGATIVE) Ur Phencyclidine Scrn (NEGATIVE) Ur Amphetamines Screen (NEGATIVE) U Benzodiazepines Scrn (NEGATIVE) U Oth Cocaine Metabols (NEGATIVE) U Cannabinoids Screen (NEGATIVE) B-Hydroxybutyrate 3.54 H (0.02-0.27) mM 06/19/18 06/19/18 06/19/18 Range/Units 20:42 20:42 20:19 WBC (4.8-10.8) K/uL RBC (4.40-5.90) Mil/uL Hgb (12.0-18.0) g/dL Hct (35.0-51.0) % MCV (80.0-94.0) fl MCH (27.0-31.0) pg MCHC (33.0-37.0) g/dL RDW (11.5-14.5) % Plt Count (130-400) K/uL MPV (7.2-11.7) fl Neut % (Auto) (50.0-75.0) % Lymph % (Auto) (20.0-40.0) % [place] % (Auto) (0.0-10.0) % Eos % (Auto) (0.0-4.0) % Baso % (Auto) (0.0-2.0) % Neut # (Auto) (1.8-7.0) K/uL Lymph # (Auto) (1.0-4.3) K/uL [place] # (Auto) (0.0-0.8) K/uL Eos # (Auto) (0.0-0.7) K/uL Baso # (Auto) (0.0-0.2) K/uL Neutrophils % (Manual) (42-75) % Lymphocytes % (Manual) (20-50) % Monocytes % (Manual) (0-10) % Eosinophils % (Manual) (0-7) % Platelet Estimate (NORMAL) Macrocytosis (manual) PT (9.8-13.1) Seconds INR APTT (25.6-37.1) Seconds pCO2 (35-45) mm/Hg pO2 (80-100) mm/Hg HCO3 (21-28) mmol/L ABG pH (7.35-7.45) ABG Total CO2 (22-28) mmol/L ABG O2 Saturation (95-98) % ABG Base Excess (-2.0-3.0) mmol/L Fabian Test ABG Potassium (3.6-5.2) mmol/L A-a O2 Difference mm/Hg Sodium (132-148) mmol/L Chloride (98-107) mmol/L Glucose (75-110) mg/dL Lactate (0.7-2.1) mmol/L FiO2 % Blood Gas Comments Crit Value Called To Crit Value Called By Crit Value Read Back Blood Gas Notified Time Potassium (3.6-5.0) MMOL/L Carbon Dioxide (22-30) mmol/L Anion Gap (10-20) BUN (9-20) mg/dl Creatinine (0.8-1.5) mg/dl Est GFR ( Amer) Est GFR (Non-Af Amer) POC Glucose (mg/dL) 442 H* (65-110) mg/dL Random Glucose (75-110) mg/dL Hemoglobin A1c (4.2-6.5) % Lactic Acid (0.7-2.1) mmol/L Calcium (8.4-10.2) mg/dL Magnesium (1.6-2.3) MG/DL Total Bilirubin (0.2-1.3) mg/dl AST (17-59) U/L ALT (21-72) U/L Alkaline Phosphatase (38-126) U/L Troponin I (0.00-0.120) ng/mL Total Protein (6.3-8.2) G/DL Albumin (3.5-5.0) g/dL Globulin (2.2-3.9) gm/dL Albumin/Globulin Ratio (1.0-2.1) Lipase (23-300) U/L Arterial Blood Potassium (3.6-5.2) mmol/L Urine Color Straw (YELLOW) Urine Clarity Clear (Clear) Urine pH 5.0 (5.0-8.0) Ur Specific [place] 1.020 (1.003-1.030) Urine Protein 30 (NEGATIVE) mg/dL Urine Glucose (UA) >=500 (NEGATIVE) mg/dL Urine Ketones 80 (NEGATIVE) mg/dL Urine Blood Negative (NEGATIVE) Urine Nitrate Negative (NEGATIVE) Urine Bilirubin Negative (NEGATIVE) Urine Urobilinogen 0.2-1.0 (0.2-1.0) mg/dL Ur Leukocyte Esterase Neg (Negative) Aaron/uL Urine Microscopic WBC < 1 (0-5) /hpf Urine Opiates Screen Negative (NEGATIVE) Urine Methadone Screen Negative (NEGATIVE) Ur Barbiturates Screen Negative (NEGATIVE) Ur Phencyclidine Scrn Negative (NEGATIVE) Ur Amphetamines Screen Negative (NEGATIVE) U Benzodiazepines Scrn Negative (NEGATIVE) U Oth Cocaine Metabols Negative (NEGATIVE) U Cannabinoids Screen Negative (NEGATIVE) B-Hydroxybutyrate (0.02-0.27) mM 06/19/18 06/19/18 06/19/18 Range/Units 19:28 19:28 19:19 WBC 15.0 H D (4.8-10.8) K/uL RBC 4.37 L (4.40-5.90) Mil/uL Hgb 13.4 (12.0-18.0) g/dL Hct 42.7 (35.0-51.0) % MCV 97.7 H D (80.0-94.0) fl MCH 30.7 (27.0-31.0) pg MCHC 31.4 L (33.0-37.0) g/dL RDW 13.4 (11.5-14.5) % Plt Count 278 (130-400) K/uL MPV 8.8 (7.2-11.7) fl Neut % (Auto) 84.0 H (50.0-75.0) % Lymph % (Auto) 7.2 L (20.0-40.0) % [place] % (Auto) 8.3 (0.0-10.0) % Eos % (Auto) 0.1 (0.0-4.0) % Baso % (Auto) 0.4 (0.0-2.0) % Neut # (Auto) 12.6 H (1.8-7.0) K/uL Lymph # (Auto) 1.1 (1.0-4.3) K/uL [place] # (Auto) 1.3 H (0.0-0.8) K/uL Eos # (Auto) 0.0 (0.0-0.7) K/uL Baso # (Auto) 0.1 (0.0-0.2) K/uL Neutrophils % (Manual) 85 H (42-75) % Lymphocytes % (Manual) 7 L (20-50) % Monocytes % (Manual) 7 (0-10) % Eosinophils % (Manual) 1 (0-7) % Platelet Estimate Normal (NORMAL) Macrocytosis (manual) Slight PT (9.8-13.1) Seconds INR APTT (25.6-37.1) Seconds pCO2 22 L (35-45) mm/Hg pO2 100 (80-100) mm/Hg HCO3 9.5 L* (21-28) mmol/L ABG pH 7.14 L* (7.35-7.45) ABG Total CO2 8.2 L (22-28) mmol/L ABG O2 Saturation 98.6 H (95-98) % ABG Base Excess -19.7 L (-2.0-3.0) mmol/L Fabian Test Yes ABG Potassium 5.6 H (3.6-5.2) mmol/L A-a O2 Difference 22.0 mm/Hg Sodium 139 138.0 (132-148) mmol/L Chloride 95 L 94.0 L (98-107) mmol/L Glucose 580 H* D (75-110) mg/dL Lactate 6.2 H* (0.7-2.1) mmol/L FiO2 21.0 % Blood Gas Comments Lac=6.2 Crit Value Called To rip Rooney Crit Value Called By 22 Crit Value Read Back Y Blood Gas Notified Time 1924 Potassium 5.7 H (3.6-5.0) MMOL/L Carbon Dioxide 7 L* D (22-30) mmol/L Anion Gap 43 H (10-20) BUN 18 (9-20) mg/dl Creatinine 1.0 (0.8-1.5) mg/dl Est GFR ( Amer) > 60 Est GFR (Non-Af Amer) > 60 POC Glucose (mg/dL) (65-110) mg/dL Random Glucose 568 H* D (75-110) mg/dL Hemoglobin A1c (4.2-6.5) % Lactic Acid (0.7-2.1) mmol/L Calcium 9.6 (8.4-10.2) mg/dL Magnesium 1.8 (1.6-2.3) MG/DL Total Bilirubin 2.4 H (0.2-1.3) mg/dl AST 50 (17-59) U/L ALT 33 (21-72) U/L Alkaline Phosphatase 123 (38-126) U/L Troponin I < 0.0120 (0.00-0.120) ng/mL Total Protein 8.8 H (6.3-8.2) G/DL Albumin 5.5 H D (3.5-5.0) g/dL Globulin 3.4 (2.2-3.9) gm/dL Albumin/Globulin Ratio 1.6 (1.0-2.1) Lipase 10 L (23-300) U/L Arterial Blood Potassium 5.6 H (3.6-5.2) mmol/L Urine Color (YELLOW) Urine Clarity (Clear) Urine pH (5.0-8.0) Ur Specific [place] (1.003-1.030) Urine Protein (NEGATIVE) mg/dL Urine Glucose (UA) (NEGATIVE) mg/dL Urine Ketones (NEGATIVE) mg/dL Urine Blood (NEGATIVE) Urine Nitrate (NEGATIVE) Urine Bilirubin (NEGATIVE) Urine Urobilinogen (0.2-1.0) mg/dL Ur Leukocyte Esterase (Negative) Aaron/uL Urine Microscopic WBC (0-5) /hpf Urine Opiates Screen (NEGATIVE) Urine Methadone Screen (NEGATIVE) Ur Barbiturates Screen (NEGATIVE) Ur Phencyclidine Scrn (NEGATIVE) Ur Amphetamines Screen (NEGATIVE) U Benzodiazepines Scrn (NEGATIVE) U Oth Cocaine Metabols (NEGATIVE) U Cannabinoids Screen (NEGATIVE) B-Hydroxybutyrate (0.02-0.27) mM 06/19/18 Range/Units 19:14 WBC (4.8-10.8) K/uL RBC (4.40-5.90) Mil/uL Hgb (12.0-18.0) g/dL Hct (35.0-51.0) % MCV (80.0-94.0) fl MCH (27.0-31.0) pg MCHC (33.0-37.0) g/dL RDW (11.5-14.5) % Plt Count (130-400) K/uL MPV (7.2-11.7) fl Neut % (Auto) (50.0-75.0) % Lymph % (Auto) (20.0-40.0) % [place] % (Auto) (0.0-10.0) % Eos % (Auto) (0.0-4.0) % Baso % (Auto) (0.0-2.0) % Neut # (Auto) (1.8-7.0) K/uL Lymph # (Auto) (1.0-4.3) K/uL [place] # (Auto) (0.0-0.8) K/uL Eos # (Auto) (0.0-0.7) K/uL Baso # (Auto) (0.0-0.2) K/uL Neutrophils % (Manual) (42-75) % Lymphocytes % (Manual) (20-50) % Monocytes % (Manual) (0-10) % Eosinophils % (Manual) (0-7) % Platelet Estimate (NORMAL) Macrocytosis (manual) PT (9.8-13.1) Seconds INR APTT (25.6-37.1) Seconds pCO2 (35-45) mm/Hg pO2 (80-100) mm/Hg HCO3 (21-28) mmol/L ABG pH (7.35-7.45) ABG Total CO2 (22-28) mmol/L ABG O2 Saturation (95-98) % ABG Base Excess (-2.0-3.0) mmol/L Fabian Test ABG Potassium (3.6-5.2) mmol/L A-a O2 Difference mm/Hg Sodium (132-148) mmol/L Chloride (98-107) mmol/L Glucose (75-110) mg/dL Lactate (0.7-2.1) mmol/L FiO2 % Blood Gas Comments Crit Value Called To Crit Value Called By Crit Value Read Back Blood Gas Notified Time Potassium (3.6-5.0) MMOL/L Carbon Dioxide (22-30) mmol/L Anion Gap (10-20) BUN (9-20) mg/dl Creatinine (0.8-1.5) mg/dl Est GFR ( Amer) Est GFR (Non-Af Amer) POC Glucose (mg/dL) 490 H* (65-110) mg/dL Random Glucose (75-110) mg/dL Hemoglobin A1c (4.2-6.5) % Lactic Acid (0.7-2.1) mmol/L Calcium (8.4-10.2) mg/dL Magnesium (1.6-2.3) MG/DL Total Bilirubin (0.2-1.3) mg/dl AST (17-59) U/L ALT (21-72) U/L Alkaline Phosphatase (38-126) U/L Troponin I (0.00-0.120) ng/mL Total Protein (6.3-8.2) G/DL Albumin (3.5-5.0) g/dL Globulin (2.2-3.9) gm/dL Albumin/Globulin Ratio (1.0-2.1) Lipase (23-300) U/L Arterial Blood Potassium (3.6-5.2) mmol/L Urine Color (YELLOW) Urine Clarity (Clear) Urine pH (5.0-8.0) Ur Specific [place] (1.003-1.030) Urine Protein (NEGATIVE) mg/dL Urine Glucose (UA) (NEGATIVE) mg/dL Urine Ketones (NEGATIVE) mg/dL Urine Blood (NEGATIVE) Urine Nitrate (NEGATIVE) Urine Bilirubin (NEGATIVE) Urine Urobilinogen (0.2-1.0) mg/dL Ur Leukocyte Esterase (Negative) Aaron/uL Urine Microscopic WBC (0-5) /hpf Urine Opiates Screen (NEGATIVE) Urine Methadone Screen (NEGATIVE) Ur Barbiturates Screen (NEGATIVE) Ur Phencyclidine Scrn (NEGATIVE) Ur Amphetamines Screen (NEGATIVE) U Benzodiazepines Scrn (NEGATIVE) U Oth Cocaine Metabols (NEGATIVE) U Cannabinoids Screen (NEGATIVE) B-Hydroxybutyrate (0.02-0.27) mM Laboratory Results - last 24 hr 06/19/18 06/19/18 06/19/18 19:14 19:19 19:28 WBC 15.0 H D RBC 4.37 L Hgb 13.4 Hct 42.7 MCV 97.7 H D MCH 30.7 MCHC 31.4 L RDW 13.4 Plt Count 278 MPV 8.8 Neut % (Auto) 84.0 H Lymph % (Auto) 7.2 L [place] % (Auto) 8.3 Eos % (Auto) 0.1 Baso % (Auto) 0.4 Neut # (Auto) 12.6 H Lymph # (Auto) 1.1 [place] # (Auto) 1.3 H Eos # (Auto) 0.0 Baso # (Auto) 0.1 Neutrophils % (Manual) 85 H Lymphocytes % (Manual) 7 L Monocytes % (Manual) 7 Eosinophils % (Manual) 1 Platelet Estimate Normal Macrocytosis (manual) Slight PT INR APTT pCO2 22 L pO2 100 HCO3 9.5 L* ABG pH 7.14 L* ABG Total CO2 8.2 L ABG O2 Saturation 98.6 H ABG Base Excess -19.7 L Fabian Test Yes ABG Potassium 5.6 H A-a O2 Difference 22.0 Sodium 138.0 Chloride 94.0 L Glucose 580 H* D Lactate 6.2 H* FiO2 21.0 Blood Gas Comments Lac=6.2 Crit Value Called To rip Rooney Crit Value Called By 22 Crit Value Read Back Y Blood Gas Notified Time 1924 Potassium Carbon Dioxide Anion Gap BUN Creatinine Est GFR ( Amer) Est GFR (Non-Af Amer) POC Glucose (mg/dL) 490 H* Random Glucose Hemoglobin A1c Lactic Acid Calcium Magnesium Total Bilirubin AST ALT Alkaline Phosphatase Troponin I Total Protein Albumin Globulin Albumin/Globulin Ratio Lipase Arterial Blood Potassium 5.6 H Urine Color Urine Clarity Urine pH Ur Specific [place] Urine Protein Urine Glucose (UA) Urine Ketones Urine Blood Urine Nitrate Urine Bilirubin Urine Urobilinogen Ur Leukocyte Esterase Urine Microscopic WBC Urine Opiates Screen Urine Methadone Screen Ur Barbiturates Screen Ur Phencyclidine Scrn Ur Amphetamines Screen U Benzodiazepines Scrn U Oth Cocaine Metabols U Cannabinoids Screen B-Hydroxybutyrate 06/19/18 06/19/18 06/19/18 19:28 20:19 20:42 WBC RBC Hgb Hct MCV MCH MCHC RDW Plt Count MPV Neut % (Auto) Lymph % (Auto) [place] % (Auto) Eos % (Auto) Baso % (Auto) Neut # (Auto) Lymph # (Auto) [place] # (Auto) Eos # (Auto) Baso # (Auto) Neutrophils % (Manual) Lymphocytes % (Manual) Monocytes % (Manual) Eosinophils % (Manual) Platelet Estimate Macrocytosis (manual) PT INR APTT pCO2 pO2 HCO3 ABG pH ABG Total CO2 ABG O2 Saturation ABG Base Excess Fabian Test ABG Potassium A-a O2 Difference Sodium 139 Chloride 95 L Glucose Lactate FiO2 Blood Gas Comments Crit Value Called To Crit Value Called By Crit Value Read Back Blood Gas Notified Time Potassium 5.7 H Carbon Dioxide 7 L* D Anion Gap 43 H BUN 18 Creatinine 1.0 Est GFR ( Amer) > 60 Est GFR (Non-Af Amer) > 60 POC Glucose (mg/dL) 442 H* Random Glucose 568 H* D Hemoglobin A1c Lactic Acid Calcium 9.6 Magnesium 1.8 Total Bilirubin 2.4 H AST 50 ALT 33 Alkaline Phosphatase 123 Troponin I < 0.0120 Total Protein 8.8 H Albumin 5.5 H D Globulin 3.4 Albumin/Globulin Ratio 1.6 Lipase 10 L Arterial Blood Potassium Urine Color Straw Urine Clarity Clear Urine pH 5.0 Ur Specific [place] 1.020 Urine Protein 30 Urine Glucose (UA) >=500 Urine Ketones 80 Urine Blood Negative Urine Nitrate Negative Urine Bilirubin Negative Urine Urobilinogen 0.2-1.0 Ur Leukocyte Esterase Neg Urine Microscopic WBC < 1 Urine Opiates Screen Urine Methadone Screen Ur Barbiturates Screen Ur Phencyclidine Scrn Ur Amphetamines Screen U Benzodiazepines Scrn U Oth Cocaine Metabols U Cannabinoids Screen B-Hydroxybutyrate 06/19/18 06/19/18 06/19/18 20:42 20:59 22:19 WBC RBC Hgb Hct MCV MCH MCHC RDW Plt Count MPV Neut % (Auto) Lymph % (Auto) [place] % (Auto) Eos % (Auto) Baso % (Auto) Neut # (Auto) Lymph # (Auto) [place] # (Auto) Eos # (Auto) Baso # (Auto) Neutrophils % (Manual) Lymphocytes % (Manual) Monocytes % (Manual) Eosinophils % (Manual) Platelet Estimate Macrocytosis (manual) PT INR APTT pCO2 pO2 HCO3 ABG pH ABG Total CO2 ABG O2 Saturation ABG Base Excess Fabian Test ABG Potassium A-a O2 Difference Sodium Chloride Glucose Lactate FiO2 Blood Gas Comments Crit Value Called To Crit Value Called By Crit Value Read Back Blood Gas Notified Time Potassium Carbon Dioxide Anion Gap BUN Creatinine Est GFR ( Amer) Est GFR (Non-Af Amer) POC Glucose (mg/dL) 341 H 252 H Random Glucose Hemoglobin A1c Lactic Acid Calcium Magnesium Total Bilirubin AST ALT Alkaline Phosphatase Troponin I Total Protein Albumin Globulin Albumin/Globulin Ratio Lipase Arterial Blood Potassium Urine Color Urine Clarity Urine pH Ur Specific [place] Urine Protein Urine Glucose (UA) Urine Ketones Urine Blood Urine Nitrate Urine Bilirubin Urine Urobilinogen Ur Leukocyte Esterase Urine Microscopic WBC Urine Opiates Screen Negative Urine Methadone Screen Negative Ur Barbiturates Screen Negative Ur Phencyclidine Scrn Negative Ur Amphetamines Screen Negative U Benzodiazepines Scrn Negative U Oth Cocaine Metabols Negative U Cannabinoids Screen Negative B-Hydroxybutyrate 06/19/18 06/19/18 06/19/18 23:00 23:00 23:10 WBC RBC Hgb Hct MCV MCH MCHC RDW Plt Count MPV Neut % (Auto) Lymph % (Auto) [place] % (Auto) Eos % (Auto) Baso % (Auto) Neut # (Auto) Lymph # (Auto) [place] # (Auto) Eos # (Auto) Baso # (Auto) Neutrophils % (Manual) Lymphocytes % (Manual) Monocytes % (Manual) Eosinophils % (Manual) Platelet Estimate Macrocytosis (manual) PT INR APTT pCO2 pO2 HCO3 ABG pH ABG Total CO2 ABG O2 Saturation ABG Base Excess Fabian Test ABG Potassium A-a O2 Difference Sodium Chloride Glucose Lactate FiO2 Blood Gas Comments Crit Value Called To Crit Value Called By Crit Value Read Back Blood Gas Notified Time Potassium Carbon Dioxide Anion Gap BUN Creatinine Est GFR ( Amer) Est GFR (Non-Af Amer) POC Glucose (mg/dL) 218 H Random Glucose Hemoglobin A1c Lactic Acid 3.6 H Calcium Magnesium Total Bilirubin AST ALT Alkaline Phosphatase Troponin I Total Protein Albumin Globulin Albumin/Globulin Ratio Lipase Arterial Blood Potassium Urine Color Urine Clarity Urine pH Ur Specific [place] Urine Protein Urine Glucose (UA) Urine Ketones Urine Blood Urine Nitrate Urine Bilirubin Urine Urobilinogen Ur Leukocyte Esterase Urine Microscopic WBC Urine Opiates Screen Urine Methadone Screen Ur Barbiturates Screen Ur Phencyclidine Scrn Ur Amphetamines Screen U Benzodiazepines Scrn U Oth Cocaine Metabols U Cannabinoids Screen B-Hydroxybutyrate 3.54 H 06/20/18 06/20/18 06/20/18 03:35 05:01 05:01 WBC RBC Hgb Hct MCV MCH MCHC RDW Plt Count MPV Neut % (Auto) Lymph % (Auto) [place] % (Auto) Eos % (Auto) Baso % (Auto) Neut # (Auto) Lymph # (Auto) [place] # (Auto) Eos # (Auto) Baso # (Auto) Neutrophils % (Manual) Lymphocytes % (Manual) Monocytes % (Manual) Eosinophils % (Manual) Platelet Estimate Macrocytosis (manual) PT INR APTT pCO2 pO2 HCO3 ABG pH ABG Total CO2 ABG O2 Saturation ABG Base Excess Fabian Test ABG Potassium A-a O2 Difference Sodium 136 139 Chloride 106 105 Glucose Lactate FiO2 Blood Gas Comments Crit Value Called To Crit Value Called By Crit Value Read Back Blood Gas Notified Time Potassium 5.7 H 4.6 Carbon Dioxide 21 L 27 Anion Gap 15 12 BUN 15 15 Creatinine 0.6 L 0.7 L Est GFR ( Amer) > 60 > 60 Est GFR (Non-Af Amer) > 60 > 60 POC Glucose (mg/dL) Random Glucose 262 H 188 H Hemoglobin A1c 8.3 H Lactic Acid Calcium 7.9 L 8.4 Magnesium Total Bilirubin AST ALT Alkaline Phosphatase Troponin I Total Protein Albumin Globulin Albumin/Globulin Ratio Lipase Arterial Blood Potassium Urine Color Urine Clarity Urine pH Ur Specific [place] Urine Protein Urine Glucose (UA) Urine Ketones Urine Blood Urine Nitrate Urine Bilirubin Urine Urobilinogen Ur Leukocyte Esterase Urine Microscopic WBC Urine Opiates Screen Urine Methadone Screen Ur Barbiturates Screen Ur Phencyclidine Scrn Ur Amphetamines Screen U Benzodiazepines Scrn U Oth Cocaine Metabols U Cannabinoids Screen B-Hydroxybutyrate 06/20/18 06/20/18 06/20/18 05:01 05:01 08:15 WBC 7.8 RBC 3.68 L Hgb 11.6 L Hct 33.7 L MCV 91.7 D MCH 31.5 H MCHC 34.3 RDW 12.7 Plt Count 208 MPV 8.2 Neut % (Auto) 78.4 H Lymph % (Auto) 12.8 L [place] % (Auto) 8.3 Eos % (Auto) 0.0 Baso % (Auto) 0.5 Neut # (Auto) 6.1 Lymph # (Auto) 1.0 [place] # (Auto) 0.7 Eos # (Auto) 0.0 Baso # (Auto) 0.0 Neutrophils % (Manual) Lymphocytes % (Manual) Monocytes % (Manual) Eosinophils % (Manual) Platelet Estimate Macrocytosis (manual) PT 10.7 INR 0.9 APTT 27.2 pCO2 pO2 HCO3 ABG pH ABG Total CO2 ABG O2 Saturation ABG Base Excess Fabian Test ABG Potassium A-a O2 Difference Sodium 139 Chloride 104 Glucose Lactate FiO2 Blood Gas Comments Crit Value Called To Crit Value Called By Crit Value Read Back Blood Gas Notified Time Potassium 4.1 Carbon Dioxide 27 Anion Gap 12 BUN 17 Creatinine 0.7 L Est GFR ( Amer) > 60 Est GFR (Non-Af Amer) > 60 POC Glucose (mg/dL) Random Glucose 145 H Hemoglobin A1c Lactic Acid Calcium 8.4 Magnesium Total Bilirubin AST ALT Alkaline Phosphatase Troponin I Total Protein Albumin Globulin Albumin/Globulin Ratio Lipase Arterial Blood Potassium Urine Color Urine Clarity Urine pH Ur Specific [place] Urine Protein Urine Glucose (UA) Urine Ketones Urine Blood Urine Nitrate Urine Bilirubin Urine Urobilinogen Ur Leukocyte Esterase Urine Microscopic WBC Urine Opiates Screen Urine Methadone Screen Ur Barbiturates Screen Ur Phencyclidine Scrn Ur Amphetamines Screen U Benzodiazepines Scrn U Oth Cocaine Metabols U Cannabinoids Screen B-Hydroxybutyrate 06/20/18 12:00 WBC RBC Hgb Hct MCV MCH MCHC RDW Plt Count MPV Neut % (Auto) Lymph % (Auto) [place] % (Auto) Eos % (Auto) Baso % (Auto) Neut # (Auto) Lymph # (Auto) [place] # (Auto) Eos # (Auto) Baso # (Auto) Neutrophils % (Manual) Lymphocytes % (Manual) Monocytes % (Manual) Eosinophils % (Manual) Platelet Estimate Macrocytosis (manual) PT INR APTT pCO2 pO2 HCO3 ABG pH ABG Total CO2 ABG O2 Saturation ABG Base Excess Fabian Test ABG Potassium A-a O2 Difference Sodium 137 Chloride 102 Glucose Lactate FiO2 Blood Gas Comments Crit Value Called To Crit Value Called By Crit Value Read Back Blood Gas Notified Time Potassium 4.4 Carbon Dioxide 25 Anion Gap 14 BUN 17 Creatinine 0.6 L Est GFR ( Amer) > 60 Est GFR (Non-Af Amer) > 60 POC Glucose (mg/dL) Random Glucose 227 H Hemoglobin A1c Lactic Acid Calcium 8.2 L Magnesium Total Bilirubin AST ALT Alkaline Phosphatase Troponin I Total Protein Albumin Globulin Albumin/Globulin Ratio Lipase Arterial Blood Potassium Urine Color Urine Clarity Urine pH Ur Specific [place] Urine Protein Urine Glucose (UA) Urine Ketones Urine Blood Urine Nitrate Urine Bilirubin Urine Urobilinogen Ur Leukocyte Esterase Urine Microscopic WBC Urine Opiates Screen Urine Methadone Screen Ur Barbiturates Screen Ur Phencyclidine Scrn Ur Amphetamines Screen U Benzodiazepines Scrn U Oth Cocaine Metabols U Cannabinoids Screen B-Hydroxybutyrate Radiology Impressions: Radiology Impressions Abdomen/Pelvis CT 06/19/18 19:23 IMPRESSION: Cholelithiasis without evidence of cholecystitis. No evidence of biliary obstruction. Fatty infiltration of the liver. No additional abnormality. The preliminary findings for this examination were reported by [facility] Radiology at 10:36 p.m. on 06/19/2018. There is discordance of this report with the preliminary findings. Presence of cholelithiasis was not described in the preliminary report of this examination. There is no evidence to suggest enterocolitis on the basis of this examination. Chest X-Ray 06/19/18 19:23 IMPRESSION: No active disease. No significant interval change compared to the prior examination(s). Gallbladder Ultrasound 06/19/18 20:21 IMPRESSION: Cholelithiasis without evidence of cholecystitis. Fatty infiltration of the liver. Otherwise unremarkable. Fingerstick Blood Sugar Results: 224 Review of Systems - Cardiovascular Cardiovascular: absent: Chest Pain, Chest Pain at Rest, Chest Pain with Activity, Claudication, Diaphoresis - Respiratory Respiratory: absent: Cough, Dyspnea, Hemoptysis, Dyspnea on Exertion, Wheezing, Snoring Critical Care Progress Note - Extremities/Vascular Does the Patient have a Central Venous Catheter?: No Does the Patient need a Central Venous Catheter?: No Does the Patient have a Blanchard Catheter?: No Does the Patient need a Blanchard Catheter?: No - Nutrition Nutrition: Nutrition Category Date Time Status Heart Healthy Diet [DIET] Diets 06/20/18 Dinner Active Assessment/Plan (1) DKA (diabetic ketoacidoses) Current Visit: Yes Status: Acute Priority: High (2) Abdominal pain Current Visit: Yes Status: Acute Priority: High (3) Cholecystitis Current Visit: No Status: Acute Priority: Medium (4) Gallstones Current Visit: No Status: Acute Priority: Medium (5) HIV (human immunodeficiency virus infection) Current Visit: No Status: Chronic Priority: High
[2018-06-20] MEDS: Insulin Regular 100 units/ml SC SCH ×2 (17:31→22:22)
[2018-06-20] MEDS ORDERED: Insulin Regular 100 units/ml SC STA (18:40)
[2018-06-20] MEDS: Insulin Detemir 100 Units/ml Inj SC SCH (20:46)
[2018-06-21] MEDS: Insulin Regular 100 units/ml SC SCH ×2 (06:30→12:54)
[2018-06-21 06:52] LABS: HEMOGLOBIN 11.9 g/dL (12.0-18.0); MEAN CELL VOLUME 92.3 fl (80.0-94.0); MEAN CORPUSCULAR HEMOGLOBIN 31.1 pg (27.0-31.0); MEAN CORPUSCULAR HGB CONC 33.7 g/dL (33.0-37.0); RBC 3.82 Mil/uL (4.40-5.90); RED CELL DISTRIBUTION WIDTH 12.8 % (11.5-14.5); WHITE BLOOD COUNT 4.7 K/uL (4.8-10.8)
[2018-06-21 07:35] LABS: BLOOD UREA NITROGEN 13 mg/dl (9-20); GFR NON-AFRICAN AMERICAN > 60
[2018-06-21] MEDS: Insulin Detemir 100 Units/ml Inj SC SCH (08:48)
[2018-06-21] MEDS: Enoxaparin 40 mg Syringe SC SCH (08:49)
--- NOTE | 2018-06-21 10:45 | CP.CCUPN ---
CCU Subjective - Physician Review Subjective (Free Text): Uneventful night, BS levels remain variable, from below 100 to high 300s, off insulin drip since yesterday afternoon, SC Long-acting insulin resumed yesterday evening. No further N/V noted. No new temp spikes, temps remain mostly 98F. SBP 130-150s, HR 80-100s. SPo2 99% on RA. I/Os reviewed, on no IVFs now. ROS: No other pertinent negs or positive on 10+ system review. Other PMSFH: All other Nursing and physician documentation reviewed to date; no new pertinent info noted relevant to current medical problems. EXAM- HEENT: no icterus, pupils equal, 3 mm and reactive, no gaze preference NECK: no visible JVD, supple, carotids equal upstroke bilat/no bruits CHEST: decreased BS bases, no wheezes audible HEART: regular, distant, tachy S1S2, no murmur audible, no rubs. ABD: soft, no distention, no ascites, no focal tenderness, BS hypoactive EXT: no edema UEs and LEs, no calf tenderness or palpable cords, distal pulses intact and symmetrical NEURO: no gross focal motor deficits. SKIN: no rashes LABS: WBC= 4.7 HGB= 11.9 PLTs = 183K Na= 137 K= 4.2 Cl= 102 HCO3= 27 BUN/Cr= 13/0.5 BS= 112 IMPRESSION / MAJOR PROBLEMS NOW: 1. DKA with recent / new onset IRDM 2. Recent new onset HIV+ Disease PLAN: 1. Q12H Levemir started yesterday, get Endocrine eval for further clarification of insulin needs. 2. ID eval given relatively new HIV+ status and possible initiation of HAART. 3. May be mobilized OOB to chair. 4. Moderate CC diet, stable for regular medical bed.
[2018-06-21] MEDS: Insulin Lispro (humaLOG) 100 Units/ml Inj SC SCH ×3 (17:00→21:27)
--- NOTE | 2018-06-21 19:38 | CP.PCM.PN ---
Subjective - Date & Time of Evaluation Date of Evaluation: 06/21/18 Time of Evaluation: 19:36 - Subjective Subjective: I D NOTE HAve ordered T-lymphocte profiie and viral load. will see patient to fredy ISIDRO c him Objective - Vital Signs/Intake and Output Vital Signs (last 24 hours): Temp Pulse Resp BP Pulse Ox 98.8 F 92 H 17 145/98 H 99 06/21/18 16:00 06/21/18 18:00 06/21/18 18:00 06/21/18 18:00 06/21/18 18:00 Intake and Output: 06/21/18 06/22/18 18:59 06:59 Intake Total 920 Output Total 950 Balance -30 - Medications Medications: Current Medications Enoxaparin Sodium (Lovenox) 40 mg SC DAILY [facility]; Protocol Last Admin: 06/21/18 08:49 Dose: 40 mg Insulin Detemir (Levemir) 24 units SC HS [facility] Insulin Human Lispro (Humalog) 8 units SC AC [facility] Last Admin: 06/21/18 17:01 Dose: 8 units Insulin Human Lispro (Humalog) 0 units SC ACHS [facility] Last Admin: 06/21/18 17:00 Dose: Not Given Ketorolac Tromethamine (Toradol) 30 mg IVP Q6 PRN PRN Reason: Pain, severe (8-10) Last Admin: 06/20/18 17:35 Dose: 30 mg Ketorolac Tromethamine (Toradol) 15 mg IVP Q6 PRN PRN Reason: Pain, moderate (4-7) Last Admin: 06/21/18 15:07 Dose: 15 mg Lorazepam (Ativan) 1 mg IVP Q4H PRN PRN Reason: Symptoms of alcohol withdrawl Losartan Potassium (Cozaar) 25 mg PO DAILY [facility] Metoclopramide HCl (Reglan) 10 mg IVP Q6 PRN PRN Reason: Nausea/Vomiting Last Admin: 06/20/18 17:27 Dose: 10 mg Pantoprazole Sodium (Protonix Inj) 40 mg IVP DAILY [facility] Last Admin: 06/21/18 08:50 Dose: 40 mg - Labs Labs: 06/21/18 05:35 06/21/18 05:35 PT 10.7 Seconds (9.8-13.1) 06/20/18 05:01 INR 0.9 06/20/18 05:01 APTT 27.2 Seconds (25.6-37.1) 06/20/18 05:01
[2018-06-21] MEDS ORDERED: Insulin Detemir 100 Units/ml Inj SC SCH (22:00)
--- NOTE | 2018-06-21 23:46 | CP.PCM.HP ---
History of Present Illness - History of Present Illness History of Present Illness: HPI: 48 y/o male with a PMH of DM1 and newly diagnosed HIV presented to the ED with persistent abdominal pain and several vomiting episodes. On arrival, his blood sugar was 580, lactate was elevated at 6.1, and PH was 7.14. The pt was given aggressive IVF hydration and started on insulin drip. At this time, the pt reports feeling better and remains on insulin drip. PMH: Anxiety, Atrial Fibrillation, Cardiac Arrhythmia, Diabetes (type I), HTN, Hyperlipidemia, Pancreatitis, HIV, Gallstones. PSH: Denies. Social history: Daily drinker, non-smoker. Allergies: NDKA. Subjective Review of Systems: Reviewed and no additional remarkable complaints except intermittent abdominal pain. Objective Appears: Non-toxic, No Acute Distress. Head Exam: NORMAL INSPECTION, normocephalic. Eye Exam: Normal eye inspection, EOMI, PERRLA. Respiratory Exam: NORMAL BREATHING PATTERN, breath sounds clear to auscultation. Cardiovascular Exam: +S1, +S2. RRR. GI & Abdominal Exam: Soft, diffuse tenderness, non-distended. Neurological Exam: Alert, Awake, Oriented x3. Musculoskeletal Exam: 5/5 BUE strength, 5/5 BLE strength. Psychiatric exam: Normal Affect, Normal Mood, Calm and cooperative. Skin Exam: Pallor, Warm, Dry. Assessment/Impression/Plan: 1.) DKA -Pt currently on insulin drip. -Anion gap closing. -Hourly accuchecks; Q4h BMPs. -Reglan for diabetic gastroparesis. -NPO for now. -Pt to be switched to long acting insulin (Levemir) once off of insulin drip. Present on Admission - Present on Admission Any Indicators Present on Admission: Yes History of Uncontrolled Diabetes: Yes Past Patient History - Past Medical History & Family History Past Medical History?: Yes - Past Social History Smoking Status: Never Smoked Chewing Tobacco Use: No Cigar Use: No Alcohol: > 2 Drinks/Day Drugs: Denies, Inhalants - CARDIAC Hx Atrial Fibrillation: Yes Hx Cardia Arrhythmia: Yes Hx Congestive Heart Failure: No Hx Hypercholesterolemia: Yes Hx Hypertension: Yes Hx Mitral Valve Prolapse: No Hx Pacemaker: No Hx Peripheral Edema: No - PULMONARY Hx Asthma: No Hx Bronchitis: No Hx Chronic Obstructive Pulmonary Disease (COPD): No Hx Emphysema: No Hx Pneumonia: No Hx Pulmonary Embolism: No Hx Sleep Apnea: No - NEUROLOGICAL Hx Alzheimer's Disease: No Hx Dementia: No Hx Migraine: No Hx Multiple Sclerosis: No Hx Parkinson's Disease: No Hx Seizures: No Hx Transient Ischemic Attacks (TIA): No - HEENT Hx Blind: No Hx Cataracts: No Hx Deafness: No Hx Difficulty Chewing: No Hx Epistaxis: No Hx Glaucoma: No Hx Macular Degeneration: No - RENAL Hx Chronic Kidney Disease: No Hx Kidney Stones: No - ENDOCRINE/METABOLIC Hx Diabetes Mellitus Type 1: Yes - HEMATOLOGICAL/ONCOLOGICAL Hx Anemia: No Hx Human Immunodeficiency Virus (HIV): Yes - INTEGUMENTARY Hx Dermatological Problems: No - MUSCULOSKELETAL/RHEUMATOLOGICAL Hx Arthritis: No Hx Fractures: No Hx Osteoporosis: No Hx Rheumatoid Arthritis: No - GASTROINTESTINAL Hx Crohn's Disease: No Hx Diverticulitis: No Hx Gall Bladder Disease: No Hx Gastritis: No Hx Pancreatitis: Yes - GENITOURINARY/GYNECOLOGICAL Hx Sexually Transmitted Disorders: No - PSYCHIATRIC Hx Anxiety: Yes Hx Bipolar Disorder: No Hx Depression: No Hx Paranoia: No Hx Post Traumatic Stress Disorder: No Hx Schizophrenia: No - SURGICAL HISTORY Hx Surgeries: No - ANESTHESIA Hx Anesthesia: No Meds Allergies/Adverse Reactions: Allergies Allergy/AdvReac Type Severity Reaction Status Date / Time No Known Allergies Allergy Verified 06/19/18 18:31 Results - Vital Signs Recent Vital Signs: Last Vital Signs Temp 99.0 F 06/21/18 21:00 Pulse 82 06/21/18 21:00 Resp 20 06/21/18 21:00 BP 137/93 H 06/21/18 21:00 Pulse Ox 98 06/21/18 21:00 - Labs Result Diagrams: 06/21/18 05:35 06/21/18 05:35 Labs: Laboratory Results - last 24 hr 06/20/18 06/20/18 06/20/18 00:08 01:10 01:59 WBC RBC Hgb Hct MCV MCH MCHC RDW Plt Count Sodium Potassium Chloride Carbon Dioxide Anion Gap BUN Creatinine Est GFR ( Amer) Est GFR (Non-Af Amer) POC Glucose (mg/dL) 201 H 163 H 197 H Random Glucose Calcium 06/20/18 06/20/18 06/20/18 03:00 03:03 03:56 WBC RBC Hgb Hct MCV MCH MCHC RDW Plt Count Sodium Potassium Chloride Carbon Dioxide Anion Gap BUN Creatinine Est GFR ( Amer) Est GFR (Non-Af Amer) POC Glucose (mg/dL) 224 H 202 H 221 H Random Glucose Calcium 06/20/18 06/20/18 06/20/18 05:13 06:01 06:56 WBC RBC Hgb Hct MCV MCH MCHC RDW Plt Count Sodium Potassium Chloride Carbon Dioxide Anion Gap BUN Creatinine Est GFR ( Amer) Est GFR (Non-Af Amer) POC Glucose (mg/dL) 205 H 162 H 163 H Random Glucose Calcium 06/20/18 06/20/18 06/20/18 08:04 09:06 10:03 WBC RBC Hgb Hct MCV MCH MCHC RDW Plt Count Sodium Potassium Chloride Carbon Dioxide Anion Gap BUN Creatinine Est GFR ( Amer) Est GFR (Non-Af Amer) POC Glucose (mg/dL) 163 H 167 H 168 H Random Glucose Calcium 06/20/18 06/20/18 06/20/18 11:00 12:05 16:44 WBC RBC Hgb Hct MCV MCH MCHC RDW Plt Count Sodium Potassium Chloride Carbon Dioxide Anion Gap BUN Creatinine Est GFR ( Amer) Est GFR (Non-Af Amer) POC Glucose (mg/dL) 147 H 224 H 440 H* Random Glucose Calcium 06/20/18 06/20/18 06/20/18 18:37 20:09 22:15 WBC RBC Hgb Hct MCV MCH MCHC RDW Plt Count Sodium Potassium Chloride Carbon Dioxide Anion Gap BUN Creatinine Est GFR ( Amer) Est GFR (Non-Af Amer) POC Glucose (mg/dL) 388 H 383 H 214 H Random Glucose Calcium 06/21/18 06/21/18 06/21/18 04:19 05:28 05:35 WBC 4.7 L RBC 3.82 L Hgb 11.9 L Hct 35.2 MCV 92.3 MCH 31.1 H MCHC 33.7 RDW 12.8 Plt Count 183 Sodium Potassium Chloride Carbon Dioxide Anion Gap BUN Creatinine Est GFR ( Amer) Est GFR (Non-Af Amer) POC Glucose (mg/dL) 63 L 109 Random Glucose Calcium 06/21/18 05:35 WBC RBC Hgb Hct MCV MCH MCHC RDW Plt Count Sodium 137 Potassium 4.2 Chloride 102 Carbon Dioxide 27 Anion Gap 12 BUN 13 Creatinine 0.5 L Est GFR ( Amer) > 60 Est GFR (Non-Af Amer) > 60 POC Glucose (mg/dL) Random Glucose 112 H Calcium 9.0 Assessment & Plan (1) DKA (diabetic ketoacidoses) Status: Acute Priority: High
--- NOTE | 2018-06-22 00:02 | CP.PCM.PN ---
Subjective - Date & Time of Evaluation Date of Evaluation: 06/22/18 Time of Evaluation: 10:00 - Subjective Subjective: Pt seen and assessed at bedside, reports feeling much better than the day prior. Pt currently off insulin drip and has been receiving levemir + medium dose sliding scale Humulin R. Medically stable at this time. Subjective Review of Systems: Reviewed and no additional remarkable complaints noted. Objective Appears: Non-toxic, No Acute Distress. Head Exam: NORMAL INSPECTION, normocephalic. Eye Exam: Normal eye inspection, EOMI, PERRLA. Respiratory Exam: NORMAL BREATHING PATTERN, breath sounds clear to auscultation. Cardiovascular Exam: +S1, +S2. RRR. GI & Abdominal Exam: Soft, non-tender, non-distended. Neurological Exam: Alert, Awake, Oriented x3. Musculoskeletal Exam: 5/5 BUE strength, 5/5 BLE strength. Psychiatric exam: Normal Affect, Normal Mood, Calm and cooperative. Skin Exam: Pallor, Warm, Dry. Assessment/Impression/Plan: 1.) DKA -Pt currently off insulin drip. Now on Levemir 25 units BID and medium dose sliding scale Humulin R. -Added on endocrinology consult for further management. -Strict glycemic control advised. -Due to recent diagnosis of HIV (not on HAART therapy), infectious disease was consulted for workup. -Medically stable for transfer to med-surg at this time. Objective - Vital Signs/Intake and Output Vital Signs (last 24 hours): Temp Pulse Resp BP Pulse Ox 99.0 F 82 20 137/93 H 98 06/21/18 21:00 06/21/18 21:00 06/21/18 21:00 06/21/18 21:00 06/21/18 21:00 Intake and Output: 06/21/18 06/22/18 18:59 06:59 Intake Total 920 440 Output Total 950 Balance -30 440 - Medications Medications: Current Medications Enoxaparin Sodium (Lovenox) 40 mg SC DAILY [facility]; Protocol Last Admin: 06/21/18 08:49 Dose: 40 mg Insulin Detemir (Levemir) 24 units SC HS [facility] Last Admin: 06/21/18 21:25 Dose: 24 units Insulin Human Lispro (Humalog) 8 units SC AC [facility] Last Admin: 06/21/18 17:01 Dose: 8 units Insulin Human Lispro (Humalog) 0 units SC ACHS [facility] Last Admin: 06/21/18 21:27 Dose: Not Given Ketorolac Tromethamine (Toradol) 30 mg IVP Q6 PRN PRN Reason: Pain, severe (8-10) Last Admin: 06/20/18 17:35 Dose: 30 mg Ketorolac Tromethamine (Toradol) 15 mg IVP Q6 PRN PRN Reason: Pain, moderate (4-7) Last Admin: 06/21/18 21:29 Dose: 15 mg Lorazepam (Ativan) 1 mg IVP Q4H PRN PRN Reason: Symptoms of alcohol withdrawl Losartan Potassium (Cozaar) 25 mg PO DAILY [facility] Metoclopramide HCl (Reglan) 10 mg IVP Q6 PRN PRN Reason: Nausea/Vomiting Last Admin: 06/20/18 17:27 Dose: 10 mg Pantoprazole Sodium (Protonix Inj) 40 mg IVP DAILY [facility] Last Admin: 06/21/18 08:50 Dose: 40 mg - Labs Labs: 06/21/18 05:35 06/21/18 05:35 PT 10.7 Seconds (9.8-13.1) 06/20/18 05:01 INR 0.9 06/20/18 05:01 APTT 27.2 Seconds (25.6-37.1) 06/20/18 05:01 Assessment and Plan (1) DKA (diabetic ketoacidoses) Status: Acute
--- NOTE | 2018-06-22 04:41 | CON ---
DATE: 06/21/2018 LOCATION: ICU, room 434. HISTORY OF PRESENT ILLNESS: This is a 48-year-old male with known history of type 1 insulin-dependent diabetes, presenting here with marked hyperglycemic accelerations and recent supervening nausea, dyspepsia and vomiting and was found to be in diabetic ketoacidosis and admitted to ICU for closer metabolic and hemodynamic monitoring. He received an insulin drip infusion overnight with vigorous IV hydration as given. He is being referred now for diabetic evaluation and management. PAST MEDICAL HISTORY: As mentioned above, history of type 1 insulin-dependent diabetes for the last 25 years or so and has been very compliant with his insulin regimen at home using Basaglar at 30 units at bedtime and Humalog given at a variable dose of 10 to 15 units t.i.d. depending on his oral intake as noted, history of hypertension and dyslipidemia, history of recent HIV diagnosis and currently not on any kind of antiretroviral therapy pending the Infectious Disease consultation. FAMILY HISTORY: Mother also has type 1 diabetes and now in her late 70s . His maternal grandfather also has type 2 diabetes. SOCIAL HISTORY: The patient has a male domestic partner who is very supportive of his care. His mother is also very supportive of his care. No known substance use. 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 REVIEW OF SYSTEMS: As mentioned above. Admits to generalized body weakness with episodic bouts of dizziness and lightheadedness, worse on the day of admission. No chest pains or palpitations. His oral intake has been variable and suboptimal with nausea, dyspepsia and episodic vomiting episodes, worse on the day of admission. Also admits to marked polyuria, nocturia, and polydipsia related to drug omission over the last day or so prior to admission because of the supervening vomiting episodes. PHYSICAL EXAMINATION: GENERAL: This is an average-built male, in no apparent distress. VITAL SIGNS: Blood pressure 144/80, pulse of 80 beats per minute and regular, temperature 98, respirations 20, height is 5 feet 11 inches, weight is 180 pounds. HEENT: Head is normocephalic. Eyes are anicteric with pink conjunctivae. Funduscopy not possible at this time. Ears, nose and throat otherwise normal. NECK: Supple. Thyroid gland is normal in size. No carotid bruits or cervical adenopathy. CARDIOPULMONARY: Some adynamic precordium. S1, S2 is rapid and regular. LUNGS: Clear to auscultation. ABDOMEN: Flat, soft with positive bowel sounds. EXTREMITIES: No peripheral edema. Pulses are +2 bilaterally. LABORATORY DATA: His chemistry showed a BUN initially of 18, sodium 139, potassium 5.7, chloride 95, CO2 was 7, glucose 568 and creatinine 1. The subsequent glucose ranged from 442 to 490 mg/dL. His latest glucose today is 109 to 188 and 252 mg/dL. His latest CO2 now is 27. ASSESSMENT: This is a 48-year-old male with uncontrolled and decompensated type 1 insulin-dependent diabetes, presenting here with diabetic ketoacidosis and dehydration with prerenal azotemia and spurious hyperkalemia with some concomitant acute enterocolitis as noted. PLAN OF MANAGEMENT: We will continue the vigorous IV hydration with normal saline as given and obtain serial chemistries and supplement accordingly as needed. We will also discontinue now the insulin drip infusion and switch him over now to a more physiologic basal and bolus insulin drug combination as ordered in detail. We will add Humalog given as 8 units t.i.d. before meals to start today as ordered. We will also add basal insulin given as Levemir at 24 units subcu at bedtime daily to start tonight. We will modify the coverage scale to obviate hypoglycemia and detailed orders have been given. We will reinforce diabetic eduction and dietary instructions at the time of this admission. The use of an insulin pump was discussed with the patient at bedside, but he is actually considering the use of the aforementioned to optimize his metabolic control as noted. We will follow and advise accordingly. Raquel Cody MD
[2018-06-22 05:26] LABS: HEMOGLOBIN 11.7 g/dL (12.0-18.0); MEAN CELL VOLUME 91.6 fl (80.0-94.0); MEAN CORPUSCULAR HEMOGLOBIN 30.6 pg (27.0-31.0); MEAN CORPUSCULAR HGB CONC 33.4 g/dL (33.0-37.0); RBC 3.81 Mil/uL (4.40-5.90); RED CELL DISTRIBUTION WIDTH 12.3 % (11.5-14.5); WHITE BLOOD COUNT 2.7 K/uL (4.8-10.8)
[2018-06-22 05:32] LABS: BLOOD UREA NITROGEN 12 mg/dl (9-20); CALCIUM 9.4 mg/dL (8.4-10.2); GFR NON-AFRICAN AMERICAN > 60
[2018-06-22] MEDS: Insulin Lispro (humaLOG) 100 Units/ml Inj SC SCH ×5 (07:03→17:06)
[2018-06-22] MEDS: Enoxaparin 40 mg Syringe SC SCH (08:13)
[2018-06-22] MEDS ORDERED: Insulin Lispro (humaLOG) 100 Units/ml Inj SC SCH (16:30)
--- NOTE | 2018-06-22 19:55 | PN ---
DATE: 06/22/2018 ENDOCRINOLOGY FOLLOWUP NOTE LOCATION: In ICU, room 434. SUBJECTIVE: This is a 48-year-old male with recent uncontrolled type 1 insulin-dependent diabetes, presenting here with diabetic ketoacidosis and dehydration with intractable vomiting and upper abdominal pain and has since then improved clinically and metabolically as noted thereof. He was placed initially on an insulin drip infusion on admission with vigorous IV hydration as given. He is currently off the insulin drip at this time and has been on a basal and bolus insulin regimen starting last night as ordered. His glycemic levels overnight have ranged from 109-214 and 383 mg/dL. It was 63 at 04:00 a.m. this morning as he received extra coverage last night with the hyperglycemic accelerations as noted. LABORATORY DATA: His chemistries today showed a BUN of 12, sodium 137, potassium 3.9, chloride 98, CO2 of 31, glucose 242 and creatinine 0.5. ASSESSMENT: This is a 48-year-old male with uncontrolled and decompensated type 1 insulin-dependent diabetes with diabetic ketoacidosis and dehydration, and is now improving clinically and metabolically as noted thereof. He also has recent diagnosis of human immunodeficiency virus disorder and is being seen by Infectious Disease at this time. PLAN OF MANAGEMENT: We will continue the more physiologic basal and bolus insulin drug combination as ordered. We will titrate his Levemir to 30 units subcu at bedtime daily to start tonight. We will also increase the Humalog given at mealtimes to 10 units t.i.d. before meals to start today as ordered. We will obtain serial chemistries and supplement accordingly as needed. We will also continue the modified low-dose correction scale using Humalog insulin as given. We will obtain serial chemistries and supplement accordingly as needed. We will follow. Raquel Cody MD
[2018-06-22] MEDS ORDERED: Insulin Detemir 100 Units/ml Inj SC SCH (22:00)
[2018-06-22 22:47] VITALS: BP 146/102; PULSE 99; RESP 14; TEMP 98.7; O2SAT 100
--- NOTE | 2018-06-23 08:00 | CON ---
DATE: 06/22/2018 INFECTIOUS DISEASE CONSULTATION We are just to see the patient in regard to his HIV disease which is apparently he discovered recently. The patient is in the ICU for issues regarding diabetes and persistent abdominal pain. Also, he had some vomiting episodes. He has been on IV antibiotics while he has been in the Intensive Care Unit. At present, he has already seen an Infectious Disease physician, Dr. Melanie Toscano, whose office is in [place] and also in [facility]. He was supposed to see her this Tuesday in regards to starting a regimen of antiretrovirals, but he was here in the ICU. Currently, he has his labs and although less, I did order T-lymphocyte profile and HIV, RNA, PCR. I told him I would make this available to him when he is discharged. I would also assist him in getting the results to Dr. Toscano. I had a long discussion regarding the HIV as the patient is quite depressed and in need of comfort in regards to the disease. He asked me many questions in regards to the disease, and I attempted to answer them at the level necessary. I assured him that he would have to keep his diabetes under control and that would cause him more problems than the HIV disease. I advised him to get treated with antiretrovirals as soon as he possibly could, and he has already gotten an appointment with Dr. Toscano on 07/07/2018. Bony Gipson MD
[2018-06-23 10:42] LABS: % CD4 (T HELPER CELL) 41 Percent (30-61); % CD8 (SUPPRESSOR T CELL) 39 Percent (12-42); ABSOLUTE CD4 CELLS 419 Cells/mcL (490-1740); ABSOLUTE CD8 CELLS 396 Cells/mcL (180-1170); ABSOLUTE LYMPHOCYTES 1026 Cells/mcL (850-3900); HELPER/SUPPRESSOR RATIO 1.06 Ratio (0.86-5.00)
== END 2018-06-22 20:46 | disposition home or self-care (01) | DRG 639 ==
LOC: H.ER 18:24 → H.ERHOLD 19:28 → H.ICU/CCU 22:54
PROVIDERS: ADMIT Family Medicine; ATTEND Family Medicine
DX: E10.10 Type 1 diabetes mellitus with ketoacidosis without coma (principal); F41.9 Anxiety disorder, unspecified; I48.91 Unspecified atrial fibrillation; E78.00 Pure hypercholesterolemia, unspecified; I10 Essential (primary) hypertension; K80.20 Calculus of gallbladder without cholecystitis without obstruction; E86.0 Dehydration; E87.5 Hyperkalemia; D72.829 Elevated white blood cell count, unspecified; Z21 Asymptomatic human immunodeficiency virus [HIV] infection status; E78.5 Hyperlipidemia, unspecified; K52.9 Noninfective gastroenteritis and colitis, unspecified; K76.0 Fatty (change of) liver, not elsewhere classified; Z79.4 Long term (current) use of insulin

== ENCOUNTER 2018-07-04 09:43 | Inpatient (IN) | payer OTHER ==
[2018-07-04 09:43] VITALS: BMI 25.4
[2018-07-04] MEDS ORDERED: Morphine 4 MG/ML VIAL IVP STA ×2 (10:07→11:10)
[2018-07-04] MEDS ORDERED: Morphine 4 MG/ML VIAL ONE ×2 (10:18→11:33)
[2018-07-04 11:00] LABS: BASO % 0.6 % (0.0-2.0); EOS % 0.3 % (0.0-4.0); HEMOGLOBIN 13.3 g/dL (12.0-18.0); LYMPH # 0.7 K/uL (1.0-4.3); LYMPH % 12.5 % (20.0-40.0); MEAN CELL VOLUME 93.1 fl (80.0-94.0); MEAN CORPUSCULAR HEMOGLOBIN 31.2 pg (27.0-31.0); MEAN CORPUSCULAR HGB CONC 33.5 g/dL (33.0-37.0); MEAN PLATELET VOLUME 8.7 fl (7.2-11.7); MONO # 0.1 K/uL (0.0-0.8); MONO % 2.3 % (0.0-10.0); NEUT # 4.8 K/uL (1.8-7.0); NEUT % 84.3 % (50.0-75.0); NRBC % 0.1 % (0.0-0.0); RBC 4.26 Mil/uL (4.40-5.90); RED CELL DISTRIBUTION WIDTH 13.1 % (11.5-14.5); WHITE BLOOD COUNT 5.8 K/uL (4.8-10.8)
[2018-07-04 11:12] LABS: ALB/GLOB RATIO 1.6 (1.0-2.1); ALBUMIN 5.3 g/dL (3.5-5.0); ALT/SGPT 45 U/L (21-72); AST/SGOT 56 U/L (17-59); BLOOD UREA NITROGEN 11 mg/dl (9-20); GFR NON-AFRICAN AMERICAN > 60
[2018-07-04 11:14] LABS: INR 0.9
--- NOTE | 2018-07-04 11:15 | CT ---
Date of service: 07/04/2018 PROCEDURE: CT Lumbar Spine without contrast HISTORY: lower back pain after fall, unable to lift R leg COMPARISON: None available. TECHNIQUE: Axial computed tomography images were obtained of the lumbar spine without the use of intravenous contrast. Coronal and sagittal reformatted images were created and reviewed. Radiation dose: Total exam DLP = 487.23 mGy-cm. This CT exam was performed using one or more of the following dose reduction techniques: Automated exposure control, adjustment of the mA and/or kV according to patient size, and/or use of iterative reconstruction technique. FINDINGS: VERTEBRAE: There is normal alignment of the lumbar vertebral bodies. There is normal lumbar lordosis. There is an acute superior endplate compression fracture in the L3 vertebral body with approximately 10 % loss of anterior vertebral height. No evidence for retropulsion. There is mild diffuse bone demineralization. DISCS/SPINAL CANAL/NEURAL FORAMINA: Evaluation of the discs and spinal canal is limited on noncontrast CT examination. Allowing for this, L1-2: Unremarkable. L2-3: Unremarkable. L3-4: Mild posterior disc bulge without central spinal canal stenosis or neural foraminal narrowing. L4-5: Diffuse posterior disc bulge indents the ventral thecal sac without central spinal canal stenosis. Also noted is superimposed left foraminal disc protrusion. Mild bilateral facet arthropathy contribute to moderate right and severe left neural foraminal narrowing. L5-S1: Diffuse posterior disc bulge without central spinal canal stenosis. No neural foraminal narrowing. PARASPINAL SOFT TISSUES: Unremarkable. OTHER FINDINGS: None. IMPRESSION: 1. Acute superior endplate compression fracture in the L3 vertebral body with approximately 10 % loss of anterior vertebral height. No retropulsion. 2. Mild posterior disc bulges at L4-5 and L5-S1, worse at L4-5 with a superimposed small left foraminal disc protrusion without central spinal canal stenosis. Mild bilateral facet arthropathy contribute to moderate right and severe left neural foraminal narrowing.
[2018-07-04 11:18] LABS: PROTHROMBIN TIME 10.4 Seconds (9.8-13.1)
--- NOTE | 2018-07-04 12:39 | ED PDOC ---
HPI: Back Time Seen by Provider: 07/04/18 10:07 Chief Complaint (Nursing): Trauma Chief Complaint (Provider): Trauma History Per: Patient, Family History/Exam Limitations: no limitations Onset/Duration Of Symptoms: Sudden Onset Current Symptoms Are (Timing): Still Present Additional Complaint(s): 48 year old male with medical history of hypertension and diabetes, is brought to the emergency department with family at bedside, for an evaluation of severe back pain status post fall around 1045 this morning. Niece reports, this morning, the patient looked pale with sweats then went to the bathroom when she heard him screaming in pain (awake and alert upon onset). She is unsure if the patient had syncopal episode, weakness, or mechanical fall. No reports in change of medicine, back pain prior to event, fever, or chills. PCP: none provided Past Medical History Reviewed: Historical Data, Nursing Documentation, Vital Signs Vital Signs: Last Vital Signs Temp Pulse Resp BP 132/82 07/04/18 11:42 Pulse Ox Primary Care Provider: Non [facility] Provider, - Medical History PMH: Anxiety, Atrial Fibrillation, Cardia Arrhythmia, Diabetes (type I), HIV, HTN, Hypercholesterolemia, Pancreatitis Denies: Alzheimer's Disease, Anemia, Arthritis, Asthma, Bipolar Disorder, Bronchitis, CAD, CHF, COPD, Crohn's Disease, Dementia, Depression, Diverticulitis, Emphysema, Fractures, Gastritis, Gall Bladder Disease, Kidney Stones, Migraine, Mitral Valve Prolapse, Multiple Sclerosis, Osteoporosis, Paranoia, Parkinson's Disease, Peripheral Edema, Pneumonia, Post Traumatic Stress Disorder, Pulmonary Embolism, Chronic Kidney Disease, Rheumatoid Arthritis, Schizophrenia, Seizures, Sexually Transmitted Disease, Sleep Apnea, TIA - Surgical History Surgical History: Denies: Pacemaker - Family History Family History: States: Unknown Family Hx - Immunization History Hx Tetanus Toxoid Vaccination: No Hx Influenza Vaccination: No Hx Pneumococcal Vaccination: No - Home Medications Home Medications: Ambulatory Orders Medication Instructions Recorded Alprazolam [Xanax] 0.5 mg PO Q12 PRN 06/20/18 Escitalopram [Lexapro] 10 mg PO DAILY 06/20/18 Cyclobenzaprine [Flexeril] 10 mg PO DAILY PRN tab 06/22/18 Losartan Potassium 100 mg PO DAILY 30 Days #30 tablet 06/22/18 Metoprolol Succinate 50 mg PO DAILY 30 Days #30 06/22/18 tab.er.24h Insulin Aspart, Recombinant 10 - 15 unit SC WM 07/04/18 [Novolog] Insulin Glargine,Hum.rec.anlog 15 - 20 unit SC Q12 07/04/18 [Basaglar Kwikpen U-100] - Allergies Allergies/Adverse Reactions: Allergies Allergy/AdvReac Type Severity Reaction Status Date / Time No Known Allergies Allergy Verified 06/19/18 18:31 Review of Systems ROS Statement: Except As Marked, All Systems Reviewed And Found Negative Constitutional: Positive for: Sweats. Negative for: Fever, Chills Musculoskeletal: Positive for: Back Pain Physical Exam - Reviewed Nursing Documentation Reviewed: Yes Vital Signs Reviewed: Yes - Physical Exam Appears: Positive for: Uncomfortable, In Acute Distress (screaming in pain; shaking; diaphoretic) Head Exam: Positive for: ATRAUMATIC, NORMAL INSPECTION, NORMOCEPHALIC Skin: Positive for: Normal Color Eye Exam: Positive for: Normal appearance ENT: Positive for: Normal ENT Inspection Neck: Positive for: Normal, Painless ROM, Supple. Negative for: Pain On Movement Of Neck (cervical) Cardiovascular/Chest: Positive for: Regular Rate, Rhythm Respiratory: Positive for: Normal Breath Sounds. Negative for: Respiratory Distress Back: Positive for: Vertebral Tenderness (thoracic and lumbar spine limited secondary to pain. significantly to lumbar on palpation) Extremity: Positive for: Other (inability to lift leg bilaterally secondary to pain). Negative for: Tenderness (hip/pelvis) Neurological/Psych: Positive for: Awake, Alert, Normal Tone, Symmetric/Intact Strength (5/5), Oriented (x3), treating and pumping supervisor II-XII (grossly intact). Negative for: Motor/Sensory Deficits - Laboratory Results Result Diagrams: 07/04/18 10:50 07/04/18 10:50 Lab Results: PT 10.4 Seconds (9.8-13.1) 07/04/18 10:50 INR 0.9 07/04/18 10:50 APTT 30.0 Seconds (25.6-37.1) 07/04/18 10:50 Troponin I < 0.0120 ng/mL (0.00-0.120) 07/04/18 10:50 Total Bilirubin 3.3 mg/dl (0.2-1.3) H 07/04/18 10:50 AST 56 U/L (17-59) 07/04/18 10:50 ALT 45 U/L (21-72) 07/04/18 10:50 Alkaline Phosphatase 113 U/L (38-126) 07/04/18 10:50 Total Protein 8.6 G/DL (6.3-8.2) H 07/04/18 10:50 Albumin 5.3 g/dL (3.5-5.0) H 07/04/18 10:50 Globulin 3.3 gm/dL (2.2-3.9) 07/04/18 10:50 Albumin/Globulin Ratio 1.6 (1.0-2.1) 07/04/18 10:50 Medical Decision Making Medical Decision Making: Time: 1006 Initial Plan: work up for syncopal episode vs. other sudden weakness. work up i njury to lumbosacral spine. Pain control initiated. Reassess patient following work up. * CT lumbar * Labs * Morphine IVP * Zofran IVP * 1155 * Neuro consult Time: 1110 --CT lumbar FINDINGS: VERTEBRAE: There is normal alignment of the lumbar vertebral bodies. There is normal lumbar lordosis. There is an acute superior endplate compression fracture in the L3 vertebral body with approximately 10 % loss of anterior vertebral height. No evidence for retropulsion. There is mild diffuse bone demineralization. DISCS/SPINAL CANAL/NEURAL FORAMINA: Evaluation of the discs and spinal canal is limited on noncontrast CT examination. Allowing for this, L1-2: Unremarkable. L2-3: Unremarkable. L3-4: Mild posterior disc bulge without central spinal canal stenosis or neural foraminal narrowing. L4-5: Diffuse posterior disc bulge indents the ventral thecal sac without central spinal canal stenosis. Also noted is superimposed left foraminal disc protrusion. Mild bilateral facet arthropathy contribute to moderate right and severe left neural foraminal narrowing. L5-S1: Diffuse posterior disc bulge without central spinal canal stenosis. No neural foraminal narrowing. PARASPINAL SOFT TISSUES: Unremarkable. OTHER FINDINGS: None. IMPRESSION: 1. Acute superior endplate compression fracture in the L3 vertebral body with approximately 10 % loss of anterior vertebral height. No retropulsion. 2. Mild posterior disc bulges at L4-5 and L5-S1, worse at L4-5 with a superimposed small left foraminal disc protrusion without central spinal canal stenosis. Mild bilateral facet arthropathy contribute to moderate right and severe left neural foraminal narrowing. Time: 1148 --Upon re-eval, patient's brother reports, prior to incident, patient had been shaking but denies any seizure history. Provider discussed lumbar findings with patient and his family and will order CT head once vitals are stable. Neurosurgery consult additionally ordered. Patient expresses that he has a sense of urine urgency, however, is unable to go to the bathroom secondary to pain. Catheter placed. Time: 1212 --Case discussed with Dr. Thomas from neurosurgery who states no intervention is required at this time and that, eventually, patient will need an MRI based on anterior nature of lumbar fracture and compression Time: 1215 --Family practice doctor covering Dr. Townsend made aware of case. Plan to admit patient to med/surg unit. Pending brain MRI. Patient requesting to wait until he is transferred to unit to further discuss HIV consult. In the meantime, he would like his family to remain with him at bedside. Scribe Attestation: Documented by Raquel Haywood, acting as a scribe for Ofelia Aleman MD. Provider Scribe Attestation: All medical record entries made by the Scribe were at my direction and personally dictated by me. I have reviewed the chart and agree that the record a ccurately reflects my personal performance of the history, physical exam, medical decision making, and the department course for this patient. I have also personally directed, reviewed, and agree with the discharge instructions and disposition. Disposition - Clinical Impression Clinical Impression: Spinal fracture, HIV (human immunodeficiency virus infection) - Disposition Disposition Time: 12:15 Condition: GUARDED
[2018-07-04 12:46] LABS: URINE BACTERIA RARE (<OCC); URINE BILIRUBIN NEGATIVE (NEGATIVE); URINE BLOOD NEGATIVE (NEGATIVE); URINE CLARITY CLEAR (Clear); URINE COLOR YELLOW (YELLOW); URINE GLUCOSE (UA) >=500 mg/dL (NEGATIVE); URINE HYALINE CAST 0-2 /hpf (0-2); URINE LEUKOCYTE ESTERASE NEG Leu/uL (Negative); URINE PROTEIN 30 mg/dL (NEGATIVE); URINE UROBILINOGEN 0.2-1.0 mg/dL (0.2-1.0)
[2018-07-04] MEDS ORDERED: Sodium Chloride 0.9% 1,000 ML IV SCH (13:30)
[2018-07-04] MEDS ORDERED: Dextrose 50% SYRINGE Inj (50 ml) IV PRN (13:33)
[2018-07-04] MEDS ORDERED: Glucagon Recombinant 1 mg Inj IM PRN (13:33)
--- NOTE | 2018-07-04 13:38 | CT ---
Date of service: 07/04/2018 PROCEDURE: CT HEAD WITHOUT CONTRAST. HISTORY: Syncope COMPARISON: 05/14/2018. TECHNIQUE: Axial computed tomography images were obtained through the head/brain without intravenous contrast. Radiation dose: Total exam DLP = 870.61 mGy-cm. This CT exam was performed using one or more of the following dose reduction techniques: Automated exposure control, adjustment of the mA and/or kV according to patient size, and/or use of iterative reconstruction technique. FINDINGS: HEMORRHAGE: No intracranial hemorrhage. BRAIN: There are mild chronic microangiopathic. There is no mass, mass effect or abnormal extra-axial fluid collection. There is no territorial infarction. The midline sagittal structures are normal. VENTRICLES: There is mild age-related global parenchymal volume loss and proportionate enlargement of the ventricles and cortical sulci. CALVARIUM: There is no calvarial fracture or extracranial soft tissue swelling. PARANASAL SINUSES: There is a retention cyst/polyp in the right posterior sphenoid chamber. The remaining included paranasal sinuses are clear. MASTOID AIR CELLS: Predominantly clear. OTHER FINDINGS: None. IMPRESSION: No acute intracranial abnormality. Mild chronic microangiopathic changes and mild age-related global parenchymal volume loss.
[2018-07-04] MEDS: Insulin Lispro (humaLOG) 100 Units/ml Inj SC SCH ×2 (16:54→21:22)
[2018-07-04] MEDS: Insulin Detemir 100 Units/ml Inj SC SCH (21:19)
--- NOTE | 2018-07-04 22:57 | CARD ---
APPROVED REPORT Date of service: 07/04/2018 EKG Measurement Heart [id number] <Conclusion> Normal sinus rhythm Normal ECG
--- NOTE | 2018-07-05 08:38 | CP.PCM.HP ---
<Sean Frazier - Last Filed: 07/05/18 10:50> History of Present Illness - History of Present Illness History of Present Illness: A 48 yo male with PMH of HTN, DM-1, newly dig HIV (not on any meds), alcohol abuse, DKA and hx of A.fib with RVR was brought to ER in the EMS accompanied by his sister and father for evaluation and treatment of dizziness, s/p fall and severe back pain/L3 fracture. Patient reports he was feeling dizzy, sweaty and diaphratic in the morning and had a fall due to severe dizziness w/o any LOC. Patient reports he used bathroom and due to dizziness he fell on his right back but denies any LOC, head trauma, seizures or any urinary/Bowel incontinence. Patient reports he has been feeling mild numbness/tingling in b/l LEs after fall and unable to urinate since fall. Patient states lower back pain is sharp, 10/10, somewhat radiating to LEs and movements make this pain worse. Denies any hx of this kind of episodes before. PMD: Dr. Egan Allergy: none Medication: As per EMR PMH: HTN, DM-1, newly dig HIV (not on any meds), alcohol abuse, DKA and hx of A.fib with RVR PFH: denies PSH: denies Social: [place] airport, denies smoke or drug use. Drink 2-3 vodka shot a day (Recently cut down with alcohol, last drink 2 days ago) Present on Admission - Present on Admission Any Indicators Present on Admission: No Review of Systems - Constitutional Constitutional: Excessive Sweating, Headache. absent: Fever, Lethargy, Night Sweats, Sleep Apnea, Weakness - EENT Eyes: Blurred Vision Ears: Dizziness Nose/Mouth/Throat: absent: Nasal Congestion - Cardiovascular Cardiovascular: absent: Chest Pain - Respiratory Respiratory: absent: Cough, Dyspnea, Hemoptysis - Gastrointestinal Gastrointestinal: absent: Abdominal Pain - Genitourinary Genitourinary: Difficulty Urinating - Musculoskeletal Musculoskeletal: Back Pain - Integumentary Integumentary: absent: Bleeding Lesions - Neurological Neurological: Dizziness, Numbness, Headaches, Paresthesias, Tingling. absent: Confusion, Focal Weakness - Psychiatric Psychiatric: absent: Anxiety Past Patient History - Past Medical History & Family History Past Medical History?: Yes - Past Social History Smoking Status: Never Smoked - CARDIAC Hx Hypercholesterolemia: Yes Hx Hypertension: Yes - PULMONARY Hx Respiratory Disorders: No - NEUROLOGICAL Hx Neurological Disorder: No - HEENT Hx HEENT Problems: No - RENAL Hx Chronic Kidney Disease: No - ENDOCRINE/METABOLIC Hx Endocrine Disorders: Yes Hx Diabetes Mellitus Type 1: Yes - HEMATOLOGICAL/ONCOLOGICAL Hx Human Immunodeficiency Virus (HIV): Yes - INTEGUMENTARY Hx Dermatological Problems: No - MUSCULOSKELETAL/RHEUMATOLOGICAL Hx Musculoskeletal Disorders: No Hx Falls: Yes - GASTROINTESTINAL Hx Pancreatitis: Yes - GENITOURINARY/GYNECOLOGICAL Hx Genitourinary Disorders: No - PSYCHIATRIC Hx Anxiety: Yes Hx Substance Use: No - SURGICAL HISTORY Hx Surgeries: No - ANESTHESIA Hx Anesthesia: No Meds Allergies/Adverse Reactions: Allergies Allergy/AdvReac Type Severity Reaction Status Date / Time No Known Allergies Allergy Verified 06/19/18 18:31 Physical Exam - Constitutional Appears: Other (Uncomfortable due to back pain) - Head Exam Head Exam: NORMAL INSPECTION - Eye Exam Eye Exam: EOMI, Normal appearance, PERRL Pupil Exam: NORMAL ACCOMODATION - ENT Exam ENT Exam: Mucous Membranes Moist - Neck Exam Neck exam: Positive for: Normal Inspection - Respiratory Exam Respiratory Exam: Clear to Auscultation Bilateral, NORMAL BREATHING PATTERN - Cardiovascular Exam Cardiovascular Exam: REGULAR RHYTHM, +S1, +S2 - GI/Abdominal Exam GI & Abdominal Exam: Normal Bowel Sounds, Soft. absent: Tenderness - Rectal Exam Rectal Exam: Deferred - Exam Exam: Circumcision. absent: Scrotal Swelling, Testicular Tenderness, Uretheral Discharge, Bladder Distension - Extremities Exam Extremities exam: Positive for: full ROM, normal capillary refill, normal inspection, pedal pulses present. Negative for: calf tenderness, joint swelling, pedal edema, tenderness - Back Exam Back exam: tenderness, vertebral tenderness (at L3-L4). absent: CVA tenderness (L), CVA tenderness (R), muscle spasm, rash noted - Neurological Exam Neurological exam: Alert, CN II-XII Intact, Oriented x3, Reflexes Normal - Psychiatric Exam Psychiatric exam: Normal Affect - Skin Skin Exam: Dry, Intact, Normal Color, Warm Results - Vital Signs Recent Vital Signs: Last Vital Signs Temp 98.8 F 07/05/18 07:56 Pulse 80 07/05/18 07:56 Resp 20 07/05/18 07:56 BP 143/88 07/05/18 07:56 Pulse Ox 99 07/05/18 07:56 - Labs Result Diagrams: 07/04/18 10:50 07/04/18 10:50 Labs: Laboratory Results - last 24 hr 07/04/18 07/04/18 07/04/18 09:55 10:50 10:50 WBC 5.8 D RBC 4.26 L Hgb 13.3 Hct 39.7 MCV 93.1 MCH 31.2 H MCHC 33.5 RDW 13.1 Plt Count 236 MPV 8.7 Neut % (Auto) 84.3 H Lymph % (Auto) 12.5 L [place] % (Auto) 2.3 Eos % (Auto) 0.3 Baso % (Auto) 0.6 Neut # (Auto) 4.8 Lymph # (Auto) 0.7 L [place] # (Auto) 0.1 Eos # (Auto) 0.0 Baso # (Auto) 0.0 PT INR APTT Sodium 132 Potassium 4.2 Chloride 92 L Carbon Dioxide 18 L Anion Gap 26 H BUN 11 Creatinine 0.6 L Est GFR ( Amer) > 60 Est GFR (Non-Af Amer) > 60 POC Glucose (mg/dL) 255 H Random Glucose 214 H Calcium 10.0 Total Bilirubin 3.3 H AST 56 ALT 45 Alkaline Phosphatase 113 Troponin I < 0.0120 Total Protein 8.6 H Albumin 5.3 H Globulin 3.3 Albumin/Globulin Ratio 1.6 Urine Color Urine Clarity Urine pH Ur Specific [place] Urine Protein Urine Glucose (UA) Urine Ketones Urine Blood Urine Nitrate Urine Bilirubin Urine Urobilinogen Ur Leukocyte Esterase Urine RBC (Auto) Urine Microscopic WBC Urine Bacteria Hyaline Casts 07/04/18 07/04/18 07/04/18 10:50 12:34 14:08 WBC RBC Hgb Hct MCV MCH MCHC RDW Plt Count MPV Neut % (Auto) Lymph % (Auto) [place] % (Auto) Eos % (Auto) Baso % (Auto) Neut # (Auto) Lymph # (Auto) [place] # (Auto) Eos # (Auto) Baso # (Auto) PT 10.4 INR 0.9 APTT 30.0 Sodium Potassium Chloride Carbon Dioxide Anion Gap BUN Creatinine Est GFR ( Amer) Est GFR (Non-Af Amer) POC Glucose (mg/dL) 124 H Random Glucose Calcium Total Bilirubin AST ALT Alkaline Phosphatase Troponin I Total Protein Albumin Globulin Albumin/Globulin Ratio Urine Color Yellow Urine Clarity Clear Urine pH 6.0 Ur Specific [place] 1.017 Urine Protein 30 Urine Glucose (UA) >=500 Urine Ketones 80 Urine Blood Negative Urine Nitrate Negative Urine Bilirubin Negative Urine Urobilinogen 0.2-1.0 Ur Leukocyte Esterase Neg Urine RBC (Auto) < 1 Urine Microscopic WBC < 1 Urine Bacteria Rare Hyaline Casts 0-2 07/04/18 07/04/18 07/05/18 16:10 21:21 03:29 WBC RBC Hgb Hct MCV MCH MCHC RDW Plt Count MPV Neut % (Auto) Lymph % (Auto) Luce % (Auto) Eos % (Auto) Baso % (Auto) Neut # (Auto) Lymph # (Auto) [place] # (Auto) Eos # (Auto) Baso # (Auto) PT INR APTT Sodium Potassium Chloride Carbon Dioxide Anion Gap BUN Creatinine Est GFR ( Amer) Est GFR (Non-Af Amer) POC Glucose (mg/dL) 156 H 356 H 297 H Random Glucose Calcium Total Bilirubin AST ALT Alkaline Phosphatase Troponin I Total Protein Albumin Globulin Albumin/Globulin Ratio Urine Color Urine Clarity Urine pH Ur Specific [place] Urine Protein Urine Glucose (UA) Urine Ketones Urine Blood Urine Nitrate Urine Bilirubin Urine Urobilinogen Ur Leukocyte Esterase Urine RBC (Auto) Urine Microscopic WBC Urine Bacteria Hyaline Casts Assessment & Plan - Assessment and Plan (Free Text) Assessment: A/P: 48 yo male with PMH of HTN, DM-1, newly dig HIV (not on any meds), alcohol abuse, DKA and hx of A.fib with RVR was brought to ER in the EMS accompanied by his sister and father for evaluation and treatment of dizziness, s/p fall and severe back pain/L3 fracture. Dizziness, S/p fall - Likely due to vasovagal vs hypoglycemia - EKG: NSR today but reported A.fib in past admissions - Consult Cardiology, f/u recommendations - Consult Neuro, F/u recommendations Acute Back pain, S/p fall - L-spine CT: compression fracture in the L3 vertebral body - CT head: No acute changes - Consult Neurosurgery, f/u recommendations - Case discussed with Dr. Thomas from neurosurgery who states no intervention is required at this time and that, eventually, patient will need an MRI based on anterior nature of lumbar fracture and compression - C/w pain management for now - Continue management as per Neurosurgery team Newly Diagnosed HIV, not on any medications - CD4 count reviewed from prior admissions - Consult ID, f/u recommendations Urinary Retention likely due to L3 fracture/pain vs pain medications - Blanchard in place, good Urine Output - F/u neuro-surgery recommendations DM-I, Chronic, Uncontrolled - C/w Levemir 20U BID - C/w Sliding scale for short acting Q6H - Hypoglycemic protocol - AccuChecks Q6H HTN, Chronic, Controlled - C/w home meds: Losartan and BB DVT PPX - SCD, Lovenox SC daily Case discussed with Dr. Townsend, Agrees with plan <Froy Townsend - Last Filed: 07/05/18 11:56> Results - Vital Signs Recent Vital Signs: Last Vital Signs Temp 98.8 F 07/05/18 07:56 Pulse 80 07/05/18 08:57 Resp 20 07/05/18 07:56 BP 143/88 07/05/18 08:57 Pulse Ox 99 07/05/18 07:56 - Labs Result Diagrams: 07/04/18 10:50 07/04/18 10:50 Labs: Laboratory Results - last 24 hr 07/04/18 07/04/18 07/04/18 12:34 14:08 16:10 POC Glucose (mg/dL) 124 H 156 H Urine Color Yellow Urine Clarity Clear Urine pH 6.0 Ur Specific [place] 1.017 Urine Protein 30 Urine Glucose (UA) >=500 Urine Ketones 80 Urine Blood Negative Urine Nitrate Negative Urine Bilirubin Negative Urine Urobilinogen 0.2-1.0 Ur Leukocyte Esterase Neg Urine RBC (Auto) < 1 Urine Microscopic WBC < 1 Urine Bacteria Rare Hyaline Casts 0-2 07/04/18 07/05/18 07/05/18 21:21 03:29 10:24 POC Glucose (mg/dL) 356 H 297 H 270 H Urine Color Urine Clarity Urine pH Ur Specific [place] Urine Protein Urine Glucose (UA) Urine Ketones Urine Blood Urine Nitrate Urine Bilirubin Urine Urobilinogen Ur Leukocyte Esterase Urine RBC (Auto) Urine Microscopic WBC Urine Bacteria Hyaline Casts Assessment & Plan - Assessment and Plan (Free Text) Assessment: Patient was personally seen and examined by me in rounds with residents. Available labs and diagnostic data reviewed. Case, Patient's condition and management plan discussed with residents in r ounds. Agree with resident's progress note. Plan: As ordered.
[2018-07-05] MEDS: Metoprolol Succinate 50 mg XL Tab PO SCH (08:57)
[2018-07-05] MEDS: Insulin Detemir 100 Units/ml Inj SC SCH ×2 (09:39→22:27)
--- NOTE | 2018-07-05 09:47 | CP.PCM.CON ---
History of Present Illness - History of Present Illness History of Present Illness: This 48-year-old man, a type I diabetic who has had multiple hospitalizations at this institution within the last 2 months including one for diabetic ketoacidosis, was brought to the hospital after a fall at home while returning from a visit to the bathroom. The patient reports having had excruciating back pain for couple of days and appeared pale and sweaty as he walked to the bathroom and then felt extremely lightheaded and fell to the floor while returning from the bathroom. His sense of lightheadedness promptly resolved once he was on the floor. This was not accompanied by any loss of bladder or bowel control or biting of his tongue. There was no prolonged fasting preceding this event. There is no prior history of cardiac illness. He has never been a smoker has never suffered a myocardial infarction or symptoms of congestive cardiac failure. He reports excellent effort tolerance. Physical examination shows a young man fully alert awake coherent afebrile with a pulse rate of 68 bpm regular and a blood pressure of 136/80 mmHg which does not change upon standing up. His pedal pulses were well felt. There were no carotid bruits. There was no pedal edema and his JVP was not elevated. The apex was in the fifth space the first and second heart sounds were normal. There was no murmur or gallop. There were no rales. His abdomen was soft liver and spleen were not palpable. His electrocardiogram showed sinus rhythm with a normal EKG pattern. Review of his earlier electrocardiograms show a similar pattern. His labs were noted. His bilirubin shows a mild increase compared to his levels couple of months back. AST ALT and alkaline phosphatase were normal. Impression: Suspect vasovagal episode. Patient is stable from cardiovascular point of view. Type 1 diabetes mellitus and hypertension. History of dyslipidemia. Past Patient History - Past Medical History & Family History Past Medical History?: Yes - Past Social History Smoking Status: Never Smoked - CARDIAC Hx Hypercholesterolemia: Yes Hx Hypertension: Yes - PULMONARY Hx Respiratory Disorders: No - NEUROLOGICAL Hx Neurological Disorder: No - HEENT Hx HEENT Problems: No - RENAL Hx Chronic Kidney Disease: No - ENDOCRINE/METABOLIC Hx Endocrine Disorders: Yes Hx Diabetes Mellitus Type 1: Yes - HEMATOLOGICAL/ONCOLOGICAL Hx Human Immunodeficiency Virus (HIV): Yes - INTEGUMENTARY Hx Dermatological Problems: No - MUSCULOSKELETAL/RHEUMATOLOGICAL Hx Musculoskeletal Disorders: No Hx Falls: Yes - GASTROINTESTINAL Hx Pancreatitis: Yes - GENITOURINARY/GYNECOLOGICAL Hx Genitourinary Disorders: No - PSYCHIATRIC Hx Anxiety: Yes Hx Substance Use: No - SURGICAL HISTORY Hx Surgeries: No - ANESTHESIA Hx Anesthesia: No Meds Allergies/Adverse Reactions: Allergies Allergy/AdvReac Type Severity Reaction Status Date / Time No Known Allergies Allergy Verified 06/19/18 18:31 - Medications Medications: Current Medications Acetaminophen (Tylenol 325mg Tab) 650 mg PO Q6 PRN PRN Reason: Pain, Mild (1-3) Alprazolam (Xanax) 0.5 mg PO Q12 PRN PRN Reason: Anxiety Cyclobenzaprine HCl (Flexeril) 10 mg PO DAILY PRN PRN Reason: Muscle spasm Last Admin: 07/05/18 08:57 Dose: 10 mg Dextrose (Dextrose 50% Inj) 0 ml IV STAT PRN; Protocol PRN Reason: Hypoglycemia Protocol Dextrose (Glutose 15) 0 gm PO ONCE PRN; Protocol PRN Reason: Hypoglycemia Protocol Escitalopram Oxalate (Lexapro) 10 mg PO DAILY [facility] Last Admin: 07/05/18 08:56 Dose: 10 mg Glucagon (Glucagen Diagnostic Kit) 0 mg IM STAT PRN; Protocol PRN Reason: Hypoglycemia Protocol Ibuprofen (Motrin Tab) 400 mg PO Q6 PRN PRN Reason: Fever >100.4 F Insulin Detemir (Levemir) 20 units SC Q12 [facility] Last Admin: 07/05/18 09:39 Dose: 20 units Insulin Human Lispro (Humalog) 0 units SC Q6 [facility]; Protocol Last Admin: 07/04/18 21:22 Dose: 3 units Ketorolac Tromethamine (Toradol) 30 mg IVP Q6 PRN PRN Reason: Pain, moderate (4-7) Last Admin: 07/04/18 18:54 Dose: 30 mg Losartan Potassium (Cozaar) 100 mg PO DAILY [facility] Last Admin: 07/05/18 08:57 Dose: 100 mg Metoprolol Succinate (Toprol Xl) 50 mg PO DAILY [facility] Last Admin: 07/05/18 08:57 Dose: 50 mg Morphine Sulfate (Morphine) 2 mg IVP Q4 PRN PRN Reason: Pain, severe (8-10) Last Admin: 07/05/18 08:45 Dose: 2 mg Ondansetron HCl (Zofran Inj) 4 mg IVP Q6 PRN PRN Reason: Nausea/Vomiting Results - Vital Signs Recent Vital Signs: Last Vital Signs Temp 98.8 F 07/05/18 07:56 Pulse 80 07/05/18 08:57 Resp 20 07/05/18 07:56 BP 143/88 07/05/18 08:57 Pulse Ox 99 07/05/18 07:56 - Labs Result Diagrams: 07/04/18 10:50 07/04/18 10:50 Labs: Laboratory Results - last 24 hr 07/04/18 07/04/18 07/04/18 09:55 10:50 10:50 WBC 5.8 D RBC 4.26 L Hgb 13.3 Hct 39.7 MCV 93.1 MCH 31.2 H MCHC 33.5 RDW 13.1 Plt Count 236 MPV 8.7 Neut % (Auto) 84.3 H Lymph % (Auto) 12.5 L [place] % (Auto) 2.3 Eos % (Auto) 0.3 Baso % (Auto) 0.6 Neut # (Auto) 4.8 Lymph # (Auto) 0.7 L [place] # (Auto) 0.1 Eos # (Auto) 0.0 Baso # (Auto) 0.0 PT INR APTT Sodium 132 Potassium 4.2 Chloride 92 L Carbon Dioxide 18 L Anion Gap 26 H BUN 11 Creatinine 0.6 L Est GFR ( Amer) > 60 Est GFR (Non-Af Amer) > 60 POC Glucose (mg/dL) 255 H Random Glucose 214 H Calcium 10.0 Total Bilirubin 3.3 H AST 56 ALT 45 Alkaline Phosphatase 113 Troponin I < 0.0120 Total Protein 8.6 H Albumin 5.3 H Globulin 3.3 Albumin/Globulin Ratio 1.6 Urine Color Urine Clarity Urine pH Ur Specific [place] Urine Protein Urine Glucose (UA) Urine Ketones Urine Blood Urine Nitrate Urine Bilirubin Urine Urobilinogen Ur Leukocyte Esterase Urine RBC (Auto) Urine Microscopic WBC Urine Bacteria Hyaline Casts 07/04/18 07/04/18 07/04/18 10:50 12:34 14:08 WBC RBC Hgb Hct MCV MCH MCHC RDW Plt Count MPV Neut % (Auto) Lymph % (Auto) [place] % (Auto) Eos % (Auto) Baso % (Auto) Neut # (Auto) Lymph # (Auto) [place] # (Auto) Eos # (Auto) Baso # (Auto) PT 10.4 INR 0.9 APTT 30.0 Sodium Potassium Chloride Carbon Dioxide Anion Gap BUN Creatinine Est GFR ( Amer) Est GFR (Non-Af Amer) POC Glucose (mg/dL) 124 H Random Glucose Calcium Total Bilirubin AST ALT Alkaline Phosphatase Troponin I Total Protein Albumin Globulin Albumin/Globulin Ratio Urine Color Yellow Urine Clarity Clear Urine pH 6.0 Ur Specific [place] 1.017 Urine Protein 30 Urine Glucose (UA) >=500 Urine Ketones 80 Urine Blood Negative Urine Nitrate Negative Urine Bilirubin Negative Urine Urobilinogen 0.2-1.0 Ur Leukocyte Esterase Neg Urine RBC (Auto) < 1 Urine Microscopic WBC < 1 Urine Bacteria Rare Hyaline Casts 0-2 07/04/18 07/04/18 07/05/18 16:10 21:21 03:29 WBC RBC Hgb Hct MCV MCH MCHC RDW Plt Count MPV Neut % (Auto) Lymph % (Auto) [place] % (Auto) Eos % (Auto) Baso % (Auto) Neut # (Auto) Lymph # (Auto) [place] # (Auto) Eos # (Auto) Baso # (Auto) PT INR APTT Sodium Potassium Chloride Carbon Dioxide Anion Gap BUN Creatinine Est GFR ( Amer) Est GFR (Non-Af Amer) POC Glucose (mg/dL) 156 H 356 H 297 H Random Glucose Calcium Total Bilirubin AST ALT Alkaline Phosphatase Troponin I Total Protein Albumin Globulin Albumin/Globulin Ratio Urine Color Urine Clarity Urine pH Ur Specific [place] Urine Protein Urine Glucose (UA) Urine Ketones Urine Blood Urine Nitrate Urine Bilirubin Urine Urobilinogen Ur Leukocyte Esterase Urine RBC (Auto) Urine Microscopic WBC Urine Bacteria Hyaline Casts
--- NOTE | 2018-07-05 11:19 | CARD ---
APPROVED REPORT Date of service: 07/05/2018 EKG Measurement Heart [id number] <Conclusion> Normal sinus rhythm Normal ECG
[2018-07-05] MEDS: Insulin Lispro (humaLOG) 100 Units/ml Inj SC SCH ×3 (12:46→22:26)
--- NOTE | 2018-07-05 15:20 | CP.PCM.CON ---
History of Present Illness - History of Present Illness History of Present Illness: Neurology consult dictated. Mr. Reilly is a man who slipped on water and fell and fractured spinal vertebrae. HE has no sensory level, and no cord comppression signs. However, we will have to obtain MRI L spine. Plan; 1. MRi L spine 2. Orthopedic consult with Dr. William colon neurology Past Patient History - Past Medical History & Family History Past Medical History?: Yes - Past Social History Smoking Status: Never Smoked - CARDIAC Hx Atrial Fibrillation: Yes Hx Cardia Arrhythmia: Yes Hx Congestive Heart Failure: No Hx Hypercholesterolemia: Yes Hx Hypertension: Yes Hx Mitral Valve Prolapse: No Hx Pacemaker: No Hx Peripheral Edema: No - PULMONARY Hx Asthma: No Hx Bronchitis: No Hx Chronic Obstructive Pulmonary Disease (COPD): No Hx Emphysema: No Hx Pneumonia: No Hx Pulmonary Embolism: No Hx Sleep Apnea: No - NEUROLOGICAL Hx Alzheimer's Disease: No Hx Dementia: No Hx Migraine: No Hx Multiple Sclerosis: No Hx Parkinson's Disease: No Hx Seizures: No Hx Transient Ischemic Attacks (TIA): No - HEENT Hx HEENT Problems: No - RENAL Hx Chronic Kidney Disease: No Hx Kidney Stones: No - ENDOCRINE/METABOLIC Hx Endocrine Disorders: Yes Hx Diabetes Mellitus Type 1: Yes - HEMATOLOGICAL/ONCOLOGICAL Hx Anemia: No Hx Human Immunodeficiency Virus (HIV): Yes - INTEGUMENTARY Hx Dermatological Problems: No - MUSCULOSKELETAL/RHEUMATOLOGICAL Hx Arthritis: No Hx Fractures: No Hx Osteoporosis: No Hx Rheumatoid Arthritis: No - GASTROINTESTINAL Hx Crohn's Disease: No Hx Diverticulitis: No Hx Gall Bladder Disease: No Hx Gastritis: No Hx Pancreatitis: Yes - GENITOURINARY/GYNECOLOGICAL Hx Sexually Transmitted Disorders: No - PSYCHIATRIC Hx Anxiety: Yes Hx Bipolar Disorder: No Hx Depression: No Hx Paranoia: No Hx Post Traumatic Stress Disorder: No Hx Schizophrenia: No - SURGICAL HISTORY Hx Surgeries: No - ANESTHESIA Hx Anesthesia: No Meds Allergies/Adverse Reactions: Allergies Allergy/AdvReac Type Severity Reaction Status Date / Time No Known Allergies Allergy Verified 06/19/18 18:31 - Medications Medications: Current Medications Acetaminophen (Tylenol 325mg Tab) 650 mg PO Q6 PRN PRN Reason: Pain, Mild (1-3) Alprazolam (Xanax) 0.5 mg PO Q12 PRN PRN Reason: Anxiety Cyclobenzaprine HCl (Flexeril) 10 mg PO DAILY PRN PRN Reason: Muscle spasm Last Admin: 07/05/18 08:57 Dose: 10 mg Dextrose (Dextrose 50% Inj) 0 ml IV STAT PRN; Protocol PRN Reason: Hypoglycemia Protocol Dextrose (Glutose 15) 0 gm PO ONCE PRN; Protocol PRN Reason: Hypoglycemia Protocol Enoxaparin Sodium (Lovenox) 40 mg SC DAILY [facility]; Protocol Escitalopram Oxalate (Lexapro) 10 mg PO DAILY [facility] Last Admin: 07/05/18 08:56 Dose: 10 mg Glucagon (Glucagen Diagnostic Kit) 0 mg IM STAT PRN; Protocol PRN Reason: Hypoglycemia Protocol Ibuprofen (Motrin Tab) 400 mg PO Q6 PRN PRN Reason: Fever >100.4 F Insulin Detemir (Levemir) 20 units SC Q12 [facility] Last Admin: 07/05/18 09:39 Dose: 20 units Insulin Human Lispro (Humalog) 0 units SC Q6 [facility]; Protocol Last Admin: 07/05/18 12:46 Dose: 4 units Ketorolac Tromethamine (Toradol) 30 mg IVP Q6 PRN PRN Reason: Pain, moderate (4-7) Last Admin: 07/04/18 18:54 Dose: 30 mg Losartan Potassium (Cozaar) 100 mg PO DAILY [facility] Last Admin: 07/05/18 08:57 Dose: 100 mg Metoprolol Succinate (Toprol Xl) 50 mg PO DAILY [facility] Last Admin: 07/05/18 08:57 Dose: 50 mg Morphine Sulfate (Morphine) 2 mg IVP Q4 PRN PRN Reason: Pain, severe (8-10) Last Admin: 07/05/18 13:55 Dose: 2 mg Ondansetron HCl (Zofran Inj) 4 mg IVP Q6 PRN PRN Reason: Nausea/Vomiting Results - Vital Signs Recent Vital Signs: Last Vital Signs Temp 98.8 F 07/05/18 07:56 Pulse 80 07/05/18 08:57 Resp 20 07/05/18 07:56 BP 143/88 07/05/18 08:57 Pulse Ox 99 07/05/18 07:56 - Labs Result Diagrams: 07/04/18 10:50 07/04/18 10:50 Labs: Laboratory Results - last 24 hr 07/04/18 07/04/18 07/05/18 16:10 21:21 03:29 POC Glucose (mg/dL) 156 H 356 H 297 H 07/05/18 10:24 POC Glucose (mg/dL) 270 H
--- NOTE | 2018-07-05 15:57 | CP.PCM.CON ---
History of Present Illness - History of Present Illness History of Present Illness: SPINE CONSULT Pt seen and examined. Full consult dictated. Brace ordered, to be worn when OOB. Past Patient History - Past Medical History & Family History Past Medical History?: Yes - Past Social History Smoking Status: Never Smoked - CARDIAC Hx Atrial Fibrillation: Yes Hx Cardia Arrhythmia: Yes Hx Congestive Heart Failure: No Hx Hypercholesterolemia: Yes Hx Hypertension: Yes Hx Mitral Valve Prolapse: No Hx Pacemaker: No Hx Peripheral Edema: No - PULMONARY Hx Asthma: No Hx Bronchitis: No Hx Chronic Obstructive Pulmonary Disease (COPD): No Hx Emphysema: No Hx Pneumonia: No Hx Pulmonary Embolism: No Hx Sleep Apnea: No - NEUROLOGICAL Hx Alzheimer's Disease: No Hx Dementia: No Hx Migraine: No Hx Multiple Sclerosis: No Hx Parkinson's Disease: No Hx Seizures: No Hx Transient Ischemic Attacks (TIA): No - HEENT Hx HEENT Problems: No - RENAL Hx Chronic Kidney Disease: No Hx Kidney Stones: No - ENDOCRINE/METABOLIC Hx Endocrine Disorders: Yes Hx Diabetes Mellitus Type 1: Yes - HEMATOLOGICAL/ONCOLOGICAL Hx Anemia: No Hx Human Immunodeficiency Virus (HIV): Yes - INTEGUMENTARY Hx Dermatological Problems: No - MUSCULOSKELETAL/RHEUMATOLOGICAL Hx Arthritis: No Hx Fractures: No Hx Osteoporosis: No Hx Rheumatoid Arthritis: No - GASTROINTESTINAL Hx Crohn's Disease: No Hx Diverticulitis: No Hx Gall Bladder Disease: No Hx Gastritis: No Hx Pancreatitis: Yes - GENITOURINARY/GYNECOLOGICAL Hx Sexually Transmitted Disorders: No - PSYCHIATRIC Hx Anxiety: Yes Hx Bipolar Disorder: No Hx Depression: No Hx Paranoia: No Hx Post Traumatic Stress Disorder: No Hx Schizophrenia: No - SURGICAL HISTORY Hx Surgeries: No - ANESTHESIA Hx Anesthesia: No Meds Allergies/Adverse Reactions: Allergies Allergy/AdvReac Type Severity Reaction Status Date / Time No Known Allergies Allergy Verified 06/19/18 18:31 - Medications Medications: Current Medications Acetaminophen (Tylenol 325mg Tab) 650 mg PO Q6 PRN PRN Reason: Pain, Mild (1-3) Alprazolam (Xanax) 0.5 mg PO Q12 PRN PRN Reason: Anxiety Cyclobenzaprine HCl (Flexeril) 10 mg PO DAILY PRN PRN Reason: Muscle spasm Last Admin: 07/05/18 08:57 Dose: 10 mg Dextrose (Dextrose 50% Inj) 0 ml IV STAT PRN; Protocol PRN Reason: Hypoglycemia Protocol Dextrose (Glutose 15) 0 gm PO ONCE PRN; Protocol PRN Reason: Hypoglycemia Protocol Enoxaparin Sodium (Lovenox) 40 mg SC DAILY [facility]; Protocol Escitalopram Oxalate (Lexapro) 10 mg PO DAILY [facility] Last Admin: 07/05/18 08:56 Dose: 10 mg Glucagon (Glucagen Diagnostic Kit) 0 mg IM STAT PRN; Protocol PRN Reason: Hypoglycemia Protocol Ibuprofen (Motrin Tab) 400 mg PO Q6 PRN PRN Reason: Fever >100.4 F Insulin Detemir (Levemir) 20 units SC Q12 [facility] Last Admin: 07/05/18 09:39 Dose: 20 units Insulin Human Lispro (Humalog) 0 units SC Q6 [facility]; Protocol Last Admin: 07/05/18 12:46 Dose: 4 units Ketorolac Tromethamine (Toradol) 30 mg IVP Q6 PRN PRN Reason: Pain, moderate (4-7) Last Admin: 07/04/18 18:54 Dose: 30 mg Losartan Potassium (Cozaar) 100 mg PO DAILY [facility] Last Admin: 07/05/18 08:57 Dose: 100 mg Metoprolol Succinate (Toprol Xl) 50 mg PO DAILY [facility] Last Admin: 07/05/18 08:57 Dose: 50 mg Morphine Sulfate (Morphine) 2 mg IVP Q4 PRN PRN Reason: Pain, severe (8-10) Last Admin: 07/05/18 13:55 Dose: 2 mg Ondansetron HCl (Zofran Inj) 4 mg IVP Q6 PRN PRN Reason: Nausea/Vomiting Results - Vital Signs Recent Vital Signs: Last Vital Signs Temp 98.5 F 07/05/18 15:52 Pulse 89 07/05/18 15:52 Resp 18 07/05/18 15:52 BP 143/90 07/05/18 15:52 Pulse Ox 99 07/05/18 15:52 - Labs Result Diagrams: 07/04/18 10:50 07/04/18 10:50 Labs: Laboratory Results - last 24 hr 07/04/18 07/04/18 07/05/18 16:10 21:21 03:29 POC Glucose (mg/dL) 156 H 356 H 297 H 07/05/18 10:24 POC Glucose (mg/dL) 270 H
--- NOTE | 2018-07-05 18:52 | CP.PCM.PN ---
Subjective - Date & Time of Evaluation Date of Evaluation: 07/05/18 Time of Evaluation: 18:46 - Subjective Subjective: I D NOTE PATIENT SEEN AND HIS HIV HISTORY DISCUSSED AND REVIEWED FULL CONSULT DICTATED NO SURGERY IS PRESENTLY CONSIDERED HAVE ADVISED PATIENT TO SEE HIS ID MD MICHAUD TO INIATE ANTI RETROVIRAL TREATMENT Objective - Vital Signs/Intake and Output Vital Signs (last 24 hours): Temp Pulse Resp BP Pulse Ox 98.5 F 89 18 143/90 99 07/05/18 15:52 07/05/18 15:52 07/05/18 15:52 07/05/18 15:52 07/05/18 15:52 - Medications Medications: Current Medications Acetaminophen (Tylenol 325mg Tab) 650 mg PO Q6 PRN PRN Reason: Pain, Mild (1-3) Alprazolam (Xanax) 0.5 mg PO Q12 PRN PRN Reason: Anxiety Cyclobenzaprine HCl (Flexeril) 10 mg PO DAILY PRN PRN Reason: Muscle spasm Last Admin: 07/05/18 08:57 Dose: 10 mg Dextrose (Dextrose 50% Inj) 0 ml IV STAT PRN; Protocol PRN Reason: Hypoglycemia Protocol Dextrose (Glutose 15) 0 gm PO ONCE PRN; Protocol PRN Reason: Hypoglycemia Protocol Enoxaparin Sodium (Lovenox) 40 mg SC DAILY [facility]; Protocol Escitalopram Oxalate (Lexapro) 10 mg PO DAILY [facility] Last Admin: 07/05/18 08:56 Dose: 10 mg Glucagon (Glucagen Diagnostic Kit) 0 mg IM STAT PRN; Protocol PRN Reason: Hypoglycemia Protocol Ibuprofen (Motrin Tab) 400 mg PO Q6 PRN PRN Reason: Fever >100.4 F Insulin Detemir (Levemir) 20 units SC Q12 [facility] Last Admin: 07/05/18 09:39 Dose: 20 units Insulin Human Lispro (Humalog) 0 units SC Q6 [facility]; Protocol Last Admin: 07/05/18 16:46 Dose: 4 units Ketorolac Tromethamine (Toradol) 30 mg IVP Q6 PRN PRN Reason: Pain, moderate (4-7) Last Admin: 07/04/18 18:54 Dose: 30 mg Losartan Potassium (Cozaar) 100 mg PO DAILY [facility] Last Admin: 07/05/18 08:57 Dose: 100 mg Metoprolol Succinate (Toprol Xl) 50 mg PO DAILY [facility] Last Admin: 07/05/18 08:57 Dose: 50 mg Morphine Sulfate (Morphine) 2 mg IVP Q4 PRN PRN Reason: Pain, severe (8-10) Last Admin: 07/05/18 18:12 Dose: 2 mg Ondansetron HCl (Zofran Inj) 4 mg IVP Q6 PRN PRN Reason: Nausea/Vomiting - Labs Labs: 07/04/18 10:50 07/04/18 10:50 PT 10.4 Seconds (9.8-13.1) 07/04/18 10:50 INR 0.9 07/04/18 10:50 APTT 30.0 Seconds (25.6-37.1) 07/04/18 10:50
[2018-07-06] MEDS: Insulin Lispro (humaLOG) 100 Units/ml Inj SC SCH ×5 (05:21→22:02)
[2018-07-06 07:14] LABS: ALB/GLOB RATIO 1.5 (1.0-2.1); ALBUMIN 4.5 g/dL (3.5-5.0); ALT/SGPT 49 U/L (21-72); AST/SGOT 80 U/L (17-59); BLOOD UREA NITROGEN 8 mg/dl (9-20); CALCIUM 9.2 mg/dL (8.4-10.2); GFR NON-AFRICAN AMERICAN > 60
[2018-07-06 07:42] LABS: BASO % 0.4 % (0.0-2.0); EOS # 0.1 K/uL (0.0-0.7); EOS % 1.8 % (0.0-4.0); HEMOGLOBIN 12.5 g/dL (12.0-18.0); LYMPH % 24.6 % (20.0-40.0); MEAN CELL VOLUME 92.1 fl (80.0-94.0); MEAN CORPUSCULAR HEMOGLOBIN 31.1 pg (27.0-31.0); MEAN CORPUSCULAR HGB CONC 33.8 g/dL (33.0-37.0); MEAN PLATELET VOLUME 8.8 fl (7.2-11.7); MONO # 0.2 K/uL (0.0-0.8); MONO % 4.5 % (0.0-10.0); NEUT # 2.8 K/uL (1.8-7.0); NEUT % 68.7 % (50.0-75.0); NRBC % 0.2 % (0.0-0.0); WHITE BLOOD COUNT 4.1 K/uL (4.8-10.8)
--- NOTE | 2018-07-06 08:21 | CP.PCM.PN ---
Subjective - Date & Time of Evaluation Date of Evaluation: 07/06/18 Time of Evaluation: 06:45 - Subjective Subjective: Patient seen this morning with Dr. Townsend. NAD, improved pain, well controlled on meds, VS reviewed Seen by cardio: possible vasovagal, stable from CV Seen by neurosurgery: no interventions, PT and back brace, Urinary retention not caused by L3 fracture Seen by Neuro: Pending L-spine MRI Seen by ID for new HIV: F/u outpatient Will d/c dias today and f/u bladder training PT Objective - Vital Signs/Intake and Output Vital Signs (last 24 hours): Temp Pulse Resp BP Pulse Ox 98 F 89 20 132/88 96 07/06/18 08:10 07/06/18 08:10 07/06/18 08:10 07/06/18 08:10 07/06/18 08:10 - Medications Medications: Current Medications Acetaminophen (Tylenol 325mg Tab) 650 mg PO Q6 PRN PRN Reason: Pain, Mild (1-3) Alprazolam (Xanax) 0.5 mg PO Q12 PRN PRN Reason: Anxiety Cyclobenzaprine HCl (Flexeril) 10 mg PO DAILY PRN PRN Reason: Muscle spasm Last Admin: 07/05/18 08:57 Dose: 10 mg Dextrose (Dextrose 50% Inj) 0 ml IV STAT PRN; Protocol PRN Reason: Hypoglycemia Protocol Dextrose (Glutose 15) 0 gm PO ONCE PRN; Protocol PRN Reason: Hypoglycemia Protocol Enoxaparin Sodium (Lovenox) 40 mg SC DAILY [facility]; Protocol Escitalopram Oxalate (Lexapro) 10 mg PO DAILY [facility] Last Admin: 07/05/18 08:56 Dose: 10 mg Glucagon (Glucagen Diagnostic Kit) 0 mg IM STAT PRN; Protocol PRN Reason: Hypoglycemia Protocol Ibuprofen (Motrin Tab) 400 mg PO Q6 PRN PRN Reason: Fever >100.4 F Insulin Detemir (Levemir) 25 units SC Q12 [facility] Insulin Human Lispro (Humalog) 0 units SC Q6 [facility]; Protocol Last Admin: 07/06/18 05:21 Dose: 8 units Ketorolac Tromethamine (Toradol) 30 mg IVP Q6 PRN PRN Reason: Pain, moderate (4-7) Last Admin: 07/04/18 18:54 Dose: 30 mg Losartan Potassium (Cozaar) 100 mg PO DAILY [facility] Last Admin: 07/05/18 08:57 Dose: 100 mg Metoprolol Succinate (Toprol Xl) 50 mg PO DAILY [facility] Last Admin: 07/05/18 08:57 Dose: 50 mg Morphine Sulfate (Morphine) 2 mg IVP Q4 PRN PRN Reason: Pain, severe (8-10) Last Admin: 07/06/18 02:28 Dose: 2 mg Ondansetron HCl (Zofran Inj) 4 mg IVP Q6 PRN PRN Reason: Nausea/Vomiting - Labs Labs: 07/06/18 05:45 07/06/18 05:45 PT 10.4 Seconds (9.8-13.1) 07/04/18 10:50 INR 0.9 07/04/18 10:50 APTT 30.0 Seconds (25.6-37.1) 07/04/18 10:50 - Constitutional Appears: No Acute Distress - Head Exam Head Exam: NORMAL INSPECTION - Eye Exam Eye Exam: Normal appearance - ENT Exam ENT Exam: Mucous Membranes Moist - Respiratory Exam Respiratory Exam: Clear to Ausculation Bilateral, NORMAL BREATHING PATTERN - Cardiovascular Exam Cardiovascular Exam: REGULAR RHYTHM, +S1, +S2 - GI/Abdominal Exam GI & Abdominal Exam: Soft, Normal Bowel Sounds. absent: Tenderness - Extremities Exam Extremities Exam: Full ROM, Normal Capillary Refill, Normal Inspection. absent: Tenderness - Back Exam Back Exam: tenderness (L3-L4). absent: CVA tenderness (L), CVA tenderness (R) - Neurological Exam Neurological Exam: Alert, Awake, CN II-XII Intact, Oriented x3 Neuro motor strength exam: Left Upper Extremity: 5, Right Upper Extremity: 5, Left Lower Extremity: 4, Right Lower Extremity: 4 - Psychiatric Exam Psychiatric exam: Normal Affect - Skin Skin Exam: Normal Color Assessment and Plan - Assessment and Plan (Free Text) Assessment: A/P: 48 yo male with PMH of HTN, DM-1, newly dig HIV (not on any meds), alcohol abuse, DKA and hx of A.fib with RVR was brought to ER in the EMS accompanied by his sister and father for evaluation and treatment of dizziness, s/p fall and severe back pain/L3 fracture. Dizziness, S/p fall - Likely due to vasovagal vs hypoglycemia - EKG: NSR today but reported A.fib in past admissions - Consult Cardiology and Neuro, recommendations appreciated - Seen by cardio: possible vasovagal, stable from CV - Seen by Neuro: Pending L-spine MRI Acute Back pain, S/p fall - L-spine CT: compression fracture in the L3 vertebral body - CT head: No acute changes - Consult Neurosurgery, recommendations appreciated:Seen by neurosurgery: no interventions, PT and back brace, Urinary retention not caused by L3 fracture - C/w pain management for now - F/u MRI L-Spine Newly Diagnosed HIV, not on any medications - CD4 count reviewed from prior admissions - Seen by ID for new HIV: F/u outpatient Urinary Retention likely due to L3 fracture/pain vs pain medications - Dias in place, good Urine Output - Seen by neurosurgery: no interventions, PT and back brace, Urinary retention not caused by L3 fracture - D/c dias, f/u bladder training DM-I, Chronic, Uncontrolled - C/w Levemir 25U BID(increased from 20U) - C/w Sliding scale for short acting Q6H - Hypoglycemic protocol - AccuChecks Q6H HTN, Chronic, Controlled - C/w home meds: Losartan and BB DVT PPX - SCD, Lovenox SC daily
--- NOTE | 2018-07-06 08:30 | CON ---
DATE: 07/05/2018 INFECTIOUS DISEASE CONSULTATION HISTORY OF PRESENT ILLNESS: The patient, I saw last time and he was admitted 2 weeks ago for what was then diabetic ketoacidosis. This is a 48-year-old male with past medical history of hypertension, diabetes, and he has newly diagnosed HIV. The patient is not on any medication, and he sees Dr. Melanie Toscano on the outside, and he has an appointment pending with her to be started on antiretrovirals. He has a history of alcohol abuse and atrial fibrillation. He came to the emergency room at this time after he had fallen in the bathroom with severe back pain, and subsequently found that he had a fracture in the lumbosacral area, I will give you the exact area after reviewing the rest of the chart. PHYSICAL EXAMINATION: GENERAL: The patient is a pleasant male, who is alert, cooperative, and oriented to time and place. HEENT: Within normal limits. NECK: Supple. LUNGS: Clear. HEART: Regular rhythm. ABDOMEN: Soft. Positive bowel sounds. MUSCULOSKELETAL: The back exam which is the positive exam shows vertebral tenderness in L3-L4, and he has significant muscle spasm and is complaining of severe pain. LABS AND X-RAYS: Lumbar spine CT showed acute superior endplate compression fracture in L3 vertebral body with proximal plate anterior vertebral height, no retropulsion. I see mild posterior disc bulge at L4-L5 and L5-S1, worse at L4-L5 with a superimposed small left foraminal disc protrusion without extensive spinal canal stenosis. His labs, his CD4 count in last admission was 415. His HIV RNA PCR quantitative was 3.53. His white count is 5.8, hemoglobin is 13.3, and 84 polys, elevated. GFR is greater than 60 and creatinine is 0.6. In regards to HIV, I have discussed his HIV status with the patient in detail. We had been going to Surgery, and as an acute process, I wish preparing to start him on HIV antiretrovirals. At the hospital, does not have a wide variety of HIV or antiretroviral medication. Since no surgery is planned, I will not start him on any medication now. I have discussed this with the patient, should go to his private MD to receive the treatment that she will be comfortable with treating him. We also have genotypes here, and hopefully, she will have in her office too. I have advised him to get copies of these from the hospital and call Dr. Toscano, his Infectious Disease doctor, as soon as he get home to be sure to get on medication as soon as possible. Bony Gipson MD
--- NOTE | 2018-07-06 08:32 | CON ---
DATE: 07/05/2018 REASON FOR CONSULTATION: Fractured lumbar vertebrae. HISTORY OF PRESENT ILLNESS: The patient is a 48-year-old gentleman who was brought to the ER yesterday, having evidently sustained a fall at home and was complaining of severe back pain. The history I got from the emergency room doctor was that he was dizzy and diaphoretic and had a fall due to severe dizziness, however, there is a note in the chart stating that he fell because he was coming out of the bathroom and slipped on water. Either way, CAT scan done in the emergency room demonstrated a fracture of L3. Because of that and the reported syncopal episode, he was admitted. He states he was admitted 2 months ago with diabetic ketoacidosis. He states he has some tingling in his feet, but he is a type 1 diabetic. He has had in the emergency room they reported difficulty with being able to void. Mr. Reilly states that 2 months ago when he was in for the diabetes, he had the same issue but gradually got better. He states he can void now, but it does not just come out the way he feels would be "normal". He also complains of abdominal pain. PAST MEDICAL HISTORY: Significant for hypertension, type 1 diabetes, AFib, history of alcohol abuse, history of diabetic ketoacidosis, newly diagnosed HIV (not on any medications yet). MEDICATIONS: As listed on the chart. ALLERGIES: DENIES ANY MEDICAL ALLERGIES. PAST SURGICAL HISTORY: Denies any past surgical history. SOCIAL HISTORY: He denies any smoking history or drug use. He states he drinks 2 to 3 shots of vodka a day, but has been trying to cut down his alcohol and had not had a drink in couple of days. PHYSICAL EXAMINATION: On examination, he has tenderness in the mid lumbar region. He moves both lower extremities actively. His sensation is intact to light touch. His tingling is in the distal part of the feet, no particular dermatomal distribution. He has excellent motor strength. No clonus is present. Babinski shows toes are downgoing. LABORATORY DATA: His CAT scan shows a fracture of the superior-anterior endplate of L3. There appears to be a little more of a depression on the right side. He states he fell over towards his right, so that would fit mechanically. However, there is no obvious posterior fractures and certainly no retropulsion of the canal or anything of that nature. IMPRESSION AND PLAN: This appears to be a stable fracture of L3, which can be treated with a brace when he is up out of bed. There is no obvious connection with this fracture and his difficulty voiding, especially given the fact that he states he had the problem 2 months ago when he was admitted for his diabetic ketoacidosis. It may be worthwhile to have the urologist see him now that this has been a problem on several occasions. We will order a Hurst brace for him to be worn when he is up out of bed. I explained the natural history is that this should still be painful for the first several weeks but once the bone starts to knit his pain will gradually get much better and it needs to be followed with an x-ray monthly to be sure he is not getting any obvious collapse or settling that would leave to something else having to be done. Again it is highly unlikely but we will just do that during followup. An MRI has been ordered which is fine as that would give us more information to be certain there is nothing else going on, not apparent on the CAT scan that might be giving him these other symptoms. Thank you for allowing me to participate in the care of your patient. Allen Thomas MD
[2018-07-06] MEDS: Enoxaparin 40 mg Syringe SC SCH (09:34)
[2018-07-06] MEDS: Metoprolol Succinate 50 mg XL Tab PO SCH (09:34)
[2018-07-06] MEDS: Insulin Detemir 100 Units/ml Inj SC SCH ×2 (09:35→22:02)
--- NOTE | 2018-07-06 10:48 | MRI ---
Date of service: 07/05/2018 PROCEDURE: MR LUMBAR SPINE WITHOUT CONTRAST HISTORY: L3 acute compression fracture COMPARISON: CT lumbar spine without contrast from 07/04/2018. TECHNIQUE: Multiecho multiplanar sequences were performed through the lumbar spine without the use of intravenous contrast. The axial images are degraded by patient motion. FINDINGS: There is normal alignment of the lumbar vertebral bodies. There is normal lumbar lordosis. There is no spondylolysis or traumatic spondylolisthesis. There is an acute superior endplate compression fracture in the L3 vertebral body with approximately 10-20 % loss of vertebral height. There is associated bone marrow edema/contusion in the superior 2/3 of the vertebral body. No evidence for retropulsion. There is mild perivertebral soft tissue at L3. The conus medullaris terminates at T12-L1. The nerve roots of cauda equina are normal. T12-L1: No disc herniation, spinal canal stenosis or neural foraminal narrowing. L1-2: No disc herniation, spinal canal stenosis or neural foraminal narrowing. L2-3: Mild posterior disc bulge without spinal canal stenosis or neural foraminal narrowing. L3-4: Minimal posterior disc bulge without spinal canal stenosis or neural foraminal narrowing. L4-5: Diffuse posterior disc bulge without central spinal canal stenosis. Superimposed left foraminal and far lateral disc protrusion abuts the exiting left L4 nerve root. Mild right and moderate left facet arthropathy contribute to mild right and moderate to severe left neural foraminal narrowing. L5-S1: Mild posterior disc bulge and small central disc protrusion without spinal canal stenosis or neural foraminal narrowing. OTHER FINDINGS: The paraspinous soft tissues are normal. Imaged portion of the retroperitoneum is within normal limits. IMPRESSION: 1. Acute superior endplate compression fracture in the L3 vertebral body with approximately 10-20% loss of vertebral height and associated bone marrow edema/contusion in the superior 2/3 of the vertebral body without evidence for retropulsion or epidural hematoma. 2. Mild multilevel degenerative disc disease at L4-5 and L5-S1, worse at L4-5 with a superimposed small left foraminal and far lateral disc protrusion which abuts the exiting left L5 nerve root without central spinal canal stenosis. A preliminary report was provided by [employer].
--- NOTE | 2018-07-06 11:09 | CP.PCM.PN ---
Subjective - Date & Time of Evaluation Date of Evaluation: 07/06/18 Time of Evaluation: 11:08 - Subjective Subjective: MRI reviewed no change in plan from our point Objective - Vital Signs/Intake and Output Vital Signs (last 24 hours): Temp Pulse Resp BP Pulse Ox 98 F 89 20 132/88 96 07/06/18 08:10 07/06/18 09:35 07/06/18 08:10 07/06/18 09:35 07/06/18 08:10 - Medications Medications: Current Medications Acetaminophen (Tylenol 325mg Tab) 650 mg PO Q6 PRN PRN Reason: Pain, Mild (1-3) Alprazolam (Xanax) 0.5 mg PO Q12 PRN PRN Reason: Anxiety Cyclobenzaprine HCl (Flexeril) 10 mg PO DAILY PRN PRN Reason: Muscle spasm Last Admin: 07/06/18 09:34 Dose: 10 mg Dextrose (Dextrose 50% Inj) 0 ml IV STAT PRN; Protocol PRN Reason: Hypoglycemia Protocol Dextrose (Glutose 15) 0 gm PO ONCE PRN; Protocol PRN Reason: Hypoglycemia Protocol Enoxaparin Sodium (Lovenox) 40 mg SC DAILY [facility]; Protocol Last Admin: 07/06/18 09:34 Dose: 40 mg Escitalopram Oxalate (Lexapro) 10 mg PO DAILY [facility] Last Admin: 07/06/18 09:34 Dose: 10 mg Glucagon (Glucagen Diagnostic Kit) 0 mg IM STAT PRN; Protocol PRN Reason: Hypoglycemia Protocol Ibuprofen (Motrin Tab) 400 mg PO Q6 PRN PRN Reason: Fever >100.4 F Insulin Detemir (Levemir) 25 units SC Q12 [facility] Last Admin: 07/06/18 09:35 Dose: 25 units Insulin Human Lispro (Humalog) 0 units SC Q6 [facility]; Protocol Insulin Human Lispro (Humalog) 10 units SC TIDWM [facility] Ketorolac Tromethamine (Toradol) 30 mg IVP Q6 PRN PRN Reason: Pain, moderate (4-7) Last Admin: 07/04/18 18:54 Dose: 30 mg Losartan Potassium (Cozaar) 100 mg PO DAILY [facility] Last Admin: 07/06/18 09:35 Dose: 100 mg Metoprolol Succinate (Toprol Xl) 50 mg PO DAILY [facility] Last Admin: 07/06/18 09:34 Dose: 50 mg Morphine Sulfate (Morphine) 2 mg IVP Q4 PRN PRN Reason: Pain, severe (8-10) Last Admin: 07/06/18 09:32 Dose: 2 mg Ondansetron HCl (Zofran Inj) 4 mg IVP Q6 PRN PRN Reason: Nausea/Vomiting - Labs Labs: 07/06/18 05:45 07/06/18 05:45 PT 10.4 Seconds (9.8-13.1) 07/04/18 10:50 INR 0.9 07/04/18 10:50 APTT 30.0 Seconds (25.6-37.1) 07/04/18 10:50
--- NOTE | 2018-07-06 11:36 | CP.PCM.PN ---
Subjective - Date & Time of Evaluation Date of Evaluation: 07/06/18 Time of Evaluation: 11:34 - Subjective Subjective: Neuro Follow-Up Note: Mr. Reilly was evaluated this afternoon at bedside. He states that he is feeling well today and admits that his lower back pain is improving. He was fitted for a brace today; once applied he can start PT. He denies any paresthesias, weakness, incontinence. ROS is unremarkable. Objective - Vital Signs/Intake and Output Vital Signs (last 24 hours): Temp Pulse Resp BP Pulse Ox 98 F 89 20 132/88 96 07/06/18 08:10 07/06/18 09:35 07/06/18 08:10 07/06/18 09:35 07/06/18 08:10 - Medications Medications: Current Medications Acetaminophen (Tylenol 325mg Tab) 650 mg PO Q6 PRN PRN Reason: Pain, Mild (1-3) Alprazolam (Xanax) 0.5 mg PO Q12 PRN PRN Reason: Anxiety Cyclobenzaprine HCl (Flexeril) 10 mg PO DAILY PRN PRN Reason: Muscle spasm Last Admin: 07/06/18 09:34 Dose: 10 mg Dextrose (Dextrose 50% Inj) 0 ml IV STAT PRN; Protocol PRN Reason: Hypoglycemia Protocol Dextrose (Glutose 15) 0 gm PO ONCE PRN; Protocol PRN Reason: Hypoglycemia Protocol Enoxaparin Sodium (Lovenox) 40 mg SC DAILY [facility]; Protocol Last Admin: 07/06/18 09:34 Dose: 40 mg Escitalopram Oxalate (Lexapro) 10 mg PO DAILY [facility] Last Admin: 07/06/18 09:34 Dose: 10 mg Glucagon (Glucagen Diagnostic Kit) 0 mg IM STAT PRN; Protocol PRN Reason: Hypoglycemia Protocol Ibuprofen (Motrin Tab) 400 mg PO Q6 PRN PRN Reason: Fever >100.4 F Insulin Detemir (Levemir) 25 units SC Q12 [facility] Last Admin: 07/06/18 09:35 Dose: 25 units Insulin Human Lispro (Humalog) 0 units SC Q6 [facility]; Protocol Insulin Human Lispro (Humalog) 10 units SC TIDWM [facility] Ketorolac Tromethamine (Toradol) 30 mg IVP Q6 PRN PRN Reason: Pain, moderate (4-7) Last Admin: 07/04/18 18:54 Dose: 30 mg Losartan Potassium (Cozaar) 100 mg PO DAILY [facility] Last Admin: 07/06/18 09:35 Dose: 100 mg Metoprolol Succinate (Toprol Xl) 50 mg PO DAILY [facility] Last Admin: 07/06/18 09:34 Dose: 50 mg Morphine Sulfate (Morphine) 2 mg IVP Q4 PRN PRN Reason: Pain, severe (8-10) Last Admin: 07/06/18 09:32 Dose: 2 mg Ondansetron HCl (Zofran Inj) 4 mg IVP Q6 PRN PRN Reason: Nausea/Vomiting - Labs Labs: 07/06/18 05:45 07/06/18 05:45 PT 10.4 Seconds (9.8-13.1) 07/04/18 10:50 INR 0.9 07/04/18 10:50 APTT 30.0 Seconds (25.6-37.1) 07/04/18 10:50 - Constitutional Appears: Well, Non-toxic, No Acute Distress - Head Exam Head Exam: ATRAUMATIC, NORMAL INSPECTION, NORMOCEPHALIC - Eye Exam Eye Exam: EOMI, Normal appearance, PERRL Pupil Exam: NORMAL ACCOMODATION, PERRL - ENT Exam ENT Exam: Mucous Membranes Moist, Normal Exam - Neck Exam Neck Exam: Full ROM, Normal Inspection - Respiratory Exam Respiratory Exam: NORMAL BREATHING PATTERN - Extremities Exam Extremities Exam: Full ROM, Normal Inspection. absent: Calf Tenderness, Pedal Edema Additional comments: FROM to all extremities No focal weakness - Back Exam Back Exam: paraspinal tenderness (lumbar). absent: Full ROM (limited rom 2/2 L3 compression fracture) - Neurological Exam Neurological Exam: Alert, Awake, CN II-XII Intact, Oriented x3, Reflexes Normal Neuro motor strength exam: Left Upper Extremity: 5, Right Upper Extremity: 5, Left Lower Extremity: 5, Right Lower Extremity: 5 Additional comments: No focal motor or sensory deficits No abnormal movements Unable to assess gait 2/2 bed rest until brace is applied - Psychiatric Exam Psychiatric exam: Normal Affect, Normal Mood - Skin Skin Exam: Normal Color Assessment and Plan (1) Spinal fracture Assessment & Plan: Imaging reviewed: -L-Spine MRI (07/05/18): 1. Acute superior endplate compression fracture in the L3 vertebral body with approximately 10-20% loss of vertebral height and associa jud bone marrow edema/contusion in the superior 2/3 of the vertebral body without evidence for retropulsion or epidural hematoma. 2. Mild multilevel degenerative disc disease at L4-5 and L5-S1, worse at L4-5 with a superimposed small left foraminal and far lateral disc protrusion which abuts the exiting left L5 nerve root without central spinal canal stenosis. -L-Spine CT (): 1. Acute superior endplate compression fracture in the L3 vertebral body with approximately 10 % loss of anterior vertebral height. No retropulsion. 2. Mild posterior disc bulges at L4-5 and L5-S1, worse at L4-5 with a superimposed small left foraminal disc protrusion without central spinal canal stenosis. Mild bilateral facet arthropathy contribute to moderate right and severe left neural foraminal narrowing. -CT Head (07/04/18): No acute intracranial abnormality. Mild chronic microangiopathic changes and mild age-related global parenchymal volume loss. -Management of L3 vertebral body fracture deferred to neurosurgery. -PT once brace is applied. -No further recommendations from a neurological standpoint. Reconsult prn. Thank you for this consultation. Krystal Nguyen, THOMAS, [employer] d/w Dr. Knight Status: Acute
[2018-07-07 00:21] VITALS: TEMP 98.1
[2018-07-07] MEDS: Insulin Lispro (humaLOG) 100 Units/ml Inj SC SCH ×4 (04:39→13:23)
[2018-07-07 08:12] VITALS: PULSE 81; RESP 20; O2SAT 99
[2018-07-07] MEDS: Insulin Detemir 100 Units/ml Inj SC SCH (09:23)
[2018-07-07] MEDS: Enoxaparin 40 mg Syringe SC SCH (09:25)
[2018-07-07] MEDS: Metoprolol Succinate 50 mg XL Tab PO SCH (09:25)
[2018-07-07 09:26] VITALS: BP 122/80
--- NOTE | 2018-07-07 15:16 | CP.PCM.DIS ---
Provider - Provider Date of Admission: 07/04/18 12:13 Attending physician: Froy Townsend MD Primary care physician: None Consults: 07/04/18 11:54 Neuro Surgery Consult Stat Comment: Consulting Provider: Carlos Peoples Consulting Physician: Carlos Peoples Reason for Consult: L3 spinal fracture, urinary retention 07/04/18 12:16 Neurology Consult Stat Comment: Consulting Provider: Sagar Knight Consulting Physician: Sagar Knight Reason for Consult: syncope 07/04/18 13:27 Infectious Disease Consult Routine Comment: Consulting Provider: Bony Gipson Consulting Physician: Bony Gipson Reason for Consult: Newly dig HIV, not on any meds 07/04/18 13:38 Cardiology Consult Routine Comment: Consulting Provider: Jacob Montes Consulting Physician: Jacob Montes Reason for Consult: Dizziness/Syncope, Hx of A.fib/RVR Time Spent in preparation of Discharge (in minutes): 40 Diagnosis - Discharge Diagnosis (1) Dizziness Status: Acute (2) Vertebral fracture Status: Acute (3) Newly diagnosed HIV-positive Status: Acute (4) Urinary retention Status: Acute (5) DM I (diabetes mellitus, type I) Status: Acute (6) HTN (hypertension) Status: Acute Hospital Course - Lab Results Lab Results: Most Recent Lab Values WBC 4.1 K/uL (4.8-10.8) L 07/06/18 05:45 RBC 4.00 Mil/uL (4.40-5.90) L 07/06/18 05:45 Hgb 12.5 g/dL (12.0-18.0) 07/06/18 05:45 Hct 36.9 % (35.0-51.0) 07/06/18 05:45 MCV 92.1 fl (80.0-94.0) 07/06/18 05:45 MCH 31.1 pg (27.0-31.0) H 07/06/18 05:45 MCHC 33.8 g/dL (33.0-37.0) 07/06/18 05:45 RDW 13.0 % (11.5-14.5) 07/06/18 05:45 Plt Count 147 K/uL (130-400) 07/06/18 05:45 MPV 8.8 fl (7.2-11.7) 07/06/18 05:45 Neut % (Auto) 68.7 % (50.0-75.0) 07/06/18 05:45 Lymph % (Auto) 24.6 % (20.0-40.0) 07/06/18 05:45 [place] % (Auto) 4.5 % (0.0-10.0) 07/06/18 05:45 Eos % (Auto) 1.8 % (0.0-4.0) 07/06/18 05:45 Baso % (Auto) 0.4 % (0.0-2.0) 07/06/18 05:45 Neut # (Auto) 2.8 K/uL (1.8-7.0) 07/06/18 05:45 Lymph # (Auto) 1.0 K/uL (1.0-4.3) 07/06/18 05:45 [place] # (Auto) 0.2 K/uL (0.0-0.8) 07/06/18 05:45 Eos # (Auto) 0.1 K/uL (0.0-0.7) 07/06/18 05:45 Baso # (Auto) 0.0 K/uL (0.0-0.2) 07/06/18 05:45 PT 10.4 Seconds (9.8-13.1) 07/04/18 10:50 INR 0.9 07/04/18 10:50 APTT 30.0 Seconds (25.6-37.1) 07/04/18 10:50 Sodium 133 mmol/l (132-148) 07/06/18 05:45 Potassium 4.7 MMOL/L (3.6-5.0) 07/06/18 05:45 Chloride 93 mmol/L (98-107) L 07/06/18 05:45 Carbon Dioxide 27 mmol/L (22-30) 07/06/18 05:45 Anion Gap 18 (10-20) 07/06/18 05:45 BUN 8 mg/dl (9-20) L 07/06/18 05:45 Creatinine 0.5 mg/dl (0.8-1.5) L 07/06/18 05:45 Est GFR ( Amer) > 60 07/06/18 05:45 Est GFR (Non-Af Amer) > 60 07/06/18 05:45 POC Glucose (mg/dL) 329 mg/dL (65-110) H 07/07/18 10:42 Random Glucose 284 mg/dL (75-110) H 07/06/18 05:45 Hemoglobin A1c 7.8 % (4.2-6.5) H 07/05/18 11:20 Calcium 9.2 mg/dL (8.4-10.2) 07/06/18 05:45 Total Bilirubin 1.4 mg/dl (0.2-1.3) H 07/06/18 05:45 AST 80 U/L (17-59) H D 07/06/18 05:45 ALT 49 U/L (21-72) 07/06/18 05:45 Alkaline Phosphatase 75 U/L (38-126) 07/06/18 05:45 Troponin I < 0.0120 ng/mL (0.00-0.120) 07/04/18 10:50 Total Protein 7.6 G/DL (6.3-8.2) 07/06/18 05:45 Albumin 4.5 g/dL (3.5-5.0) 07/06/18 05:45 Globulin 3.0 gm/dL (2.2-3.9) 07/06/18 05:45 Albumin/Globulin Ratio 1.5 (1.0-2.1) 07/06/18 05:45 Urine Color Yellow (YELLOW) 07/04/18 12:34 Urine Clarity Clear (Clear) 07/04/18 12:34 Urine pH 6.0 (5.0-8.0) 07/04/18 12:34 Ur Specific [place] 1.017 (1.003-1.030) 07/04/18 12:34 Urine Protein 30 mg/dL (NEGATIVE) 07/04/18 12:34 Urine Glucose (UA) >=500 mg/dL (NEGATIVE) 07/04/18 12:34 Urine Ketones 80 mg/dL (NEGATIVE) 07/04/18 12:34 Urine Blood Negative (NEGATIVE) 07/04/18 12:34 Urine Nitrate Negative (NEGATIVE) 07/04/18 12:34 Urine Bilirubin Negative (NEGATIVE) 07/04/18 12:34 Urine Urobilinogen 0.2-1.0 mg/dL (0.2-1.0) 07/04/18 12:34 Ur Leukocyte Esterase Neg Aaron/uL (Negative) 07/04/18 12:34 Urine RBC (Auto) < 1 /hpf (0-3) 07/04/18 12:34 Urine Microscopic WBC < 1 /hpf (0-5) 07/04/18 12:34 Urine Bacteria Rare (<OCC) 07/04/18 12:34 Hyaline Casts 0-2 /hpf (0-2) 07/04/18 12:34 - Hospital Course Hospital Course: 48 yo male with PMH of HTN, DM-1, newly dig HIV (not on any meds), alcohol abuse, DKA and hx of A.fernie with RVR was brought to ER in the EMS accompanied by his sister and father for evaluation and treatment of dizziness, s/p fall and severe back pain/L3 fracture. After admission, patient had urinary retention, dias was placed, Neurosurgery and Neurology was consulted: cleared by both to go home with back brace, no acute interventions needed at this time. Patient was seen by ID for HIV/not on any meds, instructed to see outpatient ID/HIV clinic. Patient seen by PT and recommending home. Patient is AAOx3, walking with back brace, urinating freely and tolerating PO, pain is well controlled. Patient understands and agrees with plan. Discharge Exam - Head Exam Head Exam: ATRAUMATIC, NORMAL INSPECTION, NORMOCEPHALIC - Eye Exam Eye Exam: EOMI, Normal appearance, PERRL Pupil Exam: NORMAL ACCOMODATION - ENT Exam ENT Exam: Mucous Membranes Moist - Neck Exam Neck exam: Normal Inspection - Respiratory Exam Respiratory Exam: Clear to PA & Lateral, NORMAL BREATHING PATTERN, UNREMARKABLE - Cardiovascular Exam Cardiovascular Exam: REGULAR RHYTHM, +S1, +S2 - GI/Abdominal Exam GI & Abdominal Exam: Normal Bowel Sounds, Soft. absent: Tenderness - Rectal Exam Rectal Exam: Deferred - Extremities Exam Extremities exam: normal inspection - Back Exam Back exam: tenderness (L3, mild). absent: CVA tenderness (L), CVA tenderness (R) - Neurological Exam Neurological exam: Alert, CN II-XII Intact, Normal Gait, Oriented x3 - Psychiatric Exam Psychiatric exam: Normal Affect - Skin Skin Exam: Dry, Intact, Normal Color, Warm Discharge Plan - Discharge Medications Prescriptions: Cyclobenzaprine [Flexeril] 10 mg PO BID PRN #20 tab PRN Reason: Muscle Spasm Ibuprofen [Motrin Tab] 800 mg PO Q6 #20 tab - Follow Up Plan Condition: GUARDED Disposition: HOME/ ROUTINE Instructions: TLSO and LSO, Back Precautions Additional Instructions: follow up with your primary MD 1 week Follow up with neurosurgery in 1 week Continue with pain management Continue with back brace as instructed Referrals: Bony Gipson MD [Medical Doctor] - Sagar Knight MD [Medical Doctor] - Carlos Peoples MD [Staff Provider] -
== END 2018-07-07 15:50 | disposition home or self-care (01) | DRG 552 ==
LOC: H.ER 09:43 → H.ERHOLD 12:13 → H.MEDSURG1 15:07
PROVIDERS: ADMIT Internal Medicine; ATTEND Internal Medicine
DX: S32.039A Unspecified fracture of third lumbar vertebra, initial encounter for closed fracture (principal); M51.26 Other intervertebral disc displacement, lumbar region; M51.36 Other intervertebral disc degeneration, lumbar region; E10.65 Type 1 diabetes mellitus with hyperglycemia; Z21 Asymptomatic human immunodeficiency virus [HIV] infection status; W01.0XXA Fall on same level from slipping, tripping and stumbling without subsequent striking against object, initial encounter; F10.10 Alcohol abuse, uncomplicated; I48.91 Unspecified atrial fibrillation; I10 Essential (primary) hypertension; R33.8 Other retention of urine; E78.00 Pure hypercholesterolemia, unspecified; E78.5 Hyperlipidemia, unspecified; F41.9 Anxiety disorder, unspecified; Y92.009 Unspecified place in unspecified non-institutional (private) residence as the place of occurrence of the external cause; Z79.4 Long term (current) use of insulin